=== PATIENT | female | born 1955 ===

== ENCOUNTER 2020-04-15 07:24 | Outpatient (REF) | payer OTHER, SELFPAY | END 2020-04-15 07:25 | disposition home or self-care (01) | LOC: HO.MDS 07:24 | PROVIDERS: PCP Emergency Medicine; Visit Provider Internal Medicine | DX: D50.9 Iron deficiency anemia, unspecified (principal) | CPT/HCPCS: 96365; 96366; J1200; J1750; Q0163 ==

== ENCOUNTER → 2020-05-14 09:47 | Outpatient (BNV) | payer OTHER, SELFPAY | PROVIDERS: PCP Emergency Medicine; Visit Provider Internal Medicine | DX: D50.9 Iron deficiency anemia, unspecified (principal) | CPT/HCPCS: 99213; 99214; G2211 ==

== ENCOUNTER → 2020-05-22 09:09 | Outpatient (REF) | payer OTHER, SELFPAY ==
--- NOTE | 2020-05-22 | NM_ITS ---
Myocardial perfusion study Indication: Chest pain to evaluate for myocardial ischemia Technique: The patient was brought in for a Lexiscan perfusion study on 05/22/2020. Patient performed low-level exercise and was injected 0.4 mg of Lexiscan intravenously. Within a minute of injection, 25 mCi of sestamibi was given intravenously. Images were obtained using the SPECT gamma camera interlaced with the gating device. Images were obtained in supine position. Resting perfusion study was performed on 05/23/2020. Patient was administered 25 mCi of sestamibi intravenously at rest. Images were then obtained in supine position. Images obtained with and without CT attenuation. Total DLP 73 mgy-cm. Images were processed with the software and compared side to side in short axis, horizontal long axis and vertical long axis views. Findings: The stress perfusion study showed non attenuated images show minimal thinning of lateral wall. Otherwise overall normal uptake of radiotracer in all segments. Attenuated corrected images normal uptake of radiotracer in all segments of LV myocardium. The gated study shows normal LV systolic function with calculated LVEF of greater than 70 %. LV cavity is normal in size. The gated study shows normal systolic wall thickening and contraction of segments. Resting study shows attenuated corrected images show mildly reduced uptake in the apex of the LV myocardium.. Gating at rest reveals normal systolic wall motion with ejection fraction at greater than 70 %. The findings are consistent with normal myocardial perfusion. NM/NM vania perf SPECT rest & str Impression: 1. Myocardial perfusion imaging study shows normal myocardial perfusion 2. Gated LVEF is greater than 70% 3. Transient ischemic dilatation not present EKG is nondiagnostic for ischemia
--- NOTE | 2020-05-22 09:30 | CA_ITS ---
Acquisition Time: 2020-05-22 10:37:49 Total Exercise Time: 00:02:00 Test Indications: Dyspnea Medications: ASA CLONAZAPAM VENTOLIN LEVOTHYROXINE LOSARTAN MELOXICAM PANTOPRAZOLE CRESTOR CARTIA METFORMIN Protocol: LEXISCAN Max HR: 139 BPM 89% of Pred: 156 BPM Max BP: 124/080 mmHG Max Work Load: 1.6 METS Pharmacological stress test with Lexiscan injection while walking on treadmill with report of sob, no chest discomfort, without arrythmia, with normotensive response to injection, with nondiagnostic EKG for ischemia. In recovery she was treated with Aminophyliine 75mg IVP to reverse Lexiscan with improvement in breathing. Nuclear images pending. Test reviewed with Dr Shafer. Referred By: Oliver Hoffman Overread By: KENISHA ALVAREZ
== END ==
LOC: HO.CARD 09:09
PROVIDERS: Visit Provider Internal Medicine Cardiovascular Disease
DX: R07.9 Chest pain, unspecified (principal)
CPT/HCPCS: 78452; 93017; A9500; J0280; J2785

== ENCOUNTER 2020-07-14 10:38 | Outpatient (REF) | payer OTHER, SELFPAY | END 2020-07-14 10:39 | disposition home or self-care (01) | LOC: HO.LAB 10:38 | PROVIDERS: Visit Provider Internal Medicine | DX: Z20.822 Contact with and (suspected) exposure to COVID-19 (principal) | CPT/HCPCS: 36415; C9803; U0003 ==

== ENCOUNTER 2020-08-08 10:27 | Outpatient (REF) | payer OTHER, SELFPAY ==
--- NOTE | 2020-08-08 10:33 | MM_ITS ---
EXAMINATION: MM SCREENING DIGITAL BREAST TOMOSYNTHESIS, BILATERAL CLINICAL INFORMATION: Screening. Asymptomatic. The lifetime risk of breast cancer based on the Tyrer-Cuzick Model is 4.5%. COMPARISON: Mammography: August 03, 2019 and studies dating back to May 04, 2012 TECHNIQUE: Digital breast tomosynthesis is performed in both the craniocaudal and mediolateral oblique views along with computer-aided detection (CAD). Synthesized 2D images are generated from the tomosynthesis. FINDINGS: The breasts are heterogeneously dense, which may obscure small masses (ACR BI-RADS breast composition Category c). There are no significant masses, abnormal calcifications, or other abnormalities. MM/MM tomosynthesis screening BI IMPRESSION: There are no significant changes from prior study. ASSESSMENT: BI-RADS 1: Negative RECOMMENDATION: Routine annual mammography screening. This patient's information was entered into a reminder system with a target due date for their next mammogram.
== END 2020-08-08 10:28 | disposition home or self-care (01) ==
LOC: HO.MAMMO 10:27
PROVIDERS: PCP Nurse Practitioner; Visit Provider Nurse Practitioner
DX: Z12.31 Encounter for screening mammogram for malignant neoplasm of breast (principal)
CPT/HCPCS: 77063; 77067

== ENCOUNTER 2020-09-17 12:35 | Outpatient (REF) | payer OTHER, SELFPAY ==
--- NOTE | ~2020-09-17 | XR_ITS ---
EXAMINATION: XR LUMBOSACRAL SPINE WITH OBLIQUES CLINICAL INFORMATION: Chronic low back pain. COMPARISON: None. TECHNIQUE: AP, both oblique, and lateral views of the lumbar spine. Lateral view of the lumbosacral junction. FINDINGS: There is normal lumbar lordosis. The vertebral heights, alignment and disc heights are normal. There is no visible acute fracture, dislocation or subluxation. There is no pars defect or listhesis. There is mild bilateral facet joint hypertrophy L4-L5 and L5-S1 disc levels. There is minimal levoscoliosis. The paravertebral soft tissues are normal. XR/XR lumbar spine 4V min IMPRESSION: Mild degenerative changes L4-L5 and L5-S1 disc levels. No visible acute fracture or dislocation seen.
== END 2020-09-17 12:36 | disposition home or self-care (01) ==
LOC: HO.XRAY 12:35
PROVIDERS: PCP Nurse Practitioner; Visit Provider Nurse Practitioner
DX: M54.42 Lumbago with sciatica, left side (principal)
CPT/HCPCS: 72110

== ENCOUNTER 2021-01-14 13:09 | Outpatient (REF) | payer OTHER, SELFPAY ==
--- NOTE | ~2021-01-14 | XR_ITS ---
EXAMINATION: XR CHEST CLINICAL INFORMATION: Cough COMPARISON: Previous chest x-ray December 2014 TECHNIQUE: 2 views of the chest were obtained. FINDINGS: The cardiac and mediastinal contours are normal. The lungs are clear. There is no pleural effusion or pneumothorax. There is mild degenerative change of the thoracic spine and curvature to the right. XR/XR chest 2V IMPRESSION: No evidence for acute disease in the chest.
== END 2021-01-14 13:10 | disposition home or self-care (01) ==
LOC: HO.XRAY 13:09
PROVIDERS: PCP Nurse Practitioner; Visit Provider Nurse Practitioner
DX: R05 Cough (principal)
CPT/HCPCS: 71046

== ENCOUNTER 2021-02-10 09:06 | Outpatient (REF) | payer OTHER, SELFPAY ==
--- NOTE | ~2021-02-10 | US_ITS ---
EXAMINATION: US ABDOMEN COMPLETE CLINICAL INFORMATION: Abdominal pain. Weight loss. COMPARISON: Ultrasound abdomen complete dated 11/29/2018. CT abdomen and pelvis with contrast dated 05/28/2016. TECHNIQUE: Real-time imaging of the abdominal viscera. FINDINGS: PANCREAS: Normal in size and echogenicity and contour. No pancreatic ductal distention. No retroperitoneal effusion. ABDOMINAL AORTA: The proximal, mid, and distal segments are normal in caliber. INFERIOR VENA CAVA: Visualized portions are normal. LIVER: The liver is normal in size and smooth in contour. There is borderline increased hepatic parenchymal echogenicity which may suggest mild underlying hepatic steatosis. There is no focal hepatic parenchymal lesion or intrahepatic ductal dilatation. Doppler shows portal flow towards the liver. GALLBLADDER: Normal. The gallbladder is physiologically distended without evidence of stones, sludge, polyps, wall thickening or pericholecystic fluid. COMMON BILE DUCT: Common duct measures up to 0.8 cm which is similar to prior exams. There is no extrinsic compression or intraluminal sludge or choledocholithiasis. RIGHT KIDNEY: Normal. No hydronephrosis. No renal calculi or focal parenchymal lesions. The kidney measures 10.8 cm in maximum dimension. LEFT KIDNEY: Normal. No hydronephrosis. No renal calculi or focal parenchymal lesions. The kidney measures 10.3 cm in maximum dimension. SPLEEN: Normal. The spleen measures 8.8 cm in maximum dimension. FREE FLUID: None. US/US abdomen complete IMPRESSION: 1. Liver normal size and homogeneous. Normal pancreas. 2. No cholelithiasis or intrahepatic ductal dilatation. Borderline prominent common duct, chronic/stable.
== END 2021-02-10 09:07 | disposition home or self-care (01) ==
LOC: HO.US 09:06
PROVIDERS: PCP Nurse Practitioner; Visit Provider Internal Medicine
DX: R10.84 Generalized abdominal pain (principal); D50.9 Iron deficiency anemia, unspecified; R63.4 Abnormal weight loss
CPT/HCPCS: 76700

== ENCOUNTER 2021-02-25 08:14 | Day surgery (SDC) | payer OTHER, SELFPAY ==
--- NOTE | 2021-02-24 08:14 | HO.ANESPROP2 ---
Documented by User: Dagmar Hackett NP 02/24/21 08:15 HPI - Anesthesia Eval Consult details Narrative: 66yo F for Upper Endoscopy and Colonoscopy PMFSH Active Problems Active Problems: All Active Problems (Updated 02/18/21 @ 15:56 by Katia Sutherland) Iron deficiency anemia (Chronic) Past Medical History Medical History Anemia Anxiety Asthma Depression Diabetes mellitus Gastritis Helicobacter positive gastritis Hypertension Hypothyroidism Iron deficiency anemia Surgical History Surgical History History of esophagogastroduodenoscopy (EGD) Hx of colonoscopy Hx of hysterectomy Social History Social History Alcohol intake: former Patient Tobacco Use Status: Never used Tobacco Use of substances other than those prescribed or required for medical reasons: No Are you DNR?: No Advance Directives: No Advance Directives Information Provided: Yes Meds Allergies Allergy/AdvReac Type Severity Reaction Status Date / Time lisinopril [Lisinopril] Allergy Unknown UNKNOWN Verified 02/25/21 09:02 Home Medications Medication Instructions Recorded Confirmed Last Taken Type ascorbic acid (vitamin C) 500 mg 500 mg PO DAILY 05/14/20 02/18/21 Unknown History tablet aspirin 81 mg tablet,delayed 81 mg PO DAILY 05/14/20 02/18/21 Unknown History release bupropion HCl 150 mg 24 hr tablet, 1 tab PO QAM 05/14/20 02/18/21 Unknown History extended release ciclopirox 8 % topical solution TOPICAL BEDTIME 05/14/20 Unknown History clonazepam 0.5 mg tablet 1 tab PO TID PRN 05/14/20 02/18/21 Unknown History diltiazem HCl 120 mg 1 cap PO DAILY 05/14/20 02/18/21 Unknown History capsule,extended release 24 hr ferrous sulfate 325 mg (65 mg 1 tab PO DAILY 05/14/20 02/18/21 Unknown History iron) tablet levothyroxine 75 mcg tablet 75 mcg PO DAILY 05/14/20 02/18/21 Unknown History losartan 50 mg tablet 1 tab PO DAILY 05/14/20 02/18/21 Unknown History metformin 500 mg tablet 2 tab PO DAILY 05/14/20 11/10/20 Unknown History mirtazapine 30 mg tablet 1 tab PO BEDTIME 05/14/20 02/18/21 Unknown History pantoprazole 20 mg tablet,delayed 1 tab PO DAILY 05/14/20 02/18/21 Unknown History release rosuvastatin 20 mg tablet 1 tab PO DAILY 05/14/20 02/18/21 Unknown History albuterol sulfate 90 mcg/actuation 1 inh INHALATION QID PRN 02/18/21 02/18/21 Unknown History aerosol inhaler (ProAir HFA) cholecalciferol (vitamin D3) 25 1 cap PO DAILY 02/18/21 02/18/21 Unknown History mcg (1,000 unit) capsule docusate sodium 100 mg capsule 1 cap PO DAILY 02/18/21 02/18/21 Unknown History (DOK) lidocaine 5 % topical ointment 1 appl TOPICAL QD-QID PRN 02/18/21 02/18/21 Unknown History topiramate 100 mg tablet 1 tab PO BEDTIME 02/18/21 02/18/21 Unknown History Exam Exam Date and Time: February 24, 202114 Pertinent Lab Results Pertinent Lab Results: Laboratory Tests 11/10/20 09:56 WBC 5.1 Hgb 12.1 Hct 38.3 Plt Count 237 Narrative Narrative: Stress MIBI 05/2020 NM vania perf SPECT rest & str Impression: ? 1.? Myocardial perfusion imaging study shows normal myocardial perfusion 2.? Gated LVEF is greater than 70% 3. Transient ischemic dilatation not present ? EKG is nondiagnostic for ischemia Assessment and Plan Assessment Anesthesia Assessment: Chart Reviewed Documented by User: Kasey Davies MD 02/25/21 10:00 [facility] Past Medical History Medical History Anemia Anxiety Asthma Depression Diabetes mellitus Gastritis Helicobacter positive gastritis Hypertension Hypothyroidism Iron deficiency anemia Surgical History Surgical History History of esophagogastroduodenoscopy (EGD) Hx of colonoscopy Hx of hysterectomy History of Problems with Anesthesia: No Social History Social History Alcohol intake: former Patient Tobacco Use Status: Never used Tobacco Use of substances other than those prescribed or required for medical reasons: No Are you DNR?: No Advance Directives: No Advance Directives Information Provided: Yes Meds Allergies Allergy/AdvReac Type Severity Reaction Status Date / Time lisinopril [Lisinopril] Allergy Unknown UNKNOWN Verified 02/25/21 09:02 Home Medications Medication Instructions Recorded Confirmed Last Taken Type ascorbic acid (vitamin C) 500 mg 500 mg PO DAILY 05/14/20 02/18/21 Unknown History tablet aspirin 81 mg tablet,delayed 81 mg PO DAILY 05/14/20 02/18/21 Unknown History release bupropion HCl 150 mg 24 hr tablet, 1 tab PO QAM 05/14/20 02/18/21 Unknown History extended release ciclopirox 8 % topical solution TOPICAL BEDTIME 05/14/20 Unknown History clonazepam 0.5 mg tablet 1 tab PO TID PRN 05/14/20 02/18/21 Unknown History diltiazem HCl 120 mg 1 cap PO DAILY 05/14/20 02/18/21 Unknown History capsule,extended release 24 hr ferrous sulfate 325 mg (65 mg 1 tab PO DAILY 05/14/20 02/18/21 Unknown History iron) tablet levothyroxine 75 mcg tablet 75 mcg PO DAILY 05/14/20 02/18/21 Unknown History losartan 50 mg tablet 1 tab PO DAILY 05/14/20 02/18/21 Unknown History metformin 500 mg tablet 2 tab PO DAILY 05/14/20 11/10/20 Unknown History mirtazapine 30 mg tablet 1 tab PO BEDTIME 05/14/20 02/18/21 Unknown History pantoprazole 20 mg tablet,delayed 1 tab PO DAILY 05/14/20 02/18/21 Unknown History release rosuvastatin 20 mg tablet 1 tab PO DAILY 05/14/20 02/18/21 Unknown History albuterol sulfate 90 mcg/actuation 1 inh INHALATION QID PRN 02/18/21 02/18/21 Unknown History aerosol inhaler (ProAir HFA) cholecalciferol (vitamin D3) 25 1 cap PO DAILY 02/18/21 02/18/21 Unknown History mcg (1,000 unit) capsule docusate sodium 100 mg capsule 1 cap PO DAILY 02/18/21 02/18/21 Unknown History (DOK) lidocaine 5 % topical ointment 1 appl TOPICAL QD-QID PRN 02/18/21 02/18/21 Unknown History topiramate 100 mg tablet 1 tab PO BEDTIME 02/18/21 02/18/21 Unknown History Exam Airway Mallampati Class: II TM Dist: >3cm Neck ROM: Full Loose/Missing/Broken Teeth: No Heart: RRR Lungs: CTA Assessment and Plan Assessment Anesthesia Assessment: Anesthesia Plan Discussed Final Anesthetic Review History of Problems with Anesthesia: No NPO: Yes ASA Class: II Final Preanesthetic Review: Meds/Allgs Chart Reviewed, Consent Obtained/Reviewed and Anes Risks/Benef Reviewed Patient Risk: Low Procedure Risk: Intermediate Anesthetic Plan Anesthetic Plan: MAC: Disposition: Standard PACU
[2021-02-25 08:50] LABS: Glucose, Whole Blood 91 mg/dL (60-115)
[2021-02-25 09:03] VITALS: BP 127/77; PULSE 85; RESP 16; TEMP 36; O2SAT 100; BMI 23.9
[2021-02-25] MEDS: Lactated Ringers 1,000 ML 100 ML IVCONT (09:11)
[2021-02-25 11:14] VITALS: BP 107/60; PULSE 70; RESP 14; TEMP 36; O2SAT 98
--- NOTE | 2021-02-25 11:18 | P.BOP_ITS ---
Brief Operative Note Date of Service: 02/25/21 Pre-op diagnosis: Anemia, GERD Post-op diagnosis: other (Hiatal hernia, GERD, Colon polyp) Procedure: EGD with biopsies, Colonoscopy to the cecum with bx/removal of polyp Surgeon: Barry Pugh Anesthesia: MAC Was an Exhaust Machine Operator used for this Procedure?: No Estimated blood loss (mL): 3.0 Pathology: other (A. Descending duodenum B. Gastric antrum C. EG Junction at 35cm D. Ascending colon polyp) Condition: stable Disposition: PACU
[2021-02-25 11:19] VITALS: BP 119/68; PULSE 75; RESP 16; O2SAT 100
--- NOTE | 2021-02-25 11:41 | OP_ITS ---
SURGEON: Barry Pugh MD INDICATIONS: The patient presents for evaluation of gastroesophageal reflux, abdominal discomfort, iron deficiency anemia. Full consent has been obtained from her for both procedures, including risks of bleeding and perforation. PREOPERATIVE DIAGNOSIS: POSTOPERATIVE DIAGNOSIS: PROCEDURE PERFORMED: Esophagogastroduodenoscopy with biopsies, and colonoscopy to cecum with biopsy and removal of polyp. ESTIMATED BLOOD LOSS: COMPLICATIONS: ANESTHESIA: Monitored anesthesia care. ASSISTANTS: SPECIMENS: PREOPERATIVE DIAGNOSES: Gastroesophageal reflux, abdominal discomfort, iron-deficiency anemia. POSTOPERATIVE DIAGNOSES: Gastroesophageal reflux, abdominal discomfort, iron-deficiency anemia, hiatal hernia, rule out celiac disease, rule out Helicobacter pylori, colon polyp, diverticulosis, internal hemorrhoids, and limited colon prep. DESCRIPTION OF PROCEDURE: The patient was placed in the left lateral decubitus position. The Olympus video gastroscope was passed in the posterior oropharynx and upper esophagus under direct vision. The scope was passed slowly into the distal esophagus. The gastroesophageal junction appeared at 35 cm. There was some slight irregularity, but no evidence of esophagitis. The scope entered into the stomach. There was a small hiatal hernia. The scope was advanced to pylorus and duodenum was cannulated to the descending portion. The duodenum including the bulb appeared normal without mass or ulceration. Biopsies were obtained from the descending duodenum. The scope was withdrawn back into the stomach. The gastric antrum and body appeared normal with good peristalsis. The scope was retroflexed visualizing the proximal stomach carefully which appeared normal, without any sign of mass or ulceration. The scope was straightened. Biopsies were obtained from the gastric antrum. Scope was withdrawn back into the esophagus. Biopsies were obtained at the EG junction at 35 cm. Proximal to this, the esophageal mucosa appeared normal. The scope was withdrawn from the patient. She was turned around for colonoscopy. The digital rectal exam revealed no abnormalities. The Olympus video pediatric colonoscope was entered into the rectum and advanced to the cecum with the assistance of abdominal wall pressure. Once in the cecum, I did identify normal-appearing cecal pouch with appendiceal orifice and a normal-appearing ileocecal valve. There was transillumination of light deep in the right lower quadrant. The entire cecum and ileocecal valve appeared normal. The scope was slowly withdrawn assessing all mucosal surfaces carefully. Preparation in the ascending colon was very good, but preparation more distally was somewhat limited by a fair amount of liquid and some small amount of solid stool. In the proximal ascending colon, was a flat approximately 5 mm polyp, which was biopsied and completely removed with cold biopsy forceps. I did not visualize any other polyps, colitis, nor angiodysplasias, although visualization was limited due to the prep. There was a moderate amount of sigmoid diverticulosis. In the rectum, scope was retroflexed visualizing internal hemorrhoids, but no other pathology. The rectal mucosa appeared normal. The scope was straightened out and withdrawn from the patient. She tolerated both procedures well and was returned to the recovery area in stable condition. IMPRESSION: 1. Hiatal hernia, gastroesophageal reflux. 2. Rule out celiac disease. 3. Rule out Helicobacter pylori. 4. Colon polyp. 5. Diverticulosis. 6. Internal hemorrhoids. 7. Limited colon prep. PLAN: The results of the biopsy will be checked. She will continue her pantoprazole for relief of her reflux. She was advised that she could resume her iron. She was advised not to use any aspirin and NSAIDs for 1 week. When I see her in followup, we will decide about repeating her colonoscopy with a better clean out. MD IRENE Araiza/DAMON / [id number]
== END 2021-02-25 11:53 | disposition home or self-care (01) ==
PROVIDERS: PCP Internal Medicine; Visit Provider Internal Medicine
PROC: (CPT 45380; principal; 2021-02-25 09:30)
DX: D50.9 Iron deficiency anemia, unspecified (principal); D12.2 Benign neoplasm of ascending colon; K57.30 Diverticulosis of large intestine without perforation or abscess without bleeding; K64.8 Other hemorrhoids; K58.0 Irritable bowel syndrome with diarrhea; R63.4 Abnormal weight loss; K21.9 Gastro-esophageal reflux disease without esophagitis; K22.70 Barrett's esophagus without dysplasia; K44.9 Diaphragmatic hernia without obstruction or gangrene; I10 Essential (primary) hypertension; E11.9 Type 2 diabetes mellitus without complications; J45.909 Unspecified asthma, uncomplicated; Z79.84 Long term (current) use of oral hypoglycemic drugs; Z79.82 Long term (current) use of aspirin; Z79.899 Other long term (current) drug therapy
CPT/HCPCS: 45380; 43239; 82947; 88305; 88342

== ENCOUNTER 2021-06-30 09:11 | Outpatient (REF) | payer OTHER, SELFPAY ==
--- NOTE | ~2021-06-30 | MM_ITS ---
EXAMINATION: BONE DENSITOMETRY CLINICAL INDICATION: Osteoporosis. COMPARISON: This is the patient's baseline examination. TECHNIQUE: Using a [employer] DXA System (software version: 13.1) manufactured by [employer], dual-energy x-ray absorptiometry was performed of the lumbar spine and left hip. The images are of good technical quality. Summary results are attached. FINDINGS: AP SPINE L1-L4: BMD 1.136 g/cm2, Z-score 1.3, T-score -0.4, normal. LEFT FEMUR, NECK: BMD 0.964 g/cm2, Z-score 1.0, T-score -0.5, normal. LEFT FEMUR, TOTAL: BMD 1.027 g/cm2, Z-score 1.4, T-score 0.2, normal. IDENTIFIED RISK FACTORS: Early menopause, hysterectomy, left oophorectomy, secondary osteoporosis. HISTORY OF FRACTURE: None listed. MEDICATIONS: Calcium, vitamin D. MM/XR DEXA axial skeleton IMPRESSION: 1. DIAGNOSIS: Normal bone density based on the lowest T-score value of -0.5 in the femoral neck applying World Health Organization criteria. 2. 10-YEAR FRACTURE RISK PREDICTION, FRAX: Major osteoporotic fracture (clinical spine, forearm, hip or shoulder) 4.1%. Hip fracture 0.2%. 3. Treatment Recommendations: NOF guidelines recommend consideration for treatment in postmenopausal women and men age 50 and older presenting with the following: -A hip or vertebral (clinical or morphometric) fracture. -T-score less than or equal to -2.5 at the femoral neck or spine after appropriate evaluation to exclude secondary causes. -Low bone mass at the hip or spine and a 10-year fracture probability by FRAX of greater than or equal to 3% for hip fracture or greater than or equal to 20% for major osteoporotic fracture based on the [place] adapted WHO algorithm. 4. Other Recommendations: All treatment decisions require clinical judgment and consideration of individual patient factors, including patient preferences, comorbidities, previous drug use, risk factors not captured in the FRAX model (e.g. frailty, falls, vitamin D deficiency, increased bone turnover, interval significant decline in bone density) and possible under or overestimation of fracture risk by FRAX. FUTURE SCAN RECOMMENDATION: People with diagnosed cases of osteoporosis or at high risk for fracture should have regular bone mineral density tests. For patients eligible for Medicare, routine testing is allowed once every 2 years. The testing frequency can be increased to one year for patients who have rapidly progressing disease, those who are receiving or discontinuing medical therapy to restore bone mass, or have additional risk factors.
== END 2021-06-30 09:12 | disposition home or self-care (01) ==
LOC: HO.MAMMO 09:11
PROVIDERS: Visit Provider Nurse Practitioner
DX: Z13.820 Encounter for screening for osteoporosis (principal); M85.80 Other specified disorders of bone density and structure, unspecified site; Z78.0 Asymptomatic menopausal state; Z90.721 Acquired absence of ovaries, unilateral; Z79.899 Other long term (current) drug therapy
CPT/HCPCS: 77080

== ENCOUNTER 2021-07-07 12:01 | Outpatient (REF) | payer OTHER, SELFPAY ==
[2021-07-07 13:25] LABS: COVID-19 Test Negative (Negative); IDNOW Serial# 16C4AD1C
== END 2021-07-07 12:02 | disposition home or self-care (01) ==
LOC: HO.LAB 12:01
PROVIDERS: Visit Provider Internal Medicine
DX: Z20.822 Contact with and (suspected) exposure to COVID-19 (principal)
CPT/HCPCS: 36415; 87635; C9803

== ENCOUNTER 2021-08-13 08:50 | Outpatient (REF) | payer OTHER, SELFPAY ==
--- NOTE | ~2021-08-13 | MM_ITS ---
EXAMINATION: MM SCREENING DIGITAL BREAST TOMOSYNTHESIS, BILATERAL CLINICAL INFORMATION: Screening. Asymptomatic. The lifetime risk of breast cancer based on the Tyrer-Cuzick Model is 3.3%. COMPARISON: Mammography: August 08, 2020 and studies dating back to May 29, 2014 TECHNIQUE: Digital breast tomosynthesis is performed in both the craniocaudal and mediolateral oblique views along with computer-aided detection (CAD). Synthesized 2D images are generated from the tomosynthesis. FINDINGS: The breasts are heterogeneously dense, which may obscure small masses (ACR BI-RADS breast composition Category c). There are no significant masses, abnormal calcifications, or other abnormalities. MM/MM tomosynthesis screening BI IMPRESSION: There are no significant changes from prior study. ASSESSMENT: BI-RADS 1: Negative RECOMMENDATION: Routine annual mammography screening. This patient's information was entered into a reminder system with a target due date for their next mammogram.
== END 2021-08-13 08:51 | disposition home or self-care (01) ==
LOC: HO.MAMMO 08:50
PROVIDERS: PCP Nurse Practitioner; Visit Provider Internal Medicine
DX: Z12.31 Encounter for screening mammogram for malignant neoplasm of breast (principal)
CPT/HCPCS: 77063; 77067

== ENCOUNTER 2021-10-16 08:55 | Day surgery (SDC) | payer OTHER, SELFPAY ==
[2021-10-12 15:28] VITALS: BMI 23.9
--- NOTE | 2021-10-15 11:52 | P.CONAN_ITS ---
Documented by User: Dagmar Hackett NP 10/15/21 11:55 HPI - Anesthesia Eval Consult details Narrative: 66yo F for Colonoscopy s/p Upper and [place] 02/2021 with TIVA PMFSH Active Problems Active Problems: All Active Problems (Updated 05/13/21 @ 09:49 by Caren Ventura MD) Iron deficiency anemia (Chronic) Past Medical History Medical History Anemia Anxiety Asthma Depression Diabetes mellitus Gastritis Helicobacter positive gastritis Hypertension Hypothyroidism Iron deficiency anemia Surgical History Surgical History (Updated 10/12/21 @ 15:27 by Katia Sutherland, RN) History of esophagogastroduodenoscopy (EGD) Hx of colonoscopy Hx of hysterectomy History of Problems with Anesthesia: No Social History Social History Alcohol intake: former Patient Tobacco Use Status: Never used Tobacco Use of substances other than those prescribed or required for medical reasons: No Are you DNR?: No Advance Directives: No Advance Directives Information Provided: Yes Meds Allergies Allergy/AdvReac Type Severity Reaction Status Date / Time lisinopril [Lisinopril] Allergy Unknown UNKNOWN Verified 07/13/21 10:39 Home Medications Medication Instructions Recorded Confirmed Last Taken Type ascorbic acid (vitamin C) 500 mg 500 mg PO DAILY 05/14/20 10/12/21 Unknown History tablet aspirin 81 mg tablet,delayed 81 mg PO DAILY 05/14/20 10/12/21 Unknown History release bupropion HCl 150 mg 24 hr tablet, 1 tab PO QAM 05/14/20 10/12/21 Unknown History extended release clonazepam 0.5 mg tablet 1 tab PO TID PRN 05/14/20 10/12/21 Unknown History diltiazem HCl 120 mg 1 cap PO DAILY 05/14/20 10/12/21 Unknown History capsule,extended release 24 hr ferrous sulfate 325 mg (65 mg 1 tab PO DAILY 05/14/20 10/12/21 Unknown History iron) tablet levothyroxine 75 mcg tablet 75 mcg PO DAILY 05/14/20 10/12/21 Unknown History losartan 50 mg tablet 1 tab PO DAILY 05/14/20 10/12/21 Unknown History metformin 500 mg tablet 2 tab PO BID 05/14/20 10/12/21 Unknown History mirtazapine 30 mg tablet 1 tab PO BEDTIME 05/14/20 10/12/21 Unknown History pantoprazole 20 mg tablet,delayed 1 tab PO DAILY 05/14/20 10/12/21 Unknown History release rosuvastatin 20 mg tablet 1 tab PO DAILY 05/14/20 10/12/21 Unknown History albuterol sulfate 90 mcg/actuation 1 inh INHALATION QID PRN 02/18/21 10/12/21 Unknown History aerosol inhaler (ProAir HFA) cholecalciferol (vitamin D3) 25 1 cap PO DAILY 02/18/21 10/12/21 Unknown History mcg (1,000 unit) capsule docusate sodium 100 mg capsule 1 cap PO DAILY 02/18/21 10/12/21 Unknown History (DOK) topiramate 100 mg tablet 1 tab PO BEDTIME 02/18/21 10/12/21 Unknown History tizanidine 4 mg tablet 4 mg PO BEDTIME PRN 07/13/21 10/12/21 Unknown History Exam Exam Date and Time: October 15, 2021 1152 Height,Weight and Vital Signs: Height 5 ft 3 in Weight 61.235 kg Narrative Narrative: Stress MIBI 05/2020 NM vania perf SPECT rest & str Impression: ? 1.? Myocardial perfusion imaging study shows normal myocardial perfusion 2.? Gated LVEF is greater than 70% 3. Transient ischemic dilatation not present ? EKG is nondiagnostic for ischemia Assessment and Plan Assessment Anesthesia Assessment: Chart Reviewed Final Anesthetic Review History of Problems with Anesthesia: No Documented by User: Hayder Cordon MD 10/21/21 00:01 [facility] Past Medical History Medical History Anemia Anxiety Asthma Depression Diabetes mellitus Gastritis Helicobacter positive gastritis Hypertension Hypothyroidism Iron deficiency anemia Family History Family history of problems with anesthesia: No Surgical History Surgical History (Updated 10/12/21 @ 15:27 by Katia Sutherland RN) History of esophagogastroduodenoscopy (EGD) Hx of colonoscopy Hx of hysterectomy Social History Social History Alcohol intake: former Patient Tobacco Use Status: Never used Tobacco Use of substances other than those prescribed or required for medical reasons: No Are you DNR?: No Advance Directives: No Advance Directives Information Provided: Yes Meds Allergies Allergy/AdvReac Type Severity Reaction Status Date / Time lisinopril [Lisinopril] Allergy Unknown UNKNOWN Verified 07/13/21 10:39 Home Medications Medication Instructions Recorded Confirmed Last Taken Type ascorbic acid (vitamin C) 500 mg 500 mg PO DAILY 05/14/20 10/12/21 Unknown History tablet aspirin 81 mg tablet,delayed 81 mg PO DAILY 05/14/20 10/12/21 Unknown History release bupropion HCl 150 mg 24 hr tablet, 1 tab PO QAM 05/14/20 10/12/21 Unknown History extended release clonazepam 0.5 mg tablet 1 tab PO TID PRN 05/14/20 10/12/21 Unknown History diltiazem HCl 120 mg 1 cap PO DAILY 05/14/20 10/12/21 Unknown History capsule,extended release 24 hr ferrous sulfate 325 mg (65 mg 1 tab PO DAILY 05/14/20 10/12/21 Unknown History iron) tablet levothyroxine 75 mcg tablet 75 mcg PO DAILY 05/14/20 10/12/21 Unknown History losartan 50 mg tablet 1 tab PO DAILY 05/14/20 10/12/21 Unknown History metformin 500 mg tablet 2 tab PO BID 05/14/20 10/12/21 Unknown History mirtazapine 30 mg tablet 1 tab PO BEDTIME 05/14/20 10/12/21 Unknown History pantoprazole 20 mg tablet,delayed 1 tab PO DAILY 05/14/20 10/12/21 Unknown History release rosuvastatin 20 mg tablet 1 tab PO DAILY 05/14/20 10/12/21 Unknown History albuterol sulfate 90 mcg/actuation 1 inh INHALATION QID PRN 02/18/21 10/12/21 Unknown History aerosol inhaler (ProAir HFA) cholecalciferol (vitamin D3) 25 1 cap PO DAILY 02/18/21 10/12/21 Unknown History mcg (1,000 unit) capsule docusate sodium 100 mg capsule 1 cap PO DAILY 02/18/21 10/12/21 Unknown History (DOK) topiramate 100 mg tablet 1 tab PO BEDTIME 02/18/21 10/12/21 Unknown History tizanidine 4 mg tablet 4 mg PO BEDTIME PRN 07/13/21 10/12/21 Unknown History Exam Airway Mallampati Class: III TM Dist: >3cm Neck ROM: Full Loose/Missing/Broken Teeth: Yes Heart: s1 s2 Lungs: b/l breath sounds Assessment and Plan Assessment Anesthesia Assessment: Anesthesia Plan Discussed Final Anesthetic Review Family History of Problems with Anesthesia: No NPO: Yes ASA Class: II Final Preanesthetic Review: Meds/Allgs Chart Reviewed, Consent Obtained/Reviewed and Anes Risks/Benef Reviewed Patient Risk: Intermediate Procedure Risk: Intermediate Anesthetic Plan Anesthetic Plan: MAC: Disposition: Standard PACU
[2021-10-16 10:18] VITALS: BP 131/71; PULSE 66; RESP 16; TEMP 36.3; O2SAT 98
[2021-10-16 10:19] LABS: Glucose, Whole Blood 100 mg/dL (60-115)
[2021-10-16] MEDS: Lactated Ringers 1,000 ML 100 ML IVCONT (10:39)
[2021-10-16 11:30] VITALS: BP 90/50; PULSE 64; RESP 16; TEMP 36.6; O2SAT 99
--- NOTE | 2021-10-16 11:32 | PM.OP ---
Brief Operative Note Date of Service: 10/16/21 Pre-op diagnosis: Screening Post-op diagnosis: other (Diverticulosis) Procedure: Colonoscopy to the cecum and TI Surgeon: Barry Pugh Anesthesia: MAC Was an Journal Box Inspector used for this Procedure?: No Estimated blood loss (mL): 0 Pathology: none sent Condition: stable Disposition: PACU
[2021-10-16 11:45] VITALS: BP 120/64; PULSE 74; RESP 18; TEMP 36.7; O2SAT 100
--- NOTE | 2021-10-16 14:47 | OP_ITS ---
SURGEON: Barry Pugh MD INDICATIONS: The patient presents for evaluation of a personal history of a tubular adenoma of the colon and colorectal cancer screening. Full consent was obtained from her for this, including risks of bleeding and perforation. PREOPERATIVE DIAGNOSIS: Personal history of tubular adenoma of the colon and colorectal cancer screening. POSTOPERATIVE DIAGNOSIS: PROCEDURE PERFORMED: Colonoscopy to the cecum and terminal ileum. ESTIMATED BLOOD LOSS: COMPLICATIONS: ANESTHESIA: Monitored anesthesia care. ASSISTANTS: SPECIMENS: POSTOPERATIVE DIAGNOSES: Personal history of tubular adenoma of the colon and colorectal cancer screening, sigmoid diverticulosis, and internal hemorrhoids. DESCRIPTION OF PROCEDURE: The patient was placed in the left lateral decubitus position. The digital rectal exam revealed no abnormalities. The Olympus video pediatric colonoscope was entered into the rectum and advanced easily to the cecum. Once in the cecum I did identify normal-appearing cecal pouch with appendiceal orifice and a normal-appearing ileocecal valve. The terminal ileum was cannulated and appeared normal. The scope was withdrawn back from the colon. The entire cecum and ileocecal valve appeared normal. The scope was slowly withdrawn assessing all mucosal surfaces carefully. Preparation was excellent after the 2 day colon prep.. I did not visualize any sign of polyps, colitis, or angiodysplasia. There was a mild amount of sigmoid diverticulosis. In the rectum, scope was retroflexed visualizing small internal hemorrhoids, but no other pathology. The rectal mucosa appeared normal. The scope was straightened and withdrawn from the patient. She tolerated the procedure well and was returned to recovery area in stable condition. IMPRESSION: 1. Sigmoid diverticulosis. 2. Internal hemorrhoids. PLAN: Given the negative exam and her previous history of a tubular adenoma, I would recommend a followup colonoscopy in 5 years for further screening. She will be due for an upper endoscopy in 2022 in regard to the history of Navarro's esophagus. She will continue her regimen of dicyclomine and pantoprazole for the irritable bowel syndrome and reflux, respectively. She was advised to resume her aspirin and iron tomorrow. MD IRENE Araiza/DAMON / [id number] MTDD
== END 2021-10-16 12:21 | disposition home or self-care (01) ==
PROVIDERS: PCP Nurse Practitioner; Visit Provider Internal Medicine
PROC: 0DJD8ZZ Inspection of Lower Intestinal Tract, Via Natural or Artificial Opening Endoscopic (ICD-10-PCS; CPT 45378; principal; 2021-10-16 10:00)
DX: Z12.11 Encounter for screening for malignant neoplasm of colon (principal); Z86.010 Personal history of colon polyps; K57.30 Diverticulosis of large intestine without perforation or abscess without bleeding; K64.8 Other hemorrhoids; K58.1 Irritable bowel syndrome with constipation; K21.9 Gastro-esophageal reflux disease without esophagitis; K22.70 Barrett's esophagus without dysplasia; I10 Essential (primary) hypertension; E03.9 Hypothyroidism, unspecified; J45.909 Unspecified asthma, uncomplicated; D50.9 Iron deficiency anemia, unspecified; E11.9 Type 2 diabetes mellitus without complications; Z79.84 Long term (current) use of oral hypoglycemic drugs; Z79.82 Long term (current) use of aspirin; Z79.899 Other long term (current) drug therapy; Z88.8 Allergy status to other drugs, medicaments and biological substances
CPT/HCPCS: G0105; 82947

== ENCOUNTER 2022-05-12 15:43 | Outpatient (REF) | payer OTHER, SELFPAY ==
--- NOTE | 2022-05-12 10:00 | EMG_ITS ---
Please see scanned EMG / Nerve Conduction Report. MTDD
== END 2022-05-12 15:44 | disposition home or self-care (01) ==
LOC: HO.NEURO 15:43
PROVIDERS: Visit Provider Nurse Practitioner
DX: R20.2 Paresthesia of skin (principal)
CPT/HCPCS: 95885; 95910

== ENCOUNTER 2022-08-16 08:46 | Outpatient (REF) | payer OTHER, SELFPAY ==
--- NOTE | ~2022-08-16 | MM_ITS ---
EXAMINATION: MM SCREENING DIGITAL BREAST TOMOSYNTHESIS, BILATERAL CLINICAL INFORMATION: Screening. Asymptomatic. The lifetime risk of breast cancer based on the Tyrer-Cuzick Model is 5%. COMPARISON: Mammography: August 13, 2021 and studies dating back to June 19, 2015 TECHNIQUE: Digital breast tomosynthesis is performed in both the craniocaudal and mediolateral oblique views along with computer-aided detection (CAD). Synthesized 2D images are generated from the tomosynthesis. FINDINGS: The breasts are heterogeneously dense, which may obscure small masses (ACR BI-RADS breast composition Category c). There are no significant masses, abnormal calcifications, or other abnormalities. MM/MM tomosynthesis screening BI IMPRESSION: No significant changes from prior exam. ASSESSMENT: BI-RADS 1: Negative RECOMMENDATION: Routine annual mammography screening. This patient's information was entered into a reminder system with a target due date for their next mammogram.
== END 2022-08-16 08:47 | disposition home or self-care (01) ==
LOC: HO.MAMMO 08:46
PROVIDERS: PCP General Practice; Visit Provider General Practice
DX: Z12.31 Encounter for screening mammogram for malignant neoplasm of breast (principal)
CPT/HCPCS: 77063; 77067

== ENCOUNTER 2022-08-23 15:17 | Outpatient (REF) | payer OTHER, SELFPAY ==
--- NOTE | ~2022-08-23 | XR_ITS ---
EXAMINATION: XR HAND, RIGHT CLINICAL INFORMATION: Right hand pain, palmar surface COMPARISON: None TECHNIQUE: PA, lateral, and oblique views of the right hand. FINDINGS: Bone alignment is normal. No fracture or dislocation. Mild degenerative arthritis at the IP joint. Normal soft tissues. 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
== END 2022-08-23 15:18 | disposition home or self-care (01) ==
LOC: HO.XRAY 15:17
PROVIDERS: PCP General Practice; Visit Provider General Practice
DX: M79.641 Pain in right hand (principal)
CPT/HCPCS: 73130

== ENCOUNTER 2023-01-19 15:52 | Emergency (ER) | payer OTHER, SELFPAY ==
--- NOTE | ~2023-01-19 | CT_ITS ---
EXAMINATION: CT ABDOMEN AND PELVIS WITHOUT CONTRAST CLINICAL INFORMATION: Right upper quadrant pain. COMPARISON: Abdominal ultrasound 01/19/2023. CT abdomen/pelvis 05/28/2016. TECHNIQUE: Multidetector volumetric imaging was performed from the superior aspect of the liver through the pubic symphysis. Sagittal and coronal reformatted images were obtained on the technologist's workstation. This CT examination was performed using dose optimization techniques as appropriate, variously including the following: *Automated exposure control *Adjustment of mA and/or kV according to patient size (this includes techniques or standardized protocols for targeted exams where dose is matched to indication/reason for exam; i.e. extremities or head) *Use of iterative reconstruction technique DLP: 387 mGy-cm FINDINGS: The lack of intravenous contrast limits evaluation of the solid visceral organs including the liver, spleen, pancreas, and kidneys. LUNG BASES: The visualized lung bases are unremarkable. LIVER, GALLBLADDER, AND BILIARY TREE: The liver is normal in size, shape, and attenuation. A too small to characterize hypodensity in the right hepatic lobe axial image 13 series 2 is unchanged compared to 05/28/2016 which is reassuring. No biliary ductal dilatation is present. The gallbladder is unremarkable with no evidence of radiopaque gallstones, gallbladder wall thickening, or obvious pericholecystic inflammatory changes. PANCREAS: Limited noncontrast examination. No significant peripancreatic free fluid or fat stranding. SPLEEN: Unremarkable. ADRENAL GLANDS: Unremarkable. KIDNEYS AND URETERS: Limited noncontrast examination. No nephrolithiasis or hydronephrosis. No significant perirenal fat stranding. BLADDER: Decompressed limiting its evaluation. GASTROINTESTINAL TRACT: The stomach and the small bowel are nondilated. Normal appendix. Colonic diverticulosis without significant pericolonic inflammatory changes. Moderate degree of stool content in the colon. No evidence of bowel obstruction. ABDOMINAL WALL: No significant hernia is appreciated. LYMPH NODES: No lymphadenopathy. VASCULAR: Normal caliber of the abdominal aorta. Scattered atherosclerotic disease. PELVIC VISCERA: Hysterectomy. OSSEOUS STRUCTURES: No acute or aggressive appearing osseous findings. Degenerative changes of the spine. CT/CT abdomen pelvis wo IV con IMPRESSION: No acute abdominal or pelvic abnormalities to explain the patient's symptoms. Correlating diverticulosis without significant pericolonic inflammatory changes to suspect acute diverticulitis. Moderate degree of stool content in the colon that may indicate constipation the appropriate clinical context.
--- NOTE | ~2023-01-19 | US_ITS ---
EXAMINATION: US ABDOMEN LIMITED CLINICAL INFORMATION: Right upper quadrant pain. COMPARISON: None available. TECHNIQUE: Real-time imaging of the right upper quadrant abdominal viscera. FINDINGS: PANCREAS: Limited visualization. LIVER: The liver is normal in size. The liver contour is normal. Parenchymal echogenicity is normal. No focal hepatic lesion. There is no intrahepatic biliary duct dilatation seen. GALLBLADDER: The gallbladder is physiologically distended without evidence of stones, sludge, polyps, wall thickening or pericholecystic fluid. Positive sonographic Vicente's sign. COMMON BILE DUCT: Normal in caliber measuring 0.8 cm in diameter. RIGHT KIDNEY: No hydronephrosis. No renal calculi or focal parenchymal lesions. The kidney measures 10.9 cm in maximum dimension. FREE FLUID: None. US/US abdomen limited IMPRESSION: Positive sonographic Vicente's sign. Otherwise unremarkable sonographic evaluation of the gallbladder. Advise clinical correlation.
--- NOTE | 2023-01-19 16:26 | ED.GENADULT ---
HPI - General Adult General Chief complaint: Abdominal Pain Stated complaint: Abd pain&side pain/dizziness/n Time Seen by Provider: 01/19/23 18:14 Source: patient Mode of arrival: ambulatory Limitations: no limitations History of Present Illness HPI narrative: Patient is a 67-year-old female with a past medical history of asthma, hypertension, iron deficiency anemia presenting to the emergency department for right upper quadrant pain. Patient reports she has been having right upper quadrant pain underneath her ribs for the past 5 days. Patient reports associated nausea, chills, and dizziness. Patient reports her symptoms are worse with eating. Patient reports pre-existing numbness/tingling in her hands. Patient denies headache, vision changes, vomiting, chest pain, shortness of breath, fever. Related Data Home Medications Medication Instructions Recorded Confirmed ascorbic acid (vitamin C) 500 mg 500 mg PO DAILY 05/14/20 11/08/22 tablet aspirin 81 mg tablet,delayed 81 mg PO DAILY 05/14/20 11/08/22 release bupropion HCl 150 mg 24 hr tablet, 1 tab PO QAM depressive disorder 05/14/20 11/08/22 extended release clonazepam 0.5 mg tablet 1 tab PO TID PRN anxiety 05/14/20 11/08/22 diltiazem HCl 120 mg 1 cap PO DAILY 05/14/20 11/08/22 capsule,extended release 24 hr ferrous sulfate 325 mg (65 mg 1 tab PO DAILY 05/14/20 11/08/22 iron) tablet levothyroxine 75 mcg tablet 75 mcg PO DAILY 05/14/20 11/08/22 losartan 50 mg tablet 1 tab PO DAILY 05/14/20 11/08/22 metformin 500 mg tablet 2 tab PO BID 05/14/20 11/08/22 mirtazapine 30 mg tablet 1 tab PO BEDTIME depressive 05/14/20 11/08/22 disorder pantoprazole 20 mg tablet,delayed 1 tab PO DAILY 05/14/20 11/08/22 release rosuvastatin 20 mg tablet 1 tab PO DAILY 05/14/20 11/08/22 albuterol sulfate 90 mcg/actuation 1 inh inhalation QID PRN Wheezing 02/18/21 11/08/22 aerosol inhaler (ProAir HFA) cholecalciferol (vitamin D3) 25 1 cap PO DAILY 02/18/21 11/08/22 mcg (1,000 unit) capsule docusate sodium 100 mg capsule 1 cap PO DAILY constipation 02/18/21 11/08/22 (DOK) topiramate 100 mg tablet 1 tab PO BEDTIME 02/18/21 11/08/22 tizanidine 4 mg tablet 4 mg PO BEDTIME PRN Pain 07/13/21 11/08/22 Previous Rx's Medication Instructions Recorded ketorolac 10 mg tablet 10 mg PO TID PRN pain 5 days #15 01/19/23 tabs Allergies Allergy/AdvReac Type Severity Reaction Status Date / Time lisinopril [Lisinopril] Allergy Unknown UNKNOWN Verified 01/19/23 16:27 Review of Systems Review of Systems: Constitutional : No Weight loss, No Fever, + Chills, No Fatigue, No Malaise ENT/Mouth : No sore throat, No Rhinorrhea Eyes: No Eye Pain, No Swelling, No Redness Cardiovascular : No Chest Pain, No SOB, No Dyspnea on Exertion, No Orthopnea, No Edema, No Palpitations Respiratory : No Cough, No Sputum, No Wheezing Gastrointestinal : +Nausea, No Vomiting, No Diarrhea, No Constipation, +abdominal Pain, No Hematochezia, No Melena Genitourinary : No Dysuria, No Urinary Frequency, No Hematuria, Musculoskeletal : No joint pain, No Myalgias, No Joint Swelling Skin : No Skin Lesions, No rash Neuro : No Weakness, No Numbness, No Dizziness, No Headache All other systems reviewed and are negative Yes all other systems are reviewed and are negative PMFSH Past Medical History Attestation statement: The following information was validated with the patient. Source: old records reviewed and nursing notes reviewed Medical History (Updated 01/19/23 @ 20:34 by JAME Castellanos) Anemia Anxiety Asthma Depression Diabetes mellitus Gastritis Helicobacter positive gastritis Hypertension Hypothyroidism Iron deficiency anemia Surgical History History of esophagogastroduodenoscopy (EGD) Hx of colonoscopy Hx of hysterectomy Social History Social History Household Members: None Housing: Apartment Alcohol intake: former Patient Tobacco Use Status: Never used Tobacco Smoked in Last 30 Days: No Use of substances other than those prescribed or required for medical reasons: No Advance Directives: No Advance Directives Information Provided: No service: No Current occupational status: retired Physical Exam ED Vital Signs: Vital Signs - 24 hr 01/19/23 16:27 01/19/23 18:38 01/19/23 19:47 Temperature 97.8 F 98.3 F 98.3 F Pulse Rate 96 77 76 Respiratory Rate 16 16 18 Blood Pressure 149/75 H 135/75 Pulse Oximetry 99 99 99 Oxygen Delivery Method Room Air Room Air Room Air 01/19/23 18:00 01/19/23 20:12 Temperature 98.6 F Pulse Rate 73 Respiratory Rate 16 Blood Pressure 132/73 133/72 Pulse Oximetry 98 Oxygen Delivery Method Room Air BMI result Body Mass Index 24.1 vss Appearance: Alert.? Oriented X3.? No acute distress.? Head: Normocephalic, atraumatic, no step-offs or deformities Eyes: Pupils equal, round and reactive to light.? Neck: Normal inspection.? Neck supple.? CVS: Normal heart rate and rhythm.? Pulses normal.? Respiratory: No respiratory distress.? Breath sounds normal.? Abdomen: Soft and tender to RUQ.? Skin: Skin warm and dry.? Normal skin color.? Normal skin turgor.? Extremities: No lower extremity edema.? No calf ttp. 5/5 strength to bilateral upper and lower extremities Neuro: Oriented X 3.? No motor deficit.? No sensory deficit. CN 2-12 intact Course Course Course Narrative: This is a rapid medical exam: Additional HPI, ROS, PE not included below will be deferred to primary provider. Patient is a 67-year-old Martiniquais-speaking female with history of DM, helicobacter positive gatritis, HTN, hypothyroidism, anemia, asthma, anxiety/depression sent to ED from PCP for evaluation of RUQ abdominal pain for 5 days with nausea, denies vomiting. Reports chills, denies diarrhea or constipation. Abdomen soft, epigastric and RUQ TTP, normoactive bowel sounds. Plan: labs, UA, RUQ ultrasound Reevaluation(s) Reevaluation #1: CBC appears to be around patient's baseline. Chemistry appears to be around patient's baseline with no acute electrolyte abnormalities requiring intervention, chronically elevated BUN. Troponin negative. UA without infection. CT abdomen and pelvis with no acute abdominal or pelvic abnormalities to explain patient's symptoms. Diverticulosis without diverticulitis. It is moderate amount of stool in the colon. Positive Vicente sign on ultrasound however unremarkable sonographic evaluation of the gallbladder. I did discuss case with Dr. Castillo surgery who recommends outpatient surgical follow-up. Educated patient on diagnosis and treatment plan, answered all question, patient verbalizes understanding. At this time patient will be discharged home, advised to return with new or worsening symptoms. Educated on worrisome signs and symptoms and when to return. At this time I feel comfortable discharge home. Time: 20:32 Medications Administered Discontinued Medications Generic Name Dose Route Start Last Admin Trade Name Freq PRN Reason Stop Dose Admin Ketorolac Tromethamine 30 mg 01/19/23 20:27 01/19/23 21:16 Ketorolac Tromethamine 15 Mg/Ml Vial IM 01/19/23 20:28 30 mg ONCE ONE Administration Medical Decision Making Medical Decision Making MDM Narrative: 67-year-old female presenting with right upper quadrant abdominal pain. Physical exam showed positive Vicente sign. Likely cholecystitis versus cholelithiasis versus choledocholithiasis. less likely acute abdomen, appendicitis, diverticulitis, nephrolithiasis, bowel obstruction. Perform labs, imaging, urine Differential Diagnosis Differential Diagnoses: The differential diagnosis associated with the presentation includes Likely cholecystitis versus cholelithiasis versus choledocholithiasis. less likely acute abdomen, appendicitis, diverticulitis, nephrolithiasis, bowel obstruction. Admission/Observation Consideration of admission/observation: Escalation of care including admission/observation considered Possible Lab Data 01/19/23 17:09 01/19/23 17:09 Labs: Lab Results 01/19/23 01/19/23 01/19/23 Range/Units 17:09 17:09 17:09 WBC 5.9 (4.8-10.8) X10*3/uL RBC 3.94 L (4.20-5.50) X10*6/uL Hgb 11.3 L (12.0-16.0) g/dl Hct 36.0 L (37.0-47.0) % MCV 91.4 (80.0-98.0) fL MCH 28.7 (27.0-33.0) pg MCHC 31.4 (31.0-35.0) g/dl RDW 14.4 (11.0-16.0) % Plt Count 264 (160-400) X10*3/uL MPV 9.6 (9.4-12.3) fL Immature Gran % (Auto) 0.2 (0.0-0.4) % Neut % (Auto) 55.9 (45-73) % Lymph % (Auto) 31.0 (20-40) % [place] % (Auto) 7.2 (2-11) % Eos % (Auto) 4.4 H (0-4) % Baso % (Auto) 1.3 (0-2) % Lymph # (Auto) 1.8 (1.2-4.9) X10*3/uL [place] # (Auto) 0.4 (0.1-1.2) X10*3/uL Eos # (Auto) 0.3 (0.0-0.4) X10*3/uL Baso # (Auto) 0.1 (0.0-0.2) X10*3/uL Abs Immat Gran (auto) 0.01 (0.00-0.03) X10*3/uL Absolute Neuts (auto) 3.3 (2.0-8.3) x10*3/uL Absolute Nucleated RBC 0.000 (0.0-0.012) X10*3/uL Nucleated RBC % (auto) 0.0 (0.0-0.2) /100WBC Sodium 144 (135-145) mmol/L Potassium 4.5 (3.3-5.1) mmol/L Chloride 113 H (96-108) mmol/L Carbon Dioxide 20 L (22-29) mmol/L Anion Gap 16 (12-20) BUN 27 H (9-16) mg/dL Creatinine 1.13 (0.5-1.4) mg/dL Estim Creat Clear Calc 40.5 Estimated GFR 48 Random Glucose 115 (60-115) mg/dL Calcium 10.0 (8.4-10.2) mg/dL Total Bilirubin 0.3 (0.0-1.0) mg/dL AST 20 (5-31) U/L ALT 18 (0-31) U/L Alkaline Phosphatase 66 (39-117) U/L Troponin I High Sens < 2.7 (<3.5-17.0) ng/L Total Protein 7.6 (6.5-8.0) g/dL Albumin 4.4 (3.5-5.0) g/dL Lipase 47 (8-78) U/L Urine Color Urine Appearance Urine pH (5.0-9.0) Ur Specific Sherman (1.005-1.025) Urine Protein (Neg-Trace) mg/dL Urine Glucose (UA) (Negative) mg/dL Urine Ketones (Negative) mg/dL Urine Blood (Negative) Urine Nitrite (Negative) Ur Leukocyte Esterase (Negative) Urine RBC (0-2) /HPF Urine WBC (0-5) /HPF Ur Squamous Epith Cells (0-2) /HPF Urine Bacteria (None Seen) Hyaline Casts (0-2) /LPF 01/19/23 Range/Units 18:46 WBC (4.8-10.8) X10*3/uL RBC (4.20-5.50) X10*6/uL Hgb (12.0-16.0) g/dl Hct (37.0-47.0) % MCV (80.0-98.0) fL MCH (27.0-33.0) pg MCHC (31.0-35.0) g/dl RDW (11.0-16.0) % Plt Count (160-400) X10*3/uL MPV (9.4-12.3) fL Immature Gran % (Auto) (0.0-0.4) % Neut % (Auto) (45-73) % Lymph % (Auto) (20-40) % [place] % (Auto) (2-11) % Eos % (Auto) (0-4) % Baso % (Auto) (0-2) % Lymph # (Auto) (1.2-4.9) X10*3/uL [place] # (Auto) (0.1-1.2) X10*3/uL Eos # (Auto) (0.0-0.4) X10*3/uL Baso # (Auto) (0.0-0.2) X10*3/uL Abs Immat Gran (auto) (0.00-0.03) X10*3/uL Absolute Neuts (auto) (2.0-8.3) x10*3/uL Absolute Nucleated RBC (0.0-0.012) X10*3/uL Nucleated RBC % (auto) (0.0-0.2) /100WBC Sodium (135-145) mmol/L Potassium (3.3-5.1) mmol/L Chloride (96-108) mmol/L Carbon Dioxide (22-29) mmol/L Anion Gap (12-20) BUN (9-16) mg/dL Creatinine (0.5-1.4) mg/dL Estim Creat Clear Calc Estimated GFR Random Glucose (60-115) mg/dL Calcium (8.4-10.2) mg/dL Total Bilirubin (0.0-1.0) mg/dL AST (5-31) U/L ALT (0-31) U/L Alkaline Phosphatase (39-117) U/L Troponin I High Sens (<3.5-17.0) ng/L Total Protein (6.5-8.0) g/dL Albumin (3.5-5.0) g/dL Lipase (8-78) U/L Urine Color Yellow Urine Appearance Clear Urine pH 5.5 (5.0-9.0) Ur Specific Sherman 1.025 (1.005-1.025) Urine Protein Trace (Neg-Trace) mg/dL Urine Glucose (UA) Negative (Negative) mg/dL Urine Ketones Trace (Negative) mg/dL Urine Blood Negative (Negative) Urine Nitrite Negative (Negative) Ur Leukocyte Esterase Moderate (2+) H (Negative) Urine RBC 3-5 H (0-2) /HPF Urine WBC 21-50 H (0-5) /HPF Ur Squamous Epith Cells 0-2 (0-2) /HPF Urine Bacteria None Seen (None Seen) Hyaline Casts 3-5 (0-2) /LPF Critical Care Time Critical Care Time Critical Care Time: Yes Total Critical Care Time: 35 Attestation: I attest to this time spent taking care of the patient, obtaining history, physical, reviewing labs, imaging, speaking to my attending, speaking to specialist. Discharge Plan Discharge Clinical Impression: Abdominal pain, RUQ Patient Disposition: Home, Self-Care Instructions: Abdominal Pain (ED), Open Cholecystectomy (DC) Additional Instructions: Take your medications as prescribed. If you were prescribed antibiotics today, it is important that you take your medication to their entirety, do not skip any doses, do not finish them early. Follow-up with your primary care provider this week. Return to the emergency department with new or worsening symptoms. Such as fevers, chills, chest pain, shortness of breath, nausea, vomiting, dizziness, headache, vision changes, lethargy In case of emergency call 911 Toradol has been sent to your pharmacy, you tolerated this well in the department. Please take this as prescribed do not take this with ibuprofen, or other NSAIDs, do not mix this with alcohol. Side effects of this medication including increased risk for bleeding and possible kidney injury. CT/CT abdomen pelvis wo IV con IMPRESSION: No acute abdominal or pelvic abnormalities to explain the patient's symptoms. Correlating diverticulosis without significant pericolonic inflammatory changes to suspect acute diverticulitis. Moderate degree of stool content in the colon that may indicate constipation the appropriate clinical context. US/US abdomen limited IMPRESSION: Positive sonographic Vicente's sign. Otherwise unremarkable sonographic evaluation of the gallbladder. Advise clinical correlation. Prescriptions: New ketorolac 10 mg tablet 10 mg PO TID PRN (Reason: pain) 5 Days Qty: 15 0RF No Action losartan 50 mg tablet 1 tab PO DAILY metformin 500 mg tablet 2 tab PO BID clonazepam 0.5 mg tablet 1 tab PO TID PRN (Reason: anxiety) aspirin [Aspir-81] 81 mg Tablet,Delayed Release (Dr/Ec) 81 mg PO DAILY pantoprazole 20 mg tablet,delayed release (DR/EC) 1 tab PO DAILY levothyroxine 75 mcg tablet 75 mcg PO DAILY ascorbic acid (vitamin C) 500 mg Tablet 500 mg PO DAILY mirtazapine 30 mg tablet 1 tab PO BEDTIME ferrous sulfate 325 mg (65 mg iron) tablet 1 tab PO DAILY diltiazem HCl 120 mg capsule,extended release 24hr 1 cap PO DAILY rosuvastatin 20 mg tablet 1 tab PO DAILY bupropion HCl 150 mg tablet extended release 24 hr 1 tab PO QAM tizanidine 4 mg Tablet 4 mg PO BEDTIME PRN (Reason: Pain) docusate sodium [DOK] 100 mg capsule 1 cap PO DAILY topiramate 100 mg tablet 1 tab PO BEDTIME cholecalciferol (vitamin D3) 25 mcg (1,000 unit) capsule 1 cap PO DAILY albuterol sulfate [ProAir HFA] 90 mcg/actuation Hfa Aerosol Inhaler 1 inh INHALATION QID PRN (Reason: Wheezing) Referrals: [facility] General Surgeons [Provider Group] - 1 week Center,[facility] [Primary Care Provider] - 2 days
[2023-01-19 16:27] VITALS: BP 149/75; PULSE 96; RESP 16; TEMP 36.6; O2SAT 99; BMI 24.1
--- NOTE | 2023-01-19 16:29 | ECG_ITS ---
Test Reason : ABDOMINAL PAIN Blood Pressure : / mmHG Vent. Rate : 088 BPM Atrial Rate : 088 BPM P-R Int : 178 ms QRS Dur : 088 ms QT Int : 372 ms P-R-T Axes : 035 -30 034 degrees QTc Int : 450 ms Normal sinus rhythm Left axis deviation Minimal voltage criteria for LVH, may be normal variant ( R in aVL ) Abnormal ECG When compared to the previous EKG of Left axis deviation is now Present Referred By: Carrie Shirley Electronically Signed By:ARLYN FROST MD
[2023-01-19 17:12] LABS: MANUAL DIFF FLAG NO
[2023-01-19 17:17] LABS: Basophils Absolute Auto 0.1 X10*3/uL (0.0-0.2); Basophils Percent Auto 1.3 % (0-2); Eosinophils Absolute Auto 0.3 X10*3/uL (0.0-0.4); Eosinophils Percent Auto 4.4 % (0-4); Hemoglobin 11.3 g/dl (12.0-16.0); Imm Gran Abs Auto 0.01 X10*3/uL (0.00-0.03); Imm Gran Pct Auto 0.2 % (0.0-0.4); Lymphocytes Absolute Auto 1.8 X10*3/uL (1.2-4.9); Mean Corpuscular HGB Conc 31.4 g/dl (31.0-35.0); Mean Corpuscular Hemoglobin 28.7 pg (27.0-33.0); Mean Corpuscular Volume 91.4 fL (80.0-98.0); Mean Platelet Volume 9.6 fL (9.4-12.3); Monocytes Absolute Auto 0.4 X10*3/uL (0.1-1.2); Monocytes Percent Auto 7.2 % (2-11); Neutrophils Absolute Auto 3.3 x10*3/uL (2.0-8.3); Neutrophils Percent Auto 55.9 % (45-73); Platelet Count 264 X10*3/uL (160-400); Red Blood Count 3.94 X10*6/uL (4.20-5.50); Red Cell Distribution Width 14.4 % (11.0-16.0); White Blood Count 5.9 X10*3/uL (4.8-10.8)
[2023-01-19 17:35] LABS: Alanine Aminotransferase 18 U/L (0-31); Albumin Level 4.4 g/dL (3.5-5.0); Alkaline Phosphatase 66 U/L (39-117); Anion Gap 16 (12-20); Aspartate Amino Transferase 20 U/L (5-31); Bilirubin Total 0.3 mg/dL (0.0-1.0); Blood Urea Nitrogen 27 mg/dL (9-16); Carbon Dioxide 20 mmol/L (22-29); Chloride 113 mmol/L (96-108); Creatinine Clr Calc Pharmacy 40.5; Estimated Glomerular Filt Rate 48; Glucose Random 115 mg/dL (60-115); Lipase 47 U/L (8-78); Potassium 4.5 mmol/L (3.3-5.1); Sodium 144 mmol/L (135-145); Total Protein 7.6 g/dL (6.5-8.0)
[2023-01-19 17:48] LABS: Troponin-I High Sensitivity < 2.7 ng/L (<3.5-17.0)
--- OUTSIDE RECORDS SUMMARY | 2023-01-19 17:54 | XMS_ITS ---
Author Name Barry Pugh Address [address] [place] [address] Organization [facility] Address [address] [place] [address] Care Team Providers Care Splicer Operator Name Role Phone Barry Pugh [facility] [phone] PROBLEMS Type Condition ICD9-CM Code SFV09-YQ Code Onset Dates Condition Status SNOMED Code Problem Irritable bowel syndrome with diarrhea K58.0 Active 861213882 Problem Weight loss R63.4 Active 80526031 Problem Gastroesophageal reflux disease, unspecified whether esophagitis present K21.9 Active 58676304 9 Problem Abdominal pain, generalized R10.84 Active 024692379 Problem Iron deficiency anemia D50.9 Active Problem Diverticular disease of colon K57.30 Active 847627600 Problem 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 Active 546777942 Problem Diverticulosis of colon K57.30 Active Problem Esophageal reflux K21.9 Active Problem History of colon polyps Z86.010 Active Problem Iron deficiency anemia, unspecified iron deficiency anemia type D50.9 Active 10344170 Problem Encounter for screening for malignant neoplasm of colon Z12.11 Active 797609592 Problem History of adenomatous polyp of colon Z86.010 Active 845506157 Problem Irritable bowel syndrome with constipation K58.1 Active 290088928 Problem Gastroesophageal reflux disease without esophagitis K21.9 Active ALLERGIES Substance Reaction Event Type Date Status Lisinopril Unknown Drug Allergy Jun, Active ENCOUNTERS Encounter Location Date Diagnosis [facility] Outpatient [address] [place] [id number] Oct,2 History of colon polyps Z86.010 ; Diverticulosis of colon K57.30 and Internal hemorrhoid K64.8 [facility] [address] [place] [phone] 11 Jul, 2021 [facility] [address] [place] [address] 07 Jun, 2021 [facility] [address] [place] [address] 07 Jun, 2021 [facility] [address] [place] [address] 07 Jun, 2021 Gastroesophageal reflux disease without esophagitis K21.9 ; Irritable bowel syndrome with constipation K58.1 ; Encounter for screening for malignant neoplasm of colon Z12.11 ; History of adenomatous polyp of colon Z86.010 and 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 [facility] Outpatient [address] [place] [id number] Feb, Colon polyps K63.5 ; Diverticular disease of colon K57.30 ; Internal hemorrhoids K64.8 ; Abdominal cramps R10.9 ; Iron deficiency anemia D50.9 ; Hiatal hernia K44.9 and Esophageal reflux K21.9 [facility] [address] [place] [phone] 14 Jan, 2021 [facility] [address] [place] [address] 13 Jan, 2021 [facility] [address] [place] [phone] 13 Jan, 2021 Iron deficiency anemia, unspecified iron deficiency anemia type D50.9 ; Gastroesophageal reflux disease, unspecified whether esophagitis present K21.9 ; Abdominal pain, generalized R10.84 ; Irritable bowel syndrome with diarrhea K58.0 and Weight loss R63.4 [facility] ER [address] [id number] Sep, [facility] ER [address], [place] [id number] 14 Dec, 2006 [facility] Outpatient [address] [place] [id number] 26 Aug, 2006 [facility] ER [address] [place] [id number] 15 Mar, 2006 [facility] ER [address] [place] [id number] Apr, [facility] ER [address], [place] [phone] Mar, IMMUNIZATIONS Vaccine Route Administration Date Status Influenza Unknown May 11, 2021 Administered Influenza Unknown Mar 11, 2020 Administered SOCIAL HISTORY Qualifiers Date Never Smoker REASON FOR REFERRAL FUNCTIONAL STATUS PLAN OF CARE Activity Details VITAL SIGNS Weight 135 lbs 2021-06-16 Weight 135 lbs 2021-01-20 Height 63 in 2021-06-16 Height 63 in 2021-01-20 BMI 23.91 kg/m2 2021-06-16 BMI 23.91 kg/m2 2021-01-20 Temperature 97.3 degrees Fahrenheit Temperature 97.3 degrees Fahrenheit Blood pressure systolic 000 mm Hg Blood pressure diastolic 00 mm Hg 2021-06 MEDICATIONS Medication Instructions Dosage Frequency Start Date End Date Duration Status Vitamin C ER 500 MG TAKE 1 CAPSULE BY MOUTH EVERY DAY WITH YOUR IRON SUPPLEMENT AND A FULL GLASS OF WATER 90 Active buPROPion HCl ER (XL) 150 MG 30 Active FeroSul 325 (65 Fe) MG 60 Active clonazePAM 0.5 MG TAKE 1 TABLET BY MOUTH THREE TIMES DAILY NEEDED FOR ANXIETY TO LAST 30 DAYS 30 Active Aspirin Adult Low Dose 81 MG Orally Once a day 1 tablet 24h 30 day(s) Active Dicyclomine HCl 10 MG Orally Q 6 hours prn 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 Jun, 30 day(s) Active MiraLax (colon prep) 17 GM/SCOOP Orally 2 days before and 1 day before the colonoscopy 1 238Gm bottle mixed with Gatorade or Crystal Light 2 days before the colonoscopy and 1 day before the colonoscopy as instructed Jun, 2 days Active Stimulant Laxative 8.6-50 MG Orally Once a day 1 tablet in the evening as needed 24h 30 day(s) Active Albuterol Sulfate HFA 108 (90 Base) MCG/ACT Inhalation every 4 hrs 1 puff as needed 4h Active dilTIAZem HCl ER Coated Beads 120 MG TAKE 1 CAPSULE BY MOUTH EVERY DAY 90 Active Cyclobenzaprine HCl 10 MG 14 Active Mirtazapine 30 MG TAKE 1 TABLET BY MOUTH AT BEDTIME FOR SLEEP OR MOOD 30 Active metFORMIN HCl 500 MG 90 Active Topiramate 100 MG 6 Active Dulcolax (colon prep) 5 MG Orally 2 pills two days before, and then two tablets twice a day for one day Take 2 tabs two days before the colonoscopy, and then take 2 at 3:00 p.m and 2 at 7:00p.m. on the day before colonoscopy Jun, 2 days Active Levothyroxine Sodium 75 MCG 90 Active Rosuvastatin Calcium 20 MG 90 Active Losartan Potassium 50 MG TAKE 1 TABLET BY MOUTH EVERY DAY 90 Active Pantoprazole Sodium 20 MG 90 Active DOK 100 MG 30 Activ e Vitamin D3 25 MCG (1000 UT) 90 Active tiZANidine HCl 4 MG Orally once a day 1 tablet as needed 24h Active PROCEDURES Procedure Date Ordered Result Body Site TOBACCO NON-USER Jun 16, 2021 DOC MEDS VERIFIED W/PT OR RE Jun 16, 2021 TOBACCO NON-USER January 20, 2021 DOC MEDS VERIFIED W/PT OR RE January 20, 2021 UPPER GI ENDOSCOPY, BIOPSY Feb 25, 2021 COLORECTAL CA SCREEN DOC REV Jun 16, 2021 COLORECTAL CA SCREEN DOC REV January 20, 2021 COLONOSCOPY AND BIOPSY Feb 25, 2021 PATIENT NOT ELIG D/T ACTIVE DX HTN January 20, 2021 DIAGNOSTIC COLONOSCOPY October 16, 2021 BP SCR NOT PRFRM REC REASON NOS Jun 16, 2021 RESULTS Name Result Date Reference Range Glucose, Whole Blood 2021-10-16 Glucose, Whole Blood 100 60-115 Glucose, Whole Blood 2021-02-25 Glucose, Whole Blood 91 60-115 US abdomen complete 2021-02-10 REASON FOR VISIT endoscopy-barretts esophagus, screening colon, hx polyps,screening, egd recall, bowel prep, Patientpresents today for a f/u from colonoscopy, gerd, fe def anemia, miralax, bowel prep, patient presents today for anemia, wt loss Insurance Providers Health Insurance Type Health Plan Insurance Address Health Plan Insurance Phone Health Plan Insurance Name Health Plan Coverage Dates Member ID Patient Relationship to Subscriber Patient Address Patient Phone Patient Name Patient Date of Subscriber ID Subscriber Name Subscriber Date of Group No [employer] [address] [facility] [id number] [employer] valerio MARSHALL [id number] [place] OF [place] [address] [facility] [address] MEDICARE OF [place] valerio MARSHALL [id number]
[2023-01-19 18:00] VITALS: BP 132/73
[2023-01-19 18:38] VITALS: BP 135/75; PULSE 77; RESP 16; TEMP 36.8; O2SAT 99
--- NOTE | 2023-01-19 18:47 | MHC.EDTECH ---
PATIENT URINE SAMPLE COLLECTED AND SENT TO LAB ,VITALS SIGN TAKEN ,PT ON HER WAY TO CT -SCAN .
[2023-01-19 19:05] LABS: Appearance Urine Clear; Color Urine Yellow; Glucose Urine UA Negative (Negative); Leukocyte Esterase Urine Moderate (2+) (Negative); Nitrite Urine Negative (Negative); PH 5.5 (5.0-9.0); Specific Gravity - Urine 1.025 (1.005-1.025); UMIC TRIGGER UACC YES; Urine Blood Negative (Negative); Urine Ketones Trace mg/dL (Negative); Urine Protein Trace mg/dL (Neg-Trace)
[2023-01-19 19:08] LABS: Bacteria Urine None Seen (None Seen); Squamous Epithelial Cell Urine 0-2 /HPF (0-2); UACC Culture Trigger YES; WBC Urine 21-50 /HPF (0-5)
[2023-01-19 19:47] VITALS: PULSE 76; RESP 18; TEMP 36.8; O2SAT 99
--- NOTE | 2023-01-19 19:52 | PC.NURSE ---
roller mill tender cristine at bedside interpreting for rn re: plan of care, continued eval/assmt. aox4. calm, cooperative. abd tenderness continues with some mild radiation to right side. no distress noted
[2023-01-19 20:12] VITALS: BP 133/72; PULSE 73; RESP 16; TEMP 37; O2SAT 98
[2023-01-19] MEDS: Ketorolac Tromethamine 15 MG/ML VIAL 30 MG IM (21:16)
--- NOTE | 2023-01-19 21:20 | PC.NURSE ---
aox4 calm cooperative. no piv. given im medication for pain. walks well. no distress.
== END 2023-01-19 19:20 | disposition home or self-care (01) ==
PROVIDERS: Registered Nurse Emergency; Emergency Provider Emergency Medicine Emergency Medical Services
DX: R10.11 Right upper quadrant pain (principal); E11.9 Type 2 diabetes mellitus without complications; I10 Essential (primary) hypertension; D50.9 Iron deficiency anemia, unspecified; Z79.82 Long term (current) use of aspirin; Z79.899 Other long term (current) drug therapy; Z79.84 Long term (current) use of oral hypoglycemic drugs
CPT/HCPCS: 36415; 74176; 76705; 80053; 81001; 83690; 84484; 85025; 87086; 93005; 96372; 99284; 99285; J1885

== ENCOUNTER → 2023-01-19 16:29 | Outpatient (BNV) | payer OTHER, SELFPAY | PROVIDERS: Emergency Provider Emergency Medicine Emergency Medical Services; Visit Provider Internal Medicine Cardiovascular Disease | DX: R94.31 Abnormal electrocardiogram [ECG] [EKG] (principal) | CPT/HCPCS: 93010 ==

== ENCOUNTER 2023-01-26 08:44 | Outpatient (AMB) | payer OTHER, SELFPAY ==
--- NOTE | 2023-01-26 08:45 | MHC.OFFVIS ---
Intake Vital Signs 01/26/23 08:59 Weight 136 lb BP 124/70 Blood Pressure Location Rt brachial Position Sitting Pulse 86 Intake Visit Reasons: Abdominal Pain, ? diverticulitis Intake Note: Patient here f/u ER visit on 01-08-23. Seen for abd pain. Recent CT and U/S of abd on 01-19-23. Patient was treated with diclofenac. Only started medication 2d ago. Last colo 10-17-[address] Pugh. Patient c/o constipation. C/o abd pain with greasy foods. States pain 10 out of 10 when having a flare up. Director Of Field Coordination Required: No Accompanied by: Spouse Allergies lisinopril [Lisinopril] Allergy (Unknown, Verified 01/26/23 08:56) UNKNOWN HPI HPI Comments History of Present Illness Details Patient presents with a significant other status post recent ER visit for a bout of acute cholecystitis. Her complaint was of right upper quadrant pain radiating around to her back. She/approximately weeks time the following resolved. Workup in ER included ultrasound demonstrated findings consistent with acute cholecystitis. Patient otherwise tolerates the diet, has regular bowel habits. She has never been jaundiced before. Chart was reviewed and patient evaluated [facility] Medical History Anemia Anxiety Asthma Depression Diabetes mellitus Gastritis Helicobacter positive gastritis Hypertension Hypothyroidism Iron deficiency anemia Surgical History History of esophagogastroduodenoscopy (EGD) Hx of colonoscopy Hx of hysterectomy Social History Household Members: None Housing: Apartment Alcohol intake: former Patient Tobacco Use Status: Never used Tobacco service: No Current occupational status: retired Physical Exam Vital Signs: Last Vital Signs Pulse 86 01/26/23 08:59 BP 124/70 01/26/23 08:59 Chest Other: Chest breath sounds bilaterally, HS 1 in 2 GI Other: Abdomen soft, benign. Lower midline scar from hysterectomy. Assessment & Plan Assessment & Plan (1) Biliary colic: Code(s): K80.50 - Calculus of bile duct without cholangitis or cholecystitis without obstruction Plan Risks, benefits, alternatives of laparoscopic possible open cholecystectomy reviewed with the patient and her significant other and included but not limited to bleeding, infection, recurrence of symptoms, numbness, pain, scarring, bowel or duct injury or leak and she wished to proceed. All questions were answered. Arrangements will be made for this. Coding Level of Care Code New Pt Level 4 (20053) Diagnoses Biliary colic K80.50
[2023-01-26 08:59] VITALS: BP 124/70; PULSE 86
== END 2023-01-26 09:08 | disposition home or self-care (01) ==
PROVIDERS: Visit Provider Surgery
DX: K80.50 Calculus of bile duct without cholangitis or cholecystitis without obstruction (principal)
CPT/HCPCS: 99204

== ENCOUNTER → 2023-01-26 08:44 | Outpatient (BNVA) | payer OTHER, SELFPAY | PROVIDERS: Visit Provider Surgery | DX: K80.50 Calculus of bile duct without cholangitis or cholecystitis without obstruction (principal) | CPT/HCPCS: 99202 ==

== ENCOUNTER 2023-02-22 06:00 | Day surgery (SDC) | payer OTHER, SELFPAY ==
[2023-02-17 15:36] VITALS: BMI 24.1
--- NOTE | 2023-02-21 09:18 | HO.ANESPROP2 ---
Documented by User: Dagmar Hackett NP 02/21/23 09:20 HPI - Anesthesia Eval Consult details Narrative: 68yo F for Cholecystectomy Laparoscopic, possible open PMFSH Active Problems Active Problems: All Active Problems (Updated 02/17/23 @ 15:19 by Chela Long RN) Iron deficiency anemia (Chronic) Biliary colic (Acute) Past Medical History Medical History Anemia Anxiety Asthma Depression Diabetes mellitus Gastritis Helicobacter positive gastritis Hypertension Hypothyroidism Iron deficiency anemia Family History Family history of problems with anesthesia: No Surgical History Surgical History History of esophagogastroduodenoscopy (EGD) Hx of colonoscopy Hx of hysterectomy History of Problems with Anesthesia: No Social History Social History Household Members: None Housing: Apartment Alcohol intake: former Patient Tobacco Use Status: Never used Tobacco Are you DNR?: No Advance Directives: No Advance Directives Information Provided: Yes Nutrition Risks: No Nutritional Risk service: No Current occupational status: retired [employer] Allergies Allergy/AdvReac Type Severity Reaction Status Date / Time lisinopril [Lisinopril] Allergy Unknown UNKNOWN Verified 02/22/23 06:46 Home Medications Medication Instructions Recorded Confirmed Last Taken Type ascorbic acid (vitamin C) 500 mg 500 mg PO DAILY 05/14/20 02/17/23 Unknown History tablet aspirin 81 mg tablet,delayed 81 mg PO DAILY 05/14/20 02/17/23 Unknown History release bupropion HCl 150 mg 24 hr tablet, 1 tab PO QAM depressive disorder 05/14/20 02/17/23 Unknown History extended release clonazepam 0.5 mg tablet 1 tab PO TID PRN anxiety 05/14/20 02/17/23 Unknown History diltiazem HCl 120 mg 1 cap PO DAILY 05/14/20 02/17/23 Unknown History capsule,extended release 24 hr ferrous sulfate 325 mg (65 mg 1 tab PO DAILY 05/14/20 02/17/23 Unknown History iron) tablet levothyroxine 75 mcg tablet 75 mcg PO DAILY 05/14/20 02/17/23 Unknown History losartan 50 mg tablet 1 tab PO DAILY 05/14/20 02/17/23 Unknown History metformin 500 mg tablet 2 tab PO BID 05/14/20 02/17/23 Unknown History mirtazapine 30 mg tablet 1 tab PO BEDTIME depressive 05/14/20 02/17/23 Unknown History disorder pantoprazole 20 mg tablet,delayed 1 tab PO DAILY 05/14/20 02/17/23 Unknown History release rosuvastatin 20 mg tablet 1 tab PO DAILY 05/14/20 02/17/23 Unknown History albuterol sulfate 90 mcg/actuation 1 inh inhalation QID PRN Wheezing 02/18/21 02/17/23 Unknown History aerosol inhaler (ProAir HFA) cholecalciferol (vitamin D3) 25 1 cap PO DAILY 02/18/21 02/17/23 Unknown History mcg (1,000 unit) capsule docusate sodium 100 mg capsule 1 cap PO DAILY constipation 02/18/21 02/17/23 Unknown History (DOK) topiramate 100 mg tablet 1 tab PO BEDTIME 02/18/21 02/17/23 Unknown History Exam Exam Date and Time: February 21, 2023 0918 Height,Weight and Vital Signs: Height 5 ft 3 in Weight 61.689 kg Pertinent Lab Results Pertinent Lab Results: Laboratory Tests 01/19/23 01/19/23 17:09 17:09 WBC 5.9 Hgb 11.3 L Hct 36.0 L Plt Count 264 Sodium 144 Potassium 4.5 Chloride 113 H Carbon Dioxide 20 L BUN 27 H Creatinine 1.13 Narrative Narrative: EKG 01/2023 Vent. Rate : 088 BPM ? ? Atrial Rate : 088 BPM ?? P-R Int : 178 ms? QRS Dur : 088 ms ? ? QT Int : 372 ms ? ? ? P-R-T Axes : 035 -30 034 degrees ?? QTc Int : 450 ms ? Normal sinus rhythm Left axis deviation Minimal voltage criteria for LVH, may be normal variant ( R in aVL ) Abnormal ECG When compared to the previous EKG of Left axis deviation is now Present Assessment and Plan Assessment Anesthesia Assessment: Chart Reviewed Final Anesthetic Review Family History of Problems with Anesthesia: No History of Problems with Anesthesia: No Documented by User: Kasey Davies MD 02/22/23 07:27 [facility] Past Medical History Medical History Anemia Anxiety Asthma Depression Diabetes mellitus Gastritis Helicobacter positive gastritis Hypertension Hypothyroidism Iron deficiency anemia Surgical History Surgical History History of esophagogastroduodenoscopy (EGD) Hx of colonoscopy Hx of hysterectomy Social History Social History Household Members: None Housing: Apartment Alcohol intake: former Patient Tobacco Use Status: Never used Tobacco Are you DNR?: No Advance Directives: No Advance Directives Information Provided: Yes Nutrition Risks: No Nutritional Risk service: No Current occupational status: retired Meds Allergies Allergy/AdvReac Type Severity Reaction Status Date / Time lisinopril [Lisinopril] Allergy Unknown UNKNOWN Verified 02/22/23 06:46 Home Medications Medication Instructions Recorded Confirmed Last Taken Type ascorbic acid (vitamin C) 500 mg 500 mg PO DAILY 05/14/20 02/17/23 Unknown History tablet aspirin 81 mg tablet,delayed 81 mg PO DAILY 05/14/20 02/17/23 Unknown History release bupropion HCl 150 mg 24 hr tablet, 1 tab PO QAM depressive disorder 05/14/20 02/17/23 Unknown History extended release clonazepam 0.5 mg tablet 1 tab PO TID PRN anxiety 05/14/20 02/17/23 Unknown History diltiazem HCl 120 mg 1 cap PO DAILY 05/14/20 02/17/23 Unknown History capsule,extended release 24 hr ferrous sulfate 325 mg (65 mg 1 tab PO DAILY 05/14/20 02/17/23 Unknown History iron) tablet levothyroxine 75 mcg tablet 75 mcg PO DAILY 05/14/20 02/17/23 Unknown History losartan 50 mg tablet 1 tab PO DAILY 05/14/20 02/17/23 Unknown History metformin 500 mg tablet 2 tab PO BID 05/14/20 02/17/23 Unknown History mirtazapine 30 mg tablet 1 tab PO BEDTIME depressive 05/14/20 02/17/23 Unknown History disorder pantoprazole 20 mg tablet,delayed 1 tab PO DAILY 05/14/20 02/17/23 Unknown History release rosuvastatin 20 mg tablet 1 tab PO DAILY 05/14/20 02/17/23 Unknown History albuterol sulfate 90 mcg/actuation 1 inh inhalation QID PRN Wheezing 02/18/21 02/17/23 Unknown History aerosol inhaler (ProAir HFA) cholecalciferol (vitamin D3) 25 1 cap PO DAILY 02/18/21 02/17/23 Unknown History mcg (1,000 unit) capsule docusate sodium 100 mg capsule 1 cap PO DAILY constipation 02/18/21 02/17/23 Unknown History (DOK) topiramate 100 mg tablet 1 tab PO BEDTIME 02/18/21 02/17/23 Unknown History Exam Airway Mallampati Class: II TM Dist: >3cm Neck ROM: Full Loose/Missing/Broken Teeth: No Heart: RRR Lungs: CTA Assessment and Plan Assessment Anesthesia Assessment: Anesthesia Plan Discussed Final Anesthetic Review NPO: Yes ASA Class: II Final Preanesthetic Review: Meds/Allgs Chart Reviewed, Consent Obtained/Reviewed and Anes Risks/Benef Reviewed Patient Risk: Low Procedure Risk: Intermediate Anesthetic Plan Anesthetic Plan: GA Disposition: Standard PACU
--- NOTE | 2023-02-21 09:40 | MHC.SHP ---
Pre-Procedural Eval Section A Date of Service: 02/21/23 The patient is an INPATIENT: No Changes since office visit: No Cold of Flu in the past 2 weeks, No New Medical Problems, No Changes in Medication and No Patient answered all questions The History & Physical has been completed within 30 days and I have reviewed it.: Yes Section B Chief Complaint: Calculus of bile duct without cholangitis or kerrie Allergies: Allergies Allergy/AdvReac Type Severity Reaction Status Date / Time lisinopril [Lisinopril] Allergy Unknown UNKNOWN Verified 01/26/23 08:56 Plan I have reviewed the history and physical and performed a pertinent physical examination on my patient. No changes have occurred unless specified. Time Spent With Patient Time: Total time managing care of this patient today ____ minutes.
[2023-02-22] VITALS (15 sets, daily range): BP systolic 106–154; BP diastolic 58–79; PULSE 74–110; RESP 12–20; TEMP 36.1–36.3; O2SAT 97–100
--- OUTSIDE RECORDS SUMMARY | 2023-02-22 06:02 | XMS_ITS ---
Author Name Barry Pugh Address [address] [place] [address] Organization [facility] Address [address] [place] [address] Care Team Providers Care Help Desk Support Name Role Phone Barry Pugh [facility] [phone] PROBLEMS Type Condition ICD9-CM Code NLR21-JK Code Onset Dates Condition Status SNOMED Code Problem Irritable bowel syndrome with diarrhea K58.0 Active 906808840 Problem Weight loss R63.4 Active 42728948 Problem Gastroesophageal reflux disease, unspecified whether esophagitis present K21.9 Active 74444118 9 Problem Abdominal pain, generalized R10.84 Active 881749574 Problem Iron deficiency anemia D50.9 Active Problem Diverticular disease of colon K57.30 Active 830561147 Problem 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 Active 723949567 Problem Diverticulosis of colon K57.30 Active Problem Esophageal reflux K21.9 Active Problem History of colon polyps Z86.010 Active Problem Iron deficiency anemia, unspecified iron deficiency anemia type D50.9 Active 69630282 Problem Encounter for screening for malignant neoplasm of colon Z12.11 Active 217293739 Problem History of adenomatous polyp of colon Z86.010 Active 809229107 Problem Irritable bowel syndrome with constipation K58.1 Active 336593041 Problem Gastroesophageal reflux disease without esophagitis K21.9 Active ALLERGIES Substance Reaction Event Type Date Status Lisinopril Unknown Drug Allergy Jun, Active ENCOUNTERS Encounter Location Date Diagnosis [facility] Outpatient [address] [place] [id number] Oct,2 History of colon polyps Z86.010 ; Diverticulosis of colon K57.30 and Internal hemorrhoid K64.8 [facility] [address] [place] [phone] 11 Jul, 2021 [facility] [address] [place] [address] 07 Jun, 2021 [facility] [address] [place] [address] 07 Jun, 2021 [facility] [address] [place] [address] 07 Jun, 2021 Gastroesophageal reflux disease without esophagitis K21.9 ; Irritable bowel syndrome with constipation K58.1 ; Encounter for screening for malignant neoplasm of colon Z12.11 ; History of adenomatous polyp of colon Z86.010 and 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 [facility] Outpatient [address] [place] [id number] Feb, Colon polyps K63.5 ; Diverticular disease of colon K57.30 ; Internal hemorrhoids K64.8 ; Abdominal cramps R10.9 ; Iron deficiency anemia D50.9 ; Hiatal hernia K44.9 and Esophageal reflux K21.9 [facility] [address] [place] [phone] 14 Jan, 2021 [facility] [address] [place] [address] 13 Jan, 2021 [facility] [address] [place] [phone] 13 Jan, 2021 Iron deficiency anemia, unspecified iron deficiency anemia type D50.9 ; Gastroesophageal reflux disease, unspecified whether esophagitis present K21.9 ; Abdominal pain, generalized R10.84 ; Irritable bowel syndrome with diarrhea K58.0 and Weight loss R63.4 [facility] ER [address], [place] [id number] Sep, [facility] ER [address], [place] [id number] 14 Dec, 2006 [facility] Outpatient [address] [place] [id number] 26 Aug, 2006 [facility] ER [address] [place] [id number] 15 Mar, 2006 [facility] ER [address] [place] [id number] Apr, [facility] [address], [place] [phone] Mar, IMMUNIZATIONS Vaccine Route Administration Date Status [...] MG Orally Q 6 hours prn abdominal discomfort/scratcher mps 1-2 Jun, 30 day(s) Active MiraLax [...] VERIFIED W/PT OR RE January 20, 2021 TOBACCO NON-USER January 20, 2021 DOC MEDS VERIFIED W/PT OR RE Jun 16, 2021 UPPER GI ENDOSCOPY, BIOPSY Feb 25, 2021 COLORECTAL CA SCREEN DOC REV Jun 16, 2021 COLORECTAL CA SCREEN DOC REV January 20, 2021 DIAGNOSTIC COLONOSCOPY October 16, 2021 BP SCR NOT PRFRM REC REASON NOS Jun 16, 2021 PATIENT NOT ELIG D/T ACTIVE DX HTN January 20, 2021 COLONOSCOPY AND BIOPSY Feb 25, 2021 RESULTS Name Result Date Reference Range [...] [employer] [address] [facility] [address] [employer] [employer] valerio MARSHALL [id number] O [employer] OF [place] [address] [facility] [address] MED[employer]ARE OF [place] valerio MARSHALL [id number]
[2023-02-22] MEDS: Lactated Ringers 1,000 ML 100 ML IVCONT (06:22)
[2023-02-22 06:29] LABS: Glucose, Whole Blood 116 mg/dL (60-115)
--- NOTE | 2023-02-22 07:57 | P.CONAN_ITS ---
[facility] Active Problems Active Problems: All Active Problems (Updated 02/17/23 @ 15:19 by Chela Long RN) Iron deficiency anemia (Chronic) Biliary colic (Acute) Past Medical History Medical History Anemia Anxiety Asthma Depression Diabetes mellitus Gastritis Helicobacter positive gastritis Hypertension Hypothyroidism Iron deficiency anemia Family History Family history of problems with anesthesia: No Surgical History Surgical History History of esophagogastroduodenoscopy (EGD) Hx of colonoscopy Hx of hysterectomy History of Problems with Anesthesia: No Social History Social History Household Members: None Housing: Apartment Alcohol intake: former Patient Tobacco Use Status: Never used Tobacco Are you DNR?: No Advance Directives: No Advance Directives Information Provided: Yes Nutrition Risks: No Nutritional Risk service: No Current occupational status: retired Meds Allergies Allergy/AdvReac Type Severity Reaction Status Date / Time lisinopril [Lisinopril] Allergy Unknown UNKNOWN Verified 02/22/23 06:46 Active Medications: Current Medications Albuterol Sulfate (Albuterol Sulfate (0.083%) 2.5 Mg/3 Ml Vial.Neb) 2.5 mg INHALE ONCE PRN PRN Reason: Shortness of Breath/Wheezing Albuterol Sulfate (Albuterol Sulfate (0.083%) 2.5 Mg/3 Ml Vial.Neb) 2.5 mg INHALE ONCE PRN PRN Reason: Wheezing Fentanyl (Fentanyl Citrate/Pf 100 Mcg/2 Ml Vial) 25 mcg IVPUSH Q5M PRN; Protocol PRN Reason: Pain, Moderate(Pain Scale 4-6) Hydromorphone HCl (Hydromorphone Hcl 0.5 Mg/0.5 Ml Syringe) 0.25 mg IVPUSH Q5M PRN; Protocol PRN Reason: Pain, Severe (Pain Scale 7-10) Lactated Ringer's (Lr) 1,000 mls @ 100 mls/hr IVCONT .Q10H JUVE Last Admin: 02/22/23 06:22 Dose: 100 mls/hr Ondansetron HCl (Ondansetron Hcl 4 Mg/2 Ml Vial) 4 mg IVPUSH ONCE PRN PRN Reason: Nausea and Vomiting Oxycodone HCl (Oxycodone Hcl Immed Release 5 Mg Tablet) 5 mg PO ONCE PRN PRN Reason: Pain, Severe (Pain Scale 7-10) Home Medications Medication Instructions Recorded Confirmed Last Taken Type ascorbic acid (vitamin C) 500 mg 500 mg PO DAILY 05/14/20 02/17/23 Unknown History tablet aspirin 81 mg tablet,delayed 81 mg PO DAILY 05/14/20 02/17/23 Unknown History release bupropion HCl 150 mg 24 hr tablet, 1 tab PO QAM depressive disorder 05/14/20 02/17/23 Unknown History extended release clonazepam 0.5 mg tablet 1 tab PO TID PRN anxiety 05/14/20 02/17/23 Unknown History diltiazem HCl 120 mg 1 cap PO DAILY 05/14/20 02/17/23 Unknown History capsule,extended release 24 hr ferrous sulfate 325 mg (65 mg 1 tab PO DAILY 05/14/20 02/17/23 Unknown History iron) tablet levothyroxine 75 mcg tablet 75 mcg PO DAILY 05/14/20 02/17/23 Unknown History losartan 50 mg tablet 1 tab PO DAILY 05/14/20 02/17/23 Unknown History metformin 500 mg tablet 2 tab PO BID 05/14/20 02/17/23 Unknown History mirtazapine 30 mg tablet 1 tab PO BEDTIME depressive 05/14/20 02/17/23 Unknown History disorder pantoprazole 20 mg tablet,delayed 1 tab PO DAILY 05/14/20 02/17/23 Unknown History release rosuvastatin 20 mg tablet 1 tab PO DAILY 05/14/20 02/17/23 Unknown History albuterol sulfate 90 mcg/actuation 1 inh inhalation QID PRN Wheezing 02/18/21 02/17/23 Unknown History aerosol inhaler (ProAir HFA) cholecalciferol (vitamin D3) 25 1 cap PO DAILY 02/18/21 02/17/23 Unknown History mcg (1,000 unit) capsule docusate sodium 100 mg capsule 1 cap PO DAILY constipation 02/18/21 02/17/23 Unknown History (DOK) topiramate 100 mg tablet 1 tab PO BEDTIME 02/18/21 02/17/23 Unknown History Exam Exam Date and Time: February 22, 2023756 Height,Weight and Vital Signs: Height 5 ft 3 in Weight 61.689 kg Last Vital Signs Temp 97.3 F 02/22/23 06:34 Pulse 74 02/22/23 06:34 Resp 18 02/22/23 06:34 BP 119/66 02/22/23 06:34 Pulse Ox 99 02/22/23 06:34 O2 Del Method Room Air 02/22/23 06:34 Pertinent Lab Results Pertinent Lab Results: Laboratory Tests 02/22/23 06:25 POC Glucose 116 H Airway Mallampati Class: II TM Dist: >3cm Neck ROM: Full Loose/Missing/Broken Teeth: No Heart: RRR Lungs: CTA Assessment and Plan Assessment Anesthesia Assessment: Anesthesia Plan Discussed and Chart Reviewed Final Anesthetic Review Family History of Problems with Anesthesia: No History of Problems with Anesthesia: No NPO: Yes ASA Class: II Final Preanesthetic Review: Meds/Allgs Chart Reviewed, Consent Obtained/Reviewed and Anes Risks/Benef Reviewed Patient Risk: Low Procedure Risk: Intermediate Anesthetic Plan Anesthetic Plan: GA Disposition: Standard PACU
--- NOTE | 2023-02-22 08:39 | P.OP_ITS ---
Operative Note Operative Note Date of Service: 02/22/23 Narrative: Preoperative diagnosis: [] recurrent biliary colic Postop diagnosis: [] same Procedure [] laparoscopic cholecystectomy Surgeon: [] Humberto [employer] Supervisor: [] ember Mccracken Type of Anesthesia: [] general Indication for surgery: [] gallbladder with dense omental adhesions to it. Intrahepatic gallbladder. Findings: [] patient brought to the operating, placed on operative table in a supine position, after adequate level of general anesthesia was induced, the patient's abdomen was prepped and draped in usual sterile fashion. Using a supraumbilical curvilinear incision, Trevino technique was used to insufflate the abdominal cavity to 15 mm of CO2. Upper midline and must subcostal ports were placed under direct laparoscopic view, and the patient was placed in reverse Trendelenburg position, tilted to the left. Gallbladder was grasped using laparoscopic graspers, and retracted superiorly and laterally. Omental adhesions were swept off the gallbladder were its hilum was approached. Common bile duct was identified and preserved throughout the procedure. Cystic artery and cystic duct were each identified, circumferentially skeletonized, each traced directly into the gallbladder. Cystic artery actually at 2 branches entering the gallbladder. Critical view was obtained. All the above-mentioned structures were clipped proximally x2, distally x1, and transected. Gallbladder, Which was markedly intrahepatic, was then cauterized from the gallbladder fossa using Bovie. Specimen was placed in an Endo-Catch bag, retrieved through the umbilical port. The abdominal cavity was copiously irrigated, secured hemostasis. All ports were removed under direct laparoscopic view. Wounds were closed in the following manner; umbilical wound has fascia reapproximated using interrupted 0 Vicryl sutures. Skin wounds were closed using subcuticular 4-0 Vicryl sutures followed by Steri-Strips and sterile dressings. Wounds were infiltrated with 0.5% Marcaine at completion. Sponge, needle, and instrument counts were reported to be correct. Patient tolerated procedure well and emerged from anesthesia stable condition. EBL minimal
[2023-02-22] MEDS: HYDROmorphone HCl 0.5 MG/0.5 ML SYRINGE 0.25 MG IVPUSH ×4 (09:18→09:39)
== END 2023-02-22 11:26 | disposition home or self-care (01) ==
PROVIDERS: Visit Provider Surgery
PROC: 0FT44ZZ Resection of Gallbladder, Percutaneous Endoscopic Approach (ICD-10-PCS; CPT 47562; principal; 2023-02-22 07:30)
DX: K80.44 Calculus of bile duct with chronic cholecystitis without obstruction (principal); K82.8 Other specified diseases of gallbladder; E11.9 Type 2 diabetes mellitus without complications; J45.909 Unspecified asthma, uncomplicated; D50.9 Iron deficiency anemia, unspecified; Z79.82 Long term (current) use of aspirin; Z79.84 Long term (current) use of oral hypoglycemic drugs; Z79.899 Other long term (current) drug therapy; Z88.8 Allergy status to other drugs, medicaments and biological substances
CPT/HCPCS: 47562; 82947; 88304; J0690; J1170; J2250; J2371; J2405; J2550; J2795; J3010

== ENCOUNTER → 2023-02-22 06:00 | Outpatient (BNV) | payer OTHER, SELFPAY | PROVIDERS: Visit Provider Surgery | DX: K80.51 Calculus of bile duct without cholangitis or cholecystitis with obstruction (principal) | CPT/HCPCS: 47562 ==

== ENCOUNTER 2023-03-07 08:51 | Outpatient (AMB) | payer MEDICARE, MEDICAID, SELFPAY ==
[2023-03-07 09:07] VITALS: BP 133/65; PULSE 97
--- NOTE | 2023-03-07 09:07 | A.OFFVIS_ITS ---
Intake Vital Signs 03/07/23 09:07 Weight 129 lb BP 133/65 Blood Pressure Location Rt brachial Position Sitting Pulse 97 Intake Visit Reasons: S/P lap kerrie Intake Note: Patient here s/p lap kerrie. Reports on and off pain that feels like a 10 out of 10. Getting chills and feels like burning like fever at times. Reports incisions slowly healing. Denies bleeding. Patient ran out of rx pain medication. [place] Required: No Accompanied by: Spouse Allergies lisinopril [Lisinopril] Allergy (Unknown, Verified 03/07/23 09:10) UNKNOWN HPI HPI Comments History of Present Illness Details Patient presents with her . She is slowly but steadily convalescing. She is marginally eating. She is passing flatus and stool. She has improving incisional discomfort. She complained of having some chills over the weekend. Pathology was reviewed. [facility] Medical History Anemia Anxiety Asthma Depression Diabetes mellitus Gastritis Helicobacter positive gastritis Hypertension Hypothyroidism Iron deficiency anemia Surgical History History of esophagogastroduodenoscopy (EGD) History of laparoscopic cholecystectomy (02/22/23) Hx of colonoscopy Hx of hysterectomy Social History Household Members: None Housing: Apartment Alcohol intake: former Patient Tobacco Use Status: Never used Tobacco service: No Current occupational status: retired Physical Exam Vital Signs: Last Vital Signs Pulse 97 03/07/23 09:07 BP 133/65 03/07/23 09:07 Eyes Other: Anicteric GI Other: Abdomen soft. All wounds clean dry and intact. Assessment & Plan Assessment & Plan (1) Biliary colic: Code(s): K80.50 - Calculus of bile duct without cholangitis or cholecystitis without obstruction Plan At the present time, patient has been given local instructions, encourage diet and activity and will follow-up p.r.n.. If she has other issues or chills persist, patient and instructed to call the office or go to the ER. Coding Level of Care Code Global (86213) Diagnoses Biliary colic K80.50
== END 2023-03-07 09:34 | disposition home or self-care (01) ==
PROVIDERS: Visit Provider Surgery
DX: K80.50 Calculus of bile duct without cholangitis or cholecystitis without obstruction (principal)
CPT/HCPCS: 99024

== ENCOUNTER → 2023-03-07 08:51 | Outpatient (BNVA) | payer OTHER, SELFPAY | PROVIDERS: Visit Provider Surgery ==

== ENCOUNTER 2023-05-30 15:12 | Outpatient (REF) | payer OTHER, SELFPAY ==
[2023-05-30 16:45] LABS: Anion Gap 10 (12-20); Blood Urea Nitrogen 23 mg/dL (9-16); Calcium 9.7 mg/dL (8.4-10.2); Carbon Dioxide 25 mmol/L (22-29); Chloride 110 mmol/L (96-108); Estimated Glomerular Filt Rate 53; Glucose Random 103 mg/dL (60-115); Potassium 4.2 mmol/L (3.3-5.1); Sodium 141 mmol/L (135-145)
== END 2023-05-30 15:13 | disposition home or self-care (01) ==
LOC: HO.HHCL 15:12
PROVIDERS: Visit Provider General Practice
DX: N18.31 Chronic kidney disease, stage 3a (principal)
CPT/HCPCS: 36415; 80048

== ENCOUNTER 2023-07-18 12:11 | Outpatient (REF) | payer OTHER, SELFPAY | END 2023-07-18 12:12 | disposition home or self-care (01) | LOC: HO.MDS 12:11 | PROVIDERS: Visit Provider Internal Medicine | DX: D50.9 Iron deficiency anemia, unspecified (principal) | CPT/HCPCS: 96365; J1756 ==

== ENCOUNTER 2023-07-25 12:27 | Outpatient (REF) | payer OTHER, SELFPAY | END 2023-07-25 12:28 | disposition home or self-care (01) | LOC: HO.MDS 12:27 | PROVIDERS: Visit Provider Internal Medicine | DX: D50.9 Iron deficiency anemia, unspecified (principal) | CPT/HCPCS: 96365; J1756 ==

== ENCOUNTER 2023-08-01 12:38 | Outpatient (REF) | payer OTHER, SELFPAY | END 2023-08-01 12:39 | disposition home or self-care (01) | LOC: HO.MDS 12:38 | PROVIDERS: Visit Provider Internal Medicine | DX: D50.9 Iron deficiency anemia, unspecified (principal) | CPT/HCPCS: 96365; J1756 ==

== ENCOUNTER 2023-08-22 10:21 | Outpatient (REF) | payer OTHER, SELFPAY ==
--- NOTE | ~2023-08-22 | MM_ITS ---
EXAMINATION: MM SCREENING DIGITAL BREAST TOMOSYNTHESIS, BILATERAL CLINICAL INFORMATION: Screening. Asymptomatic. COMPARISON: Mammography: This study is compared with prior exams dating back to 2019. TECHNIQUE: Digital breast tomosynthesis is performed in both the craniocaudal and mediolateral oblique views along with computer-aided detection (CAD). Synthesized 2D images are generated from the tomosynthesis. FINDINGS: The breasts are heterogeneously dense, which may obscure small masses (ACR BI-RADS breast composition Category c). There is a left subareolar focal asymmetry for which additional mammographic and targeted sonographic evaluation is advised. The remainder of the left breast is normal. In the right breast, there are no significant masses, abnormal calcifications, or other abnormalities. MM/MM tomosynthesis screening BI IMPRESSION: Left subareolar focal asymmetry warrants additional mammographic and targeted sonographic evaluation. No mammographic signs of malignancy right breast. ASSESSMENT: BI-RADS BI-RADS 0 - Incomplete: Needs additional Imaging. RECOMMENDATION: 1. Additional views of the left breast. 2. Targeted ultrasound if warranted after review of the additional views. 3. Radiology department staff will contact the patient for additional imaging. Additional Imaging required This examination should not preclude the clinical evaluation of a suspicious palpable abnormality. This patient's information was entered into a reminder system with a target due date for their next mammogram.
== END 2023-08-22 10:22 | disposition home or self-care (01) ==
LOC: HO.MAMMO 10:21
PROVIDERS: PCP General Practice; Visit Provider General Practice
DX: Z12.31 Encounter for screening mammogram for malignant neoplasm of breast (principal)
CPT/HCPCS: 77063; 77067

== ENCOUNTER → 2023-08-22 10:30 | Outpatient (BNV) | payer OTHER, SELFPAY | PROVIDERS: PCP General Practice; Visit Provider Radiology Diagnostic Radiology | DX: Z12.31 Encounter for screening mammogram for malignant neoplasm of breast (principal) | CPT/HCPCS: 77063; 77067 ==

== ENCOUNTER 2023-09-30 07:12 | Day surgery (SDC) | payer OTHER, SELFPAY ==
--- NOTE | 2023-09-28 14:38 | HO.ANESPROP2 ---
Documented by User: Dagmar Hackett NP 09/28/23 14:39 HPI - Anesthesia Eval Consult details Narrative: 68yo F for Upper Endoscopy PMFSH Active Problems Active Problems: All Active Problems (Updated 03/28/23 @ 15:36 by Caren Ventura MD) Iron deficiency anemia (Chronic) Biliary colic (Acute) Past Medical History Medical History Anemia Anxiety Asthma Depression Diabetes mellitus Gastritis Helicobacter positive gastritis Hypertension Hypothyroidism Iron deficiency anemia Family History Family history of problems with anesthesia: No Surgical History Surgical History History of esophagogastroduodenoscopy (EGD) History of laparoscopic cholecystectomy (02/22/23) Hx of colonoscopy Hx of hysterectomy History of Problems with Anesthesia: No Social History Social History Household Members: None Housing: Apartment Alcohol intake: former Patient Tobacco Use Status: Never used Tobacco Advance Directives: No Advance Directives Information Provided: Yes service: No Current occupational status: retired [employer] Allergies Allergy/AdvReac Type Severity Reaction Status Date / Time lisinopril [Lisinopril] Allergy Unknown UNKNOWN Verified 09/19/23 10:13 Home Medications Medication Instructions Recorded Confirmed Last Taken Type ascorbic acid (vitamin C) 500 mg 500 mg PO DAILY 05/14/20 09/19/23 Unknown History tablet aspirin 81 mg tablet,delayed 81 mg PO DAILY 05/14/20 09/19/23 Unknown History release bupropion HCl 150 mg 24 hr tablet, 1 tab PO QAM depressive disorder 05/14/20 09/19/23 Unknown History extended release clonazepam 0.5 mg tablet 1 tab PO TID PRN anxiety 05/14/20 09/19/23 Unknown History diltiazem HCl 120 mg 1 cap PO DAILY 05/14/20 09/19/23 Unknown History capsule,extended release 24 hr ferrous sulfate 325 mg (65 mg 1 tab PO DAILY 05/14/20 09/19/23 Unknown History iron) tablet levothyroxine 75 mcg tablet 75 mcg PO DAILY 05/14/20 09/19/23 Unknown History losartan 50 mg tablet 1 tab PO DAILY 05/14/20 09/19/23 Unknown History metformin 500 mg tablet 2 tab PO BID 05/14/20 09/19/23 Unknown History mirtazapine 30 mg tablet 1 tab PO BEDTIME depressive 05/14/20 09/19/23 Unknown History disorder rosuvastatin 20 mg tablet 1 tab PO DAILY 05/14/20 09/19/23 Unknown History albuterol sulfate 90 mcg/actuation 1 inh inhalation QID PRN Wheezing 02/18/21 09/19/23 Unknown History aerosol inhaler (ProAir HFA) cholecalciferol (vitamin D3) 25 1 cap PO DAILY 02/18/21 09/19/23 Unknown History mcg (1,000 unit) capsule docusate sodium 100 mg capsule 1 cap PO DAILY constipation 02/18/21 09/19/23 Unknown History (DOK) topiramate 100 mg tablet 1 tab PO BEDTIME 02/18/21 09/19/23 Unknown History melatonin 5 mg tablet 5 mg PO BEDTIME 03/28/23 09/19/23 Unknown History buspirone 10 mg tablet 10 mg PO BID 06/20/23 09/19/23 Unknown History dicyclomine 10 mg capsule 10 mg PO BID PRN Abdominal Pain 09/19/23 09/19/23 Unknown History etodolac 400 mg tablet 400 mg PO BID 09/19/23 09/19/23 Unknown History pantoprazole 40 mg tablet,delayed 40 mg PO DAILY 09/19/23 09/19/23 Unknown History release tizanidine 4 mg tablet 4 mg PO Q8H PRN Muscle Spasm 09/19/23 09/19/23 Unknown History Assessment and Plan Assessment Anesthesia Assessment: Chart Reviewed Final Anesthetic Review Family History of Problems with Anesthesia: No History of Problems with Anesthesia: No Documented by User: Toro Petersen MD 09/30/23 07:57 PMFSH Past Medical History Medical History Anemia Anxiety Asthma Depression Diabetes mellitus Gastritis Helicobacter positive gastritis Hypertension Hypothyroidism Iron deficiency anemia Surgical History Surgical History History of esophagogastroduodenoscopy (EGD) History of laparoscopic cholecystectomy (02/22/23) Hx of colonoscopy Hx of hysterectomy Social History Social History Household Members: None Housing: Apartment Alcohol intake: former Patient Tobacco Use Status: Never used Tobacco Advance Directives: No Advance Directives Information Provided: Yes service: No Current occupational status: retired [employer] Allergies Allergy/AdvReac Type Severity Reaction Status Date / Time lisinopril [Lisinopril] Allergy Unknown UNKNOWN Verified 09/19/23 10:13 Home Medications Medication Instructions Recorded Confirmed Last Taken Type ascorbic acid (vitamin C) 500 mg 500 mg PO DAILY 05/14/20 09/19/23 Unknown History tablet aspirin 81 mg tablet,delayed 81 mg PO DAILY 05/14/20 09/19/23 Unknown History release bupropion HCl 150 mg 24 hr tablet, 1 tab PO QAM depressive disorder 05/14/20 09/19/23 Unknown History extended release clonazepam 0.5 mg tablet 1 tab PO TID PRN anxiety 05/14/20 09/19/23 Unknown History diltiazem HCl 120 mg 1 cap PO DAILY 05/14/20 09/19/23 Unknown History capsule,extended release 24 hr ferrous sulfate 325 mg (65 mg 1 tab PO DAILY 05/14/20 09/19/23 Unknown History iron) tablet levothyroxine 75 mcg tablet 75 mcg PO DAILY 05/14/20 09/19/23 Unknown History losartan 50 mg tablet 1 tab PO DAILY 05/14/20 09/19/23 Unknown History metformin 500 mg tablet 2 tab PO BID 05/14/20 09/19/23 Unknown History mirtazapine 30 mg tablet 1 tab PO BEDTIME depressive 05/14/20 09/19/23 Unknown History disorder rosuvastatin 20 mg tablet 1 tab PO DAILY 05/14/20 09/19/23 Unknown History albuterol sulfate 90 mcg/actuation 1 inh inhalation QID PRN Wheezing 02/18/21 09/19/23 Unknown History aerosol inhaler (ProAir HFA) cholecalciferol (vitamin D3) 25 1 cap PO DAILY 02/18/21 09/19/23 Unknown History mcg (1,000 unit) capsule docusate sodium 100 mg capsule 1 cap PO DAILY constipation 02/18/21 09/19/23 Unknown History (DOK) topiramate 100 mg tablet 1 tab PO BEDTIME 02/18/21 09/19/23 Unknown History melatonin 5 mg tablet 5 mg PO BEDTIME 03/28/23 09/19/23 Unknown History buspirone 10 mg tablet 10 mg PO BID 06/20/23 09/19/23 Unknown History dicyclomine 10 mg capsule 10 mg PO BID PRN Abdominal Pain 09/19/23 09/19/23 Unknown History etodolac 400 mg tablet 400 mg PO BID 09/19/23 09/19/23 Unknown History pantoprazole 40 mg tablet,delayed 40 mg PO DAILY 09/19/23 09/19/23 Unknown History release tizanidine 4 mg tablet 4 mg PO Q8H PRN Muscle Spasm 09/19/23 09/19/23 Unknown History Exam Airway Mallampati Class: III TM Dist: >3cm Neck ROM: Full Assessment and Plan Assessment Anesthesia Assessment: Anesthesia Plan Discussed Final Anesthetic Review NPO: Yes ASA Class: III Final Preanesthetic Review: No Changes in Pt Med Stat, Meds/Allgs Chart Reviewed, Consent Obtained/Reviewed and Anes Risks/Benef Reviewed Patient Risk: Intermediate Procedure Risk: Low Anesthetic Plan Anesthetic Plan: TIVA Disposition: Standard PACU
[2023-09-30 07:54] VITALS: BMI 23.1
[2023-09-30 07:56] LABS: Glucose, Whole Blood 122 mg/dL (60-115)
[2023-09-30 07:57] VITALS: BP 125/72; PULSE 81; RESP 18; TEMP 36.2; O2SAT 98
[2023-09-30] MEDS: Lactated Ringers 1,000 ML 100 ML IVCONT (08:39)
[2023-09-30 09:00] VITALS: BP 91/54; PULSE 65; RESP 17; TEMP 36.3; O2SAT 100
--- NOTE | 2023-09-30 09:02 | PM.OP ---
Brief Operative Note Date of Service: 09/30/23 Pre-op diagnosis: GERD, Navarro's Post-op diagnosis: other (Same, Hiatal hernia, Mild gastric retention) Procedure: EGD with biopsies Surgeon: Barry Pugh MD Anesthesia: MAC Was an Journe[employer] used for this Procedure?: No Estimated blood loss (mL): 2.0 Pathology: other (A. EG Junction at 35cm) Condition: stable Disposition: PACU
--- NOTE | 2023-09-30 09:13 | OP_ITS ---
DATE OF SERVICE: 09/30/2023 SURGEON: Barry Pugh MD INDICATIONS: The patient presents for followup of gastroesophageal reflux and Navarro esophagus. Full consent obtained from her for this, including risks of bleeding and perforation. PREOPERATIVE DIAGNOSIS: POSTOPERATIVE DIAGNOSIS: PROCEDURE PERFORMED: ESTIMATED BLOOD LOSS: COMPLICATIONS: ANESTHESIA: Monitored anesthesia care. ASSISTANTS: SPECIMENS: PROCEDURE: Esophagogastroduodenoscopy with biopsies. PREOPERATIVE DIAGNOSES: Gastroesophageal reflux and Navarro esophagus. POSTOPERATIVE DIAGNOSES: Gastroesophageal reflux and Navarro esophagus, hiatal hernia, mild gastric retention. DESCRIPTION OF PROCEDURE: The patient was placed in the left lateral decubitus position. The Olympus video gastroscope was passed in the posterior oropharynx and upper esophagus under direct vision. The scope was passed slowly into the distal esophagus. The gastroesophageal junction appeared at 35 cm. There was some irregularity at this level with small, less than 1 cm areas of probable Navarro mucosa. There was no evidence of any esophagitis nor any lesions. The scope entered the stomach. There was a small hiatal hernia. The scope was advanced to pylorus. The duodenum was cannulated. The duodenal bulb appeared normal. There was some retained food in the distal bulb and 2nd portion, and therefore this was not inspected. The scope was withdrawn back to the stomach. The gastric antrum had some areas of erythema as well as some retained food. Peristalsis seemed to be subjectively normal. The scope was retroflexed visualizing the proximal stomach carefully, which appeared normal, without any sign of mass or ulceration. The scope was straightened and withdrawn back to the esophagus. Multiple biopsies were obtained at the EG junction at 35 cm. Proximal to that, the esophageal mucosa appeared normal. The scope was withdrawn from the patient. She tolerated procedure well and was returned to recovery area in stable condition. IMPRESSION: Hiatal hernia, gastroesophageal reflux, history of Navarro esophagus, mild gastric retention. PLAN: The results of biopsies will be checked. Assuming there is no dysplasia, I would recommend a repeat upper endoscopy in 3 years when she has her next screening colonoscopy. She was advised to continue her daily lansoprazole for her reflux. She was instructed to be sure not to eat for several hours before bedtime and try to eat small meals in regard to what appeared to be some mild gastric retention, which could be related to her underlying diabetes. She is otherwise asymptomatic and therefore, I do not think we need to pursue a gastric emptying study at this time. MD IRENE Araiza/DAMON / [id number]
[2023-09-30 09:15] VITALS: BP 108/64; PULSE 76; RESP 16; TEMP 36.1; O2SAT 99
== END 2023-09-30 09:50 | disposition home or self-care (01) ==
PROVIDERS: PCP General Practice; Visit Provider Internal Medicine
PROC: 0DJ08ZZ Inspection of Upper Intestinal Tract, Via Natural or Artificial Opening Endoscopic (ICD-10-PCS; CPT 43235; principal; 2023-09-30 08:40)
DX: K21.9 Gastro-esophageal reflux disease without esophagitis (principal); K22.70 Barrett's esophagus without dysplasia; K31.89 Other diseases of stomach and duodenum; K44.9 Diaphragmatic hernia without obstruction or gangrene; I10 Essential (primary) hypertension; E11.9 Type 2 diabetes mellitus without complications; D50.9 Iron deficiency anemia, unspecified; J45.909 Unspecified asthma, uncomplicated; Z79.82 Long term (current) use of aspirin; Z79.899 Other long term (current) drug therapy; Z79.84 Long term (current) use of oral hypoglycemic drugs; Z90.49 Acquired absence of other specified parts of digestive tract
CPT/HCPCS: 43239; 82947; 88305; 88313; J2704

== ENCOUNTER 2023-10-05 14:42 | Outpatient (REF) | payer OTHER, SELFPAY ==
--- NOTE | ~2023-10-05 | US_ITS ---
EXAMINATION: MM DIAGNOSTIC DIGITAL BREAST TOMOSYNTHESIS, LEFT US BREAST LIMITED, LEFT MAMMOGRAPHY: CLINICAL INFORMATION: Follow-up diagnostic left mammography for retroareolar focal asymmetry seen on screening exam. COMPARISON: Mammography: Screening mammography to 08/22/2023, 08/16/2022, 08/13/2021, 08/08/2020, and dating back to 2016 TECHNIQUE: Digital breast tomosynthesis is performed in the following views: 3-D spot compression left CC and left MLO views left breast. This was followed by retroareolar left breast ultrasound. FINDINGS: The breasts are heterogeneously dense, which may obscure small masses (ACR BI-RADS breast composition Category c). The retroareolar focal asymmetry largely effaces on diagnostic spot compression views, suggesting overlapping normal tissue densities. This has an appearance which is quite similar to multiple prior exams. We will evaluate this area with ultrasound. ULTRASOUND: CLINICAL INFORMATION: As above. COMPARISON: None TECHNIQUE: Targeted sonographic evaluation was performed using a high frequency linear transducer. Attention was given to the liver the retroareolar region left breast. Selected archived documentation. FINDINGS: LEFT BREAST: There is abundant duct ectasia in the retroareolar left breast. A few of the ducts appear to have internal debris without color Doppler signal, ductal expansion, or definitive mass. No abnormal shadowing or suspicious masses. No focal cystic abnormalities. Benign findings. US/US breast LT limited mamm only IMPRESSION: There are no findings in the left breast suggestive of malignancy. There are retroareolar ectatic ducts, some with internal debris. No definite retroareolar or ductal mass. Recommend the patient return to routine annual screening mammography. OVERALL ASSESSMENT: Mammography: BI-RADS 2 - Benign Findings Ultrasound: BI-RADS 2 - Benign Findings RECOMMENDATION: 1 year F/U Results were provided to the patient at time of visit by the technologist. This patient's information was entered into a reminder system with a target due date for their next mammogram.
== END 2023-10-05 14:43 | disposition home or self-care (01) ==
LOC: HO.MAMMO 14:42
PROVIDERS: PCP General Practice; Visit Provider General Practice
DX: N64.89 Other specified disorders of breast (principal)
CPT/HCPCS: 76642; 77061; 77065

== ENCOUNTER → 2023-10-05 15:00 | Outpatient (BNV) | payer OTHER, SELFPAY | PROVIDERS: PCP General Practice; Visit Provider Radiology Diagnostic Radiology | DX: N60.42 Mammary duct ectasia of left breast (principal) | CPT/HCPCS: 76642; 77065; G0279 ==

== ENCOUNTER 2023-10-21 11:46 | Outpatient (REF) | payer OTHER, SELFPAY ==
[2023-10-21 14:28] LABS: Erythrocyte Sedimentation Rate 10 MM/HR (0-20)
[2023-10-21 14:41] LABS: Creatinine Urine 133.94 mg/dL; Microalbum/Creatinine Ratio Ur 29.8 ug/mg cr (<30)
[2023-10-21 14:42] LABS: Alanine Aminotransferase 44 U/L (0-31); Albumin Level 4.3 g/dL (3.5-5.0); Alkaline Phosphatase 70 U/L (39-117); Anion Gap 12 (12-20); Aspartate Amino Transferase 33 U/L (5-31); Bilirubin Total 0.2 mg/dL (0.0-1.0); Blood Urea Nitrogen 29 mg/dL (9-16); Calcium 9.3 mg/dL (8.4-10.2); Carbon Dioxide 21 mmol/L (22-29); Chloride 115 mmol/L (96-108); Cholesterol 107 mg/dL (<200); Estimated Glomerular Filt Rate 51; Glucose Random 160 mg/dL (60-115); HDL Cholesterol 50 mg/dL (>40); LDL Cholesterol Calculated 34 mg/dL (<100); Lactate Dehydrogenase 207 U/L (122-220); Potassium 4.1 mmol/L (3.3-5.1); Sodium 144 mmol/L (135-145); TSH reflex Free T4 0.98 uIU/mL (0.32-4.0); Total Protein 7.3 g/dL (6.5-8.0); Triglycerides 119 mg/dL (<150)
== END 2023-10-21 11:47 | disposition home or self-care (01) ==
LOC: HO.HHCL 11:46
PROVIDERS: Visit Provider General Practice
DX: R63.4 Abnormal weight loss (principal); E11.65 Type 2 diabetes mellitus with hyperglycemia
CPT/HCPCS: 36415; 80053; 80061; 82043; 82570; 83615; 84443; 85652

== ENCOUNTER 2024-03-07 16:30 | Outpatient (REF) | payer OTHER, SELFPAY ==
[2024-03-07 18:23] LABS: Alanine Aminotransferase 26 U/L (0-31); Albumin Level 4.3 g/dL (3.5-5.0); Alkaline Phosphatase 69 U/L (39-117); Anion Gap 11 (12-20); Aspartate Amino Transferase 27 U/L (5-31); Bilirubin Total 0.2 mg/dL (0.0-1.0); Blood Urea Nitrogen 25 mg/dL (9-16); Calcium 9.5 mg/dL (8.4-10.2); Carbon Dioxide 23 mmol/L (22-29); Chloride 114 mmol/L (96-108); Estimated Glomerular Filt Rate 46; Glucose Random 117 mg/dL (60-115); Lipase 48 U/L (8-78); Potassium 4.3 mmol/L (3.3-5.1); Sodium 144 mmol/L (135-145); Total Protein 7.2 g/dL (6.5-8.0)
== END 2024-03-07 16:31 | disposition home or self-care (01) ==
LOC: HO.HHCL 16:30
PROVIDERS: Visit Provider General Practice
DX: R10.13 Epigastric pain (principal)
CPT/HCPCS: 36415; 80053; 83690

== ENCOUNTER 2024-03-28 16:42 | Outpatient (REF) | payer OTHER, SELFPAY | END 2024-03-28 16:43 | disposition home or self-care (01) | LOC: HO.LNP 16:42 | PROVIDERS: Visit Provider General Practice | DX: R10.13 Epigastric pain (principal); D64.9 Anemia, unspecified | CPT/HCPCS: 87338 ==

== ENCOUNTER 2024-04-12 11:33 | Outpatient (REF) | payer OTHER, SELFPAY ==
[2024-04-12 12:54] LABS: MANUAL DIFF FLAG NO
[2024-04-12 13:23] LABS: Basophils Absolute Auto 0.1 X10*3/uL (0.0-0.2); Eosinophils Absolute Auto 0.2 X10*3/uL (0.0-0.4); Eosinophils Percent Auto 3.3 % (0-4); Hematocrit 35.7 % (37.0-47.0); Hemoglobin 11.7 g/dl (12.0-16.0); Imm Gran Abs Auto 0.03 X10*3/uL (0.00-0.03); Imm Gran Pct Auto 0.5 % (0.0-0.4); Lymphocytes Percent Auto 31.9 % (20-40); Mean Corpuscular HGB Conc 32.8 g/dl (31.0-35.0); Mean Corpuscular Hemoglobin 29.7 pg (27.0-33.0); Mean Corpuscular Volume 90.6 fL (80.0-98.0); Mean Platelet Volume 9.5 fL (9.4-12.3); Monocytes Absolute Auto 0.5 X10*3/uL (0.1-1.2); Monocytes Percent Auto 8.1 % (2-11); Neutrophils Absolute Auto 3.4 x10*3/uL (2.0-8.3); Neutrophils Percent Auto 55.2 % (45-73); Platelet Count 233 X10*3/uL (160-400); Red Blood Count 3.94 X10*6/uL (4.20-5.50); Red Cell Distribution Width 13.1 % (11.0-16.0); White Blood Count 6.2 X10*3/uL (4.8-10.8)
[2024-04-12 13:59] LABS: Anion Gap 12 (12-20); Blood Urea Nitrogen 25 mg/dL (9-16); Calcium 9.7 mg/dL (8.4-10.2); Carbon Dioxide 22 mmol/L (22-29); Chloride 112 mmol/L (96-108); Estimated Glomerular Filt Rate 53; Glucose Random 118 mg/dL (60-115); Iron 52 mcg/dL (30-160); Percent Iron Saturation 17 % (15-50); Potassium 4.1 mmol/L (3.3-5.1); Sodium 142 mmol/L (135-145); Total Iron Binding Capacity 309 mcg/dL (228-428); Unsaturated Iron Binding 257 ug/dL
[2024-04-12 14:01] LABS: Appearance Urine Clear; Color Urine Yellow; Glucose Urine UA Negative (Negative); Leukocyte Esterase Urine Trace (Negative); Nitrite Urine Negative (Negative); PH 5.5 (5.0-9.0); Specific Gravity - Urine 1.025 (1.005-1.025); UMIC TRIGGER UA YES; Urine Blood Negative (Negative); Urine Ketones Trace mg/dL (Negative); Urine Protein Negative (Neg-Trace)
[2024-04-12 14:06] LABS: Bacteria Urine None Seen (None Seen); Creatinine Urine 133.52 mg/dL; Hyaline Casts Urine 0-2 /LPF (0-2); Potassium Urine Random 70.9 mmol/L; RBC Urine 0-2 /HPF (0-2); Squamous Epithelial Cell Urine 0-2 /HPF (0-2); WBC Urine 0-5 /HPF (0-5)
[2024-04-12 14:13] LABS: Ferritin 14 ng/mL (10-250)
== END 2024-04-12 11:34 | disposition home or self-care (01) ==
LOC: HO.LAB 11:33
PROVIDERS: PCP General Practice; Visit Provider Internal Medicine Hypertension Specialist
DX: D50.9 Iron deficiency anemia, unspecified (principal); I12.9 Hypertensive chronic kidney disease with stage 1 through stage 4 chronic kidney disease, or unspecified chronic kidney disease; N18.9 Chronic kidney disease, unspecified; E87.8 Other disorders of electrolyte and fluid balance, not elsewhere classified; G43.709 Chronic migraine without aura, not intractable, without status migrainosus; Z79.899 Other long term (current) drug therapy
CPT/HCPCS: 36415; 80048; 81001; 81003; 82436; 82570; 82728; 83540; 84133; 84300; 85025; 99202

== ENCOUNTER 2024-04-12 11:33 | Outpatient (AMB) | payer OTHER, SELFPAY ==
[2024-04-12 11:32] VITALS: BP 104/60; PULSE 85; O2SAT 98; BMI 23.6
--- NOTE | 2024-04-12 11:32 | HO.NEPHOV ---
Vital Signs 04/12/24 11:32 Height 5 ft 3 in Weight 133 lb BMI 23.6 BP 104/60 Blood Pressure Location Lt brachial Position Sitting Pulse 85 Pulse Source Pulse Oximeter Pulse Oximetry (%) 98 Oxygen Delivery Method Room Air Intake Visit Reasons: DX- Worsening renal function ? RTA/ Conf Pain Medicine Physician Required: No Accompanied by: JEWELRY MAKING INSTRUCTOR Allergies lisinopril [Lisinopril] Allergy (Unknown, Verified 04/12/24 11:36) UNKNOWN Medication List - Last Reconciled 04/12/24 by Pawan Saucedo MD albuterol sulfate 90 mcg/actuation (Ventolin HFA) 2 puffs inhalation Q6H PRN ascorbic acid (vitamin C) 500 mg PO DAILY aspirin 81 mg PO DAILY bupropion HCl XL 1 tab PO QAM buspirone 10 mg PO BID cholecalciferol (vitamin D3) 1 cap PO DAILY clonazepam 1 tab PO TID PRN dicyclomine 10 mg PO BID PRN diltiazem HCl CD 1 cap PO DAILY docusate sodium (DOK) 100 mg PO BID etodolac 400 mg PO BID ferrous sulfate 1 tab PO DAILY levothyroxine 75 mcg PO DAILY losartan 1 tab PO DAILY melatonin 5 mg PO BEDTIME metformin 2 tabs PO BID mirtazapine 1 tab PO BEDTIME pantoprazole 40 mg PO DAILY rosuvastatin 1 tab PO DAILY tizanidine 4 mg PO Q8H PRN topiramate 1 tab PO BEDTIME HPI Comments Details: . Michelle is a pleasant 69-year-old woman with a history of hypertension. She has mild elevation serum creatinine and hyperchloremia and hence she has been referred for further evaluation. She has a history of arthritis. She has been taking etodolac on a regular basis. However she tells me that this is not helping her. As for hypotension she is on losartan 50 mg and diltiazem. Overall blood pressure is well controlled. She has history of migraine she has been on topiramate for a long time. History of significant iron deficiency anemia status post endoscopy which showed Navarro's esophagus. She has received IV Venofer in the past. [facility] Medical History Anemia Anxiety Asthma Depression Diabetes mellitus Gastritis Helicobacter positive gastritis Hypertension Hypothyroidism Iron deficiency anemia Surgical History History of laparoscopic cholecystectomy (02/22/23) Hx of colonoscopy History of esophagogastroduodenoscopy (EGD) Hx of hysterectomy Social History Household Members: None Housing: Apartment Alcohol intake: former Patient Tobacco Use Status: Never used Tobacco service: No Current occupational status: retired Review of Systems Const Denies fever(s) and Denies weight loss Card Denies chest pain Resp Denies cough and Denies hemoptysis GI Denies abdominal pain, Denies diarrhea and Denies nausea Musc Denies back pain Neuro Denies focal weakness Physical Exam Vital Signs: Last Vital Signs Pulse 85 04/12/24 11:32 BP 104/60 04/12/24 11:32 Pulse Ox 98 04/12/24 11:32 Oxygen Delivery Method Room Air 04/12/24 11:32 BMI result Body Mass Index 23.6 Const General: comfortable; No acute distress Orientation/consciousness: patient oriented x3 Eyes General: appearance normal, both eyes and all related structures Visual Garcia: normal visual garcia by confrontation Neck Neck: Yes supple and Yes no JVD Resp Effort & Inspection: normal respiratory effort and respiratory effort not decreased Auscultation: rhonchi Cardio Palpation: no palpable S3 and no palpable S4 Heart sounds: no rubs GI Inspection: Yes normal to inspection Palpation (GI): Soft to palpation Percussion: Yes normal to percussion Auscultation: normal bowel sounds General: Yes no CVA tenderness Back/Spine/Pelvis Back: no CVA tenderness Skin General skin exam: no petechiae and no purpura Neuro General: patient oriented x3 and no focal motor deficits Extrem Other: Heberden's nodes and mild contractures in the digits, more on the right side General: No clubbing and No edema Results Reviewed Nephrology Results: Hgb 11.7 g/dl (12.0-16.0) L 04/12/24 WBC 6.2 X10*3/uL (4.8-10.8) 04/12/24 Plt Count 233 X10*3/uL (160-400) 04/12/24 Sodium 142 mmol/L (135-145) 04/12/24 Potassium 4.1 mmol/L (3.3-5.1) 04/12/24 Chloride 112 mmol/L (96-108) H 04/12/24 Carbon Dioxide 22 mmol/L (22-29) 04/12/24 BUN 25 mg/dL (9-16) H 04/12/24 Creatinine 1.03 mg/dL (0.5-1.4) 04/12/24 Calcium 9.7 mg/dL (8.4-10.2) 04/12/24 Urine Protein Negative mg/dL (Neg-Trace) 04/12/24 Urine Creatinine 133.52 mg/dL 04/12/24 Assessment & Plan Assessment & Plan (1) CKD (chronic kidney disease): Comment: Mild CKD. EGFR is probably around 55-60 mL/minute. This may be due to hypoperfusion from the combination of ARB and NSAIDs. She probably has underlying hypertensive diabetic kidney disease. Code(s): N18.9 - Chronic kidney disease, unspecified Category: Medical Plan: . (2) Hyperchloremia: Comment: Most likely due to use of topiramate which can inhibit carbonic anhydrase. Code(s): E87.8 - Other disorders of electrolyte and fluid balance, not elsewhere classified Category: Medical (3) Iron deficiency anemia: Code(s): D50.9 - Iron deficiency anemia, unspecified Category: Medical Plan Recommendations Check urine anion gap to differentiate between renal and extrarenal bicarb losses. Ordered. She is at a high risk for ongoing renal injury from the combination of ARB and NSAIDs. Since the blood pressure is relatively low I have taken the liberty of decreasing losartan from 50 mg down to 25 mg. I would encourage her to avoid NSAIDs if possible. Especially since the total lack is not effective she might be better off stopping this medication. Goal is to maintain blood pressure less than 130/80. Avoid hypotension. Continue overt nephrotoxic agents. Encouraged her to increase p.o. fluid intake Stay on low-sodium diet. All questions were answered and we will see her again in the next few weeks. Orders: Orders Complete Blood Count Auto Diff Today D50.9 - Iron deficiency anemia, unspecified, N18.9 - Chronic kidney disease, unspecified Basic Metabolic Panel Today D50.9 - Iron deficiency anemia, unspecified, N18.9 - Chronic kidney disease, unspecified Creatinine Urine Today D50.9 - Iron deficiency anemia, unspecified, N18.9 - Chronic kidney disease, unspecified Sodium Urine Random Today D50.9 - Iron deficiency anemia, unspecified, N18.9 - Chronic kidney disease, unspecified Potassium Urine Random Today D50.9 - Iron deficiency anemia, unspecified, N18.9 - Chronic kidney disease, unspecified UA and rflx microscopic Today D50.9 - Iron deficiency anemia, unspecified, N18.9 - Chronic kidney disease, unspecified Chloride Urine Random Today D50.9 - Iron deficiency anemia, unspecified, N18.9 - Chronic kidney disease, unspecified IRON PROFILE Today D50.9 - Iron deficiency anemia, unspecified, N18.9 - Chronic kidney disease, unspecified Ferritin Today D50.9 - Iron deficiency anemia, unspecified, N18.9 - Chronic kidney disease, unspecified Coding Level of Care Code New Pt Level 5 (25971) Diagnoses CKD (chronic kidney disease) N18.9 Hyperchloremia E87.8 Iron deficiency anemia D50.9
== END 2024-04-12 11:59 | disposition home or self-care (01) ==
PROVIDERS: PCP General Practice; Visit Provider Internal Medicine Hypertension Specialist
DX: N18.9 Chronic kidney disease, unspecified (principal); E87.8 Other disorders of electrolyte and fluid balance, not elsewhere classified; D50.9 Iron deficiency anemia, unspecified
CPT/HCPCS: 99204

== ENCOUNTER 2024-05-28 11:05 | Outpatient (AMB) | payer OTHER, SELFPAY ==
[2024-05-28 11:09] VITALS: BP 116/58; PULSE 80; O2SAT 98; BMI 23.7
--- NOTE | 2024-05-28 11:09 | HO.NEPHOV_ITS ---
Vital Signs 05/28/24 11:09 Height 5 ft 3 in Weight 134 lb BMI 23.7 BP 116/58 L Blood Pressure Location Lt brachial Position Sitting Pulse 80 Pulse Source Pulse Oximeter Pulse Oximetry (%) 98 Oxygen Delivery Method Room Air Intake Visit Reasons: CKD/ Conf Account Development Representative Required: Yes Account Development Representative Services: Account Development Representative Offered & Declined (CORK MOLDER will translate ) Accompanied by: CORK MOLDER Allergies lisinopril [Lisinopril] Allergy (Unknown, Verified 05/28/24 11:10) UNKNOWN Medication List - Last Reconciled 05/28/24 by Pawan Saucedo MD albuterol sulfate 90 mcg/actuation (Ventolin HFA) 2 puffs inhalation Q6H PRN ascorbic acid (vitamin C) 500 mg PO DAILY aspirin 81 mg PO DAILY bupropion HCl XL 1 tab PO QAM buspirone 10 mg PO BID cholecalciferol (vitamin D3) 1 cap PO DAILY clonazepam 1 tab PO TID PRN dicyclomine 10 mg PO BID PRN diltiazem HCl CD 1 cap PO DAILY docusate sodium (DOK) 100 mg PO BID etodolac 400 mg PO BID ferrous sulfate 1 tab PO DAILY levothyroxine 75 mcg PO DAILY losartan 25 mg PO DAILY melatonin 5 mg PO BEDTIME metformin 2 tabs PO BID mirtazapine 1 tab PO BEDTIME pantoprazole 40 mg PO DAILY rosuvastatin 1 tab PO DAILY tizanidine 4 mg PO Q8H PRN topiramate 1 tab PO BEDTIME HPI Comments Details: . Michelle is a pleasant 69-year-old woman with a history of hypertension. She has mild elevation serum creatinine and hyperchloremia and hence she has been referred for further evaluation. She has a history of arthritis. She has been taking etodolac on a regular basis. However she tells me that this is not helping her. As for hypertension she is on losartan 50 mg and diltiazem. Overall blood pressure is well controlled. She has history of migraine she has been on topiramate for a long time. History of significant iron deficiency anemia status post endoscopy which showed Navarro's esophagus. She has received IV Venofer in the past. 05/28/24 Losartan was decreased from 50 mg a day down to 25 mg. She is feeling much better. She has stopped taking etodolac Currently she has no lightheadedness [facility] Medical History Anemia Anxiety Asthma Depression Diabetes mellitus Gastritis Helicobacter positive gastritis Hypertension Hypothyroidism Iron deficiency anemia Surgical History History of laparoscopic cholecystectomy (02/22/23) Hx of colonoscopy History of esophagogastroduodenoscopy (EGD) Hx of hysterectomy Social History Household Members: None Housing: Apartment Alcohol intake: former Patient Tobacco Use Status: Never used Tobacco service: No Current occupational status: retired Physical Exam Vital Signs: Last Vital Signs Pulse 80 05/28/24 11:09 BP 116/58 L 05/28/24 11:09 Pulse Ox 98 05/28/24 11:09 Oxygen Delivery Method Room Air 05/28/24 11:09 BMI result Body Mass Index 23.7 Const General: comfortable; No acute distress Orientation/consciousness: patient oriented x3 Eyes General: appearance normal, both eyes and all related structures Visual Garcia: normal visual garcia by confrontation Neck Neck: Yes supple and Yes no JVD Resp Effort & Inspection: normal respiratory effort and respiratory effort not decreased Auscultation: rhonchi Cardio Palpation: no palpable S3 and no palpable S4 Heart sounds: no rubs GI Inspection: Yes normal to inspection Palpation (GI): Soft to palpation Percussion: Yes normal to percussion Auscultation: normal bowel sounds General: Yes no CVA tenderness Back/Spine/Pelvis Back: no CVA tenderness Skin General skin exam: no petechiae and no purpura Neuro General: patient oriented x3 and no focal motor deficits Extrem Other: Heberden's nodes and mild contractures in the digits, more on the right side General: No clubbing and No edema Results Reviewed Nephrology Results: Hgb 11.7 g/dl (12.0-16.0) L 04/12/24 WBC 6.2 X10*3/uL (4.8-10.8) 04/12/24 Plt Count 233 X10*3/uL (160-400) 04/12/24 Sodium 142 mmol/L (135-145) 04/12/24 Potassium 4.1 mmol/L (3.3-5.1) 04/12/24 Chloride 112 mmol/L (96-108) H 04/12/24 Carbon Dioxide 22 mmol/L (22-29) 04/12/24 BUN 25 mg/dL (9-16) H 04/12/24 Creatinine 1.03 mg/dL (0.5-1.4) 04/12/24 Calcium 9.7 mg/dL (8.4-10.2) 04/12/24 Urine Protein Negative mg/dL (Neg-Trace) 04/12/24 Urine Creatinine 133.52 mg/dL 04/12/24 Assessment & Plan Assessment & Plan (1) CKD (chronic kidney disease): Comment: Mild CKD. EGFR is probably around 55-60 mL/minute. This may be due to hypoperfusion from the combination of ARB and NSAIDs. She probably has underlying hypertensive diabetic kidney disease. Code(s): N18.9 - Chronic kidney disease, unspecified Category: Medical Plan: . Renal function is better Cr down to 1.03 (2) Hyperchloremia: Comment: Most likely due to use of topiramate which can inhibit carbonic anhydrase. Urinary anion gap was positive Code(s): E87.8 - Other disorders of electrolyte and fluid balance, not elsewhere classified Category: Medical Plan: Monitor for now (3) Iron deficiency anemia: Code(s): D50.9 - Iron deficiency anemia, unspecified Category: Medical Plan Goal is to maintain blood pressure less than 130/80. Avoid hypotension. Continue to avoid nephrotoxic agents including NSAIDS Encouraged her to increase p.o. fluid intake Stay on low-sodium diet. No further changes were made today. Orders: Orders Basic Metabolic Panel 6 Months N18.9 - Chronic kidney disease, unspecified Coding Level of Care Code Est Pt Level 4 (05344) Diagnoses CKD (chronic kidney disease) N18.9 Hyperchloremia E87.8 Iron deficiency anemia D50.9
== END 2024-05-28 11:25 | disposition home or self-care (01) ==
PROVIDERS: PCP General Practice; Visit Provider Internal Medicine Hypertension Specialist
DX: N18.2 Chronic kidney disease, stage 2 (mild) (principal); E87.8 Other disorders of electrolyte and fluid balance, not elsewhere classified; D50.9 Iron deficiency anemia, unspecified
CPT/HCPCS: 99214

== ENCOUNTER → 2024-05-28 11:05 | Outpatient (BNVA) | payer OTHER, SELFPAY | PROVIDERS: PCP General Practice; Visit Provider Internal Medicine Hypertension Specialist | DX: I12.9 Hypertensive chronic kidney disease with stage 1 through stage 4 chronic kidney disease, or unspecified chronic kidney disease (principal); N18.9 Chronic kidney disease, unspecified; E87.8 Other disorders of electrolyte and fluid balance, not elsewhere classified; D50.9 Iron deficiency anemia, unspecified | CPT/HCPCS: 99212 ==

== ENCOUNTER → 2024-08-14 07:43 | Outpatient (REF) | payer OTHER, SELFPAY ==
--- NOTE | ~2024-08-14 | NM_ITS ---
EXAMINATION: NM RADIONUCLIDE SOLID FOOD GASTRIC EMPTYING 4-HOUR STUDY CLINICAL INFORMATION: Epigastric pain. Abdominal pain. Chronic GERD COMPARISON: None TECHNIQUE: A standard meal consisting of 4 oz of Egg Beaters brand tagged with 0.94 microcuries Tc-99m Sulfur Colloid, 6 oz water and 2 slices of toast with jelly was administered orally to the patient. Images were obtained using a dual head gamma camera in the anterior and posterior projections over of the stomach immediately post ingestion and at hourly intervals up to 4 hours post ingestion. The anterior and posterior counts at each time interval were averaged using the geometric mean and expressed as percentage of the immediate post ingestion counts. FINDINGS: There is good visualization of activity in the stomach immediately post ingestion. As the study progresses, there is good clearance of activity from the stomach and visualization of progressively increasing small bowel activity. By the end of the study, there is almost no retention noted in the stomach. Retention in the stomach at each time interval was: 1 hour 85% (normal 37%-90%) 2 hours 79% (normal 30%-60%) 3 hours 67% 4 hours 57% (normal 0%-10%) NM/NM gastric emptying study IMPRESSION: Abnormal 4-hour solid food gastric emptying study. Approximately 57% of food was retained at the end of 4 hours For solid meal, rapid gastric emptying is less than 30% at 60 minutes. Delayed gastric emptying criteria is more than 60% remaining at 120 minutes or more than 10% at 240 minutes. The 4-hour value is the best discriminator of a normal or abnormal result). Gastric emptying study grading per JNMT Consensus Recommendations in 2008 (https://tech.snmjournals.org/content/36/1/44) Grade 1 (mild retention): 11-20% at 4h Grade 2 (moderate retention): 21-35% at 4h Grade 3 (severe retention): 36-50% at 4h Grade 4 (very severe retention): >50% retention at 4h Electronically signed by: Atilio Arevalo MD 08/15/2024 07:09 AM [facility]
--- OUTSIDE RECORDS SUMMARY | 2024-08-14 07:46 | XMS_ITS | Encounter Summary ---
Author Organization [employer] Address [address] [place] [address] [address] [place] [address] Care Team Providers Care Tank Wagon Operator Name Role Phone Brea Cano MD Primary Care Provider [phone] Encounter Details Date Type Department Care Team (Latest Contact Info) Description 08/18/2020 Abstract [facility] CONVERSIONS Dental, Provider, DDS Social History Tobacco Use Types Packs/Day Years Used Date Smoking Tobacco: Never Assessed Comments Unknown Sex and Gender Information Value Date Recorded Sex Assigned at Female 05/10/2022 10:15 AM EDT Legal Sex Female 10:15 AM EDT Gender Identity Female 05/10/2022 10:15 AM EDT Sexual Orientation Straight 05/10/2022 10 :15 AM EDT documented as of this encounter Plan of Treatment Not on file documented as of this encounter Visit Diagnoses Not on filedocumented in this encounter Care Teams Tank Wagon Operator Relationship Specialty Start Date End Date Brea Cano MD [address] [place] [id number] PCP - General Family Medicine 03/03/22 documented as of this encounter
--- OUTSIDE RECORDS SUMMARY | 2024-08-14 07:46 | XMS_ITS | Encounter Summary ---
Author Organization [employer] Address [address] [place] [address] [address] [place] [address] Care Team Providers Care Patient Safety Officer Name Role Phone Brea Cano MD Primary Care Provider [phone] Reason for Visit * Reason Comments Med Refill Encounter Details Date Type Department Care Team ([facility] st Contact Info) Description 02/22/2023 Refill [facility] MEDICINE [address] [place], [place] [id number] Brea Cano MD [address] [place] [address] Social History Tobacco Use Types Packs/Day Years Used Date Smoking Tobacco: Never Smokeless Tobacco: Never Alcohol Use Standard Drinks/Week Comments Never 0 (1 standard drink = 0.6 oz pur e alcohol) Depression Answer Date Recorded Patient Health Questionnaire-9 Score 0 08/20/2022 Depression Answer Date Recorded Patient Health Questionnaire-2 Score 0 08/20/2022 Comments Unknown Sex and Gender Information Value Date Recorded Sex Assigned at Female 05/10/2022 10:15 AM EDT Legal Sex Female 10:15 AM EDT Gender Identity Female 05/10/2022 10:15 AM EDT Sexual Orientation Straight 05/10/2022 10 :15 AM EDT documented as of this encounter Plan of Treatment Not on file documented as of this encounter Visit Diagnoses Not on filedocumented in this encounter Additional Health Concerns Assessment Noted Time PHQ-9 Depression Total Score: 0 08/20/19 23 11:18 AM EST documented as of this encounter Care Teams Patient Safety Officer Relationship Specialty Start Date End Date Brea Cano MD [address] [place] [address] PCP - General Family Medicine 03/03/22 documented as of this encounter
--- OUTSIDE RECORDS SUMMARY | 2024-08-14 07:46 | XMS_ITS | Encounter Summary ---
Author Organization [employer] Address [address] [place] [address] [address] [place] [address] Care Team Providers Care Supplier Quality Engineer Name Role Phone Brea Cano MD Primary Care Provider [phone] Encounter Details Date Type Department Care Team (Late st Contact Info) Description 08/18/2022 Abstract [facility] MEDICINE [address] [place], [place] [phone] Margarita Sanchez, RN [address] [place] [address] Social History Tobacco Use Types Packs/Day Years Used Date Smoking Tobacco: Never Smokeless Tobacco: Never Depression Answer Date Recorded Patient Health Questionnaire-9 Score 0 08/20/2022 Depression Answer Date Recorded Patient Health Questionnaire-2 Score 0 08/20/2022 Comments Unknown Sex and Gender Information Value Date Recorded Sex Assigned at Female 05/10/2022 10:15 AM EDT Legal Sex Female 10:15 AM EDT Gender Identity Female 05/10/2022 10:15 AM EDT Sexual Orientation Straight 05/10/2022 10 :15 AM EDT COVID-19 Exposure Response Date Recorded In the last 10 days, have yo u been in contact with someone who was confirmed or suspected to have Coronavirus/COVID-19? No / Unsure 08/20/2022 10:47 AM EST documented as of this encounter Plan of Treatment Not on file documented as of this encounter Procedures Procedure Name Priority Date/Time Associated Diagnosis Comments MAMMOGRAPHY Routine 08/16/2022 documented in this encounter Results * Mammography (08/16/2022) Mammogram BIRADS 1: Negative Anatomical Region Laterality Modality Other us Historical Provider HEALTH MAINTENANCE Final Result documented in this encounter Visit Diagnoses Not on filedocumented in this encounter Care Teams Supplier Quality Engineer Relationship Specialty Start Date End Date Brea Cano MD [address] [place] [address] PCP - General Family Medicine 03/03/22 documented as of this encounter
--- OUTSIDE RECORDS SUMMARY | 2024-08-14 07:46 | XMS_ITS | Encounter Summary ---
Author Organization [employer] Address [address] [place] [address] [address] [place] [address] Care Team Providers Care Brooch Maker Novelty Name Role Phone Brea Cano MD Primary Care Provider [phone] Encounter Details Date Type Department Care Team (Late st Contact Info) Description 03/16/2023 Orders Only [facility] MEDICINE [address] [place] [address] Provider, Historical, Social History Tobacco Use Types Packs/Day Years [...] Procedure Name Priority Date/Time Associated Diagnosis Comments HM COLONOSCOPY Routine 10/16/2021 documented in this encounter Results * Hm Colonoscopy (10/16/2021) us Historical Provider HEALTH MAINTENANCE Final Result documented in this encounter Visit Diagnoses Not on filedocumented in this encounter Additional Health Concerns Assessment Noted Time PHQ-9 Depression Total Score: 0 08/20/19 23 11:18 AM EST documented as of this encounter Care Teams Brooch Maker Novelty Relationship Specialty Start Date End Date Brea Cano MD [address] [place] [address] PCP - General Family Medicine 03/03/22 documented as of this encounter
--- OUTSIDE RECORDS SUMMARY | 2024-08-14 07:46 | XMS_ITS | Encounter Summary ---
Author Organization [employer] Address [address] [place] [address] [address] [place] [address] Care Team Providers Care Skilled Trades Teacher Name Role Phone Brea Cano MD Primary Care Provider [phone] Encounter Details Date Type Department Care Team (Latest Contact Info) Description 01/25/2022 Abstract [facility] CONVERSIONS Dental, Provider, DDS Social [...] on filedocumented in this encounter Care Teams Skilled Trades Teacher Relationship Specialty Start Date End Date Brea Cano MD [address] [place] [id number] PCP - General Family Medicine 03/03/22 documented as of this encounter
--- OUTSIDE RECORDS SUMMARY | 2024-08-14 07:46 | XMS_ITS | Clinical Summary ---
Author Organization [facility] Address [address] [place] [address] Care Team Providers Care School Treasurer Name Role Phone Unavailable Primary Care Provider Unavailabl e Source Comments PLEASE NOTE, if this patient is a minor, it may be UNLAWFUL to discuss sensitive information that is contained in these records (such as FAMILY PLANNING, MENTAL HEALTH or SUBSTANCE ABUSE) with the minor patient's parent or other person without the patient's specific authorization.[facility] Immunizations Name Administration Dates Next Due Moderna COVID-19 Vaccine, re d cap blue label, 12+ Primary Series 10/21/2020,09/23/2020 Social History Tobacco Use Types Packs/Day Years Used Date Smoking Tobacco: Never Assessed Social Connections Answer Date Recorded Social Connections and Isolation 0 09/23/2020 Financial Resource Strain Answer Date R ecorded Financial Resource Strain 0 2020 Stress Answer Date Recorded Stress 0 09/23/2020 Physical Activity Answer Date Recorded Physical Activity 0 09/23/2020 Food Insecurity Answer Date Recorded Food 0 09/23/2020 Transportation Needs Answer Date Record ed Transportation 0 09/23/2020 Housing Stability Answer Date Recorded Housing 0 09/23/2020 Safety and Environment Answer Date Anson rded Safety 0 09/23/2020 Utilities Answer Date Recorded Utilities 0 09/23/2020 Employment Answer Date Recorded Employment 0 09/23/2020 Comments Unknown Sex and Gender Information Value Date Recorded Sex Assigned at Not on file Legal Sex Female 1:50 PM PDT Gender Identity Not on file Sexual Orientation Not on file Plan of Treatment Health Maintenance Due Date Last Done Comments Diabetes Screening 1955 Hepatitis C Screening 1955 Lipid Screening 1955 Tobacco Screening 1955 Hypertension Screening (#1) 02/15/1974 Medicare Annual Wellness Visit 02/15/1974 Breast Cancer Screening (Mammogram) 1996 CT Colonography 02/15/2001 Colonoscopy 02/15/2001 Colorectal Cancer Screening 02/15/2001 FIT/gFOBT 02/15/2001 Fecal DNA 02/15/2001 Flexible Sigmoidoscopy 02/15/2001 Imm-Zoster, Recombinant (2 of 3) 01/28/2017 12/04/19 17 Bone Density Screening 02/15/2021 Falls Prevention 02/15/2021 Imm-Pneumococcal 65+ (2 of 2 - PCV) 02/15/2021 12/26/2003 Alcohol and Drug Screen 07/11/2023 Depression Annual Screen 07/11/2023 [id number] (3 - season) 2024 021, 09/23/2020 Imm-Influenza (#1) 2024 04/07/2020, 1 07/29/2018, 03/27/2018, Additional history exists Imm-DTaP/Tdap/Td (2 - Td or Tdap) 03/21/2024 014, 04/12/2003 Insurance [facility] Member Subscriber Plan / Payer (Ef fective 2017-Present) Name:Michelle Cano Relation to Subscriber:Self Name:Michelle Cano Payer ID:[id number] Group ID:Not on file Type:Indemnity Address: [place] [address] [address] [facility]
--- OUTSIDE RECORDS SUMMARY | 2024-08-14 07:46 | XMS_ITS | Encounter Summary ---
Author Organization [employer] Address [address] [place] [address] Care Team Providers Care Inspector Outside Production Name Role Phone Brea Cano MD Primary Care Provider [phone] Encounter Details Date Type Department Care Team (Late st Contact Info) Description 05/03/2023 Abstract [facility] MEDICINE [address] [place], [place] [phone] Brea Cano MD [address] [place], [place] [phone] Social History Tobacco Use Types Packs/Day Years Used Date Smoking Tobacco: Never Smokeless Tobacco: Never Alcohol Use Standard Drinks/Week Comments Never 0 (1 standard drink = 0.6 oz pur e alcohol) Depression Answer Date Recorded Patient Health Questionnaire-9 Score 0 08/20/2022 Housing Stability Answer Date Recorded What is your housing situation today? I have wilma piter 05/03/[address] you li ve. Do you have problems with any of the following? None of the above 05/03/2023 Food Insecurity Answer Date Recorded Within the past 12 months, y ou worried that your food would run out before you got money to buy more: Never True 05/03/2023 Within the past 12 months,th e food you bought just didn't last and you didn't have enough money to get more: Never True Transportation Answer Date Recorded In the past 12 months, has l ack of transportation kept you from medical appts, meetings, work or from getting things needed for daily living? Yes, it has kept me from medical appointments or getting medications. 04/19/2023 Utilities Answer Date Recorded In the past 12 months, has t he electric, gas, oil or water company threatened to shut off services in your home? No 05/03/2023 Depression Answer Date Recorded Patient Health Questionnaire-2 [...] documented as of this encounter Care Teams Inspector Outside Production Relationship Specialty Start Date End Date Brea Cano MD [address] [place] [address] PCP - General Family Medicine 03/03/22 documented as of this encounter
--- OUTSIDE RECORDS SUMMARY | 2024-08-14 07:46 | XMS_ITS | Encounter Summary ---
Author Organization [employer] Address [address] [place] [address] Care Team Providers Care Building Mechanic Name Role Phone Brea Cano MD Primary Care Provider [phone] Reason for Visit * Reason Onset Date Comments Nurse Triage 06/12/2024 Encounter Details Date Type Department Care Team ([facility] st Contact Info) Description 06/12/2024 Telephone [facility] MEDICINE [address] [place], [place] [phone] Brea Cano MD [address] [place] [address] Nurse Triage Social History Tobacco Use Types Packs/Day Years Used Date Smoking Tobacco: Never Smokeless Tobacco: Never Alcohol Use Standard Drinks/Week Comments Never 0 (1 standard drink = 0.6 oz pur e alcohol) Depression Answer Date Recorded Patient Health Questionnaire-9 Score 0 10/20/2023 Patient Health Questionnaire-9 Score 0 10/20/2023 Last PHQ-9: Questionnaire Data Not on file 0 10/20/2023 Housing Stability Answer Date Recorded What is your housing situation today? I have wilma dumas 09/22/[address] you li ve. Do you have problems with any of the following? None of the above 09/22/2023 Food Insecurity Answer Date Recorded Within the past 12 months, y ou worried that your food would run out before you got money to buy more: Never True 09/22/2023 Within the past 12 months,th e food you bought just didn't last and you didn't have enough money to get more: Never True Transportation Answer Date Recorded In the past 12 months, has l ack of transportation kept you from medical appts, meetings, work or from getting things needed for daily living? No 09/22/2023 Utilities Answer Date Recorded In the past 12 months, has t he electric, gas, oil or water company threatened to shut off services in your home? No 09/22/2023 Depression Answer Date Recorded Patient Health Questionnaire-2 Score 0 10/20/2023 Comments Unknown Sex and Gender Information Value Date Recorded Sex Assigned at Female 05/10/2022 10:15 AM EDT Legal Sex Female 10:15 AM EDT Gender Identity Female 05/10/2022 10:15 AM EDT Sexual Orientation Straight 05/10/2022 10 :15 AM EDT documented as of this encounter Miscellaneous Notes * Telephone Encounter - Sis Garcia RN - 06/12/2024 12:24 PM EST Triage call with [employer] [place] [id number]. Pt reports cough and fever for 3 days. Pt reports fever but, no measurement just chills, shakiness with warmth. Bodyaches, cough with yellow sputum produced, some SOB with exertion and coughing. Pt reports sore throat, and nasal congestion with drainage, neg for earache. Pt is drinking adequate liquids especially warm liquids. Pt has not done home Covid test. Pt requests to be seen by provider and is advised to come to [facility] which is open till 8pm this evening and Pt agrees with disposition. Insurance is verified as active. Home care is reviewed with Pt. Protocol Used: Cough (Adult) Protocol-Based Disposition: See in Office or Video Visit Today or Tomorrow Video visit not offered Positive Triage Questions: * Continuous (nonstop) coughing interferes with work or school and no improvement using cough treatment per Care Advice * Patient wants to be seen * All higher-acuity triage questions were negative Care Advice Discussed: * Reassurance and Education - Cough * Cough Medicines * Coughing Spells * Prevent Dehydration * Fever Medicines * Reasons To Call Back - Difficulty breathing - Cough lasts more than 3 weeks - Fever lasts more than 3 days - You become worse * Telephone Encounter - Martita Morley - 06/12/2024 11:59 AM EST Symptom: Fever, cough Outcome: Schedule an appointment to be seen within 24 hours Reason: Caller denied all higher acuity questions The caller accepted this outcome. documented in this encounter Plan of Treatment Not on file documented as of this encounter Visit Diagnoses Not on filedocumented in this encounter Additional Health Concerns Assessment Noted Time PHQ-9 Depression Total Score: 0 10/20/19 11:04 AM EDT documented as of this encounter Care Teams Building Mechanic Relationship Specialty Start Date End Date Brea Cano MD [address] [place] [address] PCP - General Family Medicine 03/03/22 documented as of this encounter
--- OUTSIDE RECORDS SUMMARY | 2024-08-14 07:46 | XMS_ITS | Clinical Summary ---
Author Organization [employer] Address [address] [place] [address] [address] [place] [address] Care Team Providers Care Truck Driver Instructor Name Role Phone Brea Cano MD Primary Care Provider [phone] Allergies Active Allergy Reactions Criticality Noted Date Comments Brando Inhibitors Angioedema,Rash Low Acetaminophen Swelling Butalbital Swelling Caffeine Swelling Duloxetine Diarrhea,Headache 12/12/2020 Eletriptan Nausea Only Lisinopril 05/29/2023 Other reaction(s): Unknown Valproic Acid Other reaction(s): Hair Loss Verapamil Other reaction(s): Tachycardia Medications aspirin (Aspirin Adult Low Dose) 81 MG EC tablet daily. Acti ve buPROPion XL (Wellbutrin XL) 150 MG 24 hr tablet TAKE 1 TABLET BY MOUTH EVERY MORNING DIRECTED FOR MOOD 3 Active clonazePAM (KlonoPIN) 0.5 MG tablet Take 0.5 mg by mouth if needed each day. 3 Active dicyclomine (Bentyl) 10 MG capsule TAKE 1 TO 2 CAPSULES BY MOUTH EVERY 6 HOURS NEEDED FOR ABDOMINAL DISCOMFORT OR CRAMPS 2 Active senna-docusate (Stimulant Laxative) 8.6-50 MG tablet daily. 1 Active topiramate (Topamax) 100 MG tablet Take 100 mg by mouth at bedtime. 2 Active melatonin 5 MG tablet Take 1 tablet by mouth at bedtime. 3 Active hydrocortisone 2.5 % cream APPLY TOPICALLY TO FINGERS TWICE DAILY 30 g 1 3 Active Blood Glucose Monitoring Suppl ([employer]) w/Device kit 1 each 2 times daily. TEST BLOOD SUGAR TWICE DAILY 1 kit 3 Active dilTIAZem CD (Cardizem CD) 120 MG 24 hr capsule TAKE 1 CAPSULE BY MOUTH EVERY DAY 90 capsule 3 4 Active metFORMIN (Glucophage) 500 MG tablet TAKE 2 TABLETS BY MOUTH TWICE DAILY IN THE MORNING AND IN THE EVENING WITH MEALS 360 tablet 3 4 Active levothyroxine (Synthroid, Levoxyl) 75 MCG tabletIndication s:Hypothyroidism , unspecified type TAKE 1 TABLET BY MOUTH EVERY DAY BEFORE BREAKFAST 90 tablet 3 4 Active rosuvastatin (Crestor) 20 MG tablet TAKE 1 TABLET BY MOUTH DAILY IN THE MORNING 90 tablet 3 4 Active etodolac (Lodine) 400 MG tablet 4 Active methylPREDNISolo ne (Medrol Dospak) 4 MG tablets 4 Active busPIRone (Buspar) 10 MG tablet Take 10 mg by mouth if needed in the morning and at bedtime. 4 Active mirtazapine (Remeron) 45 MG tablet Take 1 tablet (45 mg) by mouth at bedtime. For weight gain 90 tablet 3 4 10/23/19 25 Active pantoprazole (ProtoNix) 40 MG EC tablet TAKE 1 TABLET BY MOUTH EVERY DAY 90 tablet 2 4 Active docusate sodium (Colace) 100 MG capsule TAKE 1 CAPSULE BY MOUTH TWICE DAILY 180 capsule 4 Active FeroSul 325 (65 Fe) MG tablet TAKE 1 TABLET BY MOUTH EVERY OTHER DAY WITH A FULL GLASS OF WATER 45 tablet 1 4 Active losartan (Cozaar) 50 MG tablet TAKE 1 TABLET BY MOUTH DAILY IN THE MORNING 90 tablet 3 4 Active Ascorbic Acid (vitamin C) 500 MG tablet TAKE 1 TABLET BY MOUTH EVERY DAY WITH IRON SUPPLEMENT AND FULL GLASS OF WATER 90 tablet 3 4 Active D3-1000 25 MCG (1000 UT) capsule TAKE 1 CAPSULE BY MOUTH DAILY IN THE MORNING 90 capsule 3 4 Active Lancets (OneTouch Delica) lancets 30G 1 each by Other route 2 times daily. TEST BLOOD SUGAR TWICE DAILY 100 each 11 4 01/16/20 26 Active glucose blood (OneTouch Verio) test stripIndications :Type 2 diabetes mellitus without complication, without long-term current use of insulin ([facility]) TEST BLOOD SUGAR TWICE DAILY 100 each 11 4 Active Ventolin HFA 108 (90 Base) MCG/ACT inhaler INHALE 2 PUFFS BY MOUTH EVERY 6 HOURS NEEDED FOR WHEEZING 18 g 11 4 Active tiZANidine (Zanaflex) 4 MG tablet TAKE 1 TABLET BY MOUTH EVERY 8 HOURS NEEDED FOR MUSCLE SPASMS 60 tablet 3 4 Active Active Problems Problem Noted Date Diagnosed Date Stage 3a chronic kidney disease 03/08/2024 Hyperchloremia 03/08/2024 Overview (03/08/2024): Since January 2023, with muscle weakness and fatigue, in the setting of gradually worsening renal function Will consult nephrology for additional testing to rule in or out RTA Navarro's 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 dysplasia 05/29/2023 05/29/2023 Encounter for screening for malignant neoplasm o f colon 05/29/2023 05/29/2023 History of adenomatous polyp of colon 05/29/2023 05/29/2023 Right upper quadrant pain 01/24/2023 Assessment & Plan (01/24/2023 1:19 PM EDT): F/u with general surgery for signs/sx of gallstones without gallstones seen on US Hand pain, right 08/23/2022 Assessment & Plan (06/04/2023 8:15 AM EST): Finish PT/OT Unable to close R hand fully F.u with rheum to consider injection Assessment & Plan (08/23/2022 7:29 AM EST): Normal EMG on 05/2022 Will order xrays Consider automimmune screening/workup Diverticulosis of colon 08/20/2022 Abdominal pain, generalized 08/20/2022 Iron deficiency anemia 08/20/2022 Irritable bowel syndrome with constipation 08/20 Normocytic anemia 08/20/2022 Weight loss 08/20/2022 History of nuclear stress test 06/30/2022 Overview (06/30/2022): Normal without signs of ischemic changes or perfusion defects 06/2022 Degeneration of lumbar intervertebral disc 09/16 Assessment & Plan (01/24/2023 1:17 PM EDT): Continue f/u with Dr Boland Hemorrhoids 09/17/2019 Essential hypertension 07/20/2018 Assessment & Plan (01/24/2023 1:16 PM EDT): Maintenance: Diltiazem BMP: Cr 1.13/eGFR 48 Lipid Panel: DUE today ASCVD Risk: Calculate pending updated labs EKG: Obtain baseline at f/u - Aerobic exercise to reduce BP. Initial goal of 30 min walk 3-5x/week. Increase as tolerated. - low-sodium diet (goal: <2g/day) and heart healthy diet such as DASH to reduce BP and prevent ASCVD. - Home BP monitoring 1-2 x day with goal of <140/90. - Seek immediate medical attention for chest pain, palpitations, SOB, syncope, or sudden changes in mental status. - Do not change or discontinue current prescriptions without first consulting health care provider Hypothyroidism 09/06/2012 Assessment & Plan (08/23/2022 7:31 AM EST): On stable dose of synthroid Palpitations 02/03/2012 Pure hypercholesterolemia 02/03/2012 Anxiety state 11/16/2011 Depressive disorder 11/16/2011 Diabetes mellitus 11/16/2011 Assessment & Plan (10/23/2023 5:47 PM EDT): A1c 6.4 On Metformin 1000mg BID GFR 53 On statin and ASA Normal foot exam, no podiatry care Due for eye exam Assessment & Plan (06/04/2023 8:15 AM EST): A1c 6.4 On Metformin 1000mg BID GFR 53 On statin and ASA No podiatry care Due for eye exam Assessment & Plan (01/24/2023 1:18 PM EDT): A1c 6.8 On Metformin 1000mg BID GFR 48 On statin and ASA No podiatry care Assessment & Plan (08/23/2022 7:30 AM EST): A1c 6.8 On Metformin 1000mg BID GFR 61 On statin and ASA No podiatry care Gastroesophageal reflux disease without esophagi tis 11/16/2011 Shoulder joint pain 11/16/2011 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 Low back pain at multiple sites 07/11/1959 Assessment & Plan (08/23/2022 7:31 AM EST): Sees Dr [facility] Will start PT when she has transportation available Migraine 07/11/1958 Encounters Date Type Department Care Team Description 07/02/2024 Refill [facility] [address] [place] [phone] Brea Cano MD 06/12/2024 2:20 PM EST Office Visit [facility] [address] [place] [phone] Name, MD Ryan Flu (Primary Dx); Myalgia; Chills; Nausea 06/12/2024 Travel 06/12/2024 Telephone [facility] [address] [place] [phone] Brea Cano MD Nurse Triage 06/06/2024 3:15 PM EST Office Visit [address] [phone] Brea Cano MD Type 2 diabetes mellitus without complication, without long-term current use of insulin (CMS/HCC) (Primary Dx); Stage 3a chronic kidney disease (CMS/HCC); Essential hypertension; Navarro's 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 dysplasia; Iron deficiency anemia, unspecified iron deficiency anemia type; Low back pain at multiple sites; Hypothyroidism, unspecified type 06/06/2024 Travel 06/04/2024 Refill [facility] [address] [place] [phone] Brea Cano MD 05/28/2024 Patient Outreach [facility] [address] [place] [phone] Brea Cano MD Pre-visit Planning ([facility] screening completed on 09/22/2023) 05/25/2024 Refill [facility] [address] [place], [place] [phone] Alessandra Johnson RN Type 2 diabetes mellitus without complication, without long-term current use of insulin ([facility]) 05/16/2024 Refill [facility] [address] [place], [place] [phone] Brea Cano MD from Last 3 Months Immunizations Name Administration Dates Next Due Hep B, adult 05/01/2018,12/01/2017,10/17/2017 Influenza High-dose Quadriva lent Preservative Free 05/10/2022 Influenza injectable quadriv alent IIV4 with preservative 03/27/2018,05/31/2017,04/08/2016 Influenza injectable quadriv alent preservative free 04/11/2023,05/22/2021,04/07/2020,05/29,04/10/2015 Influenza, High Dose Seasona l, Preservative Free 04/05/2024 Influenza, IIV3, injectable 05/11/2021,0 03/11/2020,03/21/2014,05/27 Influenza, Split (incl. deep fied surface antigen) 03/22/2013,05/11/2012 Moderna Covid-19 Vaccine 6+ Bivalent 06/19/2022 Pfizer Covid-19 Vaccine 12+ 04/05/2024, 3 Pneumococcal Conjugate PCV 20 03/07/2024 Pneumococcal Polysaccharide PPSV23 08/20/2021, TD (adult), 2 Lf tetanus tox oid, preservative free, adsorbed 04/12/2003 Tdap 03/21/2014 Zoster, Recombinant 05/19/2021,03/04/2021 Zoster, live 12/03/2016 Social History Tobacco Use Types Packs/Day Years Used Date Smoking Tobacco: Never Smokeless Tobacco: Never Tobacco Cessation:Counseling Given: Not Answered Alcohol Use Standard Drinks/Week Comments Never 0 [...] Orientation Straight 05/10/2022 10 :15 AM EDT Last Filed Vital Signs Vital Sign Reading Time Taken Comments Blood Pressure 126/75 06/12/2024 2:16 PM EST Pulse 97 06/12/2024 2:16 PM EST Temperature 37.3 ??C (99.2 ??F) 06/12/2024 2:16 PM ES T Respiratory Rate 18 06/12/2024 2:16 PM EST Oxygen Saturation 99% 06/12/2024 2:16 PM EST Inhaled Oxygen Concentration - - Weight 61.1 kg (134 lb 9.6 oz) 06/12/2024 2:16 P M EST Height 160 cm (5' 3 ) 06/12/2024 2:16 PM EST Body Mass Index 23.84 06/12/2024 2:16 PM EST Plan of Treatment Health Maintenance Due Date Last Done Comments CT Colonography 1955 FIT DNA/Cologuard 1955 FIT 1955 FOBT 1955 Sigmoidoscopy 1955 Eye Exam 02/15/1966 Alcohol/Substance Use Screening 1968 DTaP/Tdap/Td Vaccines (2 - Td or Tdap) 03/21/2024 03/21/2014, 04/12/2003 SDOH Screening 09/21/2024 09/22/2023 Mammogram 10/04/2024 10/05/2023, 08/11, 08/16/2022, Additional history exists Depression Screening 10/19/2024 10/20/2023, 10/20/19 Diabetes: Foot Exam 10/19/2024 10/20/2023 Lipid Panel 10/20/2024 10/21/2023, 1212/2020, 04/03/2020 Diabetes: Hemoglobin A1C 12/04/2024 024, 03/07/2024, 10/20/2023, Additional history exists Diabetes: Urine Protein Screening 04/12/2025 04/12/2024, 10/21/2023, 08/20/2022, Additional history exists Tobacco Screening 06/12/2025 06/12/2024 Colonoscopy 10/16/2026 10/16/2021 Colorectal Cancer Screening 10/16/2026 RSV Patients and Patients Aged 60 years or older (1 - 1-dose 75+ series) 02/15/2031 Hepatitis B Vaccines Completed 05/01/2018, 12/01/2017, 10/17/2017 Hepatitis C Screening Completed 02/27/2020 Zoster Vaccines Completed 05/19/2021, 02/09, 12/03/2016 Pneumococcal Vaccine: 50+ Years Completed 03/07/2024, 08/20/2021, 12/26/2003 COVID-19 Vaccine Completed 04/05/2024, 11/2022, 06/19/2022, Additional history exists Influenza Vaccine Completed 04/05/2024, , 05/10/2022, Additional history exists HIB Vaccines Aged Out No longer eligi ble based on patient's age to complete this topic HPV Vaccines Aged Out No longer eligi ble based on patient's age to complete this topic Hepatitis A Vaccines Aged Out No long er eligible based on patient's age to complete this topic IPV Vaccines Aged Out No longer eligi ble based on patient's age to complete this topic Meningococcal Vaccine Aged Out No alicia alfred eligible based on patient's age to complete this topic RSV under 20 months Aged Out No longe r eligible based on patient's age to complete this topic Rotavirus Vaccines Aged Out No longer eligible based on patient's age to complete this topic Procedures Procedure Name Priority Date/Time Associated Diagnosis Comments POC BUTT ID NOW STREP A Routine 06/12/2024 2:36 PM EST Myalgia Chills Nausea POCT INFLUENZA B (ID NOW RAPID MOLECULAR) Routine 06/12/2024 2:36 PM EST Myalgia Chills Nausea POCT INFLUENZA A (ID NOW RAPID MOLECULAR) Routine 06/12/2024 2:36 PM EST Myalgia Chills Nausea POCT RAPID COVID ANTIGEN Routine 06/12/2024 2:36 PM EST Myalgia Chills Nausea POCT GLYCATED HEMOGLOBIN, TOTAL Routine 06/06/2024 3:16 PM EST Type 2 diabetes mellitus without complication, without long-term current use of insulin (CMS/HCC) POCT GLUCOSE Routine 06/06/2024 3:15 PM EST Type 2 diabetes mellitus without complication, without long-term current use of insulin (CMS/HCC) CREATININE, RANDOM URINE Routine 04/12/2024 12:50 PM EDT LIPID PANEL, STANDARD Routine 10/21/2023 11:47 AM EDT Type 2 diabetes mellitus with hyperglycemia, without long-term current use of insulin (CMS/HCC) BI US BREAST LIMITED LEFT Routine 10/05/2023 3:33 PM EDT HM COLONOSCOPY Routine 10/16/2021 ZZZ HISTORICAL HEPATITIS C AB W/REFL TO HCV RNA, QN, PCR Routine 02/27/2020 11:31 AM EDT from Last 3 Months or Most Recently Relevant to Health Maintenance Results * POCT Rapid Influenza B BUTT ID NOW (06/12/2024 2:36 PM EST) Influenza B Negative Negative, Indeterminate [facility] QC Media Lot # [id number] [facility] Lot# Expiration Date [facility] Swab 06/12/2024 2:36 PM EST us Ryan Brewster MD POINT OF CARE TEST ENTER/EDIT OR DERABLES Final Result Performing Organization Address [facility] Co de Phone Number [facility] [address] [place] [phone] * (ABNORMAL) POCT Rapid Influenza A BUTT ID NOW (06/12/2024 2:36 PM EST) Influenza A Positive( A) Negative, Indeterminate [facility] QC Media Lot # [id number] [facility] Lot# Expiration Date [facility] Swab 06/12/2024 2:36 PM EST us Ryan Brewster MD POINT OF CARE TEST ENTER/EDIT OR DERABLES Final Result Performing Organization Address City/[facility]/ZIP Co de Phone Number [facility] [address] [place] [phone] * POCT Rapid Strep A BUTT ID NOW (06/12/2024 2:36 PM EST) Pathologist [facility] Rapid Strep A Screen Negative Negative, None Detected QC Media Lot # [id number] Lot# Expiration Date ,025 Swab 06/12/2024 2:36 PM EST us Ryan Brewster MD POINT OF CARE TEST ENTER/EDIT OR DERABLES Final Result * POCT Rapid Covid-19 BinaxNOW (06/12/2024 2:36 PM EST) Rapid COVID Ag Negative [facility] QC Media Lot # [id number] [facility] Lot# Expiration Date , [facility] Nares 06/12/2024 2:36 PM EST Ryan Brewster MD POINT OF CARE TEST ENTER/EDIT OR DERABLES Final Result [facility] [address] [place] [phone] * (ABNORMAL) POCT A1C (06/06/2024 3:16 PM EST) Hemoglobin A1C 6.7(A) 4.0 - 6.0 % QC Media Lot # [id number] Lot# Expiration Date Blood 06/06/2024 3:16 PM EST Brea Cano MD POINT OF CARE TEST ENTER/EDIT ORDERABLES Final Result * (ABNORMAL) POCT glucose manually resulted (06/06/2024 3:15 PM EST) Glucose Blood, POC 210(A) 60 - 200 mg/dL QC Media Lot # [id number] Lot# Expiration Date ,255,116 Blood Capillary blood specimen / Unknown 06/06/2024 3:15 PM EST Brea Cano MD POINT OF CARE TEST ENTER/EDIT ORDERABLES Final Result * Creatinine, Random Urine (04/12/2024 12:50 PM EDT) Creatinine, Urine 133.52 mg/dL [facility] 04/12/2024 12:5 0 PM EDT 04/12/2024 1:27 PM EDT us Generic External Data Provider LAB URINE ORDERAB LES Final Result Performing Organization Address [facility]/ZIP Co de Phone Number [facility] [address] [place] [phone] * Lipid Panel, Standard (10/21/2023 11:47 AM EDT) Triglycerides 119 <150 mg/dL [facility] Comment:Desirable Triglyceri de: less than 150 mg/dLBorderline High Triglyceride 150-199 mg/dLHigh Triglyceride: 200-499 mg/dLVery High Triglyceride: greater than or equal to 5OO mg/dL Cholesterol 107 <200 mg/dL [facility] Comment:Desirable Cholestero l: less than 200 mg/dLBorderline High Cholesterol: 200-239 mg/dLHigh Cholesterol: greater than 239 mg/dL LDL Cholesterol Calculated 34 <100 mg/dL [facility] Comment:Desirable LDL: less than 100 mg/dLNear Optimal/Above Optimal LDL: 110- 129 mg/dLBorderline High LDL: 130-159 mg/dLHigh LDL: 160-189 mg/dLVery High LDL: greater than or equal to 190 mg/dL HDL Cholesterol 50 >40 mg/dL [facility] Comment:Desirable HDL: great er than 40 mg/dL Note: This HDL assay may give artificially low results in patients with liver disease. Blood Venous blood specimen / Unknown 10/21/2023 11:47 AM EDT 10/21/2023 1:18 PM EDT us Brea Cano MD LAB BLOOD ORDERABLES Final Res ult Performing Organization Address City/[facility]/ZIP Co de Phone Number [facility] [address] [place] [phone] * BI US Breast Limited Left (10/05/2023 3:33 PM EDT) Anatomical Region Laterality Modality Breast Left Ultrasound 10/05/2023 3:33 PM EDT Narrative 10/05/2023 4:01 PM EDT ? [facility] ? [address] ?[place] [address] ? Ultrasound Report ? Signed ? Patient: Cano Rihc,Michelle M ?MR# ?? : [id number] ? : 1955 ?Acct:[id number] ? Age/Sex: 68 / F ?ADM Date: 10/05/23 ? Loc: HO.MAMMO ? Attending Dr: Brea Cano MD ? Ordering Physician: Brea Cano ?? Date of Service: 10/05/23 ?? Procedure(s): US breast LT limited mamm only ?? Accession Number(s): [id number] ? cc: Brea Cano ? EXAMINATION: ?? MM DIAGNOSTIC DIGITAL BREAST TOMOSYNTHESIS, LEFT ?? US BREAST LIMITED, LEFT ? MAMMOGRAPHY: ?? CLINICAL INFORMATION: ? Follow-up diagnostic left mammography for retroareolar focal asymmetry ?? seen on screening exam. ? COMPARISON: ?? Mammography: Screening mammography to 08/22/2023, 08/16/2022, ?? 08/13/2021, 08/08/2020, and dating back to 2016 ? TECHNIQUE: ?? Digital breast tomosynthesis is performed in the following views: 3-D ?? spot compression left CC and left MLO views left breast. This was ?? followed by retroareolar left breast ultrasound. ? FINDINGS: ?? The breasts are heterogeneously dense, which may obscure small masses ?? (ACR BI-RADS breast composition Category c). ? The retroareolar focal asymmetry largely effaces on diagnostic spot ?? compression views, suggesting overlapping normal tissue densities. This ?? has an appearance which is quite similar to multiple prior exams. We ?? will evaluate this area with ultrasound. ? ULTRASOUND: ?? CLINICAL INFORMATION: ?? As above. ? COMPARISON: ?? None ? TECHNIQUE: ?? Targeted sonographic evaluation was performed using a high frequency ?? linear transducer. Attention was given to the liver the retroareolar ?? region left breast. Selected archived documentation. ? FINDINGS: ? LEFT BREAST: There is abundant duct ectasia in the retroareolar left ?? breast. A few of the ducts appear to have internal debris without color ?? Doppler signal, ductal expansion, or definitive mass. No abnormal ?? shadowing or suspicious masses. No focal cystic abnormalities. Benign ?? findings. ? US/US breast LT limited mamm only ?? IMPRESSION: ?? There are no findings in the left breast suggestive of malignancy. ? There are retroareolar ectatic ducts, some with internal debris. No ?? definite retroareolar or ductal mass. ? Recommend the patient return to routine annual screening mammography. ? OVERALL ASSESSMENT: ?? Mammography: BI-RADS 2 - Benign Findings ?? Ultrasound: BI-RADS 2 - Benign Findings ? RECOMMENDATION: ?? 1 year F/U ? Results were provided to the patient at time of visit by the ?? technologist. ? This patient's information was entered into a reminder system with a ?? target due date for their next mammogram. ? Dictated By: ?Junaid Ding MD ? Signed By: ?<Electronically signed by Junaid Ding MD in OV> ?10/05/23 1557 ? DD/ 1533 ? TD/TT: ? Glass Breaker: ? Procedure Note Donrociointerpreter, Image - 10/05/2023 Mallory [facility] [address] [place] [address] Ultrasound Report Signed Patient: Michelle Sparrow [facility]# : [id number] : 6Acct:[id number] Age/Sex: 68 / FADM Date: 10/05/23 Loc: [facility] Attending Dr: Brea Cano MD Ordering Physician: Brea Cano Date of Service: 10/05/23 Procedure(s): US breast LT limited mamm only Accession Number(s): [id number] cc: Brea Cano EXAMINATION: MM DIAGNOSTIC DIGITAL BREAST TOMOSYNTHESIS, LEFT US BREAST LIMITED, LEFT MAMMOGRAPHY: CLINICAL INFORMATION: Follow-up diagnostic left mammography for retroareolar focal asymmetry seen on screening exam. COMPARISON: Mammography: Screening mammography to 08/22/2023, 08/16/2022, 08/13/2021, 08/08/2020, and dating back to 2016 TECHNIQUE: Digital breast tomosynthesis is performed in the following views: 3-D spot compression left CC and left MLO views left breast. This was followed by retroareolar left breast ultrasound. FINDINGS: The breasts are heterogeneously dense, which may obscure small masses (ACR BI-RADS breast composition Category c). The retroareolar focal asymmetry largely effaces on diagnostic spot compression views, suggesting overlapping normal tissue densities. This has an appearance which is quite similar to multiple prior exams. We will evaluate this area with ultrasound. ULTRASOUND: CLINICAL INFORMATION: As above. COMPARISON: None TECHNIQUE: Targeted sonographic evaluation was performed using a high frequency linear transducer. Attention was given to the liver the retroareolar region left breast. Selected archived documentation. FINDINGS: LEFT BREAST: There is abundant duct ectasia in the retroareolar left breast. A few of the ducts appear to have internal debris without color Doppler signal, ductal expansion, or definitive mass. No abnormal shadowing or suspicious masses. No focal cystic abnormalities. Benign findings. US/US breast LT limited mamm only IMPRESSION: There are no findings in the left breast suggestive of malignancy. There are retroareolar ectatic ducts, some with internal debris. No definite retroareolar or ductal mass. Recommend the patient return to routine annual screening mammography. OVERALL ASSESSMENT: Mammography: BI-RADS 2 - Benign Findings Ultrasound: BI-RADS 2 - Benign Findings RECOMMENDATION: 1 year F/U Results were provided to the patient at time of visit by the technologist. This patient's information was entered into a reminder system with a target due date for their next mammogram. Dictated By: Junaid Ding MD Signed By: <Electronically signed by Junaid Ding MD in OV> 10/05/23 1557 DD/ 1533 TD/TT: Glass Breaker: us Brea Cano MD IMG US PROCEDURES Final Result * Hm Colonoscopy (10/16/2021) Historical Provider HEALTH MAINTENANCE Final Result * HEPATITIS C AB W/REFL TO HCV RNA, QN, PCR (02/27/2020 11:31 AM EDT) HEPATITIS C ANTIBODY NON-REACT ALY NON-REACT ALY [facility] [facility] INDEX 0.02 <1.00 [facility] Comment: ?? HCV antibody was non-reactive. There is no laboratory ?? evidence of HCV infection. ?? In most cases, no further action is required. However, if recent HCV exposure is suspected, a test for HCV RNA (test code 05178) is suggested. ?? For additional information please refer to http://[employer]Rose/faq/CDD73k5 (This link is being provided for informational/ educational purposes only.) ?? HEPATITIS C ANTIBODY NON-REACT ALY NON-REACT ALY [employer] [employer] [facility] INDEX 0.02 <1.00 [facility] Comment: ?? HCV antibody was non-reactive. There is no laboratory ?? evidence of HCV infection. ?? In most cases, no further action is required. However, if recent HCV exposure is suspected, a test for HCV RNA (test code 39573) is suggested. ?? For additional information please refer to http://DataRose/faq/NXO43j9 (This link is being provided for informational/ educational purposes only.) ?? HEPATITIS C ANTIBODY NON-REACT ALY NON-REACT ALY [facility] INDEX 0.02 <1.00 [facility] Comment: ?? HCV antibody was non-reactive. There is no laboratory ?? evidence of HCV infection. ?? In most cases, no further action is required. However, if recent HCV exposure is suspected, a test for HCV RNA (test code 66492) is suggested. ?? For additional information please refer to http://DataRose/faq/PUE10b8 (This link is being provided for informational/ educational purposes only.) ?? HEPATITIS C ANTIBODY NON-REACT ALY NON-REACT ALY [facility] INDEX 0.02 <1.00 [facility] Comment: ?? HCV antibody was non-reactive. There is no laboratory ?? evidence of HCV infection. ?? In most cases, no further action is required. However, if recent HCV exposure is suspected, a test for HCV RNA (test code 79010) is suggested. ?? For additional information please refer to http://DataRose/faq/TYE64u4 (This link is being provided for informational/ educational purposes only.) ?? HEPATITIS C ANTIBODY NON-REACT ALY NON-REACT ALY [facility] INDEX 0.02 <1.00 [facility] Comment: ?? HCV antibody was non-reactive. There is no laboratory ?? evidence of HCV infection. ?? In most cases, no further action is required. However, if recent HCV exposure is suspected, a test for HCV RNA (test code 17058) is suggested. ?? For additional information please refer to http://DeskMetrics.Ebyline/faq/OFP64s9 (This link is being provided for informational/ educational purposes only.) ?? 02/27/2020 11:3 1 AM EDT Mitzy [facility]AMMER[facility] HISTORICAL/NON ORDERABLE LABS Final Result [facility] [address] from Last 3 Months or Most Recently Relevant to Health Maintenance Insurance [facility] Care Teams Truck Driver Instructor Relationship Specialty Start Date End Date Brea Cano MD [address] [place] [address] PCP - General Family Medicine 03/03/22
--- OUTSIDE RECORDS SUMMARY | 2024-08-14 07:46 | XMS_ITS | Encounter Summary ---
Author Organization [employer] Address [address] [facility] 7t [place] [address] Care Team Providers Care Private Secretary Name Role Phone Brea Cano MD Primary Care Provider Encounter Details Date Type Department Care Team (Late st Contact Info) Description 10/28/2023 Orders Only [facility] MEDICINE [address] [place], [place] [phone] Brea Cano MD [address] [place], [place] [phone] Social History Tobacco Use Types Packs/Day Years [...] Time PHQ-9 Depression Total Score: 0 10/20/19 24 11:04 AM EDT documented as of this encounter Care Teams Private Secretary Relationship Specialty Start Date End Date Brea Cano MD [address] [place] [id number] PCP - General Family Medicine 03/03/22 documented as of this encounter
--- OUTSIDE RECORDS SUMMARY | 2024-08-14 07:46 | XMS_ITS | Encounter Summary ---
Author Organization [employer] Address [address] [place] [address] 7 [place] [address] Care Team Providers Care Knifer Up Name Role Phone Brea Cano MD Primary Care Provider [phone] Encounter Details Date Type Department Care Team (Latest Contact Info) Description 02/05/2019 Abstract [facility] CONVERSIONS Dental, Provider, DDS Social [...] on filedocumented in this encounter Care Teams Knifer Up Relationship Specialty Start Date End Date Brea Cano MD [address] [place] [id number] PCP - General Family Medicine 03/03/22 documented as of this encounter
[2024-08-14 08:32] LABS: Alanine Aminotransferase 24 U/L (0-31); Albumin Level 4.3 g/dL (3.5-5.0); Alkaline Phosphatase 68 U/L (39-117); Aspartate Amino Transferase 27 U/L (5-31); Bilirubin Direct < 0.2 mg/dL (0.0-0.5); Bilirubin Total 0.2 mg/dL (0.0-1.0); Lipase 48 U/L (8-78); Total Protein 7.5 g/dL (6.5-8.0)
== END ==
LOC: HO.NUCMED 07:43
PROVIDERS: PCP General Practice; Visit Provider Internal Medicine
DX: R10.13 Epigastric pain (principal); K21.9 Gastro-esophageal reflux disease without esophagitis
CPT/HCPCS: 36415; 78264; 80076; 83690; A9541

== ENCOUNTER → 2024-08-14 07:57 | Outpatient (BNV) | payer OTHER, SELFPAY | PROVIDERS: PCP General Practice; Visit Provider Radiology Diagnostic Radiology | DX: K31.84 Gastroparesis (principal) | CPT/HCPCS: 78264 ==

== ENCOUNTER 2024-08-24 12:30 | Outpatient (REF) | payer OTHER, SELFPAY ==
--- OUTSIDE RECORDS SUMMARY | 2024-08-24 12:55 | XMS_ITS | Encounter Summary ---
Author Organization [employer] Address [address] [facility] 7t [place] [address] Care Team Providers Care Chair Trimmer Name Role Phone Brea Cano MD Primary Care Provider [phone] Encounter Details Date Type Department Care Team (Late st Contact Info) Description 10/28/2023 Orders Only [facility] MEDICINE [address] [place], [place] [phone] Brea Cano MD [address] [place], [place] [phone] Social History Tobacco Use Types Packs/Day Years [...] documented as of this encounter Care Teams Chair Trimmer Relationship Specialty Start Date End Date Brea Cano MD [address] [place] [phone] PCP - General Family Medicine 03/03/22 documented as of this encounter
--- OUTSIDE RECORDS SUMMARY | 2024-08-24 12:56 | XMS_ITS | Encounter Summary ---
Author Organization [employer] Address [address] [facility] 7t [place] [address] Care Team Providers Care Animal Control Supervisor Name Role Phone Brea Cano MD Primary Care Provider [phone] Reason for Visit * Reason Comments Med Refill Encounter Details Date Type Department Care Team (Late st Contact Info) Description 08/15/[address] [facility] MEDICINE [address] [place], [place] [phone] Brea Cano MD [address] [place], [place] [phone] Hypothyroidism, unspecified type Social History Tobacco Use Types Packs/Day Years [...] documented as of this encounter Visit Diagnoses Diagnosis Hypothyroidism, unspecified type documented in this encounter Additional Health Concerns Assessment Noted Time PHQ-9 Depression Total Score: 0 10/20/19 24 11:04 AM EDT documented as of this encounter Care Teams Animal Control Supervisor Relationship Specialty Start Date End Date Brea Cano MD [address] [place] [phone] PCP - General Family Medicine 03/03/22 documented as of this encounter
--- OUTSIDE RECORDS SUMMARY | 2024-08-24 12:56 | XMS_ITS | Encounter Summary ---
Author Organization [employer] Address [address] [facility] 7t [place] [address] Care Team Providers Care Ostomy Care Nurse Name Role Phone Brea Cano MD Primary Care Provider [phone] Encounter Details Date Type Department Care Team (Late st Contact Info) Description 05/03/2023 Abstract [facility] MEDICINE [address] [place], [place] [phone] Brea Cano MD [address] [place], [place] [phone] Social History Tobacco Use Types Packs/Day Years [...] documented as of this encounter Care Teams Ostomy Care Nurse Relationship Specialty Start Date End Date Brea Cano MD [address] [place] [address] PCP - General Family Medicine 03/03/22 documented as of this encounter
--- OUTSIDE RECORDS SUMMARY | 2024-08-24 12:56 | XMS_ITS | Encounter Summary ---
Author Organization [employer] Address [address] [place] [address] [address] [place] [address] Care Team Providers Care Frit Coater Name Role Phone Brea Cano MD Primary Care Provider [phone] Encounter Details Date Type Department Care Team [...] on filedocumented in this encounter Care Teams Frit Coater Relationship Specialty Start Date End Date Brea Cano MD [address] [place] [phone] PCP - General Family Medicine 03/03/22 documented as of this encounter
--- OUTSIDE RECORDS SUMMARY | 2024-08-24 12:56 | XMS_ITS | Clinical Summary ---
Author Organization [facility] Address [address] [place] [address] Care Team Providers Care Sanforizer Name Role Phone Unavailable Primary Care Provider [...] 02/15/2001 Fecal DNA 02/15/2001 Flexible Sigmoidoscopy 02/15/2001 Imm-Pneumococcal 65+ (2 of 2 - PCV) 02/15/2006 12/26/2003 Imm-Zoster, Recombinant (2 of 3) 01/28/2017 12/04/19 Bone Density Screening 02/15/2021 Falls Prevention 02/15/2021 [id number] (3 - season) 2024 021, 09/23/2020 Imm-Influenza (#1) 2024 04/07/2020, 1 07/29/2018, 03/27/2018, Additional history exists Imm-DTaP/Tdap/Td (2 - Td or Tdap) 03/21/2024 014, 04/12/2003 Alcohol and Drug Screen 07/11/2024 Depression Annual Screen 07/11/2024 Insurance [facility] Member Subscriber Plan / Payer (Ef fective 2017-Present) Name:Michelle Cano Relation to Subscriber:Self Name:Michelle Cano Payer ID:[id number] Group ID:Not on file Type:Indemnity Address: [place] [address] [address] [facility]
--- OUTSIDE RECORDS SUMMARY | 2024-08-24 12:56 | XMS_ITS | Encounter Summary ---
Author Organization [employer] Address [address] [place] [address] [address] [place] [address] Care Team Providers Care Detective Sergeant Name Role Phone Brea Cano MD Primary Care Provider [phone] Encounter Details Date Type Department Care Team [...] on filedocumented in this encounter Care Teams Detective Sergeant Relationship Specialty Start Date End Date Brea Cano MD [address] [place] [id number] PCP - General Family Medicine 03/03/22 documented as of this encounter
--- OUTSIDE RECORDS SUMMARY | 2024-08-24 12:56 | XMS_ITS | Clinical Summary ---
Author Organization [employer] Address [address] [place] [address] 7 [place] [address] Care Team Providers Care Die Cast Die Maker Name Role Phone Brea Cano MD Primary Care Provider [phone] Allergies Active Allergy Reactions Criticality Noted Date Comments Brando Inhibitors Angioedema,Rash Low Acetaminophen Swelling Butalbital Swelling Caffeine Swelling Duloxetine Diarrhea,Headache 12/12/2020 Eletriptan Nausea Only Lisinopril 05/29/2023 Other reaction(s): Unknown Valproic Acid Other reaction(s): Hair Loss Verapamil Other reaction(s): Tachycardia Medications aspirin (Aspirin Adult Low Dose) 81 MG EC tablet daily. Active buPROPion XL (Wellbutrin XL) 150 MG 24 hr tablet TAKE 1 TABLET BY MOUTH EVERY MORNING DIRECTED FOR MOOD 07/23/19 23 Active clonazePAM (KlonoPIN) 0.5 MG tablet Take 0.5 mg by mouth if needed each day. 07/23/19 23 Active dicyclomine (Bentyl) 10 MG capsule TAKE 1 TO 2 CAPSULES BY MOUTH EVERY 6 HOURS NEEDED FOR ABDOMINAL DISCOMFORT OR CRAMPS 02/17/20 22 Active senna-docusate (Stimulant Laxative) 8.6-50 MG tablet daily. 08/02/19 21 Active topiramate (Topamax) 100 MG tablet Take 100 mg by mouth at bedtime. 06/21/20 22 Active melatonin 5 MG tablet Take 1 tablet by mouth at bedtime. 12/29/19 23 Active hydrocortisone 2.5 % cream APPLY TOPICALLY TO FINGERS TWICE DAILY 30 g 1 02/24/20 23 Active Blood Glucose Monitoring Suppl (Cloak) w/Device kit 1 each 2 times daily. TEST BLOOD SUGAR TWICE DAILY 1 kit 04/21/20 23 Active metFORMIN (Glucophage) 500 MG tablet TAKE 2 TABLETS BY MOUTH TWICE DAILY IN THE MORNING AND IN THE EVENING WITH MEALS 360 tablet 3 08/24/19 24 Active etodolac (Lodine) 400 MG tablet 09/22/19 24 Active methylPREDNISol one (Medrol Dospak) 4 MG tablets 10/19/19 24 Active busPIRone (Buspar) 10 MG tablet Take 10 mg by mouth if needed in the morning and at bedtime. 10/11/19 24 Active mirtazapine (Remeron) 45 MG tablet Take 1 tablet (45 mg) by mouth at bedtime. For weight gain 90 tablet 3 10/28/19 24 025 Active docusate sodium (Colace) 100 MG capsule TAKE 1 CAPSULE BY MOUTH TWICE DAILY 180 capsule 02/06/20 24 Active FeroSul 325 (65 Fe) MG tablet TAKE 1 TABLET BY MOUTH EVERY OTHER DAY WITH A FULL GLASS OF WATER 45 tablet 1 03/27/20 24 Active losartan (Cozaar) 50 MG tablet TAKE 1 TABLET BY MOUTH DAILY IN THE MORNING 90 tablet 3 05/16/20 24 Active Ascorbic Acid (vitamin C) 500 MG tablet TAKE 1 TABLET BY MOUTH EVERY DAY WITH IRON SUPPLEMENT AND FULL GLASS OF WATER 90 tablet 3 05/16/20 24 Active D3-1000 25 MCG (1000 UT) capsule TAKE 1 CAPSULE BY MOUTH DAILY IN THE MORNING 90 capsule 3 05/16/20 24 Active Lancets (WealthyLifeuch Delica) lancets 30G 1 each by Other route 2 times daily. TEST BLOOD SUGAR TWICE DAILY 100 each 11 05/25/20 24 026 Active glucose blood (EasyPaint Verio) test stripIndication s:Type 2 diabetes mellitus without complication, without long-term current use of insulin ([facility]) TEST BLOOD SUGAR TWICE DAILY 100 each 11 05/25/20 24 Active Ventolin HFA 108 (90 Base) MCG/ACT inhaler INHALE 2 PUFFS BY MOUTH EVERY 6 HOURS NEEDED FOR WHEEZING 18 g 11 06/04/20 24 Active tiZANidine (Zanaflex) 4 MG tablet TAKE 1 TABLET BY MOUTH EVERY 8 HOURS NEEDED FOR MUSCLE SPASMS 60 tablet 3 07/03/20 24 Active dilTIAZem CD (Cardizem CD) 120 MG 24 hr capsule TAKE 1 CAPSULE BY MOUTH EVERY DAY 90 capsule 3 08/15/19 25 Active rosuvastatin (Crestor) 20 MG tablet TAKE 1 TABLET BY MOUTH EVERY DAY IN THE MORNING 90 tablet 3 08/15/19 25 Active levothyroxine (Synthroid, Levoxyl) 75 MCG tabletIndicatio ns:Hypothyroidi sm, unspecified type TAKE 1 TABLET BY MOUTH EVERY DAY BEFORE BREAKFAST 90 tablet 3 08/15/19 25 Active pantoprazole (ProtoNix) 40 MG EC tablet TAKE 1 TABLET BY MOUTH EVERY DAY 90 tablet 2 08/19/19 25 Active dilTIAZem CD (Cardizem CD) 120 MG 24 hr capsule TAKE 1 CAPSULE BY MOUTH EVERY DAY 90 capsule 3 08/24/19 24 025 Discontinued levothyroxine (Synthroid, Levoxyl) 75 MCG tabletIndicatio ns:Hypothyroidi sm, unspecified type TAKE 1 TABLET BY MOUTH EVERY DAY BEFORE BREAKFAST 90 tablet 3 08/24/19 24 025 Discontinued rosuvastatin (Crestor) 20 MG tablet TAKE 1 TABLET BY MOUTH DAILY IN THE MORNING 90 tablet 3 08/24/19 24 025 Discontinued pantoprazole (ProtoNix) 40 MG EC tablet TAKE 1 TABLET BY MOUTH EVERY DAY 90 tablet 2 11/24/19 24 025 Discontinued Active Problems Problem Noted Date Diagnosed Date [...] Encounters Date Type Department Care Team Description 08/17/2024 Refill [facility] [address] [place] [address] Brea Cano MD 08/15/2024 Refill [facility] [address] [place] [address] Brea Cano MD Hypothyroidism, unspecified type 08/14/2024 Orders Only [facility] External Provider, [facility] 07/02/2024 Refill [facility] [address] [place] [address] Brea Cano MD 06/12/2024 2:20 PM EST Office Visit [facility] [address] [place] [phone] Name, MD Ryan Flu (Primary Dx); Myalgia; Chills; Nausea 06/12/2024 Travel 06/12/2024 Telephone [facility] [address] [place] [phone] Brea Cano MD Nurse Triage 06/06/2024 3:15 PM EST Office Visit [facility] [address] [place] [phone] Brea Cano MD Type 2 diabetes mellitus without complication, without long-term current use of insulin (CMS/HCC) (Primary Dx); Stage 3a chronic kidney disease (CMS/HCC); Essential hypertension; Navarro's 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 dysplasia; Iron deficiency anemia, unspecified iron deficiency anemia type; Low back pain at multiple sites; Hypothyroidism, unspecified type 06/06/2024 Travel 06/04/[address] [address] Brea Cano MD 05/28/2024 Patient Outreach [address] [address] Brea Cano MD Pre-visit Planning (SDOH screening completed on 09/22/2023) 05/25/[address] [address] Alessandra Johnson RN Type 2 diabetes mellitus without complication, without long-term current use of insulin (CMS/HCC) from Last 3 Months Immunizations Name Administration [...] history exists Influenza Vaccine Completed 04/05/2024, , 04/11/2023, Additional history exists HIB Vaccines Aged Out [...] Procedure Name Priority Date/Time Associated Diagnosis Comments NM GASTRIC EMPTYING SOLID Routine 08/14/2024 7:57 AM EST POC BUTT ID NOW STREP A Routine [...] Recently Relevant to Health Maintenance Results * NM Gastric Emptying Solid (08/14/2024 7:57 AM EST) Anatomical Region Laterality Modality Body Nuclear Medicine 08/14/2024 7:57 AM EST Narrative 08/15/2024 7:13 AM EST ? [facility] ?[address] ?[place] [address] ?Nuclear Medicine Report ? Signed ? Patient: Cano Rich,Michelle M ?MR# ?? : [id number] ? : 1955 ?Acct:[id number] ? Age/Sex: 69 / F ?ADM Date: 02/04/25 ? Loc: HO.NUCMED ? Attending Dr: Barry Pugh MD ? Ordering Physician: Barry Pugh MD ?? Date of Service: 08/14/24 ?? Procedure(s): NM gastric emptying study ?? Accession Number(s): [id number] ? cc: Brea Cano; Barry Pugh MD ? EXAMINATION: ?? NM RADIONUCLIDE SOLID FOOD GASTRIC EMPTYING 4-HOUR STUDY ? CLINICAL INFORMATION: ?? Epigastric pain. Abdominal pain. Chronic GERD ? COMPARISON: ?? None ? TECHNIQUE: ?? A standard meal consisting of 4 oz of Egg Beaters brand tagged with ?? 0.94 microcuries Tc-99m Sulfur Colloid, 6 oz water and 2 slices of ?? toast with jelly was administered orally to the patient. Images were ?? obtained using a dual head gamma camera in the anterior and posterior ?? projections over of the stomach immediately post ingestion and at ?? hourly intervals up to 4 hours post ingestion. The anterior and ?? posterior counts at each time interval were averaged using the ?? geometric mean and expressed as percentage of the immediate post ?? ingestion counts. ? FINDINGS: ?? There is good visualization of activity in the stomach immediately post ?? ingestion. As the study progresses, there is good clearance of activity ?? from the stomach and visualization of progressively increasing small ?? bowel activity. By the end of the study, there is almost no retention ?? noted in the stomach. Retention in the stomach at each time interval ?? was: ? 1 hour 85% (normal 37%-90%) ?? 2 hours 79% (normal 30%-60%) ?? 3 hours 67% ?? 4 hours 57% (normal 0%-10%) ? NM/NM gastric emptying study ?? IMPRESSION: ?? Abnormal 4-hour solid food gastric emptying study. Approximately 57% of ?? food was retained at the end of 4 hours ? For solid meal, rapid gastric emptying is less than 30% at 60 minutes. ?? Delayed gastric emptying criteria is more than 60% remaining at 120 ?? minutes or more than 10% at 240 minutes. The 4-hour value is the best ?? discriminator of a normal or abnormal result). ? Gastric emptying study grading per JNMT Consensus Recommendations in ?? 2007 (https://tech.snmjournals.org/content/36/1/44) ? Grade 1 (mild retention): 11-20% at 4h ?? Grade 2 (moderate retention): 21-35% at 4h ?? Grade 3 (severe retention): 36-50% at 4h ?? Grade 4 (very severe retention): >50% retention at 4h ? Electronically signed by: ??Atilio Arevalo MD ??08/15/2024 07:09 AM EST RP ? Dictated By: ?Irina,Atilio Harvey MD ? Signed By: ?<Electronically signed by Atilio Arevalo MD in OV> ?08/15/24708 ? DD/ 075 ? TD/TT: 08/14/24 1232 ? Hog Killer: MSM ? Procedure Note Donotuseinterpreter, Image - 08/15/[address] [address] Nuclear Medicine Report Signed Patient: Michelle Sparrow MMR# : [id number] : 6Acct:[id number] Age/Sex: 69 / FADM Date: 08/14/24 Loc: NAVIN Attending Dr: Barry Pugh MD Ordering Physician: Barry Pugh MD Date of Service: 08/14/24 Procedure(s): NM gastric emptying study Accession Number(s): [id number] cc: Brea Cano; Barry Pugh MD EXAMINATION: NM RADIONUCLIDE SOLID FOOD GASTRIC EMPTYING 4-HOUR STUDY CLINICAL INFORMATION: Epigastric pain. Abdominal pain. Chronic GERD COMPARISON: None TECHNIQUE: A standard meal consisting of 4 oz of Egg Beaters brand tagged with 0.94 microcuries Tc-99m Sulfur Colloid, 6 oz water and 2 slices of toast with jelly was administered orally to the patient. Images were obtained using a dual head gamma camera in the anterior and posterior projections over of the stomach immediately post ingestion and at hourly intervals up to 4 hours post ingestion. The anterior and posterior counts at each time interval were averaged using the geometric mean and expressed as percentage of the immediate post ingestion counts. FINDINGS: There is good visualization of activity in the stomach immediately post ingestion. As the study progresses, there is good clearance of activity from the stomach and visualization of progressively increasing small bowel activity. By the end of the study, there is almost no retention noted in the stomach. Retention in the stomach at each time interval was: 1 hour 85% (normal 37%-90%) 2 hours 79% (normal 30%-60%) 3 hours 67% 4 hours 57% (normal 0%-10%) NM/NM gastric emptying study IMPRESSION: Abnormal 4-hour solid food gastric emptying study. Approximately 57% of food was retained at the end of 4 hours For solid meal, rapid gastric emptying is less than 30% at 60 minutes. Delayed gastric emptying criteria is more than 60% remaining at 120 minutes or more than 10% at 240 minutes. The 4-hour value is the best discriminator of a normal or abnormal result). Gastric emptying study grading per JNMT Consensus Recommendations in 2008 (https://tech.snmjournals.org/content/36/44) Grade 1 (mild retention): 11-20% at 4h Grade 2 (moderate retention): 21-35% at 4h Grade 3 (severe retention): 36-50% at 4h Grade 4 (very severe retention): >50% retention at 4h Electronically signed by: Atilio Arevalo MD 08/15/2024 07:09 AM EST RP Dictated By: Atilio Arevalo MD Signed By: <Electronically signed by Atilio Arevalo MD in OV> 08/15/24 0709 DD/ 0757 TD/TT: 08/14/24 1232 Hog Killer: MADHAV [facility] External Provider IM NM PROCEDURES Edited Result - Final * POCT Rapid Influenza B BUTT ID NOW (06/12/2024 2:36 PM EST) Influenza B Negative Negative, Indeterminate [facility] QC Media Lot # [id number] [facility] Lot# Expiration Date [id number] [facility] Swab 06/12/2024 2:36 PM EST Ryan Brewster MD POINT OF CARE TEST ENTER/EDIT OR DERABLES Final Result [facility] [address] [place] [phone] * (ABNORMAL) POCT Rapid Influenza A BUTT ID NOW (06/12/2024 2:36 PM EST) Influenza A Positive( A) Negative, Indeterminate [facility] QC Media Lot # [id number] [facility] Lot# Expiration Date [facility] Swab 06/12/2024 2:36 PM EST [facility] POINT OF [facility]ARE TEST ENTER/EDIT OR DERABLES Final Result Performing Organization Address [facility]/ZIP Co de Phone Number [facility] [address] [place] [address] [phone] * POCT Rapid Strep A BUTT ID NOW (06/12/2024 2:36 PM EST) [facility] Rapid Strep A Screen Negative Negative, None Detected QC Media Lot # [id number] Lot# Expiration Date ,025 Swab 06/12/2024 2:36 PM EST [facility] POINT OF CARE TEST ENTER/EDIT OR DERABLES Final Result * POCT Rapid Covid-19 BinaxNOW (06/12/2024 2:36 PM EST) Pathologist [facility] Rapid COVID Ag Negative [facility] QC Media Lot # [id number] [facility] Lot# Expiration Date [facility] Nares 06/12/2024 2:36 PM EST [facility] POINT OF CARE TEST ENTER/EDIT OR DERABLES Final Result Performing Organization Address City/[facility]/ZIP Co de Phone Number [facility] [address] [place] [address] [phone] * (ABNORMAL) POCT A1C (06/06/2024 3:16 PM EST) Pathologist [facility] Hemoglobin A1C 6.7(A) 4.0 - 6.0 % QC Media Lot # [id number] Lot# Expiration Date , Blood 06/06/2024 3:16 PM EST Brea Cano MD POINT OF CARE TEST ENTER/EDIT ORDERABLES Final Result * (ABNORMAL) POCT glucose manually resulted (06/06/2024 3:15 PM EST) Glucose Blood, POC 210(A) 60 - 200 mg/dL QC Media Lot # [id number] Lot# Expiration Date 061,041 Blood Capillary blood specimen / Unknown 06/06/2024 3:15 PM EST Brea Cano MD POINT OF CARE TEST ENTER/EDIT ORDERABLES Final Result * Creatinine, Random Urine (04/12/2024 12:50 PM EDT) Creatinine, Urine 133.52 mg/dL [facility] 04/12/2024 12:5 0 PM EDT 04/12/2024 1:27 PM EDT Generic External Data Provider LAB URINE ORDERAB LES Final Result Performing Organization Address City/State/[facility] [[email or web address]] Co de Phone Number [facility] [address] [place] [phone] * Lipid Panel, Standard (10/21/2023 11:47 AM EDT) Triglycerides 119 <150 mg/dL [facility] Comment:Desirable Triglyceri de: less than 150 mg/dLBorderline High Triglyceride 150-199 mg/dLHigh Triglyceride: 200-499 mg/dLVery High Triglyceride: greater than or equal to 5OO mg/dL Cholesterol 107 <200 mg/dL [facility] Comment:Desirable Cholestero l: less than 200 mg/dLBorderline High Cholesterol: 200-239 mg/dLHigh Cholesterol: greater than 239 mg/dL LDL Cholesterol Calculated 34 <100 mg/dL [facility] Comment:Desirable LDL: less than 100 mg/dLNear Optimal/Above Optimal LDL: 110- 129 mg/dLBorderline High LDL: 130-159 mg/dLHigh LDL: 160-189 mg/dLVery High LDL: greater than or equal to 190 mg/dL HDL Cholesterol 50 >40 mg/dL [facility] Comment:Desirable HDL: great er than 40 mg/dL Note: This HDL assay may give artificially low results in patients with liver disease. Blood Venous blood specimen / Unknown 10/21/2023 11:47 AM EDT 10/21/2023 1:18 PM EDT us Brea Cano MD LAB BLOOD ORDERABLES Final Res ult [facility] [address] [place] [address] [phone] * BI US Breast Limited Left (10/05/2023 3:33 PM EDT) Anatomical Region Laterality Modality Breast Left Ultrasound 10/05/2023 3:33 PM EDT Narrative 10/05/2023 4:01 PM EDT ? [facility] [place] ? [address] ?[place] [address] ? Ultrasound Report ? Signed ? Patient: Michelle Sparrow ?MR# ?? : [id number] ? : 1955 ?Acct:[id number] ? Age/Sex: 68 / F ?ADM Date: 10/05/23 ? Loc: HO.MAMMO ? Attending Dr: Brea Cano MD ? Ordering Physician: Brea Cano ?? Date of Service: 10/05/23 ?? Procedure(s): US breast LT limited mamm only ?? Accession Number(s): [id number] ? cc: rBea Cnao ? EXAMINATION: ?? MM DIAGNOSTIC DIGITAL BREAST [...] Ding MD in OV> ?10/05/23 1557 ? DD/DT: 10/04/ 1533 ? TD/TT: ? Hog Killer: ? Procedure Note Donotuseinterpreter, Image - [facility] [address] [place] [address] Ultrasound Report Signed Patient: Michelle Sparrow MMR# : [id number] : 6Acct:[id number] Age/Sex: 68 / FADM Date: 10/05/23 Loc: HO.MAMMO Attending Dr: Brea Cano MD Ordering Physician: Brea Cano Date of Service: 10/05/23 Procedure(s): US breast LT limited mamm only Accession Number(s): [id number] cc: Brea Cano EXAMINATION: MM DIAGNOSTIC DIGITAL [...] in OV> 10/05/23 1557 DD/ 1533 TD/TT: Hog Killer: Brea aCno MD IMG US PROCEDURES Final Result * Hm Colonoscopy (10/16/2021) Historical Provider HEALTH MAINTENANCE Final Result * HEPATITIS C AB W/REFL TO HCV RNA, QN, PCR (02/27/2020 11:31 AM EDT) HEPATITIS C ANTIBODY NON-REACT ALY NON-REACT ALY [facility] INDEX 0.02 <1.00 [facility] Comment: ?? HCV antibody was non-reactive. There is no laboratory ?? evidence of HCV infection. ?? In most cases, no further action is required. However, if recent HCV exposure is suspected, a test for HCV RNA (test code 53580) is suggested. ?? For additional information please refer to http://[employer]/faq/HKJ03t9 (This link is being provided for informational/ educational purposes only.) ?? HEPATITIS C ANTIBODY NON-REACT ALY NON-REACT ALY [facility] INDEX 0.02 <1.00 [facility] Comment: ?? HCV antibody was non-reactive. There is no laboratory ?? evidence of HCV infection. ?? In most cases, no further action is required. However, if recent HCV exposure is suspected, a test for HCV RNA (test code 29020) is suggested. ?? For additional information please refer to http://[employer]faq/JXC05m2 (This link is being provided for informational/ educational purposes only.) ?? HEPATITIS C ANTIBODY NON-REACT ALY NON-REACT ALY [facility] INDEX 0.02 <1.00 [facility] Comment: ?? HCV antibody was non-reactive. There is no laboratory ?? evidence of HCV infection. ?? In most cases, no further action is required. However, if recent HCV exposure is suspected, a test for HCV RNA (test code 56337) is suggested. ?? For additional information please refer to http://[employer]/faq/KMQ63g3 (This link is being provided for informational/ educational purposes only.) ?? HEPATITIS C ANTIBODY NON-REACT ALY NON-REACT ALY [facility] INDEX 0.02 <1.00 [facility] Comment: ?? HCV antibody was non-reactive. There is no laboratory ?? evidence of HCV infection. ?? In most cases, no further action is required. However, if recent HCV exposure is suspected, a test for HCV RNA (test code 04656) is suggested. ?? For additional information please refer to http://[employer]/faq/CJQ17b9 (This link is being provided for informational/ educational purposes only.) ?? HEPATITIS C ANTIBODY NON-REACT ALY NON-REACT ALY [facility] INDEX 0.02 <1.00 [facility] Comment: ?? HCV antibody was non-reactive. There is no laboratory ?? evidence of HCV infection. ?? In most cases, no further action is required. However, if recent HCV exposure is suspected, a test for HCV RNA (test code 17138) is suggested. ?? For additional information please refer to http://[employer]/faq/EIU68y9 (This link is being provided for informational/ educational purposes only.) ?? 02/27/2020 11:3 1 AM EDT Mitzy [facility] HISTORICAL/NON ORDERABLE LABS Final Result [facility] [address] from Last 3 Months or Most Recently Relevant to Health Maintenance Insurance [facility] Care Teams Die Cast Die Maker Relationship Specialty Start Date End Date Brea Cano MD [address] [place] [phone] PCP - General Family Medicine 03/03/22
--- OUTSIDE RECORDS SUMMARY | 2024-08-24 12:56 | XMS_ITS | Encounter Summary ---
Author Organization [employer] Address [address] [place] [address] [address] [place] [address] Care Team Providers Care Merchandising Coordinator Name Role Phone Brea Cano MD Primary Care Provider [phone] Encounter Details Date Type Department Care Team (Late st Contact Info) Description 03/16/2023 Orders Only [facility] MED[facility] [address] [place] [address] Provider, Historical, Social History Tobacco Use Types [...] documented as of this encounter Care Teams Merchandising Coordinator Relationship Specialty Start Date End Date Brea Cano MD [address] [place] [address] PCP - General Family Medicine 03/03/22 documented as of this encounter
--- OUTSIDE RECORDS SUMMARY | 2024-08-24 12:56 | XMS_ITS | Encounter Summary ---
Author Organization [employer] Address [address] [place] [address] 7[address] [place] [address] Care Team Providers Care Schedule Maker Name Role Phone Brea Cano MD Primary Care Provider [phone] Encounter Details Date Type Department Care Team (Late st Contact Info) Description 08/18/2022 Abstract [facility] MEDICINE [address] [place], [place] [phone] Margarita Sanchez, RN [address] [place] [phone] Social History Tobacco Use Types Packs/Day Years [...] on filedocumented in this encounter Care Teams Schedule Maker Relationship Specialty Start Date End Date Brea Cano MD [address] [place] [address] PCP - General Family Medicine 03/03/22 documented as of this encounter
--- OUTSIDE RECORDS SUMMARY | 2024-08-24 12:56 | XMS_ITS | Encounter Summary ---
Author Organization [employer] Address [address] [place] [address] [address] [place] [address] Care Team Providers Care Director Internal Control Name Role Phone Brea Cano MD Primary Care Provider [phone] Encounter Details Date Type Department Care Team [...] on filedocumented in this encounter Care Teams Director Internal Control Relationship Specialty Start Date End Date Brea Cano MD [address] [place] [phone] PCP - General Family Medicine 03/03/22 documented as of this encounter
--- OUTSIDE RECORDS SUMMARY | 2024-08-24 12:56 | XMS_ITS | Encounter Summary ---
Author Organization [employer] Address [address] [facility] [address] [place] [address] Care Team Providers Care Tunnel Drier Operator Name Role Phone Brea Cano MD Primary Care Provider [phone] Reason for Visit * Reason Comments Med Refill Encounter Details Date Type Department Care Team ([facility] st Contact Info) Description 08/17/2024 Refill [facility] [address] [place], [place] [phone] Brea Cano MD [address] [place], [place] [phone] Social History Tobacco Use Types Packs/Day Years [...] documented as of this encounter Care Teams Tunnel Drier Operator Relationship Specialty Start Date End Date Brea Cano MD [address] [place] [phone] PCP - General Family Medicine 03/03/22 documented as of this encounter
--- OUTSIDE RECORDS SUMMARY | 2024-08-24 12:56 | XMS_ITS | Encounter Summary ---
Author Organization [employer] Address [address] [facility] 7t [place] [address] Care Team Providers Care Client Evaluator Name Role Phone Brea Cano MD Primary Care Provider [phone] Encounter Details Date Type Department Care Team (Late st Contact Info) Description 08/14/2024 Orders Only [facility] External Provider, [facility] Social History Tobacco Use Types Packs/Day Years [...] EMPTYING SOLID Routine 08/14/2024 7:57 AM EST documented in this encounter Results * NM Gastric Emptying Solid (08/14/2024 7:57 AM EST) Anatomical Region Laterality Modality Body Nuclear Medicine 08/14/2024 7:57 AM EST Narrative 08/15/2024 7:13 AM EST ? [facility] ?[address] ?[place] [address] ?Nuclear Medicine Report ? Signed ? Patient: Michelle Sparrow ?MR# ?? : [id number] ? : 1955 ?Acct:[id number] ? Age/Sex: 69 / F ?ADM Date: 08/14/24 ? Loc: HO.NUCMED ? Attending Dr: Barry Pugh MD ? Ordering Physician: Barry Pugh MD ?? Date of Service: 08/14/24 ?? Procedure(s): NM gastric emptying study ?? Accession Number(s): [id number] ? cc: Brea Cano; Barry Pugh MD [...] 07:09 AM EST RP ? Dictated By: ?Atilio Arevalo MD ? Signed By: ?<Electronically signed by Atilio Arevalo MD in OV> ?08/15/24 0709 ? DD/ 0757 ? TD/TT: 08/14/24 1232 ? Processing Supervisor: MSM ? Procedure Note Helena Huff - 08/15/2024 [facility] [address] [place] [address] Nuclear Medicine Report Signed Patient: Michelle Sparrow [facility]# : [id number] : 6Acct:[id number] Age/Sex: 69 / FADM Date: 08/14/24 Loc: NAVIN Attending Dr: Barry Pugh MD Ordering Physician: Barry Pugh MD Date of Service: 08/14/24 Procedure(s): WY gastric emptying study Accession Number(s): [id number] cc: Brea Cano; Barry Pugh MD EXAMINATION: WY RADIONUCLIDE SOLID FOOD GASTRIC EMPTYING 4-HOUR STUDY [...] hours 67% 4 hours 57% (normal 0%-10%) WY/WY gastric emptying study IMPRESSION: Abnormal 4-hour solid [...] Atilio Arevalo MD 08/15/2024 07:09 AM EST Dictated By: Atilio Arevalo MD Signed By: <Electronically signed by Atilio Arevalo MD in OV> 08/15/24 0709 DD/ 0757 TD/TT: 08/14/24 1232 Processing Supervisor: MADHAV [facility] External Provider IMG NM PROCEDURES Edited Result - Final documented in this encounter Visit Diagnoses Not on filedocumented in this encounter Additional Health Concerns Assessment Noted Time PHQ-9 Depression Total Score: 0 10/20/19 24 11:04 AM EDT documented as of this encounter Care Teams Client Evaluator Relationship Specialty Start Date End Date Brea Cano MD [address] [place] [phone] PCP - General Family Medicine 03/03/22 documented as of this encounter
--- OUTSIDE RECORDS SUMMARY | 2024-08-24 12:56 | XMS_ITS | Encounter Summary ---
Author Organization [employer] Address [address] [place] [address] 7t [place] [address] Care Team Providers Care Client Resource Specialist Name Role Phone Brea Cano MD Primary Care Provider [phone] Reason for Visit * Reason Comments Med Refill Encounter Details Date Type Department Care Team ([facility] st Contact Info) Description 02/22/[address] [facility] [address] [place], [place] [phone] Brea Cano MD [address] [place] [address] Social History Tobacco Use Types Packs/Day Years [...] as of this encounter Care Teams Client Resource Specialist Relationship Specialty Start Date End Date Brea Cano MD [address] [place] [address] PCP - General Family Medicine 03/03/22 documented as of this encounter
--- OUTSIDE RECORDS SUMMARY | 2024-08-24 12:56 | XMS_ITS | Encounter Summary ---
Author Organization [employer] Address [address] [facility] 7t [place] [address] Care Team Providers Care Purchasing Supervisor Name Role Phone Brea Cano MD Primary Care Provider [phone] Reason for Visit * Reason Onset Date Comments Nurse Triage 06/12/2024 Encounter Details Date Type Department Care Team ([facility] st Contact Info) Description 06/12/[address] [facility] [address] [place], [place] [phone] Brea Cano MD [address] [place] [address] Nurse Triage Social History Tobacco Use Types [...] 06/12/2024 12:24 PM EST Triage call with [employer] [place] [address]. Pt reports cough and fever for 3 [...] provider and is advised to come to [facility] which is open till 8pm this evening [...] documented as of this encounter Care Teams Purchasing Supervisor Relationship Specialty Start Date End Date Brea Cano MD [address] [place] [address] PCP - General Family Medicine 03/03/22 documented as of this encounter
== END 2024-08-24 12:31 | disposition home or self-care (01) ==
LOC: HO.MAMMO 12:30
PROVIDERS: PCP General Practice; Visit Provider General Practice
DX: Z12.31 Encounter for screening mammogram for malignant neoplasm of breast (principal)
CPT/HCPCS: 77063; 77067

== ENCOUNTER → 2024-08-24 13:00 | Outpatient (BNV) | payer OTHER, SELFPAY | PROVIDERS: PCP General Practice; Visit Provider Internal Medicine | DX: Z12.31 Encounter for screening mammogram for malignant neoplasm of breast (principal) | CPT/HCPCS: 77063; 77067 ==

== ENCOUNTER 2024-11-02 10:00 | Outpatient (REF) | payer OTHER, SELFPAY ==
--- OUTSIDE RECORDS SUMMARY | 2024-11-02 10:28 | XMS_ITS | Encounter Summary ---
Author Organization [employer] Address [address] [place] [address] 7 [place] [address] Care Team Providers Care Material Scheduler Name Role Phone Brea Cano MD Primary Care Provider [phone] Reason for Visit * Reason Comments Med Refill Encounter Details Date Type Department Care Team (Late st Contact Info) Description 02/22/2023 Refill [facility] [address] [place] [address] [phone] Brea Cano MD [address] [place] [address] [phone] Social History Tobacco Use Types Packs/Day Years [...] as of this encounter Plan of Treatment Upcoming Encounters Date Type Department Care Team (Late st Contact Info) Description 12/11/2024 11:30 AM EDT Office Visit [facility] [address] [place] [address] [phone] Brea Cano MD [address] [place] [address] [phone] documented as of this encounter Visit Diagnoses Not on filedocumented in this encounter Additional Health Concerns Assessment Noted Time PHQ-9 Depression Total Score: 0 08/20/19 23 11:18 AM EST documented as of this encounter Care Teams Material Scheduler Relationship Specialty Start Date End Date Brea Cano MD [address] [place] [address] PCP - General Family Medicine 03/03/22 documented as of this encounter
--- OUTSIDE RECORDS SUMMARY | 2024-11-02 10:28 | XMS_ITS | Clinical Summary ---
Author Organization [employer] Address [address] [place] [address] 7 [place] [address] Care Team Providers Care Drive In Theater Attendant Name Role Phone Brea Cano MD Primary Care Provider [phone] Allergies Active Allergy Reactions Criticality Noted Date [...] 02/24/20 23 Active Blood Glucose Monitoring Suppl (AVIA) w/Device kit 1 each 2 times daily. TEST BLOOD SUGAR TWICE DAILY 1 kit 04/21/20 23 Active etodolac (Lodine) 400 MG tablet 09/22/19 24 Active methylPREDNISol one (Medrol Dospak) 4 MG tablets 10/19/19 24 Active busPIRone (Buspar) 10 MG tablet Take 10 mg by mouth if needed in the morning and at bedtime. 10/11/19 24 Active mirtazapine (Remeron) 45 MG tablet Take 1 tablet (45 mg) by mouth at bedtime. For weight gain 90 tablet 3 10/28/19 24 Active docusate sodium (Colace) 100 MG capsule TAKE 1 CAPSULE BY MOUTH TWICE DAILY 180 capsule 02/06/20 24 Active losartan (Cozaar) 50 MG tablet [...] 90 capsule 3 05/16/20 24 Active Lancets (Enable Injections [employer]) lancets 30G 1 each by Other route 2 times daily. TEST BLOOD SUGAR TWICE DAILY 100 each 11 05/25/20 24 026 Active glucose blood ([employer] Verio) test stripIndication s:Type 2 diabetes mellitus without complication, without long-term current use of insulin ([facility]) TEST BLOOD SUGAR TWICE DAILY 100 each [...] DAY 90 tablet 2 08/19/19 25 Active metFORMIN (Glucophage) 500 MG tabletIndicatio ns:Type 2 diabetes mellitus with hyperglycemia, without long-term current use of insulin (CMS/HCC) Take 2 tablets (1,000 mg) by mouth with breakfast and with evening meal. 360 tablet 3 09/19/19 25 Active Ferrous Sulfate (iron) 325 (65 Fe) MG tablet TAKE 1 TABLET BY MOUTH EVERY OTHER DAY WITH A FULL GLASS OF WATER 45 tablet 1 10/05/19 25 Active FeroSul 325 (65 Fe) MG tablet TAKE 1 TABLET BY MOUTH EVERY OTHER DAY WITH A FULL GLASS OF WATER 45 tablet 1 03/27/20 24 025 Discontinued Active Problems Problem Noted [...] Encounters Date Type Department Care Team Description 10/04/2024 Refill [facility] MED & PEDS [address] [place], [place] [phone] Brea Cano MD 08/24/2024 Refill [facility] MEDICINE [address] [place] [address] Brea Cano MD Type 2 diabetes mellitus with hyperglycemia, without long-term current use of insulin ([facility]) 08/17/2024 Refill [facility] MEDICINE [address] [place] [address] Brea Cano MD 08/15/2024 Refill [facility] MEDICINE [address] [place], [place] [phone] Brea Cano MD Hypothyroidism, unspecified type 08/14/2024 Orders Only [facility] External Provider, [facility] from Last 3 Months Immunizations Name Administration [...] 06/12/2024 2:16 PM EST Plan of Treatment Upcoming Encounters Date Type Department Care Team (Late st Contact Info) Description 12/11/2024 11:30 AM EDT Office Visit [facility] MEDICINE [address] [place] [address] Brea Cano MD [address] [place] [address] Health Maintenance Due Date Last Done Comments CT Colonography 1955 FIT DNA/Cologuard 1955 FIT 1955 FOBT 1955 Sigmoidoscopy 1955 Eye Exam 02/15/1966 Alcohol/Substance Use Screening 1968 DTaP/Tdap/Td Vaccines (2 - Td or Tdap) 03/21/2024 03/21/2014, 04/12/2003 SDOH Screening 09/21/2024 09/22/2023 Depression Screening 10/19/2024 10/20/2023, 10/20/19 Diabetes: Foot Exam 10/19/2024 10/20/2023 Lipid Panel 10/20/2024 10/21/2023, 1212/2020, 04/03/2020 Diabetes: Hemoglobin A1C 12/04/2024 024, 03/07/2024, 10/20/2023, Additional history exists Diabetes: Urine Protein Screening 04/12/2025 04/12/2024, 10/21/2023, 08/20/2022, Additional history exists Tobacco Screening 06/12/2025 06/12/2024 Mammogram 08/24/2025 08/24/2024, 09/09, 08/22/2023, Additional history exists Colonoscopy 10/16/2026 10/16/2021 Colorectal Cancer Screening 10/16/2026 [...] Procedure Name Priority Date/Time Associated Diagnosis Comments BI MAMMOGRAM SCREENING TOMOSYNTHESIS BILATERAL Routine 08/24/2024 12:30 PM EST NM GASTRIC EMPTYING SOLID Routine 08/14/2024 7:57 AM EST POCT GLYCATED HEMOGLOBIN, TOTAL Routine 06/06/2024 3:16 PM EST Type 2 diabetes mellitus without complication, without long-term current use of insulin (CMS/HCC) CREATININE, RANDOM URINE Routine 04/12/2024 12:50 PM EDT LIPID PANEL, STANDARD Routine 10/21/2023 11:47 AM EDT Type 2 diabetes mellitus with hyperglycemia, without long-term current use of insulin (CMS/HCC) HM COLONOSCOPY Routine 10/16/2021 ZZZ HISTORICAL HEPATITIS C AB W/REFL TO HCV RNA, QN, PCR Routine 02/27/2020 11:31 AM EDT from Last 3 Months or Most Recently Relevant to Health Maintenance Results * BI Mammogram Screening Tomosynthesis Bilateral (08/24/2024 12:30 PM EST) Anatomical Region Laterality Modality Breast Bilateral Mammography 08/24/2024 12:3 0 PM EST Narrative 09/01/2024 1:38 PM EST ? [facility] [place] ? [address] [facility] ?[place] [address] ? Mammography Report ? Signed ? Patient: Cano Rich,Michelle M ?MR# ?? : [id number] ? : 1955 ?Acct:[id number] ? Age/Sex: 69 / F ?ADM Date: 02/14/25 ? Loc: HO.MAMMO ? Attending Dr: Brea Cano MD ? Ordering Physician: Brea Cano ?Results: 1Negative ? Date of Service: 08/24/24 ?Follow Up: 1 Year From Orig ?? inal Mammogram ? Procedure(s): MM tomosynthesis screening BI ?? Accession Number(s): [id number] ? cc: Brea Cano ? EXAMINATION: ?? MM SCREENING DIGITAL BREAST TOMOSYNTHESIS, BILATERAL ? CLINICAL INFORMATION: ? Screening. Asymptomatic. ? COMPARISON: ?? Mammography: Comparison is made with available priors ? TECHNIQUE: ?? Digital breast mammography with tomosynthesis is performed in both the ?? craniocaudal and mediolateral oblique views along with computer-aided ?? detection (CAD). ? FINDINGS: ?? The breasts are heterogeneously dense, which may obscure small masses ?? (ACR BI-RADS breast composition Category c). ? There are no significant masses, abnormal calcifications, or other ?? abnormalities. ? MM/MM tomosynthesis screening BI ?? IMPRESSION: ?? No mammographic evidence of malignancy. ? ASSESSMENT: ? BI-RADS BI-RADS 1 - Negative ? RECOMMENDATION: ?? Routine annual mammography screening. ? 1 year F/U ? This examination should not preclude the clinical evaluation of a ?? suspicious palpable abnormality. ? This patient's information was entered into a reminder system with a ?? target due date for their next mammogram. ? Electronically signed by: ??Elizabeth Hays DO ??09/01/2024 01:35 PM EST ?? RP ? Dictated By: ?Elizabeth Hays DO ? Signed By: ?<Electronically signed by Elizabeth Hays, DO in OV> ? 09/01/24 1335 ? DD/ 1230 ? TD/TT: 08/24/24 1307 ? Motor Setter: ? Procedure Note Donotuseinterpreter, Image - 09/01/2024 [facility] [address] [place], [place] [address] Mammography Report Signed Patient: Michelle Sparrow MMR# : [id number] : 6Acct:[id number] Age/Sex: 69 / FADM Date: 08/24/24 Loc: HO.MAMMO Attending Dr: Brea Cano MD Ordering Physician: Dave Canoults: 1Negative Date of Service: 08/24/24Follow Up: 1 Year From Orig inal Mammogram Procedure(s): MM tomosynthesis screening BI Accession Number(s): [id number] cc: Brea Cano EXAMINATION: MM SCREENING DIGITAL BREAST TOMOSYNTHESIS, BILATERAL CLINICAL INFORMATION: Screening. Asymptomatic. COMPARISON: Mammography: Comparison is made with available priors TECHNIQUE: Digital breast mammography with tomosynthesis is performed in both the craniocaudal and mediolateral oblique views along with computer-aided detection (CAD). FINDINGS: The breasts are heterogeneously dense, which may obscure small masses (ACR BI-RADS breast composition Category c). There are no significant masses, abnormal calcifications, or other abnormalities. MM/MM tomosynthesis screening BI IMPRESSION: No mammographic evidence of malignancy. ASSESSMENT: BI-RADS BI-RADS 1 - Negative RECOMMENDATION: Routine annual mammography screening. 1 year F/U This examination should not preclude the clinical evaluation of a suspicious palpable abnormality. This patient's information was entered into a reminder system with a target due date for their next mammogram. Electronically signed by: Elizabeth Hays DO 09/01/2024 01:35 PM EST Dictated By: Elizabeth Hays DO Signed By: <Electronically signed by Elizabeth Hays DO in OV> 09/01/24 1335 DD/ 1230 TD/TT: 08/24/24 1307 Motor Setter: us Brea Cano MD IMG BI PROCEDURES Edited Resul t - Final * NM Gastric Emptying Solid (08/14/2024 7:57 AM EST) Anatomical Region Laterality Modality Body Nuclear Medicine 08/14/2024 7:57 AM EST Narrative 08/15/2024 7:13 AM EST ? [facility] ?[address] ?[place] [address] ?Nuclear Medicine Report ? Signed ? Patient: Michelle Sparrow ?MR# ?? : [id number] ? : 1955 ?Acct:[id number] ? Age/Sex: 69 / F ?ADM Date: 08/14/24 ? Loc: HO.NUCMED ? Attending Dr: Barry Pugh MD ? Ordering Physician: Barry Pugh MD ?? Date of Service: 08/14/24 ?? Procedure(s): NM gastric emptying study ?? Accession Number(s): [id number] ? cc: Brea Cano; Barry Pugh MD [...] DD/ 0757 ? TD/TT: 08/14/24 1232 ? Motor Setter: MSM ? Procedure Note Helena Huff - 08/15/[address] [address] Nuclear Medicine Report Signed Patient: Michelle Sparrow MMR# : [id number] : 6Acct:[id number] Age/Sex: 69 / FADM Date: 08/14/24 Loc: NAVIN Attending Dr: Barry Pugh MD Ordering Physician: Barry Pugh MD Date of Service: 08/14/24 Procedure(s): NM gastric emptying study Accession Number(s): [id number] cc: Brea Cano; Barry Pugh MD EXAMINATION: [...] grading per JNMT Consensus Recommendations in 2008 (https://tech.snmjournals.org/content/36/1/44) Grade 1 (mild retention): 11-20% at 4h Grade 2 (moderate retention): 21-35% at 4h Grade 3 (severe retention): 36-50% at 4h Grade 4 (very severe retention): >50% retention at 4h Electronically signed by: Atilio Arevalo MD 08/15/2024 07:09 AM [facility] Dictated By: Atilio Arevalo MD Signed By: <Electronically signed by Atilio Arevalo MD in OV> 08/15/24 0709 DD/ 0757 TD/TT: 08/14/24 1232 Motor Setter: MADHAV [facility] External Provider IMG NM PROCEDURES Edited Result - Final * (ABNORMAL) POCT A1C (06/06/2024 3:16 PM EST) Hemoglobin A1C 6.7(A) 4.0 - 6.0 % QC Media Lot # [id number] Lot# Expiration Date ,[id number] Blood 06/06/2024 3:16 PM EST Brea Cano MD POINT OF CARE TEST ENTER/EDIT ORDERABLES Final Result * Creatinine, Random Urine (04/12/2024 12:50 PM EDT) Creatinine, Urine 133.52 mg/dL [facility] 04/12/2024 12:5 0 PM EDT 04/12/2024 1:27 PM EDT Generic External Data Provider LAB URINE ORDERAB LES Final Result [facility] [address] [place] [phone] * Lipid Panel, Standard (10/21/2023 11:47 AM EDT) Triglycerides 119 <150 mg/dL [facility] Comment:Desirable Triglyceri de: less than 150 mg/dLBorderline High Triglyceride 150-199 mg/dLHigh Triglyceride: 200-499 mg/dLVery High Triglyceride: greater than or equal to 5OO mg/dL Cholesterol 107 <200 mg/dL [facility] Comment:Desirable Cholestero l: less than 200 mg/dLBorderline High Cholesterol: 200-239 mg/dLHigh Cholesterol: greater than 239 mg/dL LDL Cholesterol Calculated 34 <100 mg/dL [facility] Comment:Desirable LDL: less than 100 mg/dLNear Optimal/Above Optimal LDL: 110- 129 mg/dLBorderline High LDL: 130-159 mg/dLHigh LDL: 160-189 mg/dLVery High LDL: greater than or equal to 190 mg/dL HDL Cholesterol 50 >40 mg/dL [facility] Comment:Desirable HDL: great er than 40 mg/dL Note: This HDL assay may give artificially low results in patients with liver disease. Blood Venous blood specimen / Unknown 10/21/2023 11:47 AM EDT 10/21/2023 1:18 PM EDT Brea Cano MD LAB BLOOD ORDERABLES Final Res ult [facility] [address] [place] [address] [phone] * Hm Colonoscopy (10/16/2021) Historical Provider HEALTH MAINTENANCE Final Result * HEPATITIS C AB W/REFL TO HCV RNA, QN, PCR (02/27/2020 11:31 AM EDT) HEPATITIS C ANTIBODY NON-REACT ALY NON-REACT ALY [facility] INDEX 0.02 <1.00 [facility] Comment: ?? HCV antibody was non-reactive. There is no laboratory ?? evidence of HCV infection. ?? In most cases, no further action is required. However, if recent HCV exposure is suspected, a test for HCV RNA (test code 61288) is suggested. ?? For additional information please refer to http://[employer]/faq/WEN21j0 (This link is being provided for informational/ educational purposes only.) ?? HEPATITIS C ANTIBODY NON-REACT ALY NON-REACT ALY [facility] INDEX 0.02 <1.00 [facility] Comment: ?? HCV antibody was non-reactive. There is no laboratory ?? evidence of HCV infection. ?? In most cases, no further action is required. However, if recent HCV exposure is suspected, a test for HCV RNA (test code 35314) is suggested. ?? For additional information please refer to http://[employer]/faq/MHK19i5 (This link is being provided for informational/ [...] a test for HCV RNA (test code 32281) is suggested. ?? For additional information please refer to http://[employer]/faq/TPS64x0 (This link is being provided for informational/ [...] a test for HCV RNA (test code 33494) is suggested. ?? For additional information please refer to http://[employer]/faq/DAR27g1 (This link is being provided for informational/ [...] a test for HCV RNA (test code 24050) is suggested. ?? For additional information please refer to http://[employer]/faq/DVH96q9 (This link is being provided for informational/ educational purposes only.) ?? 02/27/2020 11:3 1 AM EDT Mitzy [facility] HISTORICAL/NON ORDERABLE LABS Final Result [facility] [address] from Last 3 Months or Most Recently Relevant to Health Maintenance Insurance [facility] Care Teams Drive In Theater Attendant Relationship Specialty Start Date End Date Brea Cano MD [address] [place] [phone] PCP - General Family Medicine 03/03/22
--- OUTSIDE RECORDS SUMMARY | 2024-11-02 10:28 | XMS_ITS | Encounter Summary ---
Author Organization [employer] Address [address] [facility] 7t [place] [address] Care Team Providers Care Bullet Lubricating Machine Operator Name Role Phone Brea Cano MD Primary Care Provider [phone] Encounter Details Date Type Department Care Team (Late st Contact Info) Description 05/03/2023 Abstract [facility] [address] [place], [place] [phone] Brea Cano MD [address] [place], [place] [phone] Social History Tobacco Use Types Packs/Day Years [...] Description 12/11/2024 11:30 AM EDT Office Visit [facility] [address] [place] [address] [phone] Brea Cano MD [address] [place] [phone] documented as of this encounter Visit Diagnoses Not on filedocumented in this encounter Additional Health Concerns Assessment Noted Time PHQ-9 Depression Total Score: 0 08/20/19 23 11:18 AM EST documented as of this encounter Care Teams Bullet Lubricating Machine Operator Relationship Specialty Start Date End Date Brea Cano MD [address] [place] [address] [phone] PCP - General Family Medicine 03/03/22 documented as of this encounter
--- OUTSIDE RECORDS SUMMARY | 2024-11-02 10:28 | XMS_ITS | Encounter Summary ---
Author Organization [facility] Address [address] [place] [address] 7 [place] [address] Care Team Providers Care Sheep Boner Name Role Phone Brea Cano MD Primary Care Provider [phone] Encounter Details Date Type Department Care Team (Late Contact Info) Description 03/16/2023 Orders Only [facility] MEDICINE [address] [place] [phone] ProviderDenisse MD Social History Tobacco Use Types Packs/Day Years [...] 12/11/2024 11:30 AM EDT Office Visit [facility] MEDICINE [address] [place] [address] [phone] Brea Cano MD [address] [place] [address] [phone] documented as of this encounter Procedures Procedure Name Priority Date/Time Associated Diagnosis Comments COLONOSCOPY Routine 10/16/2021 documented in this encounter Results * Hm Colonoscopy (10/16/2021) us Historical Provider HEALTH MAINTENANCE Final Result documented in this encounter Visit Diagnoses Not on filedocumented in this encounter Additional Health Concerns Assessment Noted Time PHQ-9 Depression Total Score: 0 08/20/19 23 11:18 AM EST documented as of this encounter Care Teams Sheep Boner Relationship Specialty Start Date End Date Brea Cano MD [address] [place] [phone] PCP - General Family Medicine 03/03/22 documented as of this encounter
--- OUTSIDE RECORDS SUMMARY | 2024-11-02 10:28 | XMS_ITS | Encounter Summary ---
Author Organization [facility] Address [address] [place] [address] 7 [place] [address] Care Team Providers Care Knitter Operator Name Role Phone Brea Cano MD Primary Care Provider [phone] Encounter Details Date Type Department Care Team (Latest Contact Info) Description 01/25/2022 Abstract [facility] CONVERSIONS Dental, Provider, DDS Social History Tobacco [...] Description 12/11/2024 11:30 AM EDT Office Visit [facility] MEDICINE [address] [place] [address] Brea Cano MD [address] [place] [address] documented as of this encounter Visit Diagnoses Not on filedocumented in this encounter Care Teams Knitter Operator Relationship Specialty Start Date End Date Brea Cano MD [address] [place] [address] PCP - General Family Medicine 03/03/22 documented as of this encounter
--- OUTSIDE RECORDS SUMMARY | 2024-11-02 10:28 | XMS_ITS | Encounter Summary ---
Author Organization [employer] Address [address] [facility] 7t [place] [address] Care Team Providers Care Drapery Sewer Hand Name Role Phone Brea Cano MD Primary Care Provider [phone] Reason for Visit * Reason Onset Date Comments Nurse Triage 06/12/2024 Encounter Details Date Type Department Care Team ([facility] st Contact Info) Description 06/12/2024 Telephone [facility] MEDICINE [address] [place], [place] [phone] Brea Cano MD [address] [place] [address] Nurse Triage Social History Tobacco Use Types [...] 06/12/2024 12:24 PM EST Triage call [place] [phone]. Pt reports cough and fever for 3 [...] provider and is advised to come to [facility] which is open till 8pm this [...] documented in this encounter Plan of Treatment Upcoming Encounters Date Type Department Care Team (Late st Contact Info) Description 12/11/2024 11:30 AM EDT Office Visit [facility] MEDICINE [address] [place] [address] Brea Cano MD [address] [place] [address] documented as of this encounter Visit Diagnoses Not on filedocumented in this encounter Additional Health Concerns Assessment Noted Time PHQ-9 Depression Total Score: 0 10/20/19 24 11:04 AM EDT documented as of this encounter Care Teams Drapery Sewer Hand Relationship Specialty Start Date End Date Brea Cano MD [address] [place] [address] PCP - General Family Medicine 03/03/22 documented as of this encounter
--- OUTSIDE RECORDS SUMMARY | 2024-11-02 10:28 | XMS_ITS | Encounter Summary ---
Author Organization [employer] [facility] Address [address] [place] [address] 7 [place] [address] Care Team Providers Care Librarian Special Library Name Role Phone Brea Cano MD Primary Care Provider [phone] Encounter Details Date Type Department Care Team (Latest Contact Info) Description 08/18/2020 Abstract [facility] CONVERSIONS Dental, Provider, DDS Social History Tobacco [...] Description 12/11/2024 11:30 AM EDT Office Visit [facility] MEDICINE [address] [place] [address] Brea Cano MD [address] [place] [address] documented as of this encounter Visit Diagnoses Not on filedocumented in this encounter Care Teams Librarian Special Library Relationship Specialty Start Date End Date Brea Cano MD [address] [place] [address] PCP - General Family Medicine 03/03/22 documented as of this encounter
--- OUTSIDE RECORDS SUMMARY | 2024-11-02 10:28 | XMS_ITS | Encounter Summary ---
Author Organization [employer] Address [address] [facility] 7t [place] [address] Care Team Providers Care Cup Trimming Machine Operator Name Role Phone Brea Cano MD Primary Care Provider Encounter Details Date Type Department Care Team (Late st Contact Info) Description 10/28/2023 Orders Only [facility] MEDICINE [address] [place], [place] [phone] Brea Cano MD [address] [place], [place] [phone] Social History Tobacco Use Types Packs/Day Years [...] Description 12/11/2024 11:30 AM EDT Office Visit [facility] MEDICINE [address] [place] [address] Brea Cano MD [address] [place] [address] documented as of this encounter Visit Diagnoses Not on filedocumented in this encounter Additional Health Concerns Assessment Noted Time PHQ-9 Depression Total Score: 0 10/20/19 24 11:04 AM EDT documented as of this encounter Care Teams Cup Trimming Machine Operator Relationship Specialty Start Date End Date Brea Cano MD [address] [place] [address] PCP - General Family Medicine 03/03/22 documented as of this encounter
--- OUTSIDE RECORDS SUMMARY | 2024-11-02 10:28 | XMS_ITS | Encounter Summary ---
Author Organization [employer] [facility] Address [address] [place] [address] 7t [place] [address] Care Team Providers Care Web Analyst Name Role Phone Brea Cano MD Primary Care Provider Encounter Details Date Type Department Care Team (Late st Contact Info) Description 08/18/2022 Abstract [facility] MEDICINE [address] [place] [phone] Margarita Sanchez, RN [address] [place] [phone] Social History Tobacco Use Types Packs/Day Years [...] Description 12/11/2024 11:30 AM EDT Office Visit [facility] MEDICINE [address] [place] [address] Brea Cano MD [address] [place] [phone] documented as of this encounter Procedures Procedure Name Priority Date/Time Associated Diagnosis Comments MAMMOGRAPHY Routine 08/16/2022 documented in this encounter Results * Mammography (08/16/2022) Mammogram BIRADS 1: Negative Anatomical Region Laterality Modality Other Historical Provider HEALTH MAINTENANCE Final Result documented in this encounter Visit Diagnoses Not on filedocumented in this encounter Care Teams Web Analyst Relationship Specialty Start Date End Date Brea Cano MD [address] [place] [address] PCP - General Family Medicine 03/03/22 documented as of this encounter
--- OUTSIDE RECORDS SUMMARY | 2024-11-02 10:28 | XMS_ITS | Encounter Summary ---
Author Organization [facility] Address [address] [place] [address] 7 [place] [address] Care Team Providers Care Rail Specialist Name Role Phone Brea Cano MD Primary Care Provider [phone] Encounter Details Date Type Department Care Team (Latest Contact Info) Description 02/05/2019 Abstract [facility] CONVERSIONS Dental, Provider, DDS Social History Tobacco [...] Description 12/11/2024 11:30 AM EDT Office Visit [facility] MEDICINE [address] [place] [address] Brea Cano MD [address] [place] [address] documented as of this encounter Visit Diagnoses Not on filedocumented in this encounter Care Teams Rail Specialist Relationship Specialty Start Date End Date Brea Cano MD [address] [place] [address] PCP - General Family Medicine 03/03/22 documented as of this encounter
--- OUTSIDE RECORDS SUMMARY | 2024-11-02 10:28 | XMS_ITS | Clinical Summary ---
Author Organization [facility] Address [address] [place] [address] Care Team Providers Care Certified Adapted Physical Educator Name Role Phone Unavailable Primary Care Provider Unavailabl e Source Comments PLEASE NOTE, if this patient is a minor, it may be UNLAWFUL to discuss sensitive information that is contained in these records (such as FAMILY PLANNING, MENTAL HEALTH or SUBSTANCE ABUSE) with the minor patient's parent or other person without the patient's specific authorization.[facility] Immunizations Immunization Administration Dates Next Due Moderna COVID-19 Vaccine, [...] Bone Density Screening 02/15/2021 Falls Prevention 02/15/2021 [id number] (3 - season) 2024 021, 09/23/2020 Imm-Influenza (#1) 2024 04/07/2020, 1 07/29/2018, 03/27/2018, Additional history exists Imm-DTaP/Tdap/Td (2 - Td or Tdap) 03/21/2024 014, 04/12/2003 Alcohol and Drug Screen 07/11/2024 Depression Annual Screen 07/11/2024 Insurance [facility] Member Subscriber Plan / Payer (Ef fective 2017-Present) Name:Michelle Cano Relation to Subscriber:Self Name:Michelle Cano Payer ID:[id number] Group ID:Not on file Type:Indemnity Address: [place] [address] [address] [facility]
[2024-11-02 10:59] LABS: Anion Gap 11 (12-20); Blood Urea Nitrogen 25 mg/dL (9-16); Calcium 9.9 mg/dL (8.4-10.2); Carbon Dioxide 22 mmol/L (22-29); Chloride 112 mmol/L (96-108); Estimated Glomerular Filt Rate 56; Glucose Random 125 mg/dL (60-115); Potassium 4.3 mmol/L (3.3-5.1); Sodium 141 mmol/L (135-145)
== END 2024-11-02 10:01 | disposition home or self-care (01) ==
LOC: HO.LAB 10:00
PROVIDERS: PCP General Practice; Visit Provider Internal Medicine Hypertension Specialist
DX: N18.9 Chronic kidney disease, unspecified (principal)
CPT/HCPCS: 36415; 80048

== ENCOUNTER 2024-11-08 11:40 | Outpatient (AMB) | payer OTHER, SELFPAY ==
[2024-11-08 11:43] VITALS: BP 122/70; BMI 23.4
--- NOTE | 2024-11-08 11:43 | HO.NEPHOV ---
Vital Signs 11/08/24 11:43 Height 5 ft 3 in Weight 132 lb BMI 23.4 BP 122/70 Blood Pressure Location Rt brachial Intake Visit Reasons: 6mon follow up w/labs Conf Intake Note: Patient presets for 6 month follow up Allergies lisinopril [Lisinopril] Allergy (Unknown, Verified 11/08/24 11:45) UNKNOWN Medication List - Last Reconciled 11/08/24 by Pawan Saucedo MD albuterol sulfate 90 mcg/actuation (Ventolin HFA) 2 puffs inhalation Q6H PRN ascorbic acid (vitamin C) 500 mg PO DAILY aspirin 81 mg PO DAILY bupropion HCl XL 1 tab PO QAM buspirone 10 mg PO BID cholecalciferol (vitamin D3) 1 cap PO DAILY clonazepam 1 tab PO TID PRN dicyclomine 10 mg PO BID PRN diltiazem HCl CD 1 cap PO DAILY docusate sodium (DOK) 100 mg PO BID ferrous sulfate 1 tab PO DAILY levothyroxine 75 mcg PO DAILY losartan 25 mg PO DAILY melatonin 5 mg PO BEDTIME metformin 2 tabs PO BID mirtazapine 1 tab PO BEDTIME pantoprazole 40 mg PO DAILY rosuvastatin 1 tab PO DAILY tizanidine 4 mg PO Q8H PRN topiramate 1 tab PO BEDTIME PFSH Medical History Iron deficiency anemia Anxiety Asthma Helicobacter positive gastritis Gastritis Depression Anemia Hypothyroidism Diabetes mellitus Hypertension Surgical History History of laparoscopic cholecystectomy (02/22/23) Hx of colonoscopy History of esophagogastroduodenoscopy (EGD) Hx of hysterectomy Social History Household Members: None Housing: Apartment Alcohol intake: former Patient Tobacco Use Status: Never used Tobacco service: No Current occupational status: retired Physical Exam Vital Signs: Last Vital Signs BP 122/70 11/08/24 11:43 BMI result Body Mass Index 23.4 Const General: comfortable; No acute distress Orientation/consciousness: patient oriented x3 Eyes General: appearance normal, both eyes and all related structures Visual Garcia: normal visual garcia by confrontation Neck Neck: Yes supple and Yes no JVD Resp Effort & Inspection: normal respiratory effort and respiratory effort not decreased Cardio Palpation: no palpable S3 and no palpable S4 Heart sounds: no rubs GI Inspection: Yes normal to inspection Palpation (GI): Soft to palpation Percussion: Yes normal to percussion Auscultation: normal bowel sounds General: Yes no CVA tenderness Back/Spine/Pelvis Back: no CVA tenderness Skin General skin exam: no petechiae and no purpura Neuro General: patient oriented x3 and no focal motor deficits Extrem Other: Heberden's nodes and mild contractures in the digits, more on the right side General: No clubbing and No edema Results Reviewed Nephrology Results: Hgb 11.4 g/dl (12.0-16.0) L 10/24/24 WBC 5.2 X10*3/uL (4.8-10.8) 10/24/24 Plt Count 223 X10*3/uL (160-400) 10/24/24 Sodium 141 mmol/L (135-145) 11/02/24 Potassium 4.3 mmol/L (3.3-5.1) 11/02/24 Chloride 112 mmol/L (96-108) H 11/02/24 Carbon Dioxide 22 mmol/L (22-29) 11/02/24 BUN 25 mg/dL (9-16) H 11/02/24 Creatinine 0.99 mg/dL (0.5-1.4) 11/02/24 Calcium 9.9 mg/dL (8.4-10.2) 11/02/24 Urine Protein Negative mg/dL (Neg-Trace) 04/12/24 Urine Creatinine 133.52 mg/dL 04/12/24 Assessment & Plan Assessment & Plan (1) CKD (chronic kidney disease): Comment: Mild CKD. EGFR is probably around 55-60 mL/minute. This may be due to hypoperfusion from the combination of ARB and NSAIDs. She probably has underlying hypertensive diabetic kidney disease. Code(s): N18.9 - Chronic kidney disease, unspecified Category: Medical Plan: . Renal function is better Cr down to 0.99 (2) Hyperchloremia: Comment: Most likely due to use of topiramate which can inhibit carbonic anhydrase. Urinary anion gap was positive Code(s): E87.8 - Other disorders of electrolyte and fluid balance, not elsewhere classified Category: Medical Plan: Monitor for now (3) Iron deficiency anemia: Code(s): D50.9 - Iron deficiency anemia, unspecified Category: Medical Plan: On IV Iron per Hematology Plan Occasional dizziness Most likely due to polypharmacy No orthostatic BP changes today BP well controlled Goal is to maintain blood pressure less than 130/80. Avoid hypotension. Continue to avoid nephrotoxic agents including NSAIDS Encouraged her to increase p.o. fluid intake Stay on low-sodium diet. No further changes were made today. Orders: Orders Basic Metabolic Panel 6 Months E87.8 - Other disorders of electrolyte and fluid balance, not elsewhere classified Coding Level of Care Code Est Pt Level 4 (34255) Diagnoses CKD (chronic kidney disease) N18.9 Hyperchloremia E87.8 Iron deficiency anemia D50.9
== END 2024-11-08 12:11 | disposition home or self-care (01) ==
LOC: HO.HKA 11:41
PROVIDERS: PCP General Practice; Visit Provider Internal Medicine Hypertension Specialist
DX: N18.9 Chronic kidney disease, unspecified (principal); E87.8 Other disorders of electrolyte and fluid balance, not elsewhere classified; D50.9 Iron deficiency anemia, unspecified
CPT/HCPCS: 99214

== ENCOUNTER → 2024-11-08 11:40 | Outpatient (BNVA) | payer OTHER, SELFPAY | PROVIDERS: PCP General Practice; Visit Provider Internal Medicine Hypertension Specialist | DX: N18.9 Chronic kidney disease, unspecified (principal); E87.8 Other disorders of electrolyte and fluid balance, not elsewhere classified; D50.9 Iron deficiency anemia, unspecified | CPT/HCPCS: 99212 ==

== ENCOUNTER 2024-11-20 10:30 | Outpatient (RCR) | payer OTHER, SELFPAY ==
[2024-11-01 11:25] VITALS: BP 119/68; PULSE 74; RESP 16; TEMP 36.6; O2SAT 100
[2024-11-01] MEDS: Iron Sucrose Complex 200 MG in 0.9 % Sodium Chloride 100 ML 440 MG IV (11:31)
[2024-11-06 11:01] VITALS: BP 108/65; PULSE 79; RESP 16; TEMP 36.2; O2SAT 100
[2024-11-06] MEDS: Iron Sucrose Complex 200 MG in 0.9 % Sodium Chloride 100 ML 440 MG IV (11:09)
[2024-11-13] MEDS: Iron Sucrose Complex 200 MG in 0.9 % Sodium Chloride 100 ML 440 MG IV (11:00)
[2024-11-20 10:35] VITALS: BP 118/66; PULSE 82; RESP 16; TEMP 36.6; O2SAT 99
[2024-11-20] MEDS: Iron Sucrose Complex 200 MG in 0.9 % Sodium Chloride 100 ML 440 MG IV (10:42)
== END 2024-11-20 13:45 | disposition home or self-care (01) ==
LOC: HO.INF 10:30
PROVIDERS: Visit Provider Internal Medicine
DX: D50.9 Iron deficiency anemia, unspecified (principal)
CPT/HCPCS: 96365; 96374; J1756

== ENCOUNTER 2024-12-11 12:10 | Outpatient (REF) | payer OTHER, SELFPAY ==
[2024-12-11 13:07] LABS: Appearance Urine Clear; Color Urine Yellow; Glucose Urine UA Negative (Negative); Leukocyte Esterase Urine Moderate (2+) (Negative); Nitrite Urine Negative (Negative); UMIC TRIGGER UA YES; Urine Blood Negative (Negative); Urine Ketones Trace mg/dL (Negative); Urine Protein Negative (Neg-Trace)
[2024-12-11 13:22] LABS: Bacteria Urine None Seen (None Seen); Hyaline Casts Urine 0-2 /LPF (0-2); RBC Urine 0-2 /HPF (0-2); Squamous Epithelial Cell Urine 0-2 /HPF (0-2)
--- OUTSIDE RECORDS SUMMARY | 2024-12-11 13:37 | XMS_ITS | Encounter Summary ---
Author Organization [employer] Address [address] [place] [address] 7t [place] [address] Care Team Providers Care Filer And Sander Name Role Phone Brea Cano MD Primary Care Provider [phone] Encounter Details Date Type Department Care Team ([facility] st Contact Info) Description 10/28/2023 Orders Only [facility] MEDICINE [address] [place], [place] [phone] Brea Cano MD [address] [place], [place] [phone] Social History Tobacco Use Types Packs/Day Years [...] documented as of this encounter Care Teams Filer And Sander Relationship Specialty Start Date End Date Brea Cano MD [address] [place] [address] PCP - General Family Medicine 03/03/22 documented as of this encounter
[2024-12-11 17:37] LABS: Alanine Aminotransferase 53 U/L (0-31); Albumin Level 4.6 g/dL (3.5-5.0); Alkaline Phosphatase 67 U/L (39-117); Anion Gap 14 (12-20); Aspartate Amino Transferase 43 U/L (5-31); Bilirubin Total 0.2 mg/dL (0.0-1.0); Blood Urea Nitrogen 20 mg/dL (9-16); Calcium 9.6 mg/dL (8.4-10.2); Carbon Dioxide 22 mmol/L (22-29); Chloride 112 mmol/L (96-108); Cholesterol 94 mg/dL (<200); Estimated Glomerular Filt Rate > 60; Glucose Random 110 mg/dL (60-115); HDL Cholesterol 42 mg/dL (>40); LDL Cholesterol Calculated 25 mg/dL (<100); Potassium 4.2 mmol/L (3.3-5.1); Sodium 144 mmol/L (135-145); Total Protein 7.2 g/dL (6.5-8.0); Triglycerides 136 mg/dL (<150)
[2024-12-11 18:02] LABS: Folate 9.7 ng/mL (> or = 4.0); Vitamin B12 330 pg/mL (200-900)
[2024-12-12 14:38] LABS: RPR Rapid Plasma Reagin NON-REACTIVE (NON-REACTIVE)
[2024-12-14 08:22] LABS: TS Negative Control Passed; TS Panel A 0; TS Panel B 0; TS Positive Control Passed; TSpotTB Negative (Negative)
== END 2024-12-11 12:11 | disposition home or self-care (01) ==
LOC: HO.HHCL 12:10
PROVIDERS: Internal Medicine Hypertension Specialist; Visit Provider General Practice
DX: E11.9 Type 2 diabetes mellitus without complications (principal); Z20.9 Contact with and (suspected) exposure to unspecified communicable disease; G62.9 Polyneuropathy, unspecified; D50.9 Iron deficiency anemia, unspecified; N18.9 Chronic kidney disease, unspecified
CPT/HCPCS: 36415; 80053; 80061; 81001; 81003; 82607; 82746; 86481; 86592

== ENCOUNTER 2025-01-31 10:31 | Outpatient (REF) | payer OTHER, SELFPAY ==
--- OUTSIDE RECORDS SUMMARY | 2023-09-30 04:30 | XMS_ITS ---
Author Organization [facility] Address [address] [place] [address] Care Team Providers Care Finance Business Manager Name Role Phone Brea Cano M.D. 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 Encounters Encounter Location Date Provider Diagnosis [facility] [place] [address] [place] [phone] 09/30/2023 Barry Pugh Gastroesophageal ref lux disease [...] Of Treatment Next Appt Details Provider Name:Barry Weller Lexy , 04/03/2025 01:00:00 PM, [address], [address], [place], [address], Progress Notes * VEGA MARSHALLDOB:1955 (69 yo F)Acc No.[id number]:09/30/2023 EGD/MAC Patient: VEGA GOMEZ Provider: Sammi Pugh MD :1955 A ge:68 Y S ex:Female Date:09/30/2023 Address:[address] [place], [place] [id number] Pcp:Brea Cano M.D. Subjective: * Chief Complaints: [...] 09/30/2023 Generated for Whitley colón/Aneta/Curtsmitting on: 0 01/31/2025 11:23 AM EDT
--- OUTSIDE RECORDS SUMMARY | 2025-01-31 11:23 | XMS_ITS | Clinical Summary ---
Author Organization [facility] Address [address] [place] [address] Care Team Providers Care Set Up Operator Name Role Phone Unavailable Primary Care Provider [...] Fecal DNA 02/15/2001 Flexible Sigmoidoscopy 02/15/2001 Imm-Pneumococcal 50+ (2 of 2 - PCV) 02/15/2006 12/26/2003 Imm-Zoster, Recombinant (2 of 3) 01/28/2017 12/04/19 Bone Density Screening 02/15/2021 Falls Prevention 02/15/2021 [id number] (3 - season) 2024 021, 09/23/2020 Imm-DTaP/Tdap/Td (2 - Td or Tdap) 03/21/2024 014, 04/12/2003 Alcohol and Drug Screen 07/11/2024 Depression Annual Screen 07/11/2024 Imm-Influenza (#1) 2025 04/07/2020, 1 07/29/2018, 03/27/2018, Additional history exists Insurance [facility]
--- OUTSIDE RECORDS SUMMARY | 2025-01-31 11:23 | XMS_ITS | Encounter Summary ---
Author Organization [employer] Address [address] [place] [address] 7t [place] [address] Care Team Providers Care Passenger Agent Name Role Phone Brea Cano MD Primary Care Provider [phone] Encounter Details Date Type Department Care Team ([facility] st Contact Info) Description 10/28/2023 Orders Only [facility] MEDICINE [address] [place], [place] [phone] Brea Cano MD [address] [place], [place] [phone] Social History Tobacco Use Types Packs/Day Years [...] documented as of this encounter Care Teams Passenger Agent Relationship Specialty Start Date End Date Brea Cano MD [address] [place] [address] PCP - General Family Medicine 03/03/22 documented as of this encounter
[2025-01-31 11:24] LABS: Appearance Urine Clear; Glucose Urine UA Negative (Negative); PH 5.5 (5.0-9.0); Specific Gravity - Urine 1.015 (1.005-1.025); UMIC TRIGGER UA YES
[2025-01-31 11:39] LABS: Anion Gap 10 (12-20); Blood Urea Nitrogen 20 mg/dL (9-16); Calcium 9.5 mg/dL (8.4-10.2); Carbon Dioxide 28 mmol/L (22-29); Chloride 109 mmol/L (96-108); Estimated Glomerular Filt Rate > 60; Potassium 4.7 mmol/L (3.3-5.1); Sodium 142 mmol/L (135-145)
== END 2025-01-31 10:32 | disposition home or self-care (01) ==
LOC: HO.LAB 10:31
PROVIDERS: PCP General Practice; Visit Provider Internal Medicine Hypertension Specialist
DX: G43.009 Migraine without aura, not intractable, without status migrainosus (principal); E87.8 Other disorders of electrolyte and fluid balance, not elsewhere classified; Z79.899 Other long term (current) drug therapy; Z79.84 Long term (current) use of oral hypoglycemic drugs; Z79.82 Long term (current) use of aspirin
CPT/HCPCS: 36415; 80048; 81001; 99212

== ENCOUNTER 2025-01-31 10:53 | Outpatient (AMB) | payer OTHER, SELFPAY ==
--- NOTE | 2025-01-31 11:45 | MHC.OFFVIS ---
Vital Signs 01/31/25 11:46 01/31/25 11:56 Height 5 ft 3 in BP 133/78 Position Sitting Pulse 71 Intake Visit Reasons: 4 months Allergies lisinopril (Lisinopril) Allergy (Unknown, Verified 01/31/25 11:46) UNKNOWN Medication List - Last Reconciled 01/31/25 by Darlyn Waters CNP albuterol sulfate 90 mcg/actuation (Ventolin HFA) 2 puffs inhalation Q6H PRN ascorbic acid (vitamin C) 500 mg PO DAILY aspirin 81 mg PO DAILY bupropion HCl XL 1 tab PO QAM buspirone 10 mg PO BID cholecalciferol (vitamin D3) 1 cap PO DAILY clonazepam 1 tab PO TID PRN dicyclomine 10 mg PO BID PRN diltiazem HCl CD 1 cap PO DAILY docusate sodium (DOK) 100 mg PO BID ferrous sulfate 1 tab PO DAILY levothyroxine 75 mcg PO DAILY losartan 25 mg PO DAILY melatonin 5 mg PO BEDTIME metformin 2 tabs PO BID mirtazapine 1 tab PO BEDTIME pantoprazole 40 mg PO DAILY rosuvastatin 1 tab PO DAILY tizanidine 4 mg PO Q8H PRN topiramate 1/2 tab in AM and 1 tab at bedtime orally; HPI Comments Details: 69-year-old woman with underlying history of depression, anxiety, hypertension and diabetes was seen for migraine headaches. No change in headaches with increased dose of topiramate. She was getting headache 2-3x/week. It was pressure-type pain to top and sides of head with photophobia, sonophobia, and occasional nausea, dizziness, and blurred vision. No specific triggers. Sleep was okay with medication. Mood was okay. [facility] Medical History Iron deficiency anemia Anxiety Asthma Helicobacter positive gastritis Gastritis Depression Anemia Hypothyroidism Diabetes mellitus Hypertension Surgical History History of laparoscopic cholecystectomy (02/22/23) Hx of colonoscopy History of esophagogastroduodenoscopy (EGD) Hx of hysterectomy Social History Household Members: None Housing: Apartment Alcohol intake: former Patient Tobacco Use Status: Never used Tobacco service: No Current occupational status: retired Review of Systems Const Denies chills, Denies daytime sleepiness, Denies difficulty sleeping, Denies fatigue, Denies fever(s), Denies frequent falls, Reports headache(s), Denies increased appetite, Denies poor appetite, Denies snoring, Denies weakness, Denies weight gain and Denies weight loss Eyes Denies loss of vision ENT Denies vertigo, Reports dizziness and Reports headache(s) Card Denies chest pain at rest, Denies chest pain with activity, Denies syncope, Denies leg edema and Denies palpitations Resp Denies snoring GI Denies constipation, Denies heartburn, Denies diarrhea and Denies nausea Denies urinary frequency, Denies urinary incontinence and Denies urinary urgency Musc Denies abnormal gait, Denies numbness and Denies tingling Skin/Breast Denies dry skin and Denies rash Neuro Denies abnormal gait, Denies vertigo, Reports dizziness, Denies syncope, Denies frequent falls, Reports headache(s), Denies lack of coordination, Denies loss of vision, Denies memory loss, Denies numbness, Denies restless legs, Denies seizure-like activity, Denies tingling, Denies paresthesias, Denies tremor(s) and Denies weakness Psych Denies anxiety, Denies depression, Denies auditory hallucinations, Denies memory loss, Denies visual hallucinations and Denies suicidal ideation Endo Denies fatigue and Denies palpitations Physical Exam Const Other: General Appearance:? normal, in no acute distress. Skin:? no rashes, no significant birthmarks. Heart:? S1, S2 normal, no murmurs. Lungs:? clear anteriorly and posteriorly. Extremities:? no edema. Psych:? alert, oriented, cognitive function intact, cooperative with exam. Neuro Other: Mental Status:?Normal attention, orientation, memory and affect.? Cranial Nerves:?Pupils are equal, round and reactive to light. External occular muscles are intact. Visual jon are full. Face is symmetrical. Facial sensations are normal. Tongue is midline. Palate elevates symmetrically. Shoulder shrugging is normal. Hearing to bedside conversation is normal. Coordination:?No ataxia,?no titubation.? Gait Exam: Within normal limits. Cerebellar Signs:?[id number] and zaej-yc-eizi is normal.? Extrapyramidal System:?No tremor, rigidity with normal facial expressions.? Pronator Drift:?Not present.? Involuntary Movements:?No tremors seen.? Speech:?Normal.? Assessment & Plan Assessment & Plan (1) Migraine without aura: Code(s): G43.009 - Migraine without aura, not intractable, without status migrainosus Category: Medical Qualifiers: Status migrainosus presence: without status migrainosus Intractability: not intractable Qualified Code(s): G43.009 - Migraine without aura, not intractable, without status migrainosus Plan: Start propranolol 10mg 1 tablet daily, use/side effects reviewed Continue topiramate 100mg 1/2 tablet in the morning and 1 tablet at bedtime Plan Meds tried: topiramate, venlafaxine Medications: New propranolol 10 mg PO DAILY 30 tabs 2RF 30 days Changed From topiramate 1/2 tab in AM and 1 tab at bedtime orally; To topiramate 1/2 tab in AM and 1 tab at bedtime orally; 135 tabs 1RF 90 days Coding Level of Care Code Est Pt Level 4 (90989) Diagnoses Migraine without aura and without status migrainosus, not intractable G43.009 Status migrainosus presence: without status migrainosus Intractability: not intractable
[2025-01-31 11:56] VITALS: BP 133/78; PULSE 71
== END 2025-01-31 12:03 | disposition home or self-care (01) ==
LOC: HO.HSM 10:54
PROVIDERS: PCP General Practice; Visit Provider Registered Nurse
DX: G43.009 Migraine without aura, not intractable, without status migrainosus (principal)
CPT/HCPCS: 99214

== ENCOUNTER 2025-02-11 10:25 | Outpatient (AMB) | payer OTHER, SELFPAY ==
--- OUTSIDE RECORDS SUMMARY | 2023-09-30 04:30 | XMS_ITS ---
Author Organization [facility] Address [address] [place] [address] Care Team Providers Care Internet Marketing Specialist Name Role Phone Brea Cano M.D. 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 Subjective: * Chief Complaints: [...] 09/30/2023 Generated for Whitley colón/Aneta/Curtsmitting on: 0 02/11/2025 11:06 AM EDT
--- NOTE | 2025-02-11 10:26 | HO.NEPHOV ---
Vital Signs 02/11/25 10:27 Height 5 ft 3 in Weight 134 lb 2 oz BMI 23.8 BP 120/62 Blood Pressure Location Rt brachial Position Sitting Pulse 77 Pulse Source Pulse Oximeter Pulse Oximetry (%) 98 Oxygen Delivery Method Room Air Intake Visit Reasons: 3 MO FU/ Conf [place] Opener Required: No Certified Court Interpreter: Certified Court Interpreter Present Accompanied by: Other Relationship Allergies lisinopril (Lisinopril) Allergy (Unknown, Verified 02/11/25 10:29) UNKNOWN Medication List - Last Reconciled 02/11/25 by Pawan Saucedo MD albuterol sulfate 90 mcg/actuation (Ventolin HFA) 2 puffs inhalation Q6H PRN ascorbic acid (vitamin C) 500 mg PO DAILY aspirin 81 mg PO DAILY bupropion HCl XL 1 tab PO QAM buspirone 10 mg PO BID cholecalciferol (vitamin D3) 1 cap PO DAILY clonazepam 1 tab PO TID PRN dicyclomine 10 mg PO BID PRN diltiazem HCl CD 1 cap PO DAILY docusate sodium (DOK) 100 mg PO BID ferrous sulfate 1 tab PO DAILY levothyroxine 75 mcg PO DAILY losartan 25 mg PO DAILY melatonin 5 mg PO BEDTIME metformin 2 tabs PO BID mirtazapine 1 tab PO BEDTIME pantoprazole 40 mg PO DAILY propranolol 10 mg PO DAILY 30 days rosuvastatin 1 tab PO DAILY tizanidine 4 mg PO Q8H PRN topiramate 1/2 tab in AM and 1 tab at bedtime orally; 90 days Do you need a note to return to daycare/school/sports/work: No HPI Comments Details: . Michelle is a pleasant 69-year-old woman with a history of hypertension. She has mild elevation serum creatinine and hyperchloremia and hence she has been referred for further evaluation. She has a history of arthritis. She has been taking etodolac on a regular basis. However she tells me that this is not helping her. As for hypertension she is on losartan 50 mg and diltiazem. Overall blood pressure is well controlled. She has history of migraine she has been on topiramate for a long time. History of significant iron deficiency anemia status post endoscopy which showed Navarro's esophagus. She has received IV Venofer in the past. 05/28/24 Losartan was decreased from 50 mg a day down to 25 mg. She is feeling much better. She has stopped taking etodolac Currently she has no lightheadedness 02/11/25 : Doing well. NO new issues [facility] Medical History Iron deficiency anemia Anxiety Asthma Helicobacter positive gastritis Gastritis Depression Anemia Hypothyroidism Diabetes mellitus Hypertension Surgical History History of laparoscopic cholecystectomy (02/22/23) Hx of colonoscopy History of esophagogastroduodenoscopy (EGD) Hx of hysterectomy Social History Household Members: None Housing: Apartment Alcohol intake: former Patient Tobacco Use Status: Never used Tobacco service: No Current occupational status: retired Physical Exam Vital Signs: BMI result Body Mass Index 23.8 Const General: comfortable; No acute distress Orientation/consciousness: patient oriented x3 Eyes General: appearance normal, both eyes and all related structures Visual Garcia: normal visual garcia by confrontation Neck Neck: Yes supple and Yes no JVD Resp Effort & Inspection: normal respiratory effort and respiratory effort not decreased Cardio Palpation: no palpable S3 and no palpable S4 Heart sounds: no rubs GI Inspection: Yes normal to inspection Palpation (GI): Soft to palpation Percussion: Yes normal to percussion Auscultation: normal bowel sounds General: Yes no CVA tenderness Back/Spine/Pelvis Back: no CVA tenderness Skin General skin exam: no petechiae and no purpura Neuro General: patient oriented x3 and no focal motor deficits Extrem Other: Heberden's nodes and mild contractures in the digits, more on the right side General: No clubbing and No edema Results Reviewed Nephrology Results: Hgb, (12.0-16.0) 11.4 g/dl L 10/24/24 WBC, (4.8-10.8) 5.2 X10*3/uL 10/24/24 Plt Count, (160-400) 223 X10*3/uL 10/24/24 Sodium, (135-145) 142 mmol/L 01/31/25 Potassium, (3.3-5.1) 4.7 mmol/L 01/31/25 Chloride, (96-108) 109 mmol/L H 01/31/25 Carbon Dioxide, (22-29) 28 mmol/L 01/31/25 BUN, (9-16) 20 mg/dL H 01/31/25 Creatinine, (0.5-1.4) 0.88 mg/dL 01/31/25 Calcium, (8.4-10.2) 9.5 mg/dL 01/31/25 Urine Protein, (Neg-Trace) Negative mg/dL 01/31/25 Assessment & Plan Assessment & Plan (1) CKD (chronic kidney disease): Comment: Mild CKD. EGFR is probably around 55-60 mL/minute. This may be due to hypoperfusion from the combination of ARB and NSAIDs. She probably has underlying hypertensive diabetic kidney disease. Code(s): N18.9 - Chronic kidney disease, unspecified Category: Medical Plan: . Renal function is better Cr down to 0.99 (2) Hyperchloremia: Comment: Most likely due to use of topiramate which can inhibit carbonic anhydrase. Urinary anion gap was positive Code(s): E87.8 - Other disorders of electrolyte and fluid balance, not elsewhere classified Category: Medical Plan: Monitor for now (3) Iron deficiency anemia: Code(s): D50.9 - Iron deficiency anemia, unspecified Category: Medical Plan: On IV Iron per Hematology Plan Occasional dizziness Most likely due to polypharmacy No orthostatic BP changes today BP well controlled Goal is to maintain blood pressure less than 130/80. Avoid hypotension. Continue to avoid nephrotoxic agents including NSAIDS Encouraged her to increase p.o. fluid intake Stay on low-sodium diet. No further changes were made today. Orders: Orders Basic Metabolic Panel 1 Year D50.9 - Iron deficiency anemia, unspecified, N18.9 - Chronic kidney disease, unspecified Coding Level of Care Code Est Pt Level 4 (97239) Diagnoses CKD (chronic kidney disease) N18.9 Hyperchloremia E87.8 Iron deficiency anemia D50.9
[2025-02-11 10:27] VITALS: BP 120/62; PULSE 77; O2SAT 98; BMI 23.8
--- OUTSIDE RECORDS SUMMARY | 2025-02-11 11:07 | XMS_ITS | Clinical Summary ---
Author Organization [facility] Address [address] [place] [address] Care Team Providers Care Stained Glass Window Designer Name Role Phone Unavailable Primary Care Provider [...] Bone Density Screening 02/15/2021 Falls Prevention 02/15/2021 [id number] (3 - season) 2024 021, 09/23/2020 Imm-DTaP/Tdap/Td (2 - Td or Tdap) 03/21/2024 014, 04/12/2003 Alcohol and Drug Screen 07/11/2024 Depression Annual Screen 07/11/2024 Imm-Influenza (#1) 2025 04/07/2020, 1 07/29/2018, 03/27/2018, Additional history exists Insurance [facility] JAME EID [facility]
--- OUTSIDE RECORDS SUMMARY | 2025-02-11 11:07 | XMS_ITS | Encounter Summary ---
Author Organization [employer] Address [address] [place] [address] [address] [place] [address] Care Team Providers Care Crm System Administrator Name Role Phone Brea Cano MD Primary Care Provider [phone] Encounter Details Date Type Department Care Team ([facility] st Contact Info) Description 10/28/2023 Orders Only [facility] [address] [place], [place] [phone] Brea Cano MD [address] [place], [place] [phone] Social History Tobacco Use Types Packs/Day Years [...] documented as of this encounter Care Teams Crm System Administrator Relationship Specialty Start Date End Date Brea Cano MD [address] [place] [id number] PCP - General Family Medicine 03/03/22 documented as of this encounter
== END 2025-02-11 10:36 | disposition home or self-care (01) ==
PROVIDERS: PCP General Practice; Visit Provider Internal Medicine Hypertension Specialist
DX: N18.9 Chronic kidney disease, unspecified (principal); E87.8 Other disorders of electrolyte and fluid balance, not elsewhere classified; D50.9 Iron deficiency anemia, unspecified
CPT/HCPCS: 99214

== ENCOUNTER → 2025-02-11 10:25 | Outpatient (BNVA) | payer OTHER, SELFPAY | PROVIDERS: PCP General Practice; Visit Provider Internal Medicine Hypertension Specialist | DX: I10 Essential (primary) hypertension (principal); N18.9 Chronic kidney disease, unspecified; E87.8 Other disorders of electrolyte and fluid balance, not elsewhere classified; D50.9 Iron deficiency anemia, unspecified | CPT/HCPCS: 99212 ==

== ENCOUNTER 2025-02-11 20:03 | Emergency (ER) | payer OTHER, SELFPAY ==
--- OUTSIDE RECORDS SUMMARY | 2023-09-30 04:30 | XMS_ITS ---
Author Organization [facility] Address [address] [place] [address] Care Team Providers Care Social Media Analyst Name Role Phone Brea Cano M.D. 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 Encounters Encounter Location Date Provider Diagnosis [facility] Outpatient [address] [place] [phone] 09/30/2023 Barry Pugh Gastroesophageal ref lux disease K21.9 ; Hiatal hernia K44.9 ; Other diseases of stomach and duodenum K31.89 and 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 Assessments Encounter Date Diagnosis (ICD Code) Assessment Notes Treatment Notes Treatment Clinical Notes Section Notes 09/30/2023 Gastroesophageal reflux disease (ICD-10 - K21.9) 09/30/2023 Hiatal hernia (ICD-10 - K44.9) 09/30/2023 Other diseases of stomach and duodenum (ICD-10 - K31.89) 09/30/2023 Navarro esophagus (ICD-10 - K22.70) Plan Of Treatment Next Appt Details Provider Name:Barry [facility] , 04/03/2025 01:00:00 PM, [address], [address], [place], [address], Progress Notes * VEGA MARSHALLDOB:1955 (69 yo F)Acc No.[id number]:09/30/2023 EGD/MAC Patient: VEGA GOMEZ Provider: Sammi Pugh MD :1955 A ge:68 Y S ex:Female Date:09/30/2023 Address:[address] [place] [address] Pcp:Brea Cano M.D. Subjective: * Chief Complaints: * 1 . Jeffrey's. * Medical History: Objective: * Vitals: Assessment: * Assessment: 1. G astroesophageal reflux disease - K21.9 (Primary) 2 . H iatal hernia - K44.9 3 . O ther diseases of stomach and duodenum - K31.89 4 .?Navarro esophagus - K22.70 Plan: * Treatment: * Procedure Codes: 4 3239 UPPER GI ENDOSCOPY, BIOPSY * * The named appointment provid er may or may not be the originator of this progress note, and it is not deemed complete until electronically signed by the appointment provider. Sign off status: Pending * Provider: Sammi Pugh MD Date: 0 09/30/2023 Generated for Whitley colón/Aneta/Curtsmitting on: 0 02/12/2025 02:04 AM EDT
--- NOTE | ~2025-02-11 | XR_ITS ---
CLINICAL HISTORY: chest pain 2 view chest x-ray Comparison: None provided Findings: No consolidation, pneumothorax, or pleural effusion. Mild right infrahilar atelectasis/pneumonitis. Cardiac silhouette is at the upper limits of normal. Tortuosity of the mastoid noted. Degenerative changes include imaged shoulders and imaged spine. IMPRESSION: Mild right infrahilar atelectasis/pneumonitis. This document has been electronically signed by: Jono Penny MD on 02/11/2025 20:52:43
--- NOTE | 2025-02-11 20:04 | ECG_ITS ---
Test Reason : CHEST PAIN Blood Pressure : */* mmHG Vent. Rate : 88 BPM Atrial Rate : 88 BPM P-R Int : 176 ms QRS Dur : 92 ms QT Int : 376 ms P-R-T Axes : 62 -29 53 degrees QTcB Int : 454 ms Normal sinus rhythm Minimal voltage criteria for LVH, may be normal variant ( R in aVL ) Borderline ECG When compared with ECG of 19-Jan-2023 16:58, No significant change was found Referred By: Jaki Ojeda Electronically Signed By: ELIO NAIR
[2025-02-11 20:06] VITALS: BP 181/82; PULSE 87; RESP 16; TEMP 36.7; O2SAT 99; BMI 23.9
--- NOTE | 2025-02-11 20:06 | ED.GENADULT ---
HPI - General Adult General Chief complaint: Chest Pain Stated complaint: Chest pain Time Seen by Provider: 02/12/25 01:07 Source: patient and family Limitations: language barrier History of Present Illness ED Provider: Chela Barakat PA-C HPI narrative: 69-year-old female with a history of hypertension, chronic kidney disease, asthma, hypothyroidism, diabetes, hyperlipidemia, who presents with chest pain. Patient states she has been having intermittent episodes of left upper anterior chest discomfort described as a ?stabbing sensation?. The pain comes and goes is nonradiating. Patient states she spontaneously developed a dry cough. Cough is repetitive without wheezing. Denies recent sick contacts, fever or shortness of breath. Related Data Home Medications ?Medication ?Instructions ?Recorded ?Confirmed ascorbic acid (vitamin C) 500 mg 500 mg PO DAILY 05/14/20 02/11/25 tablet aspirin 81 mg tablet,delayed 81 mg PO DAILY 05/14/20 02/11/25 release bupropion HCl 150 mg 24 hr tablet, 1 tab PO QAM depressive disorder 05/14/20 02/11/25 extended release clonazepam 0.5 mg tablet 1 tab PO TID PRN anxiety 05/14/20 02/11/25 diltiazem HCl 120 mg 1 cap PO DAILY 05/14/20 02/11/25 capsule,extended release 24 hr ferrous sulfate 325 mg (65 mg 1 tab PO DAILY 05/14/20 02/11/25 iron) tablet levothyroxine 75 mcg tablet 75 mcg PO DAILY 05/14/20 02/11/25 metformin 500 mg tablet 2 tab PO BID 05/14/20 02/11/25 mirtazapine 30 mg tablet 1 tab PO BEDTIME depressive 05/14/20 02/11/25 disorder rosuvastatin 20 mg tablet 1 tab PO DAILY 05/14/20 02/11/25 cholecalciferol (vitamin D3) 25 1 cap PO DAILY 02/18/21 02/11/25 mcg (1,000 unit) capsule melatonin 5 mg tablet 5 mg PO BEDTIME 03/28/23 02/11/25 buspirone 10 mg tablet 10 mg PO BID 06/20/23 02/11/25 dicyclomine 10 mg capsule 10 mg PO BID PRN Abdominal Pain 09/19/23 02/11/25 pantoprazole 40 mg tablet,delayed 40 mg PO DAILY 09/19/23 02/11/25 release tizanidine 4 mg tablet 4 mg PO Q8H PRN Muscle Spasm 09/19/23 02/11/25 albuterol sulfate 90 mcg/actuation 2 puff inhalation Q6H PRN yes 04/12/24 02/11/25 aerosol inhaler (Ventolin HFA) docusate sodium 100 mg capsule 100 mg PO BID constipation 04/12/24 02/11/25 (DOK) Previous Rx's ?Medication ?Instructions ?Recorded losartan 25 mg tablet 25 mg PO DAILY #90 tabs 10/09/24 propranolol 10 mg tablet 10 mg PO DAILY 30 days #30 tabs 01/31/25 topiramate 100 mg tablet See Rx Instructions PO .COMPLEX 90 01/31/25 days #135 tabs Allergies Allergy/AdvReac Type Severity Reaction Status Date / Time lisinopril (Lisinopril) Allergy Unknown UNKNOWN Verified 02/11/25 20:08 Review of Systems Review of Systems: Yes all other systems are reviewed and are negative Constitutional: Constitutional: Denies fatigue and Denies fever(s) Endocrine: Endocrine: Denies fatigue PMFSH Past Medical History Medical History Iron deficiency anemia Anxiety Asthma Helicobacter positive gastritis Gastritis Depression Anemia Hypothyroidism Diabetes mellitus Hypertension Surgical History History of laparoscopic cholecystectomy (02/22/23) Hx of colonoscopy History of esophagogastroduodenoscopy (EGD) Hx of hysterectomy Social History Social History Household Members: None Housing: Apartment Alcohol intake: former Patient Tobacco Use Status: Never used Tobacco Smoked in Last 30 Days: No Use of substances other than those prescribed or required for medical reasons: No Do you have a plan to hurt others: No Plan service: No Current occupational status: retired Physical Exam ED Vital Signs: Vital Signs - 24 hr 02/11/25 20:06 02/12/25 01:05 Temperature 98.1 F 97.5 F Pulse Rate 87 65 Respiratory Rate 16 16 Blood Pressure 181/82 H 143/73 H Pulse Oximetry 99 100 Oxygen Delivery Method Room Air Room Air BMI result Body Mass Index 23.9 Course Course Course Narrative: RME performed by Jaki Ojeda PA-C. Patient is a 69 year old assigned female at presenting to the emergency department with chest pain / dizziness / SOB. Detailed physical exam and review of systems are deferred to the carton inspector. EKG, labs, imaging, swabs ordered. Patient placed back in the waiting room pending room availability and results. Medical Decision Making Medical Decision Making MDM Narrative: 69-year-old female with a history of hypertension, chronic kidney disease, asthma, hypothyroidism, diabetes, hyperlipidemia, who presents with chest pain. Patient states she has been having intermittent episodes of left upper anterior chest discomfort described as a ?stabbing sensation?. The pain comes and goes is nonradiating. Patient states she spontaneously developed a dry cough. Cough is repetitive without wheezing. Denies recent sick contacts, fever or shortness of breath. Problem: Age, hypertension, hyperlipidemia, diabetes History: Per patient I have considered the following differential diagnoses: Viral syndrome, pneumonia, bronchitis, ACS Plan: Patient's discomfort is highly atypical, however she has risk factors for coronary artery disease, screening labs and an EKG were obtained, we need a cardiac enzyme, it was just ordered. Could be viral syndrome, the chest x-ray suggest pneumonitis, however her cough is so minimal, she has no wheezing, she does not warrant treatment for bronchitis. There was no pneumonia. I have independently reviewed the following tests: Labs: No leukocytosis, not anemic, no electrolyte abnormality noted, troponin < 2.7 , viral panel negative EKG: Normal sinus rhythm, rate 88, no ischemic changes no ectopy QTC 454 Chest x-ray:indings: No consolidation, pneumothorax, or pleural effusion. Mild right infrahilar atelectasis/pneumonitis. Cardiac silhouette is at the upper limits of normal. Tortuosity of the mastoid noted. Degenerative changes include imaged shoulders and imaged spine. IMPRESSION: Mild right infrahilar atelectasis/pneumonitis. Lab Data 02/11/25 20:17 02/11/25 20:17 Labs: Lab Results 02/11/25 Range/Units 20:17 WBC 5.9 (4.8-10.8) X10*3/uL RBC 3.93 L (4.20-5.50) X10*6/uL Hgb 11.6 L (12.0-16.0) g/dl Hct 35.0 L (37.0-47.0) % MCV 89.1 (80.0-98.0) fL MCH 29.5 (27.0-33.0) pg MCHC 33.1 (31.0-35.0) g/dl RDW 13.5 (11.0-16.0) % Plt Count 222 (160-400) X10*3/uL MPV 9.1 L (9.4-12.3) fL Immature Gran % (Auto) 0.3 (0.0-0.4) % Neut % (Auto) 44.6 L (45-73) % Lymph % (Auto) 40.5 H (20-40) % Ware % (Auto) 8.6 (2-11) % Eos % (Auto) 5.2 H (0-4) % Baso % (Auto) 0.8 (0-2) % Lymph # (Auto) 2.4 (1.2-4.9) X10*3/uL Ware # (Auto) 0.5 (0.1-1.2) X10*3/uL Eos # (Auto) 0.3 (0.0-0.4) X10*3/uL Baso # (Auto) 0.1 (0.0-0.2) X10*3/uL Abs Immat Gran (auto) 0.02 (0.00-0.03) X10*3/uL Absolute Neuts (auto) 2.6 (2.0-8.3) x10*3/uL Absolute Nucleated RBC 0.000 (0.0-0.012) X10*3/uL Nucleated RBC % (auto) 0.0 (0.0-0.2) /100WBC PT 12.1 (10.9-12.4) SEC INR 1.1 (0.9-1.1) Sodium 141 (135-145) mmol/L Potassium 4.5 (3.3-5.1) mmol/L Chloride 108 (96-108) mmol/L Carbon Dioxide 25 (22-29) mmol/L Anion Gap 13 (12-20) BUN 21 H (9-16) mg/dL Creatinine 0.96 (0.5-1.4) mg/dL Estim Creat Clear Calc 46.3 Estimated GFR 58 Random Glucose 206 H (60-115) mg/dL Calcium 9.4 (8.4-10.2) mg/dL Magnesium 1.7 (1.6-2.6) mg/dL Total Bilirubin 0.2 (0.0-1.0) mg/dL AST 35 H (5-31) U/L ALT 40 H (0-31) U/L Alkaline Phosphatase 83 (39-117) U/L Troponin I High Sens < 2.7 (<3.5-17.0) ng/L Total Protein 7.1 (6.5-8.0) g/dL Albumin 4.5 (3.5-5.0) g/dL Influenza Type A (PCR) NEGATIVE (Negative) Influenza Type B (PCR) NEGATIVE (Negative) RSV RNA Qual (PCR) NEGATIVE (Negative) SARS-CoV-2 RNA (RT-PCR) NEGATIVE (Negative) Discharge Plan Discharge Clinical Impression: Chest wall pain Patient Disposition: Home, Self-Care Instructions: Chest Wall Pain (ED) Additional Instructions: Your exam was consistent with chest wall pain. See home care instructions. You can use [id number] ibuprofen 600 mg taken every 6 hours with food when you develop discomfort. All of your screening labs including a cardiac enzymes were normal. You were tested for influenza, RSV and COVID, the viral panel was negative. There were no concerning changes on your EKG in the chest x-ray is clear. Follow up with primary care as needed. Prescriptions: No Action losartan 25 mg tablet 25 mg PO DAILY Qty: 90 4RF metformin 500 mg tablet 2 tab PO BID clonazepam 0.5 mg tablet 1 tab PO TID PRN (Reason: anxiety) aspirin [Aspir-81] 81 mg Tablet,Delayed Release (Dr/Ec) 81 mg PO DAILY levothyroxine 75 mcg tablet 75 mcg PO DAILY ascorbic acid (vitamin C) 500 mg Tablet 500 mg PO DAILY mirtazapine 30 mg tablet 1 tab PO BEDTIME ferrous sulfate 325 mg (65 mg iron) tablet 1 tab PO DAILY diltiazem HCl 120 mg capsule,extended release 24hr 1 cap PO DAILY rosuvastatin 20 mg tablet 1 tab PO DAILY bupropion HCl 150 mg tablet extended release 24 hr 1 tab PO QAM melatonin 5 mg tablet 5 mg PO BEDTIME buspirone 10 mg Tablet 10 mg PO BID tizanidine 4 mg Tablet 4 mg PO Q8H PRN (Reason: Muscle Spasm) pantoprazole 40 mg tablet,delayed release (DR/EC) 40 mg PO DAILY dicyclomine 10 mg Capsule 10 mg PO BID PRN (Reason: Abdominal Pain) cholecalciferol (vitamin D3) 25 mcg (1,000 unit) capsule 1 cap PO DAILY docusate sodium [DOK] 100 mg capsule 100 mg PO BID albuterol sulfate [Ventolin HFA] 90 mcg/actuation HFA aerosol inhaler 2 puff inhalation Q6H PRN (Reason: yes) propranolol 10 mg tablet 10 mg PO DAILY 30 Days Qty: 30 2RF topiramate 100 mg tablet See Rx Instructions PO .COMPLEX 90 Days Qty: 135 1RF Rx Instructions: 1/2 tab in AM and 1 tab at bedtime orally; Print Language: [place]
[2025-02-11 20:38] LABS: MANUAL DIFF FLAG NO
[2025-02-11 20:39] LABS: Hematocrit 35.0 % (37.0-47.0); Hemoglobin 11.6 g/dl (12.0-16.0); Imm Gran Abs Auto 0.02 X10*3/uL (0.00-0.03); Imm Gran Pct Auto 0.3 % (0.0-0.4); Lymphocytes Absolute Auto 2.4 X10*3/uL (1.2-4.9); Mean Corpuscular HGB Conc 33.1 g/dl (31.0-35.0); Mean Corpuscular Hemoglobin 29.5 pg (27.0-33.0); Mean Corpuscular Volume 89.1 fL (80.0-98.0); NRBC Abs Auto 0.000 X10*3/uL (0.0-0.012); NRBC Pct Auto 0.0 /100WBC (0.0-0.2); Platelet Count 222 X10*3/uL (160-400); Red Blood Count 3.93 X10*6/uL (4.20-5.50); White Blood Count 5.9 X10*3/uL (4.8-10.8)
[2025-02-11 20:53] LABS: INTERNATIONAL NORM RATIO 1.1 (0.9-1.1); Prothrombin Time 12.1 SEC (10.9-12.4)
[2025-02-11 20:55] LABS: Alanine Aminotransferase 40 U/L (0-31); Albumin Level 4.5 g/dL (3.5-5.0); Alkaline Phosphatase 83 U/L (39-117); Anion Gap 13 (12-20); Aspartate Amino Transferase 35 U/L (5-31); Blood Urea Nitrogen 21 mg/dL (9-16); Calcium 9.4 mg/dL (8.4-10.2); Carbon Dioxide 25 mmol/L (22-29); Chloride 108 mmol/L (96-108); Creatinine Clr Calc Pharmacy 46.3; Estimated Glomerular Filt Rate 58; Magnesium 1.7 mg/dL (1.6-2.6); Potassium 4.5 mmol/L (3.3-5.1); Sodium 141 mmol/L (135-145); Total Protein 7.1 g/dL (6.5-8.0)
[2025-02-11 21:16] LABS: Resp Syncy Virus RNA Qual PCR NEGATIVE (Negative); SARS COV2 PCR INHOUSE NEGATIVE (Negative)
[2025-02-12 01:05] VITALS: BP 143/73; PULSE 65; RESP 16; TEMP 36.4; O2SAT 100
--- NOTE | 2025-02-12 01:07 | PC.NURSE ---
pt reporting chest pain at this time, this RN noted no initial troponin was ordered at time of triage, this rn spoke to lab who states they may add on a troponin at this time to initial labs. order placed.
--- NOTE | 2025-02-12 01:27 | PC.NURSE ---
pt with spouse at bedside states chest pain for 5 hours, with mild dizziness. Pt labs drawn, added troponin. JAME Soto at bedside. will wit for results before treatment plan. Pt resting quietly, V/S WNL
[2025-02-12 01:42] LABS: Troponin-I High Sensitivity < 2.7 ng/L (<3.5-17.0)
--- OUTSIDE RECORDS SUMMARY | 2025-02-12 02:04 | XMS_ITS | Clinical Summary ---
Author Organization [facility] Address [address] [place] [address] Care Team Providers Care Pediatrician Name Role Phone Unavailable Primary Care Provider [...] Bone Density Screening 02/15/2021 Falls Prevention 02/15/2021 [id number] (3 - season) 2024 021, 09/23/2020 Imm-DTaP/Tdap/Td (2 - Td or Tdap) 03/21/2024 014, 04/12/2003 Alcohol and Drug Screen 07/11/2024 Depression Annual Screen 07/11/2024 Imm-Influenza (#1) 2025 04/07/2020, 1 07/29/2018, 03/27/2018, Additional history exists Insurance [facility] JAME EID [facility]
[2025-02-12 02:14] VITALS: BP 126/71; PULSE 78; RESP 20; TEMP 36.4; O2SAT 98
[2025-02-12 02:19] VITALS: BP 126/71; PULSE 78; RESP 20; TEMP 36.4; O2SAT 98
== END 2025-02-12 02:20 | disposition home or self-care (01) ==
PROVIDERS: Physician Assistant Medical; Emergency Provider Emergency Medicine; PCP General Practice
DX: R07.89 Other chest pain (principal); I12.9 Hypertensive chronic kidney disease with stage 1 through stage 4 chronic kidney disease, or unspecified chronic kidney disease; E11.22 Type 2 diabetes mellitus with diabetic chronic kidney disease; N18.9 Chronic kidney disease, unspecified; Z03.818 Encounter for observation for suspected exposure to other biological agents ruled out; J45.909 Unspecified asthma, uncomplicated; E78.5 Hyperlipidemia, unspecified
CPT/HCPCS: 71046; 80053; 83735; 84484; 85025; 85610; 87637; 93005; 99283; 99285

== ENCOUNTER → 2025-02-11 20:04 | Outpatient (BNV) | payer OTHER, SELFPAY | PROVIDERS: Emergency Provider Emergency Medicine; PCP General Practice; Visit Provider Internal Medicine | DX: R07.9 Chest pain, unspecified (principal) | CPT/HCPCS: 93010 ==

== ENCOUNTER → 2025-02-11 20:07 | Outpatient (BNV) | payer OTHER, SELFPAY | PROVIDERS: PCP General Practice; Visit Provider Radiology Neuroradiology | DX: J98.11 Atelectasis (principal) | CPT/HCPCS: 71046 ==

== ENCOUNTER 2025-03-15 10:49 | Outpatient (AMB) | payer OTHER, SELFPAY ==
--- OUTSIDE RECORDS SUMMARY | 2023-09-30 04:30 | XMS_ITS ---
Author Organization [facility] Address [address] [place] [address] Care Team Providers Care Rubber Goods Assembler Name Role Phone Brea Cano M.D. 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 Subjective: * Chief Complaints: [...] 09/30/2023 Generated for Whitley colón/Aneta/Curtsmitting on: 0 03/15/2025 11:52 AM EDT
--- NOTE | 2025-03-15 10:53 | MHC.OFFVIS ---
Vital Signs 03/15/25 10:54 Weight 135 lb BP 118/72 Blood Pressure Location Lt brachial Position Sitting Respiration 16 Pulse 79 Pulse Oximetry (%) 98 Intake Visit Reasons: 6WEEKS, Follow Up Milk Re[employer] Required: No Allergies lisinopril (Lisinopril) Allergy (Unknown, Verified 03/15/25 10:53) UNKNOWN HPI Comments Details: 69-year-old woman with underlying history of depression, anxiety, hypertension and diabetes was seen for migraine headaches. No change in headaches with propranolol. She was taking medication at bedtime and thought medication was making her drowsy in the morning. Headaches were happening almost daily, it could be pressure-type or sharp pain, with photophobia, sonophobia, occasional nausea, dizziness, and blurred vision. Her scalp was sensitive to touch. Sleep was okay with medication. Mood was okay. No specific triggers. [facility] Medical History (Updated 03/08/25 @ 14:51 by MELINDA Daigle) Insomnia GERD (gastroesophageal reflux disease) Iron deficiency anemia Anxiety Asthma Helicobacter positive gastritis Gastritis Depression Anemia Hypothyroidism Diabetes mellitus Hypertension Surgical History History of laparoscopic cholecystectomy (02/22/23) Hx of colonoscopy History of esophagogastroduodenoscopy (EGD) Hx of hysterectomy Family History (Updated 03/08/25 @ 14:52 by MELINDA Daigle) Mother Headache Social History Household Members: None Housing: Apartment Alcohol intake: former Patient Tobacco Use Status: Never used Tobacco service: No Current occupational status: retired Review of Systems Const Denies chills, Denies daytime sleepiness, Denies difficulty sleeping, Denies fatigue, Denies fever(s), Denies frequent falls, Reports headache(s), Denies increased appetite, Denies poor appetite, Denies snoring, Denies weakness, Denies weight gain and Denies weight loss Eyes Denies loss of vision ENT Denies vertigo, Reports dizziness and Reports headache(s) Card Denies chest pain at rest, Denies chest pain with activity, Denies syncope, Denies leg edema and Denies palpitations Resp Denies snoring GI Denies constipation, Denies heartburn, Denies diarrhea and Denies nausea Denies urinary frequency, Denies urinary incontinence and Denies urinary urgency Musc Denies abnormal gait, Denies numbness and Denies tingling Skin/Breast Denies dry skin and Denies rash Neuro Denies abnormal gait, Denies vertigo, Reports dizziness, Denies syncope, Denies frequent falls, Reports headache(s), Denies lack of coordination, Denies loss of vision, Denies memory loss, Denies numbness, Denies restless legs, Denies seizure-like activity, Denies tingling, Denies paresthesias, Denies tremor(s) and Denies weakness Psych Denies anxiety, Denies depression, Denies auditory hallucinations, Denies memory loss, Denies visual hallucinations and Denies suicidal ideation Endo Denies fatigue and Denies palpitations Physical Exam Vital Signs: Last Vital Signs Pulse 79 03/15/25 10:54 Resp 16 03/15/25 10:54 BP 118/72 03/15/25 10:54 Pulse Ox 98 03/15/25 10:54 Const Other: General Appearance:? normal, in no acute distress. Skin:? no rashes, no significant birthmarks. Heart:? S1, S2 normal, no murmurs. Lungs:? clear anteriorly and posteriorly. Extremities:? no edema. Psych:? alert, oriented, cognitive function intact, cooperative with exam. Neuro Other: Mental Status:?Normal attention, orientation, memory and affect.? Cranial Nerves:?Pupils are equal, round and reactive to light. External occular muscles are intact. Visual jon are full. Face is symmetrical. Facial sensations are normal. Tongue is midline. Palate elevates symmetrically. Shoulder shrugging is normal. Hearing to bedside conversation is normal. Coordination:?No ataxia,?no titubation.? Gait Exam: Within normal limits. Cerebellar Signs:?[id number] is okay. Extrapyramidal System:?No tremor, rigidity with normal facial expressions.? Pronator Drift:?Not present.? Involuntary Movements:?No tremors seen.? Speech:?Normal.? Results Reviewed Results Reviewed: Laboratory Tests 12/11/24 02/11/25 12:16 20:17 WBC 5.9 RBC 3.93 L Hgb 11.6 L Hct 35.0 L MCV 89.1 MCH 29.5 MCHC 33.1 RDW 13.5 Plt Count 222 MPV 9.1 L Immature Gran % (Auto) 0.3 Neut % (Auto) 44.6 L Lymph % (Auto) 40.[address] [place] % (Auto) 8.6 Eos % (Auto) 5.2 H Baso % (Auto) 0.8 Lymph # (Auto) 2.4 [place] # (Auto) 0.5 Eos # (Auto) 0.3 Baso # (Auto) 0.1 Abs Immat Gran (auto) 0.02 Absolute Neuts (auto) 2.6 Absolute Nucleated RBC 0.000 Nucleated RBC % (auto) 0.0 Sodium 141 Potassium 4.5 Chloride 108 Carbon Dioxide 25 Anion Gap 13 BUN 21 H Creatinine 0.96 Estimated GFR 58 Random Glucose 206 H Calcium 9.4 Magnesium 1.7 Total Bilirubin 0.2 AST 35 H ALT 40 H Alkaline Phosphatase 83 Troponin I High Sens < 2.7 Total Protein 7.1 Albumin 4.5 Vitamin B12 330 Folate 9.7 Assessment & Plan Assessment & Plan (1) Migraine without aura: Code(s): G43.009 - Migraine without aura, not intractable, without status migrainosus Category: Medical Qualifiers: Status migrainosus presence: without status migrainosus Intractability: not intractable Qualified Code(s): G43.009 - Migraine without aura, not intractable, without status migrainosus Plan: Propranolol did not help and she had side effect of drowsiness, medication was stopped. She has tried multiple medications for migraines including topiramate, propranolol, amitriptyline, and venlafaxine. Discussed treatment options including trying injectable CGRP-inhibitor if insurance would cover, but she is declining at this time. Increase topiramate 100mg 1 tablet in the morning and 1 tablet at bedtime. Labs results reviewed, additional labs and CT scan ordered. Plan Meds tried: topiramate, venlafaxine, amitriptyline, propranolol Orders: Orders Erythrocyte Sedimentation Rate Today G43.009 - Migraine without aura, not intractable, without status migrainosus C Reactive Protein Today G43.009 - Migraine without aura, not intractable, without status migrainosus CT head/brain wo IV con Today G43.009 - Migraine without aura, not intractable, without status migrainosus Medications: Changed From topiramate 1/2 tab in AM and 1 tab at bedtime orally; 90 days 135 tabs 1RF To topiramate 100 mg PO BID 180 tabs 1RF 90 days Discontinued propranolol Discontinued Reason: Doctor's Order 10 mg PO DAILY 30 days 30 tabs 2RF Coding Level of Care Code Est Pt Level 4 (95735) Diagnoses Migraine without aura and without status migrainosus, not intractable G43.009 Status migrainosus presence: without status migrainosus Intractability: not intractable
[2025-03-15 10:54] VITALS: BP 118/72; PULSE 79; RESP 16; O2SAT 98
--- OUTSIDE RECORDS SUMMARY | 2025-03-15 11:53 | XMS_ITS | Encounter Summary ---
Author Organization [employer] Address [address] [place] [address] [address] [place] [address] Care Team Providers Care Merchandising Manager Name Role Phone Brea Cano MD Primary Care Provider [phone] Encounter Details Date Type Department Care Team (Late st Contact Info) Description 08/18/2022 Abstract [facility] MEDICINE [address] [place], [place] [phone] Margarita Sanchez, RACHEAL [address] [place] [address] Social History Tobacco Use Types Packs/Day Years [...] AM EST documented as of this encounter Functional Status * Over the past 2 weeks, how often have you been bothered by any of the following problems? Question Answer Date of Assessment Author Patient Health Questionnaire -2 Score 0 08/20/2022 11:18 AM Jose Hernandez MA * Over the past 2 weeks, how often have you been bothered by any of the following problems? Question Answer Date of Assessment Author Little interest or pleasure in doing things Not at all 08/20/2022 11:18 AM Jose Hernandez MA Feeling down, depressed, or hopeless Not at all 08/20/2022 11:18 AM Jose Hernandez MA Trouble falling or staying asleep, or sleeping too much Not at all 08/20/2022 11:18 AM Dannielle Lynch pe, [place] Feeling tired or having little energy Not at all 08/20/2022 11:18 AM Jose Hernandez MA Poor appetite or overeating Not at all 08/20/2022 11 :18 AM Dannielle Hernandez MA Feeling bad about yourself - or that you are a failure or have let yourself or your family down Not at all 08/20/2022 11:18 AM Jose Hernandez MA Trouble concentrating on things, such as reading the newspaper or watching television Not at all 08/20/2022 11:18 AM Jose Hernandez MA Moving or speaking so slowly that other people could have noticed? Or the opposite - being so fidgety or restless that you have been moving around a lot more than usual. Not at all 08/20/2022 11:18 AM Dannielle Flores MA Thoughts that you would be better off or hurting yourself in some way Not at all 08/20/2022 11:18 AM Shaquille Hernandez MA Patient Health Questionnaire-9 Score 0 08/20/2022 11:18 AM Nadia Hernandez MA documented as of this encounter Plan of [...] on filedocumented in this encounter Care Teams Merchandising Manager Relationship Specialty Start Date End Date Brea Cano MD [address] [place] [address] PCP - General Family Medicine 03/03/22 documented as of this encounter
--- OUTSIDE RECORDS SUMMARY | 2025-03-15 11:53 | XMS_ITS | Encounter Summary ---
Author Organization [employer] Address [address] [place] [address] [address] [place] [address] Care Team Providers Care Animated Cartoons Painter Name Role Phone Brea Cano MD Primary Care Provider Encounter Details Date Type Department Care Team (Late st Contact Info) Description 03/16/2023 Orders Only [facility] MEDICINE [address] [place] [address] Provider, Denisse, Social History Tobacco Use Types Packs/Day Years [...] this encounter Results * Hm Colonoscopy (10/16/2021) Historical Provider HEALTH MAINTENANCE Final Result documented in this encounter Visit Diagnoses Not on filedocumented in this encounter Additional Health Concerns Assessment Noted Time PHQ-9 Depression Total Score: 0 08/20/19 23 11:18 AM EST documented as of this encounter Care Teams Animated Cartoons Painter Relationship Specialty Start Date End Date Brea Cano MD [address] [place] [address] PCP - General Family Medicine 03/03/22 documented as of this encounter
--- OUTSIDE RECORDS SUMMARY | 2025-03-15 11:53 | XMS_ITS | Encounter Summary ---
Author Organization [employer] Address [address] [facility] [address] [place] [address] Care Team Providers Care Continuing Education Instructor Name Role Phone Brea Cano MD Primary Care Provider [phone] Encounter Details Date Type Department Care Team (Late st Contact Info) Description 05/03/2023 Abstract [facility] MEDICINE [address] [place], [place] [phone] Brea Cano MD [address] [place] [address] Social History Tobacco Use Types Packs/Day Years Used Date Smoking Tobacco: Never Smokeless Tobacco: Never Alcohol Use Standard Drinks/Week Comments Never 0 (1 standard drink = 0.6 oz pur e alcohol) Depression Answer Date Recorded Patient Health Questionnaire-9 Score 0 08/20/2022 Housing Stability Answer Date Recorded What is your housing situation today? I have wilma dumas 05/03/[address] you li [...] documented as of this encounter Care Teams Continuing Education Instructor Relationship Specialty Start Date End Date Brea Caon MD [address] [place] [id number] PCP - General Family Medicine 03/03/22 documented as of this encounter
--- OUTSIDE RECORDS SUMMARY | 2025-03-15 11:53 | XMS_ITS | Encounter Summary ---
Author Organization [employer] Address [address] [place] [address] [address] [place] [address] Care Team Providers Care Crab Catcher Name Role Phone Brea Cano MD Primary Care Provider Encounter Details Date Type Department Care Team (Latest Contact Info) Description 02/05/2019 Abstract [facility] CONVERSIONS Dental, Provider, DDS Social History [...] on filedocumented in this encounter Care Teams Crab Catcher Relationship Specialty Start Date End Date Brea Cano MD [address] [place] [id number] PCP - General Family Medicine 03/03/22 documented as of this encounter
--- OUTSIDE RECORDS SUMMARY | 2025-03-15 11:53 | XMS_ITS | Encounter Summary ---
Author Organization [id number] Address [address] [place] [address] [address] [place] [address] Care Team Providers Care Rotary Drill Operator Helper Name Role Phone Brea Cano MD Primary Care Provider [phone] Encounter Details Date Type Department Care Team (Latest Contact Info) Description 08/18/[address] [facility] CONVERSIONS Dental, Provider, DDS Social History [...] on filedocumented in this encounter Care Teams Rotary Drill Operator Helper Relationship Specialty Start Date End Date Brea Cano MD [address] [place] [id number] PCP - General Family Medicine 03/03/22 documented as of this encounter
--- OUTSIDE RECORDS SUMMARY | 2025-03-15 11:53 | XMS_ITS | Clinical Summary ---
Author Organization [employer] Address [address] [place] [address] [address] [place] [address] Care Team Providers Care Back Stayer Name Role Phone Brea Cano MD Primary Care Provider [phone] Allergies Active Allergy Reactions Criticality Noted Date [...] 02/24/20 23 Active Blood Glucose Monitoring Suppl ([employer]) w/Device kit 1 each 2 times daily. TEST BLOOD SUGAR TWICE DAILY 1 kit 04/21/20 23 Active etodolac (Lodine) 400 MG tablet 09/22/19 24 Active methylPREDNISol one (Medrol Dospak) 4 MG tablets 10/19/19 24 Active busPIRone (Buspar) 10 MG tablet Take 10 mg by mouth if needed in the morning and at bedtime. 10/11/19 24 Active Ascorbic Acid (vitamin C) 500 MG tablet TAKE 1 TABLET BY MOUTH EVERY DAY WITH IRON SUPPLEMENT AND FULL GLASS OF WATER 90 tablet 3 05/16/20 24 Active D3-1000 25 MCG (1000 UT) capsule TAKE 1 CAPSULE BY MOUTH DAILY IN THE MORNING 90 capsule 3 05/16/20 24 Active Lancets ([employer]) lancets 30G 1 each by Other route 2 times daily. TEST BLOOD SUGAR TWICE DAILY 100 each 11 05/25/20 24 /02/09 026 Active glucose blood ([employer]) test stripIndication s:Type 2 diabetes mellitus without complication, without long-term current use of insulin ([facility]) TEST BLOOD SUGAR TWICE DAILY 100 each 11 05/25/20 24 Active Ventolin HFA 108 (90 Base) MCG/ACT inhaler INHALE 2 PUFFS BY MOUTH EVERY 6 HOURS NEEDED FOR WHEEZING 18 g 11 06/04/20 24 Active dilTIAZem CD (Cardizem CD) 120 [...] WATER 45 tablet 1 10/05/19 25 Active losartan (Cozaar) 25 MG tablet Take 1 tablet by mouth Once per day. 10/12/19 25 Active mirtazapine (Remeron) 30 MG tablet 12/11/19 25 Active docusate sodium (Colace) 100 MG capsule Take 1 capsule (100 mg) by mouth 2 times daily. 180 capsule 3 12/12/19 25 Active clotrimazole (Lotrimin) 1 % cream APPLY TOPICALLY TO THE AFFECTED AREA(S) TWICE DAILY DIRECTED FOR 28 DAYS 30 g 2 01/19/20 25 Active tiZANidine (Zanaflex) 4 MG tablet TAKE 1 TABLET BY MOUTH EVERY 8 HOURS NEEDED FOR MUSCLE SPASMS 60 tablet 3 03/05/20 25 Active tiZANidine (Zanaflex) 4 MG tablet Take 1 tablet (4 mg) by mouth every 8 (eight) hours if needed for muscle spasms. 60 tablet 3 12/12/19 25 025 Discontinued Active Problems Problem Noted Date Diagnosed Date Epigastric pain 12/11/2024 Stage 3a chronic kidney disease 03/08/2024 Hyperchloremia [...] Encounters Date Type Department Care Team Description 03/04/2025 Refill [facility] [address] [place] [address] Brea Cano MD 02/11/2025 Orders Only GENERIC EXTERNAL DATA DEPARTMENT Provider, Generic External Data 01/31/2025 Orders Only GENERIC EXTERNAL DATA DEPARTMENT Provider, Generic External Data 01/18/2025 Refill [facility] [address] [place] [address] Brea Cano MD from Last 3 Months Immunizations Immunization Administration Dates Next Due Hep B, adult 05/01/2018,12/01/2017,10/17/2017 Influenza High-dose Quadriva lent Preservative Free 05/10/2022 Influenza injectable quadriv alent IIV4 with preservative 03/27/2018,05/31/2017,04/08/2016 Influenza injectable quadriv alent preservative free 04/11/2023,05/22/2021,04/07/2020,05/29,04/10/2015 Influenza, High Dose Seasona l, Preservative Free 04/05/2024 Influenza, IIV3, injectable 04/03/2024,1 07/11/2020,03/11/2020,03/21,05/27/2003 Influenza, Split (incl. deep fied surface antigen) [...] Answer Date Recorded Patient Health Questionnaire-9 Score 9 12/11/2024 Patient Health Questionnaire-9 Score 9 12/11/2024 Last PHQ-9: Questionnaire Data Not on file 0 12/11/2024 Housing Stability Answer Date Recorded What is your housing situation today? I have wilma dumas 11/29/[address] you li ve. Do you have problems with any of the following? None of the above 11/29/2024 Food Insecurity Answer Date Recorded Within the past 12 months, y ou worried that your food would run out before you got money to buy more: Never True 11/29/2024 Within the past 12 months,th e food you bought just didn't last and you didn't have enough money to get more: Never True Transportation Answer Date Recorded In the past 12 months, has l ack of transportation kept you from medical appts, meetings, work or from getting things needed for daily living? No 11/29/2024 Utilities Answer Date Recorded In the past 12 months, has t he electric, gas, oil or water company threatened to shut off services in your home? No 11/29/2024 Depression Answer Date Recorded Patient Health Questionnaire-2 Score 2 12/11/2024 Internet Access Answer Date Recorded Internet Access Q1 Yes 11/29/2024 Internet Access Q2 Not on file 11/29/2024 Comments No Sex and Gender Information Value Date Recorded Sex Assigned at Female 05/10/2022 10:15 AM EDT Legal Sex Female 10:15 AM EDT Gender Identity Female 05/10/2022 10:15 AM EDT Sexual Orientation Straight 05/10/2022 10 :15 AM EDT Last Filed Vital Signs Vital Sign Reading Time Taken Comments Blood Pressure 126/70 12/11/2024 11:24 AM EDT Pulse 70 12/11/2024 11:24 AM EDT Temperature 36.8 C (98.3 F) 12/11/2024 11:24 AM EDT Respiratory Rate 19 12/11/2024 11:24 AM EDT Oxygen Saturation 98% 12/11/2024 11:24 AM EDT Inhaled Oxygen Concentration - - Weight 59.9 kg (132 lb) 12/11/2024 11:24 AM EDT Height 160 cm (5' 3 ) 12/11/2024 11:24 AM EDT Body Mass Index 23.38 12/11/2024 11:24 AM EDT Plan of Treatment Health Maintenance Due Date Last Done Comments CT Colonography 1955 FIT DNA/Cologuard 1955 FIT 1955 FOBT 1955 Sigmoidoscopy 1955 Eye Exam 02/15/1966 DTaP/Tdap/Td Vaccines (2 - Td or Tdap) 03/21/2024 03/21/2014, 04/12/2003 Diabetes: Foot Exam 10/19/2024 10/20/2023 COVID-19 Vaccine ( season) 2025 04/05/2024, 04/14/2023, 06/19/2022, Additional history exists Influenza Vaccine (#1) 2025 , 04/03/2024, 04/11/2023, Additional history exists Diabetes: Urine Protein Screening 04/12/2025 04/12/2024, 10/21/2023, 08/20/2022, Additional history exists Depression Monitoring 06/12/2025 12/11/2024, 025 Diabetes: Hemoglobin A1C 06/12/2025 025, 06/06/2024, 03/07/2024, Additional history exists Mammogram 08/24/2025 08/24/2024, 09/09, 08/22/2023, Additional history exists SDOH Screening 11/29/2025 11/29/2024 Alcohol/Substance Use Screening 12/11/2025 12/11/2024 Lipid Panel 12/11/2025 12/11/2024, 10/09, 06/15/2021, Additional history exists Tobacco Screening 12/11/2025 12/11/2024 Colonoscopy 10/16/2026 10/16/2021 Colorectal Cancer Screening 10/16/2026 RSV Patients and Patients Aged 60 years or older (1 - 1-dose 75+ series) 02/15/2031 Hepatitis B Vaccines Completed 05/01/2018, 12/01/2017, 10/17/2017 Hepatitis C Screening Completed 02/27/2020 Zoster Vaccines Completed 05/19/2021, 02/09, 12/03/2016 Pneumococcal Vaccine: 50+ Years Completed 03/07/2024, 08/20/2021, 12/26/2003 HIB Vaccines Aged Out No longer eligi [...] patient's age to complete this topic Meningococcal B Vaccine Aged Out No l onger eligible based on patient's age to complete [...] Procedure Name Priority Date/Time Associated Diagnosis Comments XR CHEST 2 VIEWS Routine 02/11/2025 8:52 PM EDT HIGH SENSITIVITY TROPONIN I Routine 02/11/2025 8:17 PM EDT MAGNESIUM Routine 02/11/2025 8:17 PM EDT COMPREHENSIVE METABOLIC PANEL Routine 02/11/2025 8:17 PM EDT PROTHROMBIN TIME-INR Routine 02/11/2025 8:17 PM EDT CBC WITH AUTO DIFFERENTIAL Routine 02/11/2025 8:17 PM EDT SARS COV2/INFLUENZA A/B AND RSV RNA QL NAAT Routine 02/11/2025 8:17 PM EDT BASIC METABOLIC PANEL Routine 01/31/2025 10:47 AM EDT URINALYSIS, COMPLETE Routine 01/31/2025 10:43 AM EDT LIPID PANEL, STANDARD Routine 12/11/2024 12:16 PM EDT Type 2 diabetes mellitus without complication, without long-term current use of insulin (CMS/HCC) POCT GLYCATED HEMOGLOBIN, TOTAL Routine 12/11/2024 11:30 AM EDT Type 2 diabetes mellitus without complication, without long-term current use of insulin (CMS/HCC) BI MAMMOGRAM SCREENING TOMOSYNTHESIS BILATERAL Routine 08/24/2024 12:30 PM EST CREATININE, RANDOM URINE Routine 04/12/2024 12:50 PM EDT HM COLONOSCOPY Routine 10/16/2021 ZZZ HISTORICAL HEPATITIS C AB W/REFL TO HCV RNA, QN, PCR Routine 02/27/2020 11:31 AM EDT from Last 3 Months or Most Recently Relevant to Health Maintenance Results * XR Chest 2 Views (02/11/2025 8:52 PM EDT) Anatomical Region Laterality Modality Chest Radiographic Lia ging 02/11/2025 8:52 PM EDT Narrative 02/11/2025 8:54 PM EDT [address] [address] XRay Report Signed Patient: Michelle Sparrow MR# : [id number] : 1955 Acct:[id number] Age/Sex: 69 / F ADM Date: 02/11/25 Loc: HO.ED Attending Dr: Ordering Physician: Jaki Ojeda Date of Service: 02/11/25 Procedure(s): XR chest 2V Accession Number(s): [id number] cc: Jaki Ojeda; Brea Cano CLINICAL HISTORY: chest pain 2 view chest x-ray Comparison: None provided Findings: No consolidation, pneumothorax, or pleural effusion. Mild right infrahilar atelectasis/pneumonitis. Cardiac silhouette is at the upper limits of normal. Tortuosity of the mastoid noted. Degenerative changes include imaged shoulders and imaged spine. IMPRESSION: Mild right infrahilar atelectasis/pneumonitis. This document has been electronically signed by: Jono Penny MD on 02/11/2025 20:52:43 Dictated By: Jono Penny MD Signed By: <Electronically signed by Jono Penny MD in OV> 02/11/252052 DD/ 51 TD/TT: 02/11/252051 Reserve Officer: Procedure Note Donotuseinterpreter, Image - 02/11/[address] [address] XRay Report Signed Patient: Michelle Sparrow MMR# : [id number] : 1955cct:[id number] Age/Sex: 69 / FADM Date: 02/11/25 Loc: HO.ED Attending Dr: Ordering Physician: Jaki Ojeda Date of Service: 02/11/25 Procedure(s): XR chest 2V Accession Number(s): [id number] cc: Jaki Ojeda; Brea Cano CLINICAL HISTORY: chest pain 2 view chest x-ray Comparison: None provided Findings: No consolidation, pneumothorax, or pleural effusion. Mild right infrahilar atelectasis/pneumonitis. Cardiac silhouette is at the upper limits of normal. Tortuosity of the mastoid noted. Degenerative changes include imaged shoulders and imaged spine. IMPRESSION: Mild right infrahilar atelectasis/pneumonitis. This document has been electronically signed by: Jono Penny MD on 02/11/2025 20:52:43 Dictated By: Jono Penny MD Signed By: <Electronically signed by Jono Penny MD in OV> 02/11/252052 DD/ 51 TD/TT: 02/11/252051 Reserve Officer: [facility] External Provider IMG XR PROCEDURES Edited Result - Final * High Sensitivity Troponin I (02/11/2025 8:17 PM EDT) TROPONIN I HIGH SENSITIVITY <2.7 <3.5 - 17.0 ng/L [facility] Comment:The Melvin high sens itivity Troponin-I results should beused in conjunction with other diagnostic information suchas ECG, clinical observations and information, and patientsymptoms to aid in the diagnosis of [facility]. 02/11/2025 8:17 PM EDT 02/12/2025 1:17 AM EDT Generic External Data Provider LAB BLOOD ORDERAB LES Final Result [facility] [address] [place] [phone] * SARS-CoV-2 RNA, Influenza A/B, and RSV RNA, Ql NAAT (02/11/2025 8:17 PM EDT) Pathologist [facility] Influenza A PCR NEGATIVE Negative [facility] Influenza B PCR NEGATIVE Negative [facility] Resp Syncy Virus RNA Qual PCR NEGATIVE Negative [facility] SARS COV2 PCR NEGATIVE Negative [facility] Comment:All test results mus t be correlated with clinical findings.Negative results do not preclude SARS-CoV2, influenza Avirus, influenza B virus and/or RSV infectionand should not be used as the sole basis for treatment orother patient management decisions. Negative results must becombined with clinical observations, patient history, andepidemiological information.This test has not been evaluated for monitoring treatment ofinfection.This test has been authorized by the FDA under an EmergencyUse Authorization (EUA) for use by authorized laboratories.Testing performed on the [employer] GeneXpert utilizingreal-time RT-PCR.All SARS CoV2 and positive influenza A/B results arereported to [facility]. 02/11/2025 8:17 PM EDT 02/11/2025 8:36 PM EDT Generic External Data Provider LAB MICROBIOLOGY - GENERAL ORDERABLES Final Result [facility] [address] [place] [address] [phone] * (ABNORMAL) CBC auto differential (02/11/2025 8:17 PM EDT) White Blood Count 5.9 4.8 - 10.8 X10*3/uL [facility] Red Blood Count 3.93(L) 4.20 - 5.50 X10*6/uL [facility] Hemoglobin 11.6(L) 12.0 - 16.0 g/dl [facility] Hematocrit 35.0(L) 37.0 - 47.0 % [facility] Mean Corpuscular Volume 89.1 80.0 - 98.0 fL [facility] Mean Corpuscular Hemoglobin 29.5 27.0 - 33.0 pg [facility] Mean Corpuscular HGB Conc 33.1 31.0 - 35.0 g/dl [facility] Red Cell Distribution Width 13.5 11.0 - 16.0 % [facility] Platelet Count 222 160 - 400 X10*3/uL [facility] Mean Platelet Volume 9.1(L) 9.4 - 12.3 fL [facility] Neutrophils Percent Auto 44.6(L) 45 - 73 % [facility] Imm Gran Pct Auto 0.3 0.0 - 0.4 % [facility] Lymphocytes Percent Auto 40.5(H) 20 - 40 % [facility] Monocytes Percent Auto 8.6 2 - 11 % [facility] Eosinophils Percent Auto 5.2(H) 0 - 4 % [facility] Basophils Percent Auto 0.8 0 - 2 % [facility] NRBC Pct Auto 0.0 0.0 - 0.2 /100WBC [facility] Neutrophils Absolute Auto 2.6 2.0 - 8.3 x10*3/uL [facility] Imm Gran Abs Auto 0.02 0.00 - 0.03 X10*3/uL [facility] Lymphocytes Absolute Auto 2.4 1.2 - 4.9 X10*3/uL [facility] Monocytes Absolute Auto 0.5 0.1 - 1.2 X10*3/uL [facility] Eosinophils Absolute Auto 0.3 0.0 - 0.4 X10*3/uL [facility] Basophils Absolute Auto 0.1 0.0 - 0.2 X10*3/uL [facility] NRBC Abs Auto 0.000 0.0 - 0.012 X10*3/uL [facility] 02/11/2025 8:17 PM EDT 02/11/2025 8:36 PM EDT us Generic External Data Provider LAB BLOOD ORDERAB LES Final Result [facility] [address] [place] [phone] * Prothrombin Time-INR (02/11/2025 8:17 PM EDT) Prothrombin Time 12.1 10.9 - 12.4 SEC [facility] INTERNATIONAL NORM RATIO 1.1 0.9 - 1.1 [facility] Comment:INTERNATIONAL NORMAL IZED RATIO (INR) REFERENCE RANGES Reference RangeFor patients not on anticoagulant therapy: 0.9 - 1.1INR ranges for oral anticoagulanttherapy:For prevention and treatment of venous thrombosis and pulmonary embolism: 2.0 - 3.0For acute myocardial infarction with aspirin therapy: 2.0 - 3.0For acute myocardial infarction without aspirin therapy: 3.0 - 4.0For patients with mechanical prosthetic heart valves: 2.5 - 3.5 02/11/2025 8:17 PM EDT 02/11/2025 8:36 PM EDT Generic External Data Provider LAB BLOOD ORDERAB LES Final Result Performing Organization Address [facility]/ZIP Co de Phone Number [facility] [address] [place] [phone] * Magnesium (02/11/2025 8:17 PM EDT) Magnesium 1.7 1.6 - 2.6 mg/dL [facility] 02/11/2025 8:17 PM EDT 02/11/2025 8:36 PM EDT [employer] External Data Provider LAB BLOOD ORDERAB LES Final Result Performing Organization Address [facility]/ZIP Co de Phone Number [facility] [address] [place] [phone] * (ABNORMAL) Comprehensive Metabolic Panel (02/11/2025 8:17 PM EDT) Sodium 141 135 - 145 mmol/L [facility] Potassium 4.5 3.3 - 5.1 mmol/L [facility] Chloride 108 96 - 108 mmol/L [facility] Carbon Dioxide 25 22 - 29 mmol/L [facility] Anion Gap 13 12 - 20 [facility] Urea Nitrogen (BUN) 21(H) 9 - 16 mg/dL [facility] Creatinine, Serum 0.96 0.5 - 1.4 mg/dL [facility] Creatinine Clr Calc Pharmacy 46.3 [facility] Comment:Provided height and weight: 160.02 cm,61.2 kg.eGFR (calculated from the MDRD study equation) and eCrCl(calculated from the Cockcroft-Gault equation) are based ondifferent parameters and may not yield comparable results.If eCrCl result is absurd, please check patient'sheight/weight. Estimated Glomerular Filt Rate 58 [facility] Comment:Chronic Kidney Disea se: Estimated GFR < 60 mL/min/1.59b2Oqdval Kidney Disease: Estimated GFR < 15 mL/min/1.73m2 Glucose 206(H) 60 - 115 mg/dL [facility] Calcium 9.4 8.4 - 10.2 mg/dL [facility] Bilirubin, Total 0.2 0.0 - 1.0 mg/dL [facility] Aspartate Amino Transferase 35(H) 5 - 31 U/L [facility] Alanine Aminotransferase 40(H) 0 - 31 U/L [facility] Total Protein 7.1 6.5 - 8.0 g/dL [facility] Albumin Level 4.5 3.5 - 5.0 g/dL [facility] Alkaline Phosphatase 83 39 - 117 U/L [facility] 02/11/2025 8:17 PM EDT 02/11/2025 8:36 PM EDT us Generic External Data Provider LAB BLOOD ORDERAB LES Final Result [facility] [address] [place] [phone] * (ABNORMAL) Basic Metabolic Panel (01/31/2025 10:47 AM EDT) Sodium 142 135 - 145 mmol/L [facility] Potassium 4.7 3.3 - 5.1 mmol/L [facility] Chloride 109(H) 96 - 108 mmol/L [facility] Carbon Dioxide 28 22 - 29 mmol/L [facility] Anion Gap 10(L) 12 - 20 [facility] Urea Nitrogen (BUN) 20(H) 9 - 16 mg/dL [facility] Creatinine, Serum 0.88 0.5 - 1.4 mg/dL [facility] Estimated Glomerular Filt Rate >60 [facility] Comment:Chronic Kidney Disea se: Estimated GFR < 60 mL/min/1.72u9Recibf Kidney Disease: Estimated GFR < 15 mL/min/1.73m2 Glucose 106 60 - 115 mg/dL [facility] Calcium 9.5 8.4 - 10.2 mg/dL [facility] 01/31/2025 10:4 7 AM EDT 01/31/2025 10:47 AM EDT us Generic External Data Provider LAB BLOOD ORDERAB LES Final Result [facility] [address] [place] [phone] * (ABNORMAL) Urinalysis Complete (01/31/2025 10:43 AM EDT) Color Urine Yellow [facility] Appearance Urine Clear [facility] PH 5.5 5.0 - 9.0 [facility] Glucose Urine UA Negative Negative mg/dL [facility] Urine Blood Negative Negative [facility] Specific [place] - Urine 1.015 1.005 - 1.025 [facility] Urine Protein Negative Neg-Trace mg/dL [facility] Urine Ketones Negative Negative mg/dL [facility] Nitrite Urine Negative Negative [facility] Leukocyte Esterase Urine Small (1+)(A) Negative [facility] RBC Urine 0-2 0 - 2 /HPF [facility] Urine WBC 6-10(A) 0 - 5 /HPF [facility] Urine Squamous Epithelial Cell 0-2 0 - 2 /HPF [facility] Urine Bacteria None Seen None Seen [facility] Hyaline Casts, Urine 0-2 0 - 2 /LPF [facility] 01/31/2025 10:4 3 AM EDT 01/31/2025 11:13 AM EDT us Generic External Data Provider LAB URINE ORDERAB LES Final Result Performing Organization Address [facility] Co de Phone Number [facility] [address] [place] [address] [phone] * Lipid Panel, Standard (12/11/2024 12:16 PM EDT) Triglycerides 136 <150 mg/dL [facility] Comment:Desirable Triglyceri de: less than 150 mg/dLBorderline High Triglyceride 150-199 mg/dLHigh Triglyceride: 200-499 mg/dLVery High Triglyceride: greater than or equal to 5OO mg/dL Cholesterol 94 <200 mg/dL [facility] Comment:Desirable Cholestero l: less than 200 mg/dLBorderline High Cholesterol: 200-239 mg/dLHigh Cholesterol: greater than 239 mg/dL LDL Cholesterol Calculated 25 <100 mg/dL [facility] Comment:Desirable LDL: less than 100 mg/dLNear Optimal/Above Optimal LDL: 110- 129 mg/dLBorderline High LDL: 130-159 mg/dLHigh LDL: 160-189 mg/dLVery High LDL: greater than or equal to 190 mg/dL HDL Cholesterol 42 >40 mg/dL [facility] Comment:Desirable HDL: great er than 40 mg/dL Note: This HDL assay may give artificially low results in patients with liver disease. Blood Venous blood specimen / Unknown 12/11/2024 12:16 PM EDT 12/11/2024 5:01 PM EDT us Brea Cano MD LAB BLOOD ORDERABLES Final Res ult Performing Organization Address City/[facility]/ZIP Co de Phone Number [facility] [address] [place] [address] [phone] * (ABNORMAL) POCT HGB A1C (12/11/2024 11:30 AM EDT) Hemoglobin A1C 6.2(A) 4.0 - 6.0 % QC Media Lot # [id number] Lot# Expiration Date Blood 12/11/2024 11:3 0 AM EDT Brea Cano MD POINT OF CARE TEST ENTER/EDIT ORDERABLES Final Result * BI Mammogram Screening Tomosynthesis Bilateral (08/24/2024 12:30 PM EST) Anatomical Region Laterality Modality Breast Bilateral Mammography 08/24/2024 12:3 0 PM EST Narrative 09/01/2024 1:38 PM EST [address] [place] [address] Mammography Report Signed Patient: Michelle Sparrow MR# : [id number] : 1955 Acct:[id number] Age/Sex: 69 / F ADM Date: 08/24/24 Loc: LULY Attending Dr: Brea Cano MD Ordering Physician: Brea Cano Results: 1Negative Date of Service: 08/24/24 Follow Up: 1 Year From Orig inal Mammogram Procedure(s): MM tomosynthesis screening BI Accession Number(s): [id number] cc: Brea Cano EXAMINATION: MM SCREENING DIGITAL [...] Elizabeth Hays DO 09/01/2024 01:35 PM EST RP Dictated By: Elizabeth Hays DO Signed By: <Electronically signed by Elizabeth Hays DO in OV> 09/01/24 1335 DD/ 1230 TD/TT: 08/24/24 1307 Reserve Officer: Procedure Note Donotuseinterpreter, Image - 09/01/2024 [facility] [address] [place] [address] Mammography Report Signed Patient: Michelle Sparrow MMR# : [id number] : 1955cct:[id number] Age/Sex: 69 / FADM Date: 08/24/24 Loc: MAMMO Attending Dr: Brea Cano MD Ordering Physician: Dave Canoults: 1Negative Date of Service: 08/24/24Follow Up: 1 Year From Orig inal Mammogram Procedure(s): MM tomosynthesis screening BI Accession Number(s): [id number] cc: Brea Cano EXAMINATION: MM SCREENING DIGITAL [...] Elizabeth Hays DO 09/01/2024 01:35 PM EST RP Dictated By: Elizabeth Hays DO Signed By: <Electronically signed by Elizabeth Hays DO in OV> 09/01/24 1335 DD/ 1230 TD/TT: 08/24/24 1307 Reserve Officer: Brea Cano MD IMG BI PROCEDURES Edited Resul t - Final * Creatinine, Random Urine (04/12/2024 12:50 PM EDT) Creatinine, Urine 133.52 mg/dL [facility] 04/12/2024 12:5 0 PM EDT 04/12/2024 1:27 PM EDT Generic External Data Provider LAB URINE ORDERAB LES Final Result [facility] [address] [place] [phone] * Hm Colonoscopy (10/16/2021) Historical Provider HEALTH MAINTENANCE Final Result * HEPATITIS C AB W/REFL TO HCV RNA, QN, PCR (02/27/2020 11:31 AM EDT) HEPATITIS C ANTIBODY NON-REACT ALY NON-REACT ALY [facility] INDEX 0.02 <1.00 [facility] Comment: HCV antibody was non-reactive. There is no laboratory evidence of HCV infection. In most cases, no further action is required. However, if recent HCV exposure is suspected, a test for HCV RNA (test code 13989) is suggested. For additional information please refer to [email or web address]/faq/[email or web address] (This link is being provided for informational/ educational purposes only.) HEPATITIS C ANTIBODY NON-REACT ALY NON-REACT ALY [facility] INDEX 0.02 <1.00 [facility] Comment: HCV antibody was non-reactive. There is no laboratory evidence of HCV infection. In most cases, no further action is required. However, if recent HCV exposure is suspected, a test for HCV RNA (test code 08096) is suggested. For additional information please refer to http://[employer].com/faq/MSY04w9 (This link is being provided for informational/ educational purposes only.) HEPATITIS C ANTIBODY NON-REACT ALY NON-REACT ALY [facility] INDEX 0.02 <1.00 [facility] Comment: HCV antibody was non-reactive. There is no laboratory evidence of HCV infection. In most cases, no further action is required. However, if recent HCV exposure is suspected, a test for HCV RNA (test code 65736) is suggested. For additional information please refer to http://[employer].com/faq/LDH56g6 (This link is being provided for informational/ educational purposes only.) HEPATITIS C ANTIBODY NON-REACT ALY NON-REACT ALY [facility] INDEX 0.02 <1.00 [facility] Comment: HCV antibody was non-reactive. There is no laboratory evidence of HCV infection. In most cases, no further action is required. However, if recent HCV exposure is suspected, a test for HCV RNA (test code 81911) is suggested. For additional information please refer to http://produkte24.com/faq/QJO99c2 (This link is being provided for informational/ educational purposes only.) HEPATITIS C ANTIBODY NON-REACT ALY NON-REACT ALY [facility] INDEX 0.02 <1.00 [facility] Comment: HCV antibody was non-reactive. There is no laboratory evidence of HCV infection. In most cases, no further action is required. However, if recent HCV exposure is suspected, a test for HCV RNA (test code 99712) is suggested. For additional information please refer to http://produkte24.com/faq/ZIO24a7 (This link is being provided for informational/ educational purposes only.) 02/27/2020 11:3 1 AM EDT Mitzy HAMMERP HISTORICAL/NON ORDERABLE LABS Final Result [facility] [address] [place] [address], from Last 3 Months or Most Recently Relevant to Health Maintenance Insurance [facility] LONGTERM OPTIONS (HMO D-SNP) JAME [place]ID [id number] Care Teams Back Stayer Relationship Specialty Start Date End Date Brea Cano MD [address] [place] [phone] PCP - General Family Medicine 03/03/22
--- OUTSIDE RECORDS SUMMARY | 2025-03-15 11:53 | XMS_ITS | Encounter Summary ---
Author Organization [employer] Address [address] [place] [address] [address] [place] [address] Care Team Providers Care Carton And Can Supply Supervisor Name Role Phone Brea Cano MD Primary Care Provider [phone] Encounter Details Date Type Department Care Team (Latest Contact Info) Description 01/25/2022 Abstract [facility] Dental, Provider, DDS Social History [...] on filedocumented in this encounter Care Teams Carton And Can Supply Supervisor Relationship Specialty Start Date End Date Brea Cano MD [address] [place] [id number] PCP - General Family Medicine 03/03/22 documented as of this encounter
--- OUTSIDE RECORDS SUMMARY | 2025-03-15 11:53 | XMS_ITS | Encounter Summary ---
Author Organization [employer] Address [address] [place] [address] 7[address] [place] [address] Care Team Providers Care Metal Pourer Name Role Phone Brea Cano MD Primary Care Provider [phone] Reason for Visit * Reason Onset Date Comments Nurse Triage 06/12/2024 Encounter Details Date Type Department Care Team (Late st Contact Info) Description 06/12/2024 Telephone [facility] [address] [place], [place] [phone] Brea Cano MD [address] [place], [place] [phone] Nurse Triage Social History Tobacco Use Types [...] 06/12/2024 12:24 PM EST Triage call [place] [employer] [phone]. Pt reports cough and fever for 3 [...] provider and is advised to come to [facility] which is open till 8pm this [...] documented as of this encounter Care Teams Metal Pourer Relationship Specialty Start Date End Date Brea Cano MD [address] [place] [address] PCP - General Family Medicine 03/03/22 documented as of this encounter
--- OUTSIDE RECORDS SUMMARY | 2025-03-15 11:53 | XMS_ITS | Encounter Summary ---
Author Organization [employer] Address [address] [place] [address] 7t [place] [address] Care Team Providers Care Wire Coiner Name Role Phone Brea Cano MD Primary Care Provider [phone] Encounter Details Date Type Department Care Team (Late st Contact Info) Description 10/28/2023 Orders Only [facility] [address] [place], [place] [phone] Brea Cano MD [address] [place], [place] [phone] Social History Tobacco Use Types Packs/Day Years [...] documented as of this encounter Care Teams Wire Coiner Relationship Specialty Start Date End Date Brea Cano MD [address] [place] [address] PCP - General Family Medicine 03/03/22 documented as of this encounter
--- OUTSIDE RECORDS SUMMARY | 2025-03-15 11:53 | XMS_ITS | Clinical Summary ---
Author Organization [facility] Address [address] [place] [address] Care Team Providers Care Wash Box Operator Name Role Phone Unavailable Primary Care [...] Bone Density Screening 02/15/2021 Falls Prevention 02/15/2021 Imm-DTaP/Tdap/Td (2 - Td or Tdap) 03/21/2024 014, 04/12/2003 Alcohol and Drug Screen 07/11/2024 Depression Annual Screen 07/11/2024 [id number] ( season) 2025 021, 09/23/2020 Imm-Influenza (#1) 2025 04/07/2020, 1 07/29/2018, 03/27/2018, Additional history exists Insurance [facility] JAME EID [facility]
--- OUTSIDE RECORDS SUMMARY | 2025-03-15 11:53 | XMS_ITS | Patient Health Record ---
Author Organization [facility] Address [address] [place] [address] Care Team Providers Care Parts Counter Specialist Name Role Phone Brea Cano M.D. Primary Care Provider Barry Hagen Unavailable [phone] [place], Caren Unavailable Unavailable Allergies Allergen (clinical drug ingredient) Drug/Non Drug Allergy documented on EMR Reaction Allergy Type Onset Date Status lisinopril Lisinopril Unknown Drug Allergy Activ e Results Component Value Reference Range Notes Liver Panel Reviewed date:08/17/2024 06:08:26 PM Interpretation: Performing Lab:[facility], [address] [place] [phone] Notes/Report: Bilirubin Total 0.2 0.0-1.0 mg/dL Bilirubin Direct < 0.2 0.0-0.5 mg/dL Aspartate Amino Transferase 27 5-31 U/L Alanine Aminotransferase 24 0-31 U/L Total Protein 7.5 6.5-8.0 g/dL Albumin Level 4.3 3.5-5.0 g/dL Alkaline Phosphatase 68 39-117 U/L Lipase Reviewed date:08/14/2024 09:20:10 AM Interpretation: Performing Lab:[facility], [address] [place] [id number] Notes/Report: Lipase 48 8-78 U/L NM gastric emptying study (N ot yet reviewed by provider) Interpretation: Performing Lab: Notes/Report: [address] [address] Nuclear Medicine Report Signed Patient: Cano Erasmo Villanuevamen Nithin MR# : [id number] : 1955 Acct:[id number] Age/Sex: 69 / F ADM Date: 08/14/24 Loc: [facility] Attending Dr: Barry Pugh MD Ordering Physician: Barry Pugh MD Date of Service: 08/14/24 Procedure(s): NM gastric emptying study Accession Number(s): [id number] cc: Brea Cano; Barry Pugh MD EXAMINATION: ND RADIONUCLIDE SOLID FOOD GASTRIC EMPTYING 4-HOUR STUDY [...] hours 67% 4 hours 57% (normal 0%-10%) ND/ND gastric emptying study IMPRESSION: Abnormal 4-hour solid [...] grading per JNMT Consensus Recommendations in 2008 (https://tech.snmjournals.org/content/36/) Grade 1 (mild retention): 11-20% at 4h Grade 2 (moderate retention): 21-35% at 4h Grade 3 (severe retention): 36-50% at 4h Grade 4 (very severe retention): >50% retention at 4h Electronically signed by: Atilio Arevalo MD 08/15/2024 07:09 AM EST RP Dictated By: Atilio Arevalo MD Signed By: <Electronically signed by Atilio Arevalo MD in OV> 08/15/24 0709 DD/ 0757 TD/TT: 08/14/24 1232 Accounts Payable Coordinator: MADHAV Reason For Referral No Information Medications Medication SIG (Take, Route, Frequency, Duration) Notes Start Date End Date Status dilTIAZem HCl ER Coated Beads 120 MG TAKE 1 CAPSULE BY MOUTH EVERY DAY Oral for 90 Active Ventolin HFA 108 (90 Base) MCG/ACT 1 puff as needed Inhalation every 4 hrs Active Rosuvastatin Calcium 20 MG Oral for 90 Active buPROPion HCl ER (SR) 150 MG 1 tablet in the morning Orally Once a day for 30 day(s) Active Mirtazapine 30 MG TAKE 1 TABLET BY NIRU TH AT BEDTIME FOR SLEEP OR MOOD Oral for 30 Active Melatonin 5 MG 1 capsule at bedtime as needed Orally Once a day for 30 day(s) Active Topiramate 100 MG Oral for 6 A ctive clonazePAM 0.5 MG 1 tablet Orally Once a day Active Levothyroxine Sodium 75 MCG Oral for 90 Active Dicyclomine HCl 10 MG 1-2 Orally Q 6 wilma rs prn abdominal discomfort/cramps for 30 days 06/16/2021 Active busPIRone HCl 5 MG 1 tablet Orally Twic e a day Active DOK 100 MG 1 capsule as needed Oral twice a day Active tiZANidine HCl 4 MG 1 tablet as needed Orally once a day Active Aspirin Adult Low Dose 81 MG 1 tablet Or ally Once a day for 30 day(s) Active metFORMIN HCl 500 MG 2 tablets Orally tw ice a day Active Pantoprazole Sodium 20 MG Oral Active Hydrocortisone (Perianal) 2.5 % 1 application Externally Twice a day Active FeroSul 325 (65 Fe) MG 1 tablet Oral once a day Active Vitamin D3 25 MCG (1000 UT) 1 capsule Or ally Once a day for 30 day(s) Active Losartan Potassium 25 MG TAKE 1 TABLET B Y MOUTH EVERY DAY Orally Active Vitamin C 500 MG as directed Orally Active Immunizations Vaccine Route Administration Date Status Comme nts Influenza Unknown 03/11/2020 Administered Influenza Unknown 05/11/2021 Administered Influenza Unknown 04/03/2024 Administered Social History Tobacco Use: Social History Observation Description Date Details (start date - stop date) Never Smoker NA - NA Tobacco Use/Smoking Question Answer Notes Patient is a nonsmoker Alcohol Screen Question Answer Notes Did you have a drink containing alcohol in the p ast year? No Points 0 Interpretation Negative Section Notes: Nonsmoker; no sig. alcohol Nonsmoker; no sig. alcohol Nonsmoker; no sig. alcohol Nonsmoker; no sig. 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 confirmed Problem 018535802 Irritable bowel syndrome with diarrhea (K58.0) Active confirmed Problem Gastroesophageal reflux disease (715910817) Gastroesophageal reflux disease (K21.9) Active confirmed Problem Iron deficiency anemia (81642659) Iron deficiency anemia (D50.9) Active confirmed Problem 962030479 Gastroesophageal reflux disease without esophagitis (K21.9) Active confirmed Problem History of polyp of colon (431449738) History of colon polyps (Z86.010) Active confirmed Problem 64764490 Iron deficiency anemia, unspecified iron deficiency anemia type (D50.9) Active confirmed Problem Navarro esophagus (322155161) 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) Active confirmed Problem 454500502 Abdominal pain, generalized (R10.84) Active confirmed Problem 466301333 Irritable bowel syndrome with constipation (K58.1) Active confirmed Problem Diverticular disease of colon (611258080) Diverticular disease of colon (K57.30) Active confirmed Problem Diverticulosis of colon (793721782) Diverticulosis of colon (K57.30) Active confirmed Problem Retained food in stomach (K31.89) Active confirmed Problem 718385562 Gastroesophageal reflux disease, unspecified whether esophagitis present (K21.9) Active confirmed Problem Gastroesophageal reflux disease (disorder) (221125679) Chronic GERD (K21.9) Active confirmed Vital Signs Temperature 97.3 degrees Fahrenheit 07/13/2024 Blood pressure diastolic 00 mm Hg 07/13/2024 Height 63 in 07/13/2024 Blood pressure systolic 000 mm Hg 07/13/2024 Weight 131 lb 8 oz lbs 07/13/2024 BMI 23.29 kg/m2 07/13/2024 Encounters Encounter Location Date Provider Diagnosis [facility] [address] [place] [address] 07/13/2024 Baryr Pugh Epigastric abdominal pain R10.13 ; Chronic GERD K21.9 ; Retained food in stomach K31.89 and Irritable bowel syndrome with constipation K58.1 [facility] [address] [place] [address] 09/17/2024 Barry Pugh Irritable bowel syndrome with constipation K58.1 [facility] [address] [place] [address] 02/01/2025 Barry Pugh Irritable bowel syndrome with constipation K58.1 Assessments Encounter Date Diagnosis (ICD Code) Assessment Notes Treatment Notes Treatment Clinical Notes Section Notes 07/13/2024 Epigastric abdominal pain (ICD-10 - R10.13) Overall, Michelle appears very well from a clinical standpoint. We did review that her upper abdominal complaints may very well reflect some component of gastric retention and associated postprandial pain on that basis. She does have some underlying diabetes which may contribute to a component of gastroparesis. I have recommended a nuclear medicine gastric emptying study for further objective evaluation of that. I did advise her to continue her PPI as well. Given her history of a cholecystectomy I doubt this reflects any type of biliary process but I shall check a liver profile and lipase. I don't think she requires any imaging studies at this time since I think the yield on those would be low. We did discuss that another possibility would be that of some discomfort from irritable bowel syndrome and I shall give her a trial of dicyclomine to use on a p.r.n. basis. If indeed she is found to have a significant gastroparesis on the gastric emptying study, I would then be inclined to stop the dicyclomine at that point so as to not worsen any underlying gastric motility disorder. We also reviewed that she will be due for a followup colonoscopy in 2026 for further screening purposes. We may want to repeat an upper endoscopy at that time given her previous history of Navarro's esophagus even though biopsies from the most recent exam last May did not reveal any signs of that. I will plan to see Michelle in the Fall for a followup visit but did advise her to contact me prior to that if she has any problems or questions I can be of assistance with. Thank you again for allowing me to participate in Michelle's care. I shall continue to keep you advised of her progress. 07/13/2024 Chronic GERD (ICD-10 - K21.9) Overall, Michelle appears very well from a clinical standpoint. We did review that her upper abdominal complaints may very well reflect some component of gastric retention and associated postprandial pain on that basis. She does have some underlying diabetes which may contribute to a component of gastroparesis. I have recommended a nuclear medicine gastric emptying study for further objective evaluation of that. I did advise her to continue her PPI as well. Given her history of a cholecystectomy I doubt this reflects any type of biliary process but I shall check a liver profile and lipase. I don't think she requires any imaging studies at this time since I think the yield on those would be low. We did discuss that another possibility would be that of some discomfort from irritable bowel syndrome and I shall give her a trial of dicyclomine to use on a p.r.n. basis. If indeed she is found to have a significant gastroparesis on the gastric emptying study, I would then be inclined to stop the dicyclomine at that point so as to not worsen any underlying gastric motility disorder. We also reviewed that she will be due for a followup colonoscopy in 2026 for further screening purposes. We may want to repeat an upper endoscopy at that time given her previous history of Navarro's esophagus even though biopsies from the most recent exam last May did not reveal any signs of that. I will plan to see Michelle in the Fall for a followup visit but did advise her to contact me prior to that if she has any problems or questions I can be of assistance with. Thank you again for allowing me to participate in Michelle's care. I shall continue to keep you advised of her progress. 09/17/2024 Irritable bowel syndrome with constipation (ICD-10 - K58.1) 02/01/2025 Irritable bowel syndrome with constipation (ICD-10 - K58.1) 07/13/2024 Retained food in stomach (ICD-10 - K31.89) Overall, Michelle appears very well from a clinical standpoint. We did review that her upper abdominal complaints may very well reflect some component of gastric retention and associated postprandial pain on that basis. She does have some underlying diabetes which may contribute to a component of gastroparesis. I have recommended a nuclear medicine gastric emptying study for further objective evaluation of that. I did advise her to continue her PPI as well. Given her history of a cholecystectomy I doubt this reflects any type of biliary process but I shall check a liver profile and lipase. I don't think she requires any imaging studies at this time since I think the yield on those would be low. We did discuss that another possibility would be that of some discomfort from irritable bowel syndrome and I shall give her a trial of dicyclomine to use on a p.r.n. basis. If indeed she is found to have a significant gastroparesis on the gastric emptying study, I would then be inclined to stop the dicyclomine at that point so as to not worsen any underlying gastric motility disorder. We also reviewed that she will be due for a followup colonoscopy in 2026 for further screening purposes. We may want to repeat an upper endoscopy at that time given her previous history of Navarro's esophagus even though biopsies from the most recent exam last May did not reveal any signs of that. I will plan to see Michelle in the Fall for a followup visit but did advise her to contact me prior to that if she has any problems or questions I can be of assistance with. Thank you again for allowing me to participate in Michelle's care. I shall continue to keep you advised of her progress. 07/13/2024 Irritable bowel syndrome with constipation (ICD-10 - K58.1) Overall, Michelle appears very well from a clinical standpoint. We did review that her upper abdominal complaints may very well reflect some component of gastric retention and associated postprandial pain on that basis. She does have some underlying diabetes which may contribute to a component of gastroparesis. I have recommended a nuclear medicine gastric emptying study for further objective evaluation of that. I did advise her to continue her PPI as well. Given her history of a cholecystectomy I doubt this reflects any type of biliary process but I shall check a liver profile and lipase. I don't think she requires any imaging studies at this time since I think the yield on those would be low. We did discuss that another possibility would be that of some discomfort from irritable bowel syndrome and I shall give her a trial of dicyclomine to use on a p.r.n. basis. If indeed she is found to have a significant gastroparesis on the gastric emptying study, I would then be inclined to stop the dicyclomine at that point so as to not worsen any underlying gastric motility disorder. We also reviewed that she will be due for a followup colonoscopy in 2026 for further screening purposes. We may want to repeat an upper endoscopy at that time given her previous history of Navarro's esophagus even though biopsies from the most recent exam last May did not reveal any signs of that. I will plan to see Michelle in the Fall for a followup visit but did advise her to contact me prior to that if she has any problems or questions I can be of assistance with. Thank you again for allowing me to participate in Michelle's care. I shall continue to keep you advised of her progress. Plan Of Treatment Pending Test Test Name Order Date LIVER PROFILE 07/13/2024 LIPASE 07/13/2024 NUC GASTRIC ANTRUM EMPTYING 07/13/2024 US ABD 01/20/2021 NM gastric emptying study 08/14/2024 Future Test Test Name Order Date UPPER GI ENDOSCOPY 01/20/2021 COLONOSCOPY 01/20/2021 COLONOSCOPY 06/16/2021 UPPER GI ENDOSCOPY 06/10/2023 Next Appt Details Provider Name:Barry Nithin Pugh , 04/03/2025 01:00:00 PM, [address] [place] [address], [address], [place], [address], Insurance Providers Payer Name Payer Address Payer Phone Subscriber Number Group Number Insured Name Patient Relationship to Insured Coverage Start Date Coverage End Date [facility] [address] Attn Claims [place] [id number] MICHELLE ADAN Self - patient is the insured Medical (General) History Medical History History ICD Code NIDDM Hypertension Hypothyroidism Denies OK,CVA,renal disease EGD with biopsies in 2006 was negative f or celiac disease, ulcers, H.pylori Colonoscopy in 2006 was negative for jill yps, IBD, nor microscopic colitis EGD in 2001 was + for H.pylori--treated with antibiotics Anxiety Mild asthma Iron def. anemia in 03/2020 f or which she received Iron infusions--sees Dr. Ventura Colonoscopy in February revealed a small tubular adenoma that was removed but the prep was quite limited EGD in February of 2021 reveal ed a small hiatal hernia, small area of Navarro's esophagus with biopsies negative for dysplasia, gastric biopsies negative for H. pylori, and duodenal biopsies negative for celiac disease Negative screening colonoscopy in 10/2021 EGD in 09/2023 revealed a sma ll hiatal hernia and changes of reflux, but without any esophagitis nor peptic ulcer disease. Biopsies were negative for Navarro's esophagus. There was some evidence of retained old food in the stomach and small bowel. Surgical History Surgery Date(Month/Year) Hysterectomy with removal of one ovary Cholecystectomy for acalculous cholecyst itis-Dr. Paul 2022
--- OUTSIDE RECORDS SUMMARY | 2025-03-15 11:54 | XMS_ITS | Encounter Summary ---
Author Organization [employer] Address [address] [place] [address] [address] [place] [address] Care Team Providers Care Landscape Horticulture Instructor Name Role Phone Brea Cano MD Primary Care Provider [phone] Reason for Visit * Reason Comments Med Refill Encounter Details Date Type Department Care Team (Late st Contact Info) Description 02/22/2023 Refill [facility] [address] [place], [place] [phone] Brea Cano MD [address] [place], [place] [phone] Social History Tobacco Use Types Packs/Day Years [...] documented as of this encounter Care Teams Landscape Horticulture Instructor Relationship Specialty Start Date End Date Brea Cano MD [address] [place] [address] PCP - General Family Medicine 03/03/22 documented as of this encounter
== END 2025-03-15 11:24 | disposition home or self-care (01) ==
LOC: HO.HSM 10:50
PROVIDERS: PCP General Practice; Visit Provider Registered Nurse
DX: G43.009 Migraine without aura, not intractable, without status migrainosus (principal)
CPT/HCPCS: 99214

== ENCOUNTER 2025-03-15 10:49 | Outpatient (REF) | payer OTHER, SELFPAY | END 2025-03-15 10:50 | disposition home or self-care (01) | LOC: HO.LAB 10:49 | PROVIDERS: PCP General Practice; Visit Provider Registered Nurse | DX: G43.009 Migraine without aura, not intractable, without status migrainosus (principal) | CPT/HCPCS: 36415; 85652; 86140; 99212 ==

== ENCOUNTER 2025-04-26 15:05 | Outpatient (REF) | payer OTHER, SELFPAY ==
--- OUTSIDE RECORDS SUMMARY | 2025-04-26 14:15 | XMS_ITS | Encounter Summary ---
Author Organization [employer] Address [address] [place] [address] 7[address] [place] [address] Care Team Providers Care Medical Sales Name Role Phone Brea Cano MD Primary Care Provider [phone] Reason for Referral * Consultation (Routine) - Pending Review Specialty Diagnoses / Procedures Referred By Kaleb regan Referred To Contact Podiatry Diagnoses Type 2 diabetes mellitus without complication, without long-term current use of insulin (HCC) Brea Cano MD [address] [place] [address] Phone: tel: fax: [facility] [address], [place] Phone: tel: fax: Referral ID Status Reason Start Date Expiration Date Visits Requested Visits Authorized [id number] Pending Review Specialty Services Required 04/26/2026 1 1 Encounter Details Date Type Department Care Team (Late st Contact Info) Description 04/26/2025 2:15 PM EDT Office Visit [facility] [address] [place] [address] Brea Cano MD [address] [place] [address] Type 2 diabetes mellitus without complication, without long-term current use of insulin (HCC); Encounter for immunization Social History Tobacco Use Types Packs/Day Years [...] housing situation today? I have wilma piter 11/29/[address] you li [...] AM EDT documented as of this encounter Last Filed Vital Signs Vital Sign Reading Time Taken Comments Blood Pressure 138/64 04/26/2025 2:14 PM EDT Pulse 72 04/26/2025 2:14 PM EDT Temperature 36.8 C (98.3 F) 04/26/2025 2:14 PM EDT Respiratory Rate 18 04/26/2025 2:14 PM EDT Oxygen Saturation - - Inhaled Oxygen Concentration - - Weight 63.7 kg (140 lb 6.4 oz) 04/26/2025 2:14 P M EDT Height 160 cm (5' 3 ) 04/26/2025 2:14 PM EDT Body Mass Index 24.87 04/26/2025 2:14 PM EDT documented in this encounter Plan of Treatment Upcoming Encounters Date Type Department Care Team (Late st Contact Info) Description 04/30/2025 2:00 PM EDT Clinical Support [facility] [address] [place] [address] Scheduled Referrals Name Type Priority Associated Diagnoses Orde r Schedule Referral to Podiatry Outpatient Referral Routine Type 2 diabetes mellitus without complication, without long-term current use of insulin (HCC) Expected: 04/26/2025 (Approximate), Expires: 04/26/2026 documented as of this encounter Procedures Procedure Name Priority Date/Time Associated Diagnosis Comments ALBUMIN, RANDOM URINE W/CREATININE Routine 04/26/2025 3:13 PM EDT Type 2 diabetes mellitus without complication, without long-term current use of insulin (HCC) TSH W/REFLEX TO FT4 Routine 04/26/2025 3 :12 PM EDT Type 2 diabetes mellitus without complication, without long-term current use of insulin (HCC) CBC WITH AUTO DIFFERENTIAL Routine 04/26/2025 3:12 PM EDT Type 2 diabetes mellitus without complication, without long-term current use of insulin (HCC) POCT GLUCOSE Routine 04/26/2025 2:41 PM EDT Type 2 diabetes mellitus without complication, without long-term current use of insulin (HCC) documented in this encounter Results * Albumin, Random Urine W/Creatinine (04/26/2025 3:13 PM EDT) Creatinine, Urine 101.65 mg/dL [facility] Microalbumin Urine 13.0 mg/L [facility] Microalbum Creatinine Ratio Ur 12.7 <30 ug/mg cr [facility] Comment:Albumin/Creatinine R atio Reference Ranges: Normal: < 30 ug/mg creatinine Microalbuminuria: 30 - 300 ug/mg creatinineClinical Albuminuria: > 300 ug/mg creatinine Urine (Urine, Random) 04/26/2025 3:13 PM EDT 04/26/2025 4:04 PM EDT Brea Cano MD LAB URINE ORDERABLES Final Res ult Performing Organization Address [facility] Co de Phone Number [facility] [address] [place] [phone] * TSH W/Reflex to FT4 (04/26/2025 3:12 PM EDT) TSH reflex Free T4 0.95 0.32 - 4.0 uIU/mL [facility] Blood Venous blood specimen / Unknown 04/26/2025 3:12 PM EDT 04/26/2025 4:02 PM EDT Brea Cano MD LAB BLOOD ORDERABLES Final Res ult Performing Organization Address [facility] Co de Phone Number [facility] [address] [place] [phone] * (ABNORMAL) CBC auto differential (04/26/2025 3:12 PM EDT) White Blood Count 6.5 4.8 - 10.8 X10*3/uL [facility] Red Blood Count 4.33 4.20 - 5.50 X10*6/uL [facility] Hemoglobin 12.4 12.0 - 16.0 g/dl [facility] Hematocrit 38.3 37.0 - 47.0 % [facility] Mean Corpuscular Volume 88.5 80.0 - 98.0 fL [facility] Mean Corpuscular Hemoglobin 28.6 27.0 - 33.0 pg [facility] Mean Corpuscular HGB Conc 32.4 31.0 - 35.0 g/dl [facility] Red Cell Distribution Width 12.8 11.0 - 16.0 % [facility] Platelet Count 251 160 - 400 X10*3/uL [facility] Mean Platelet Volume 9.6 9.4 - 12.3 fL [facility] Neutrophils Percent Auto 59.7 45 - 73 % [facility] Imm Gran Pct Auto 0.5(H) 0.0 - 0.4 % [facility] Lymphocytes Percent Auto 27.4 20 - 40 % [facility] Monocytes Percent Auto 7.4 2 - 11 % [facility] Eosinophils Percent Auto 3.8 0 - 4 % [facility] Basophils Percent Auto 1.2 0 - 2 % [facility] NRBC Pct Auto 0.0 0.0 - 0.2 /100WBC [facility] Neutrophils Absolute Auto 3.9 2.0 - 8.3 x10*3/uL [facility] Imm Gran Abs Auto 0.03 0.00 - 0.03 X10*3/uL [facility] Lymphocytes Absolute Auto 1.8 1.2 - 4.9 X10*3/uL [facility] Monocytes Absolute Auto 0.5 0.1 - 1.2 X10*3/uL [facility] Eosinophils Absolute Auto 0.3 0.0 - 0.4 X10*3/uL [facility] Basophils Absolute Auto 0.1 0.0 - 0.2 X10*3/uL [facility] NRBC Abs Auto 0.000 0.0 - 0.012 X10*3/uL [facility] Blood Venous blood specimen / Unknown 04/26/2025 3:12 PM EDT 04/26/2025 4:02 PM EDT us Brea Cano MD LAB BLOOD ORDERABLES Final Res ult [facility] [address] [place] [phone] * POCT Glucose (04/26/2025 2:41 PM EDT) Pathologist [facility] Glucose Blood, POC 158 60 - 200 mg/dL QC Media Lot # [id number] Lot# Expiration Date [id number] Blood Capillary blood specimen / Unknown 04/26/2025 2:41 PM EDT Brea Cano MD POINT OF CARE TEST ENTER/EDIT ORDERABLES Final Result documented in this encounter Visit Diagnoses Diagnosis Type 2 diabetes mellitus without complication, without long-term current use of insulin ([facility]) Encounter for immunization documented in this encounter Additional Health Concerns Assessment Noted Time PHQ-9 Depression Total Score: 9 12/12/19 25 11:36 AM EDT documented as of this encounter Care Teams Medical Sales Relationship Specialty Start Date End Date Brea Cano MD [address] [place] [phone] PCP - General Family Medicine 03/03/22 documented as of this encounter
[2025-04-26 16:07] LABS: MANUAL DIFF FLAG NO
[2025-04-26 16:20] LABS: Hematocrit 38.3 % (37.0-47.0); Hemoglobin 12.4 g/dl (12.0-16.0); Imm Gran Abs Auto 0.03 X10*3/uL (0.00-0.03); Imm Gran Pct Auto 0.5 % (0.0-0.4); Lymphocytes Absolute Auto 1.8 X10*3/uL (1.2-4.9); Mean Corpuscular HGB Conc 32.4 g/dl (31.0-35.0); Mean Corpuscular Hemoglobin 28.6 pg (27.0-33.0); Mean Corpuscular Volume 88.5 fL (80.0-98.0); NRBC Abs Auto 0.000 X10*3/uL (0.0-0.012); NRBC Pct Auto 0.0 /100WBC (0.0-0.2); Platelet Count 251 X10*3/uL (160-400); Red Blood Count 4.33 X10*6/uL (4.20-5.50); White Blood Count 6.5 X10*3/uL (4.8-10.8)
[2025-04-26 16:24] LABS: Appearance Urine Clear; Glucose Urine UA Negative (Negative); PH 5.0 (5.0-9.0); Specific Gravity - Urine 1.025 (1.005-1.025); UMIC TRIGGER UA YES
[2025-04-26 17:08] LABS: Microalbum/Creatinine Ratio Ur 12.7 ug/mg cr (<30)
--- OUTSIDE RECORDS SUMMARY | 2025-04-26 17:35 | XMS_ITS | Encounter Summary ---
Author Organization [employer] Address [address] [facility] 7[address] [place] [address] Care Team Providers Care Rehabilitation Therapy Aide Name Role Phone Brea Cano MD Primary Care Provider [phone] Encounter Details Date Type Department Care Team (Late st Contact Info) Description 05/03/2023 Abstract [facility] [address] [place], [place] [phone] Brea Cano MD [address] [place] [address] Social History Tobacco Use Types Packs/Day Years [...] Description 04/30/2025 2:00 PM EDT Clinical Support [facility] [address] [place] [address] documented as of this encounter Visit Diagnoses Not on filedocumented in this encounter Additional Health Concerns Assessment Noted Time PHQ-9 Depression Total Score: 0 08/20/19 23 11:18 AM EST documented as of this encounter Care Teams Rehabilitation Therapy Aide Relationship Specialty Start Date End Date Brea Cano MD [address] [place] [address] PCP - General Family Medicine 03/03/22 documented as of this encounter
--- OUTSIDE RECORDS SUMMARY | 2025-04-26 17:35 | XMS_ITS | Clinical Summary ---
Author Organization [facility] Address [address] [place] [address] Care Team Providers Care Salad Bar Clerk Name Role Phone Unavailable Primary Care Provider [...] Drug Screen 07/11/2024 Depression Annual Screen 07/11/2024 [id number] ( season) 2025 021, 09/23/2020 Imm-Influenza (#1) 2025 04/07/2020, 1 07/29/2018, 03/27/2018, Additional history exists Insurance [facility]
--- OUTSIDE RECORDS SUMMARY | 2025-04-26 17:35 | XMS_ITS | Encounter Summary ---
Author Organization [employer] Address [address] [place] [address] [address] [place] [address] Care Team Providers Care Utility Clerk Name Role Phone Brea Cano MD Primary Care Provider Reason for Visit * Reason Comments Med Refill Encounter Details Date Type Department Care Team ([facility] Contact Info) Description 02/22/2023 Refill [facility] [address] [place] [phone] Brea Cano MD [address] [place], [place] [phone] Social History Tobacco Use Types Packs/Day Years [...] Encounters Date Type Department Care Team (Late Contact Info) Description 04/30/2025 2:00 PM EDT Clinical Support [facility] [address] [place] [phone] documented as of this encounter Visit Diagnoses Not on filedocumented in this encounter Additional Health Concerns Assessment Noted Time PHQ-9 Depression Total Score: 0 08/20/19 23 11:18 AM EST documented as of this encounter Care Teams Utility Clerk Relationship Specialty Start Date End Date Brea Cano MD [address] [place] [address] PCP - General Family Medicine 03/03/22 documented as of this encounter
--- OUTSIDE RECORDS SUMMARY | 2025-04-26 17:35 | XMS_ITS | Encounter Summary ---
Author Organization [employer] Address [address] [facility] [address] [place] [address] Care Team Providers Care Cnc Mill And Lathe Operator Name Role Phone Brea Cano MD Primary Care Provider [phone] Encounter Details Date Type Department Care Team (Late st Contact Info) Description 04/26/2025 Orders Only GENERIC EXTERNAL DATA DEPARTMENT Provider, Generic External Data Social History Tobacco Use Types Packs/Day Years [...] Description 04/30/2025 2:00 PM EDT Clinical Support [facility] [address] [place] [address] documented as of this encounter Procedures Procedure Name Priority Date/Time Associated Diagnosis Comments URINALYSIS, COMPLETE Routine 04/26/2025 3:13 PM EDT documented in this encounter Results * (ABNORMAL) Urinalysis Complete (04/26/2025 3:13 PM EDT) Color Urine Yellow [facility] Appearance Urine Clear [facility] PH 5.0 5.0 - 9.0 [facility] Glucose Urine UA Negative Negative mg/dL [facility] Urine Blood Negative Negative [facility] Specific [place] - Urine 1.025 1.005 - 1.025 [facility] Urine Protein Negative Neg-Trace mg/dL [facility] Urine Ketones Negative Negative mg/dL [facility] Nitrite Urine Negative Negative [facility] Leukocyte Esterase Urine Small (1+)(A) Negative [facility] RBC Urine 0-2 0 - 2 /HPF [facility] Urine WBC 11-20(A) 0 - 5 /HPF [facility] Urine Squamous Epithelial Cell 0-2 0 - 2 /HPF [facility] Urine Bacteria None Seen None Seen [facility] Hyaline Casts, Urine 0-2 0 - 2 /LPF [facility] 04/26/2025 3:13 PM EDT 04/26/2025 4:04 PM EDT us Generic External Data Provider LAB URINE ORDERAB LES Final Result [facility] [address] [place] [phone] documented in this encounter Visit Diagnoses Not on filedocumented in this encounter Additional Health Concerns Assessment Noted Time PHQ-9 Depression Total Score: 9 12/12/19 25 11:36 AM EDT documented as of this encounter Care Teams Cnc Mill And Lathe Operator Relationship Specialty Start Date End Date Brea Cano MD [address] [place] [address] PCP - General Family Medicine 03/03/22 documented as of this encounter
--- OUTSIDE RECORDS SUMMARY | 2025-04-26 17:35 | XMS_ITS | Clinical Summary ---
Author Organization [employer] Address [address] [place] [address] [address] [place] [address] Care Team Providers Care Supervisor Spring Up Name Role Phone Brea Cano MD Primary Care Provider [phone] Allergies Active Allergy Reactions Criticality Noted Date [...] 02/24/20 23 Active Blood Glucose Monitoring Suppl (Disenia) w/Device kit 1 each 2 times daily. TEST BLOOD SUGAR TWICE DAILY 1 kit 04/21/20 23 Active etodolac (Lodine) 400 MG tablet 09/22/19 24 Active methylPREDNISo lone (Medrol Dospak) 4 MG tablets 10/19/19 24 [...] 90 capsule 3 05/16/20 24 Active Lancets (fundfindr DelPeak Rx #2) lancets 30G 1 each by Other route 2 times daily. TEST BLOOD SUGAR TWICE DAILY 100 each 11 05/25/20 24 026 Active glucose blood (fundfindr VerVaxxas) test stripIndicatio ns:Type 2 diabetes mellitus without complication, without long-term current use of insulin ([facility]) TEST BLOOD SUGAR TWICE DAILY 100 each [...] 25 Active levothyroxine (Synthroid, Levoxyl) 75 MCG tabletIndicati ons:Hypothyroi dism, unspecified type TAKE 1 TABLET BY MOUTH EVERY DAY BEFORE BREAKFAST 90 tablet 3 08/15/19 25 Active pantoprazole (ProtoNix) 40 MG EC tablet TAKE 1 TABLET BY MOUTH EVERY DAY 90 tablet 2 08/19/19 25 Active metFORMIN (Glucophage) 500 MG tabletIndicati ons:Type 2 diabetes mellitus with hyperglycemia, without long-term current use of insulin (HCC) Take 2 tablets (1,000 mg) by mouth [...] daily. 180 capsule 3 12/12/19 25 Active tiZANidine (Zanaflex) 4 MG tablet TAKE 1 TABLET BY MOUTH EVERY 8 HOURS NEEDED FOR MUSCLE SPASMS 60 tablet 3 03/05/20 25 Active propranolol (Inderal) 10 MG tablet Take 1 tablet by mouth Once per day. 03/08/20 25 Active clotrimazole (Lotrimin) 1 % cream Apply topically 2 times daily. 30 g 2 04/26/20 25 Active clotrimazole (Lotrimin) 1 % cream APPLY TOPICALLY TO THE AFFECTED AREA(S) TWICE DAILY DIRECTED FOR 28 DAYS 30 g 2 01/19/20 25 025 Discontinued(Re order (will not trigger notification to Pharmacy)) Active Problems Problem Noted Date Diagnosed Date Epigastric pain 12/11/2024 Stage 3a chronic kidney disease (CMS/HCC) 2023 Hyperchloremia 03/08/2024 Overview (03/08/2024): Since January 2023, [...] Encounters Date Type Department Care Team Description 04/26/2025 2:15 PM EDT Office Visit [facility] [address] [place] [address] Brea Cano MD Type 2 diabetes mellitus without complication, without long-term current use of insulin (HCC); Encounter for immunization 04/26/2025 Orders Only GENERIC EXTERNAL DATA DEPARTMENT Provider, Generic External Data 04/26/2025 Travel 03/15/2025 Orders Only GENERIC EXTERNAL DATA DEPARTMENT Provider, Generic External Data 03/04/2025 Refill [facility] [address] [place] [address] Brea Cano MD 02/11/2025 Orders Only GENERIC EXTERNAL DATA DEPARTMENT Provider, Generic External Data 01/31/2025 Orders Only GENERIC EXTERNAL DATA DEPARTMENT Provider, Generic External Data from Last 3 Months Immunizations Immunization Administration Dates Next Due Hep B, adult 05/01/2018,12/01/2017,10/17/2017 Influenza High-dose Quadriva lent Preservative Free 05/10/2022 Influenza injectable quadriv alent IIV4 with preservative 03/27/2018,05/31/2017,04/08/2016 Influenza injectable quadriv alent preservative free 04/11/2023,05/22/2021,04/07/2020,05/29,04/10/2015 Influenza, High Dose Seasona l, Preservative Free 04/26/2025,04/05/2024 Influenza, IIV3, injectable 04/03/2024,1 07/11/2020,03/11/2020,03/21,05/27/2003 Influenza, Split (incl. deep fied surface antigen) 03/22/2013,05/11/2012 Moderna Covid-19 Vaccine 6+ Bivalent 06/19/2022 Pfizer Covid-19 Vaccine 12+ 04/05/2024, 3 Pneumococcal Conjugate PCV 20 03/07/2024 Pneumococcal Polysaccharide PPSV23 08/20/2021, TD (adult), 2 Lf tetanus tox oid, preservative free, adsorbed 04/12/2003 Tdap 04/26/2025,03/21/2014 Zoster, Recombinant 05/19/2021,03/04/2021 Zoster, live 12/03/2016 Social [...] 18 04/26/2025 2:14 PM EDT Oxygen Saturation 98% 12/11/2024 11:24 AM EDT Inhaled Oxygen Concentration - - Weight 63.7 kg (140 lb 6.4 oz) 04/26/2025 2:14 P M EDT Height 160 cm (5' 3 ) 04/26/2025 2:14 PM EDT Body Mass Index 24.87 04/26/2025 2:14 PM EDT Plan of Treatment Upcoming Encounters Date Type Department Care Team (Late st Contact Info) Description 04/30/2025 2:00 PM EDT Clinical Support [address] [address] Health Maintenance Due Date Last Done Comments CT Colonography 1955 FIT DNA/Cologuard 1955 FIT 1955 FOBT 1955 Sigmoidoscopy 1955 Eye Exam 02/15/1966 Diabetes: Foot Exam 10/19/2024 10/20/2023 COVID-19 Vaccine ( season) 2025 04/05/2024, 04/14/2023, 06/19/2022, Additional history exists Diabetes: Urine Protein Screening 04/12/2025 04/26/2025, 04/12/2024, 10/21/2023, Additional history exists Depression Monitoring 06/12/2025 12/11/2024, 025 Diabetes: Hemoglobin A1C 06/12/2025 025, 06/06/2024, 03/07/2024, Additional history exists Mammogram 08/24/2025 08/24/2024, 09/09, 08/22/2023, Additional history exists SDOH Screening 11/29/2025 11/29/2024 Alcohol/Substance Use Screening 12/11/2025 12/11/2024 Lipid Panel 12/11/2025 12/11/2024, 10/09, 06/15/2021, Additional history exists Tobacco Screening 04/26/2026 04/26/2025 Colonoscopy 10/16/2026 10/16/2021 Colorectal Cancer Screening 10/16/2026 RSV Patients and Patients Aged 60 years or older (1 - 1-dose 75+ series) 02/15/2031 DTaP/Tdap/Td Vaccines (3 - Td or Tdap) 04/26/2035 04/26/2025, 03/21/2014, 04/12/2003 Hepatitis B Vaccines Completed 05/01/2018, 12/01/2017, 10/17/2017 Hepatitis C Screening Completed 02/27/2020 Zoster Vaccines Completed 05/19/2021, 02/09, 12/03/2016 Pneumococcal Vaccine: 50+ Years Completed 03/07/2024, 08/20/2021, 12/26/2003 Influenza Vaccine Completed 04/26/2025, , 04/03/2024, Additional history exists HIB Vaccines Aged Out [...] URINALYSIS, COMPLETE Routine 04/26/2025 3:13 PM EDT ALBUMIN, RANDOM URINE W/CREATININE Routine 04/26/2025 3:13 [...] without long-term current use of insulin (HCC) SED RATE BY MODIFIED WESTERGREN Routine 03/15/2025 12:02 PM EDT C-REACTIVE PROTEIN Routine 03/15/2025 12 :02 PM EDT XR CHEST 2 VIEWS Routine 02/11/2025 8:52 [...] TOMOSYNTHESIS BILATERAL Routine 08/24/2024 12:30 PM EST HM COLONOSCOPY Routine 10/16/2021 ZZZ HISTORICAL HEPATITIS C AB W/REFL TO HCV RNA, QN, PCR Routine 02/27/2020 11:31 AM EDT from Last 3 Months or Most Recently Relevant to Health Maintenance Results * Albumin, Random Urine W/Creatinine (04/26/2025 3:13 PM EDT) Creatinine, Urine 101.65 mg/dL [facility] Microalbumin Urine 13.0 mg/L [facility] Microalbum Creatinine Ratio Ur 12.7 <30 ug/mg cr [facility] Comment:Albumin/Creatinine R atio Reference Ranges: Normal: < 30 ug/mg creatinine Microalbuminuria: 30 - 300 ug/mg creatinineClinical Albuminuria: > 300 ug/mg creatinine Urine (Urine, Random) 04/26/2025 3:13 PM EDT 04/26/2025 4:04 PM EDT us Brea Cano MD LAB URINE ORDERABLES Final Res ult Performing Organization Address [facility] de Phone Number [facility] [address] [place] [phone] * (ABNORMAL) Urinalysis Complete (04/26/2025 3:13 PM EDT) Only the most recent of2 resultswithin the time period is included. Color Urine Yellow [facility] Appearance Urine Clear [facility] PH 5.0 5.0 - 9.0 [facility] Glucose Urine UA Negative Negative mg/dL [facility] Urine Blood Negative Negative [facility] Specific [place] - Urine 1.025 1.005 - 1.025 [facility] Urine Protein Negative Neg-Trace mg/dL [facility] Urine Ketones Negative Negative mg/dL [facility] Nitrite Urine Negative Negative [facility] Leukocyte Esterase Urine Small (1+)(A) Negative [facility] RBC Urine 0-2 0 - 2 /HPF [facility] Urine WBC 11-20(A) 0 - 5 /HPF [facility] Urine Squamous Epithelial Cell 0-2 0 - 2 /HPF [facility] Urine Bacteria None Seen None Seen [facility] Hyaline Casts, Urine 0-2 0 - 2 /LPF [facility] 04/26/2025 3:13 PM EDT 04/26/2025 4:04 PM EDT us Generic External Data Provider LAB URINE ORDERAB LES Final Result Performing Organization Address [facility] Co de Phone Number [facility] [address] [place] [phone] * TSH W/Reflex to FT4 (04/26/2025 3:12 PM EDT) [facility] TSH reflex Free T4 0.95 0.32 - 4.0 uIU/mL [facility] Blood Venous blood specimen / Unknown 04/26/2025 3:12 PM EDT 04/26/2025 4:02 PM EDT us Brea Cano MD LAB BLOOD ORDERABLES Final Res ult [facility] [address] [place] [phone] * (ABNORMAL) CBC auto differential (04/26/2025 3:12 PM EDT) Only the most recent of2 resultswithin the time period is included. [facility] White Blood Count 6.5 4.8 - 10.8 X10*3/uL [facility] Red Blood Count 4.33 4.20 - 5.50 X10*6/uL [facility] Hemoglobin 12.4 12.0 - 16.0 g/dl [facility] Hematocrit 38.3 37.0 - 47.0 % [facility] Mean Corpuscular Volume 88.5 80.0 - 98.0 fL [facility] Mean Corpuscular Hemoglobin 28.6 27.0 - 33.0 pg [facility] Mean Corpuscular HGB Conc 32.4 31.0 - 35.0 g/dl [facility] Red Cell Distribution Width 12.8 11.0 - 16.0 % [facility] Platelet Count 251 160 - 400 X10*3/uL [facility] Mean Platelet Volume 9.6 9.4 - 12.3 fL [facility] Neutrophils Percent Auto 59.7 45 - 73 % [facility] Imm Gran Pct Auto 0.5(H) 0.0 - 0.4 % [facility] Lymphocytes Percent Auto 27.4 20 - 40 % [facility] Monocytes Percent Auto 7.4 2 - 11 % [facility] Eosinophils Percent Auto 3.8 0 - 4 % [facility] Basophils Percent Auto 1.2 0 - 2 % [facility] NRBC Pct Auto 0.0 0.0 - 0.2 /100WBC [facility] Neutrophils Absolute Auto 3.9 2.0 - 8.3 x10*3/uL [facility] Imm Gran Abs Auto 0.03 0.00 - 0.03 X10*3/uL [facility] Lymphocytes Absolute Auto 1.8 1.2 - 4.9 X10*3/uL [facility] Monocytes Absolute Auto 0.5 0.1 - 1.2 X10*3/uL [facility] Eosinophils Absolute Auto 0.3 0.0 - 0.4 X10*3/uL [facility] Basophils Absolute Auto 0.1 0.0 - 0.2 X10*3/uL [facility] NRBC Abs Auto 0.000 0.0 - 0.012 X10*3/uL [facility] Blood Venous blood specimen / Unknown 04/26/2025 3:12 PM EDT 04/26/2025 4:02 PM EDT Brea Cano MD LAB BLOOD ORDERABLES Final Res ult [facility] [address] [place] [phone] * POCT Glucose (04/26/2025 2:41 PM EDT) Glucose Blood, POC 158 60 - 200 mg/dL QC Media Lot # [id number] Lot# Expiration Date [id number] Blood Capillary blood specimen / Unknown 04/26/2025 2:41 PM EDT Brea Cano MD POINT OF CARE TEST ENTER/EDIT ORDERABLES Final Result * Sed Rate by Modified Damián (03/15/2025 12:02 PM EDT) Erythrocyte Sedimentation Rate 9 0 - 20 MM/HR [facility] Comment:Patients with polycy themia and many hemoglobin abnormalitiesmay have depressed sed rates whereas patients with anemiamay have elevated sed rates. 03/15/2025 12:0 2 PM EDT 03/15/2025 12:02 PM EDT Generic External Data Provider LAB BLOOD ORDERAB LES Final Result Performing Organization Address [facility] Co de Phone Number [facility] [address] [place] [phone] * C-reactive Protein (03/15/2025 12:02 PM EDT) C Reactive Protein 0.13 < or = 0.50 mg/dL [facility] 03/15/2025 12:0 2 PM EDT 03/15/2025 12:02 PM EDT [place] External Data Provider LAB BLOOD ORDERAB LES Final Result Performing Organization Address City/[facility] Co de Phone Number [facility] [address] [place] [phone] * XR Chest 2 Views (02/11/2025 8:52 PM EDT) Anatomical Region Laterality Modality Chest Radiographic Lia ging 02/11/2025 8:52 PM EDT Narrative 02/11/2025 8:54 PM EDT [address] [address] XRay Report Signed Patient: Michelle Sparrow MR# : [id number] : 1955 Acct:[id number] Age/Sex: 69 / F ADM Date: 02/11/25 Loc: HO.ED Attending Dr: Ordering Physician: Jaki Ojeda Date of Service: 02/11/25 Procedure(s): XR chest 2V Accession Number(s): [id number] cc: Jaki Ojeda; Brea Cano CLINICAL HISTORY: [...] in OV> 02/11/252052 DD/ 51 TD/TT: 02/11/252051 Dye Maker: Procedure Note Donotuseinterpreter, Image - 02/11/2025 [place] [address] XRay Report Signed Patient: Michelle Sparrow MMR# : [id number] : 1955cct:[id number] Age/Sex: 69 / FADM Date: 02/11/25 Loc: .ED Attending Dr: Ordering Physician: Jaki Ojeda Date of Service: 02/11/25 Procedure(s): XR chest 2V Accession Number(s): [id number] cc: Jaki Oejda; Brea Cano CLINICAL HISTORY: chest pain 2 [...] in OV> 02/11/252052 DD/ 51 TD/TT: 02/11/252051 Dye Maker: [facility] External Provider IMG XR PROCEDURES Edited Result - Final * High Sensitivity Troponin I (02/11/2025 8:17 PM EDT) Pathologist [facility] TROPONIN I HIGH SENSITIVITY <2.7 <3.5 - 17.0 ng/L [facility] Comment:The Melvin high sens itivity Troponin-I results should beused in conjunction with other diagnostic information suchas ECG, clinical observations and information, and patientsymptoms to aid in the diagnosis of [place]. 02/11/2025 8:17 PM EDT 02/12/2025 1:17 AM EDT Generic External Data Provider LAB BLOOD ORDERAB LES Final Result [facility] [address] [place] [phone] * SARS-CoV-2 RNA, Influenza A/B, and RSV RNA, Ql NAAT (02/11/2025 8:17 PM EDT) Pathologist [facility] Influenza A PCR NEGATIVE Negative [facility] Influenza B PCR NEGATIVE Negative [facility] Resp Syncy Virus RNA Qual PCR NEGATIVE Negative [facility] SARS COV2 PCR NEGATIVE Negative [facility] Comment:All test results mus t [...] use by authorized laboratories.Testing performed on the [employer] GeneXpert utilizingreal-time RT-PCR.All SARS CoV2 and positive influenza A/B results arereported to [facility]. 02/11/2025 8:17 PM EDT 02/11/2025 8:36 PM EDT us Generic External Data Provider LAB MICROBIOLOGY - GENERAL ORDERABLES Final Result Performing Organization Address City/[facility]/ZIP Co de Phone Number [facility] [address] [place] [phone] * Prothrombin Time-INR (02/11/2025 8:17 PM EDT) Prothrombin Time 12.1 10.9 - 12.4 SEC [facility] INTERNATIONAL NORM RATIO 1.1 0.9 - 1.1 [facility] Comment:INTERNATIONAL NORMAL IZED RATIO (INR) [...] ORDERAB LES Final Result Performing Organization Address [facility]/ZIP Co de Phone Number [facility] [address] [place] [phone] * Magnesium (02/11/2025 8:17 PM EDT) Magnesium 1.7 1.6 - 2.6 mg/dL [facility] 02/11/2025 8:17 PM EDT 02/11/2025 8:36 PM EDT us Generic External Data Provider LAB BLOOD ORDERAB LES Final Result Performing Organization Address City/[facility]/ZIP Co de Phone Number [facility] [address] [place] [phone] * (ABNORMAL) Comprehensive Metabolic Panel (02/11/2025 8:17 PM EDT) Sodium 141 135 - 145 mmol/L [facility] Potassium 4.5 3.3 - 5.1 mmol/L [facility] Chloride 108 96 - 108 mmol/L [facility] Carbon Dioxide 25 22 - 29 mmol/L [facility] Anion Gap 13 12 - 20 [facility] Urea Nitrogen (BUN) 21(H) 9 - 16 mg/dL [facility] Creatinine, Serum 0.96 0.5 - 1.4 mg/dL [facility] Creatinine Clr Calc Pharmacy 46.3 [facility] Comment:Provided height and weight: 160.02 cm,61.2 kg.eGFR (calculated from the MDRD study equation) and eCrCl(calculated from the Cockcroft-Gault equation) are based ondifferent parameters and may not yield comparable results.If eCrCl result is absurd, please check patient'sheight/weight. Estimated Glomerular Filt Rate 58 [facility] Comment:Chronic Kidney Disea se: Estimated GFR < 60 mL/min/1.87j1Wqvyzz Kidney Disease: Estimated GFR < 15 mL/min/1.73m2 Glucose 206(H) 60 - 115 mg/dL [facility] Calcium 9.4 8.4 - 10.2 mg/dL [facility] Bilirubin, Total 0.2 0.0 - 1.0 mg/dL [facility] Aspartate Amino Transferase 35(H) 5 - 31 U/L [facility] Alanine Aminotransferase 40(H) 0 - 31 U/L [facility] Total Protein 7.1 6.5 - 8.0 g/dL [facility] Albumin Level 4.5 3.5 - 5.0 g/dL [facility] Alkaline Phosphatase 83 39 - 117 U/L [facility] 02/11/2025 8:17 PM EDT 02/11/2025 8:36 PM EDT Generic External Data Provider LAB BLOOD ORDERAB LES Final Result Performing Organization Address [facility] Co de Phone Number [facility] [address] [place] [phone] * (ABNORMAL) Basic Metabolic Panel (01/31/2025 10:47 AM EDT) Sodium 142 135 - 145 mmol/L [facility] Potassium 4.7 3.3 - 5.1 mmol/L [facility] Chloride 109(H) 96 - 108 mmol/L [facility] Carbon Dioxide 28 22 - 29 mmol/L [facility] Anion Gap 10(L) 12 - 20 [facility] Urea Nitrogen (BUN) 20(H) 9 - 16 mg/dL [facility] Creatinine, Serum 0.88 0.5 - 1.4 mg/dL [facility] Estimated Glomerular Filt Rate >60 [facility] Comment:Chronic Kidney Disea se: Estimated GFR < 60 mL/min/1.70s3Wxmigx Kidney Disease: Estimated GFR < 15 mL/min/1.73m2 Glucose 106 60 - 115 mg/dL [facility] Calcium 9.5 8.4 - 10.2 mg/dL [facility] 01/31/2025 10:4 7 AM EDT 01/31/2025 10:47 AM EDT Generic External Data Provider LAB BLOOD ORDERAB LES Final Result Performing Organization Address [facility]/ZIP Co de Phone Number [facility] [address] [place] [phone] * Lipid Panel, Standard (12/11/2024 12:16 PM EDT) Triglycerides 136 <150 mg/dL [facility] Comment:Desirable Triglyceri de: less than 150 mg/dLBorderline High Triglyceride 150-199 mg/dLHigh Triglyceride: 200-499 mg/dLVery High Triglyceride: greater than or equal to 5OO mg/dL Cholesterol 94 <200 mg/dL [facility] Comment:Desirable Cholestero l: less than 200 mg/dLBorderline High Cholesterol: 200-239 mg/dLHigh Cholesterol: greater than 239 mg/dL LDL Cholesterol Calculated 25 <100 mg/dL [facility] Comment:Desirable LDL: less than 100 mg/dLNear Optimal/Above Optimal LDL: 110- 129 mg/dLBorderline High LDL: 130-159 mg/dLHigh LDL: 160-189 mg/dLVery High LDL: greater than or equal to 190 mg/dL HDL Cholesterol 42 >40 mg/dL [facility] Comment:Desirable HDL: great er than 40 mg/dL Note: This HDL assay may give artificially low results in patients with liver disease. Blood Venous blood specimen / Unknown 12/11/2024 12:16 PM EDT 12/11/2024 5:01 PM EDT Brea Cano MD LAB BLOOD ORDERABLES Final Res ult Performing Organization Address City/State/[facility] Co de Phone Number [facility] [address] [place] [phone] * (ABNORMAL) POCT HGB A1C (12/11/2024 [...] PM EST Narrative 09/01/2024 1:38 PM EST [facility] [address] [place] [address] Mammography Report Signed Patient: Jerome RichMichelle Nithin MR# : [id number] : 1955 Acct:[id number] Age/Sex: 69 / F ADM Date: 08/24/24 Loc: LULY Attending Dr: Brea Cano MD Ordering Physician: Brea Cano Results: 1Negative Date of Service: 08/24/24 Follow Up: 1 Year From Orig ina Mammogram Procedure(s): MM tomosynthesis screening BI Accession Number(s): [id number] cc: Brea Cano EXAMINATION: MM SCREENING DIGITAL [...] 09/01/24 1335 DD/ 1230 TD/TT: 08/24/24 1307 Dye Maker: Procedure Note Donotuseinterpreter, Image - 09/01/2024 [place] [facility] [address] [place] [address] Mammography Report Signed Patient: Michelle Sparrow MMR# : [id number] : 1955cct:[id number] Age/Sex: 69 / FADM Date: 08/24/24 Loc: LULY Attending Dr: Brea Cano MD Ordering Physician: Dave Canoults: 1Negative Date of Service: 08/24/24Follow Up: 1 Year From Orig inal Mammogram Procedure(s): MM tomosynthesis screening BI Accession Number(s): [id number] cc: Brea Cano EXAMINATION: MM SCREENING DIGITAL [...] by: Elizabeth Hays DO 09/01/2024 01:35 PM [facility] Dictated By: Elizabeth Hays DO Signed By: <Electronically signed by Elizabeth Hays DO in OV> 09/01/24 1335 DD/ 1230 TD/TT: 08/24/24 1307 Dye Maker: Brea Cano MD IM BI PROCEDURES Edited Resul t - Final * Hm Colonoscopy (10/16/2021) Historical Provider HEALTH MAINTENANCE Final Result * HEPATITIS C AB W/REFL TO HCV RNA, QN, PCR (02/27/2020 11:31 AM EDT) HEPATITIS C ANTIBODY NON-REACT ALY NON-REACT ALY [facility] INDEX 0.02 <1.00 [facility] Comment: HCV antibody was non-reactive. There is no laboratory evidence of HCV infection. In most cases, no further action is required. However, if recent HCV exposure is suspected, a test for HCV RNA (test code 68391) is suggested. For additional information please refer to http://Newzstand.[employer]incept/faq/YJQ16p4 (This link is being provided for informational/ educational purposes only.) HEPATITIS C ANTIBODY NON-REACT ALY NON-REACT ALY [facility] INDEX 0.02 <1.00 [facility] Comment: HCV antibody was non-reactive. There is no laboratory evidence of HCV infection. In most cases, no further action is required. However, if recent HCV exposure is suspected, a test for HCV RNA (test code 60629) is suggested. For additional information please refer to http://[employer]/faq/BPG62t8 (This link is being provided for informational/ educational purposes only.) HEPATITIS C ANTIBODY NON-REACT ALY NON-REACT ALY [facility] INDEX 0.02 <1.00 [facility] Comment: HCV antibody was non-reactive. There is no laboratory evidence of HCV infection. In most cases, no further action is required. However, if recent HCV exposure is suspected, a test for HCV RNA (test code 07790) is suggested. For additional information please refer to http://[employer]/faq/FRC96j4 (This link is being provided for informational/ educational purposes only.) HEPATITIS C ANTIBODY NON-REACT ALY NON-REACT ALY [facility] INDEX 0.02 <1.00 [facility] Comment: HCV antibody was non-reactive. There is no laboratory evidence of HCV infection. In most cases, no further action is required. However, if recent HCV exposure is suspected, a test for HCV RNA (test code 20836) is suggested. For additional information please refer to http://[employer]/faq/WAT38h6 (This link is being provided for informational/ educational purposes only.) HEPATITIS C ANTIBODY NON-REACT ALY NON-REACT ALY [facility] INDEX 0.02 <1.00 [facility] Comment: HCV antibody was non-reactive. There is no laboratory evidence of HCV infection. In most cases, no further action is required. However, if recent HCV exposure is suspected, a test for HCV RNA (test code 70096) is suggested. For additional information please refer to http://Newzstand.Crunchfish.Gongpingjia/faq/UFN41n3 (This link is being provided for informational/ educational purposes only.) 02/27/2020 11:3 1 AM EDT us Mitzy Rivas [facility] HISTORICAL/NON ORDERABLE LABS Final Result [facility] [address] from Last 3 Months or Most Recently Relevant to Health Maintenance Insurance [facility] SKILLED NURSING OPTIONS (O D-SNP) JAME [place] [id number] Care Teams Supervisor Spring Up Relationship Specialty Start Date End Date Brea Cano MD [address] [place] [phone] PCP - General Family Medicine 03/03/22
--- OUTSIDE RECORDS SUMMARY | 2025-04-26 17:35 | XMS_ITS | Patient Health Record ---
Author Organization [facility] Address [address] [place] [address] Care Team Providers Care Halftone Operator Name Role Phone Brea Cano M.D. Primary Care Provider Barry Hagen Unavailable [phone] [place], Caren Unavailable Unavailable Allergies Allergen (clinical drug ingredient) Drug/Non Drug Allergy documented on EMR Reaction Allergy Type Onset Date Status lisinopril Lisinopril Unknown Drug Allergy Activ e Results Component Value Reference Range Notes Liver Panel Reviewed date:08/17/2024 06:08:26 PM Interpretation: Performing Lab:[facility], [address] [place] [id number] Notes/Report: Bilirubin Total 0.2 0.0-1.0 mg/dL Bilirubin Direct < 0.2 0.0-0.5 mg/dL Aspartate Amino Transferase 27 5-31 U/L Alanine Aminotransferase 24 0-31 U/L Total Protein 7.5 6.5-8.0 g/dL Albumin Level 4.3 3.5-5.0 g/dL Alkaline Phosphatase 68 39-117 U/L Lipase Reviewed date:08/14/2024 09:20:10 AM Interpretation: Performing Lab:[facility], [address] [place] [id number] Notes/Report: Lipase 48 8-78 U/L NM gastric emptying study (N ot yet reviewed by provider) Interpretation: Performing Lab: Notes/Report: [address] [address] Nuclear Medicine Report Signed Patient: Cano Michelle Villanueva MR# : [id number] : 1955 Acct:[id number] Age/Sex: 69 / F ADM Date: 08/14/24 Loc: [place] Attending Dr: Barry Pugh MD Ordering Physician: Barry Pugh MD Date of Service: 08/14/24 Procedure(s): NM gastric emptying study Accession Number(s): [id number] cc: Brea Cano; Barry Pugh MD EXAMINATION: NC RADIONUCLIDE SOLID FOOD GASTRIC EMPTYING 4-HOUR STUDY [...] hours 67% 4 hours 57% (normal 0%-10%) NC/NC gastric emptying study IMPRESSION: Abnormal 4-hour solid [...] 08/15/24 0709 DD/ 0757 TD/TT: 08/14/24 1232 Production Sorter: MADHAV Reason For Referral No Information Medications Medication SIG (Take, Route, Frequency, Duration) Notes Start Date End Date Status Aspirin Adult Low Dose 81 MG 1 tablet Or ally Once a day; Duration: 30 day(s) Active Dicyclomine HCl 10 MG 1-2 Orally Q 6 wilma rs prn abdominal discomfort/cramps; Duration: 30 days 06/16/2021 Active tiZANidine HCl 4 MG 1 tablet as needed Orally once a day Active Pantoprazole Sodium 20 MG Oral Active busPIRone HCl 5 MG 1 tablet Orally Twic e a day Active metFORMIN HCl 500 MG 2 tablets Orally tw ice a day Active clonazePAM 0.5 MG 1 tablet Orally Once a day Active DOK 100 MG 1 capsule as needed Oral twice a day Active Melatonin 5 MG 1 capsule at bedtime as needed Orally Once a day; Duration: 30 day(s) Active Levothyroxine Sodium 75 MCG Oral; Duration: 90 Active buPROPion HCl ER (SR) 150 MG 1 tablet in the morning Orally Once a day; Duration: 30 day(s) Active Topiramate 100 MG Oral; Duration: 6 Active Mirtazapine 30 MG TAKE 1 TABLET BY NIRU TH AT BEDTIME FOR SLEEP OR MOOD Oral; Duration: 30 Active Ventolin HFA 108 (90 Base) MCG/ACT 1 puff as needed Inhalation every 4 hrs Active Vitamin C 500 MG as directed Orally Active Rosuvastatin Calcium 20 MG Oral; Duration: 90 Active Vitamin D3 25 MCG (1000 UT) 1 capsule Or ally Once a day; Duration: 30 day(s) Active dilTIAZem HCl ER Coated Beads 120 MG TAKE 1 CAPSULE BY MOUTH EVERY DAY Oral; Duration: 90 Active Hydrocortisone (Perianal) 2.5 % 1 application Externally Twice a day Active Losartan Potassium 25 MG TAKE 1 TABLET B Y MOUTH EVERY DAY Orally Active FeroSul 325 (65 Fe) MG 1 tablet Oral once a day Active Immunizations Vaccine Route Administration Date Status Comme nts Influenza Unknown 03/11/2020 Administered Influenza Unknown 05/11/2021 Administered Influenza Unknown 04/03/2024 Administered Influenza Unknown 03/27/2024 Administered Social History Tobacco Use: Social History [...] W/U Status Risk Notes Problem Esophageal reflux (452489598) Esophageal reflux (K21.9) Active confirmed Problem Epigastric pain (00637517) Epigastric abdominal pain (R10.13) Active confirmed Problem Screening for malignant neoplasm of colon (928059603) Encounter for screening for malignant neoplasm of colon (Z12.11) Active confirmed Problem History of adenomatous polyp of colon (973613370) History of adenomatous polyp of colon (Z86.010) Active confirmed Problem Weight loss (813023707) Weight loss (R63.4) Active confirmed Problem Navarro's esophagus (674718012) 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 confirmed Problem Irritable bowel syndrome with diarrhea (674329525) Irritable bowel syndrome with diarrhea (K58.0) Active confirmed Problem Gastroesophageal reflux disease (063295973) Gastroesophageal reflux disease (K21.9) Active confirmed Problem Iron deficiency anemia (28384120) Iron deficiency anemia (D50.9) Active confirmed Problem Gastroesophageal reflux disease without esophagitis (995486547) Gastroesophageal reflux disease without esophagitis (K21.9) Active confirmed Problem History of polyp of colon (situation) (335527745) History of colon polyps (Z86.010) Active confirmed Problem Iron deficiency anemia (33033098) Iron deficiency anemia, unspecified iron deficiency anemia type (D50.9) Active confirmed Problem Navarro esophagus (892780789) 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) Active confirmed Problem Generalized abdominal pain (783497679) Abdominal pain, generalized (R10.84) Active confirmed Problem Gastroparesis due to diabetes mellitus (020385950) Gastroparesis due to secondary diabetes (E13.43) Active confirmed Problem Irritable bowel syndrome characterized by constipation (242555654) Irritable bowel syndrome with constipation (K58.1) Active confirmed Problem Diverticular disease of colon (186780463) Diverticular disease of colon (K57.30) Active confirmed Problem Diverticulosis of colon (339054560) Diverticulosis of colon (K57.30) Active confirmed Problem Retained food in stomach (K31.89) Active confirmed Problem Gastroesophageal reflux disease (210776529) Gastroesophageal reflux disease, unspecified whether esophagitis present (K21.9) Active confirmed Problem Gastroesophageal reflux disease (disorder) (383406459) Chronic GERD (K21.9) Active confirmed Problem History of adenomatous polyp of colon (920519395) History of adenomatous polyp of colon (Z86.0101) Active confirmed Vital Signs Temperature 98.6 degrees Fahrenheit 04/03/2025 Blood pressure diastolic 01 mm Hg 04/03/2025 Height 63 in 04/03/2025 Blood pressure systolic 001 mm Hg 04/03/2025 Weight 137.8 lbs 04/03/2025 BMI 24.41 kg/m2 04/03/2025 Encounters Encounter Location Date Provider Diagnosis [facility] [address] [place] [phone] 07/13/2024 Barry Pugh Epigastric abdominal pain R10.13 ; Chronic GERD K21.9 ; Retained food in stomach K31.89 and Irritable bowel syndrome with constipation K58.1 [facility] [address] [place] [phone] 04/03/2025 Barry Pugh Gastroesophageal ref lux disease, unspecified whether esophagitis present K21.9 ; Gastroparesis due to secondary diabetes E13.43 ; Irritable bowel syndrome with diarrhea K58.0 ; Retained food in stomach K31.89 and History of adenomatous polyp of colon Z86.0101 [facility] [address] [place] [phone] 09/17/2024 Barry Pugh Irritable bowel synd jimmy with constipation K58.1 [facility] [address] [place] [phone] 02/01/2025 Barry Pugh Irritable bowel synd jimmy with constipation K58.1 Assessments Encounter Date Diagnosis [...] biopsies from the most recent exam last November did not reveal any signs of that. [...] to keep you advised of her progress. 04/03/2025 Gastroparesis due to secondary diabetes (ICD-10 - E13.43) Don't eat too much roughage like raw vegetables and salads due to your stomach emptying slowly Overall, Michelle appears quite well. She is presently not having any significant GI complaints. We did review that her abdominal discomfort that responds readily to dicyclomine seems quite consistent with some irritable bowel syndrome. I did advise her to continue to use that on a strictly as needed basis. Her reflux seems stable on her current regimen of pantoprazole and I advised her to continue that on a daily basis. 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 She does not seem particularly symptomatic in that regard but I did advise her to try to limit her roughage such as raw vegetables and salads as that could cause further delayed emptying and early satiety. We did review that she should continue her pantoprazole for the reflux as well as for any component of symptoms from the gastroparesis which could sometimes worsen reflux and include other symptoms such as belching. I did advise her to keep her diabetes in as good control as possible as well so as to allow as normal a gastric emptying as possible. We did review that she will be due for a follow-up colonoscopy in 2026 given the history of a tubular adenoma removed in 2020 and a negative colonoscopy in 2021. We also reviewed that she would undergo an upper endoscopy at that same time in 2026 due to a previous finding of Navarro's esophagus and her last endoscopy being in 2023. If things otherwise remain well I advised her to see me in the interim on a as needed basis. I did advise her to certainly call if she needs any refills on her GI medication including the pantoprazole and dicyclomine. Michelle was comfortable with this plan. Thank you again for allowing me to participate in Michelle's care. I shall continue to keep you advised of her progress as needed. 04/03/2025 Gastroesophageal reflux disease, unspecified whether esophagitis present (ICD-10 - K21.9) Continue Pantoprazole daily for the acid reflux and heartburn Repeat upper endoscopy in 2026 Overall, Michelle appears quite well. She is presently not having any significant GI complaints. We did review that her abdominal discomfort that responds readily to dicyclomine seems quite consistent with some irritable bowel syndrome. I did advise her to continue to use that on a strictly as needed basis. Her reflux seems stable on her current regimen of pantoprazole and I advised her to continue that on a daily basis. 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 She does not seem particularly symptomatic in that regard but I did advise her to try to limit her roughage such as raw vegetables and salads as that could cause further delayed emptying and early satiety. We did review that she should continue her pantoprazole for the reflux as well as for any component of symptoms from the gastroparesis which could sometimes worsen reflux and include other symptoms such as belching. I did advise her to keep her diabetes in as good control as possible as well so as to allow as normal a gastric emptying as possible. We did review that she will be due for a follow-up colonoscopy in 2026 given the history of a tubular adenoma removed in 2020 and a negative colonoscopy in 2021. We also reviewed that she would undergo an upper endoscopy at that same time in 2026 due to a previous finding of Navarro's esophagus and her last endoscopy being in 2023. If things otherwise remain well I advised her to see me in the interim on a as needed basis. I did advise her to certainly call if she needs any refills on her GI medication including the pantoprazole and dicyclomine. Michelle was comfortable with this plan. Thank you again for allowing me to participate in Michelle's care. I shall continue to keep you advised of her progress as needed. 09/17/2024 Irritable bowel syndrome with constipation (ICD-10 [...] biopsies from the most recent exam last November did not reveal any signs of that. [...] to keep you advised of her progress. 04/03/2025 Irritable bowel syndrome with diarrhea (ICD-10 - K58.0) Continue dicyclomine as needed for the stomach cramps and discomfort Overall, Michelle appears quite well. She is presently not having any significant GI complaints. We did review that her abdominal discomfort that responds readily to dicyclomine seems quite consistent with some irritable bowel syndrome. I did advise her to continue to use that on a strictly as needed basis. Her reflux seems stable on her current regimen of pantoprazole and I advised her to continue that on a daily basis. 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 She does not seem particularly symptomatic in that regard but I did advise her to try to limit her roughage such as raw vegetables and salads as that could cause further delayed emptying and early satiety. We did review that she should continue her pantoprazole for the reflux as well as for any component of symptoms from the gastroparesis which could sometimes worsen reflux and include other symptoms such as belching. I did advise her to keep her diabetes in as good control as possible as well so as to allow as normal a gastric emptying as possible. We did review that she will be due for a follow-up colonoscopy in 2026 given the history of a tubular adenoma removed in 2020 and a negative colonoscopy in 2021. We also reviewed that she would undergo an upper endoscopy at that same time in 2026 due to a previous finding of Navarro's esophagus and her last endoscopy being in 2023. If things otherwise remain well I advised her to see me in the interim on a as needed basis. I did advise her to certainly call if she needs any refills on her GI medication including the pantoprazole and dicyclomine. Michelle was comfortable with this plan. Thank you again for allowing me to participate in Michelle's care. I shall continue to keep you advised of her progress as needed. 07/13/2024 Irritable bowel syndrome with constipation (ICD-10 [...] biopsies from the most recent exam last November did not reveal any signs of that. [...] to keep you advised of her progress. 04/03/2025 Retained food in stomach (ICD-10 - K31.89) Overall, Michelle appears quite well. She is presently not having any significant GI complaints. We did review that her abdominal discomfort that responds readily to dicyclomine seems quite consistent with some irritable bowel syndrome. I did advise her to continue to use that on a strictly as needed basis. Her reflux seems stable on her current regimen of pantoprazole and I advised her to continue that on a daily basis. 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 She does not seem particularly symptomatic in that regard but I did advise her to try to limit her roughage such as raw vegetables and salads as that could cause further delayed emptying and early satiety. We did review that she should continue her pantoprazole for the reflux as well as for any component of symptoms from the gastroparesis which could sometimes worsen reflux and include other symptoms such as belching. I did advise her to keep her diabetes in as good control as possible as well so as to allow as normal a gastric emptying as possible. We did review that she will be due for a follow-up colonoscopy in 2026 given the history of a tubular adenoma removed in 2020 and a negative colonoscopy in 2021. We also reviewed that she would undergo an upper endoscopy at that same time in 2026 due to a previous finding of Navarro's esophagus and her last endoscopy being in 2023. If things otherwise remain well I advised her to see me in the interim on a as needed basis. I did advise her to certainly call if she needs any refills on her GI medication including the pantoprazole and dicyclomine. Michelle was comfortable with this plan. Thank you again for allowing me to participate in Michelle's care. I shall continue to keep you advised of her progress as needed. 04/03/2025 History of adenomatous polyp of colon (ICD-10 - Z86.0101) Repeat colonoscopy in 2026 Overall, Michelle appears quite well. She is presently not having any significant GI complaints. We did review that her abdominal discomfort that responds readily to dicyclomine seems quite consistent with some irritable bowel syndrome. I did advise her to continue to use that on a strictly as needed basis. Her reflux seems stable on her current regimen of pantoprazole and I advised her to continue that on a daily basis. 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 She does not seem particularly symptomatic in that regard but I did advise her to try to limit her roughage such as raw vegetables and salads as that could cause further delayed emptying and early satiety. We did review that she should continue her pantoprazole for the reflux as well as for any component of symptoms from the gastroparesis which could sometimes worsen reflux and include other symptoms such as belching. I did advise her to keep her diabetes in as good control as possible as well so as to allow as normal a gastric emptying as possible. We did review that she will be due for a follow-up colonoscopy in 2026 given the history of a tubular adenoma removed in 2020 and a negative colonoscopy in 2021. We also reviewed that she would undergo an upper endoscopy at that same time in 2026 due to a previous finding of Navarro's esophagus and her last endoscopy being in 2023. If things otherwise remain well I advised her to see me in the interim on a as needed basis. I did advise her to certainly call if she needs any refills on her GI medication including the pantoprazole and dicyclomine. Michelle was comfortable with this plan. Thank you again for allowing me to participate in Michelle's care. I shall continue to keep you advised of her progress as needed. Plan Of Treatment Pending Test Test Name Order Date LIVER PROFILE 07/13/2024 LIPASE 07/13/2024 NUC GASTRIC ANTRUM EMPTYING 07/13/2024 US ABD 01/20/2021 NM gastric emptying study 08/14/2024 Future Test Test Name Order Date UPPER GI ENDOSCOPY 01/20/2021 COLONOSCOPY 01/20/2021 COLONOSCOPY 06/16/2021 UPPER GI ENDOSCOPY 06/10/2023 Insurance Providers Payer Name Payer Address Payer Phone Subscriber Number Group Number Insured Name Patient Relationship to Insured Coverage Start Date Coverage End Date [facility] [address] Attn Claims [place] [id number] SANDIEMICHELLE SCHWARTZ Self - patient is the insured Medical (General) History Medical History History ICD Code NIDDM Hypertension Hypothyroidism Denies NE,CVA,renal disease EGD with biopsies in 2006 was negative f or celiac disease, ulcers, H.pylori Colonoscopy in 2006 was negative for jill yps, IBD, nor microscopic colitis EGD in 2001 was + for H.pylori- treated with antibiotics Anxiety Mild asthma Iron def. anemia in 03/2020 f or which she received Iron infusions- sees Dr. Ventura Colonoscopy in February revealed a [...] food in the stomach and small bowel. Gastroparesis as seen on a [facility] gastric emptying study in August 2024 Surgical History Surgery Date(Month/Year) Cholecystectomy for acalculous cholecyst itis-Dr. Paul 2022 Hysterectomy with removal of one ovary
--- OUTSIDE RECORDS SUMMARY | 2025-04-26 17:35 | XMS_ITS | Encounter Summary ---
Author Organization [employer] Address [address] [facility] [address] [place] [address] Care Team Providers Care Wharf Helper Name Role Phone Brea Cano MD Primary Care Provider [phone] Encounter Details Date Type Department Care Team (Latest Contact Info) Description 04/26/2025 Travel Social History Tobacco Use Types Packs/Day Years [...] Description 04/30/2025 2:00 PM EDT Clinical Support [facility] MEDICINE [address] [place] [address] documented as of this encounter Visit Diagnoses Not on filedocumented in this encounter Additional Health Concerns Assessment Noted Time PHQ-9 Depression Total Score: 9 12/12/19 25 11:36 AM EDT documented as of this encounter Care Teams Wharf Helper Relationship Specialty Start Date End Date Brea Cano MD [address] [place] [address] PCP - General Family Medicine 03/03/22 documented as of this encounter
--- OUTSIDE RECORDS SUMMARY | 2025-04-26 17:35 | XMS_ITS | Encounter Summary ---
Author Organization [employer] Address [address] [place] [address] [address] [place] [address] Care Team Providers Care Chemical Sales Representative Name Role Phone Brea Cano MD Primary Care Provider [phone] Encounter Details Date Type Department Care Team (Latest Contact Info) Description 02/05/2019 Abstract [facility] Dental, Provider, DDS Social History Tobacco [...] Description 04/30/2025 2:00 PM EDT Clinical Support [facility] [address] [place] [address] documented as of this encounter Visit Diagnoses Not on filedocumented in this encounter Care Teams Chemical Sales Representative Relationship Specialty Start Date End Date Brea Cano MD [address] [place] [address] PCP - General Family Medicine 03/03/22 documented as of this encounter
--- OUTSIDE RECORDS SUMMARY | 2025-04-26 17:35 | XMS_ITS | Encounter Summary ---
Author Organization [employer] Address [address] [place] [address] [address] [place] [address] Care Team Providers Care Nurse Practitioner Physicians Assistant Name Role Phone Brea Cano MD Primary Care Provider [phone] Encounter Details Date Type Department Care Team (Late st Contact Info) Description 08/18/2022 Abstract [facility] MEDICINE [address] [place], [place] [id number] Margarita Sanchez, RACHEAL [address] [place] [address] Social History Tobacco Use Types Packs/Day Years [...] Not at all 08/20/2022 11:18 AM Jose Hernanedz [place] Poor appetite or overeating Not at [...] Description 04/30/2025 2:00 PM EDT Clinical Support [address] [address] documented as of this encounter Procedures Procedure Name Priority Date/Time Associated Diagnosis Comments HM MAMMOGRAPHY Routine 08/16/2022 documented in this encounter Results * Mammography (08/16/2022) Mammogram BIRADS 1: Negative Anatomical Region Laterality Modality Other Historical Provider HEALTH MAINTENANCE Final Result documented in this encounter Visit Diagnoses Not on filedocumented in this encounter Care Teams Nurse Practitioner Physicians Assistant Relationship Specialty Start Date End Date Brea Cano MD [address] [place] [address] PCP - General Family Medicine 03/03/22 documented as of this encounter
--- OUTSIDE RECORDS SUMMARY | 2025-04-26 17:35 | XMS_ITS | Encounter Summary ---
Author Organization [facility] Address [address] [place] [address] [address] [place] [address] Care Team Providers Care Hearing Screen Coordinator Name Role Phone Brea Cano MD Primary Care Provider [phone] Encounter Details Date Type Department Care Team (Latest Contact Info) Description 08/18/2020 Abstract [facility] Dental, Provider, DDS Social History Tobacco [...] Description 04/30/2025 2:00 PM EDT Clinical Support [facility] MEDICINE [address] [place] [address] documented as of this encounter Visit Diagnoses Not on filedocumented in this encounter Care Teams Hearing Screen Coordinator Relationship Specialty Start Date End Date Brea Cano MD [address] [place] [address] PCP - General Family Medicine 03/03/22 documented as of this encounter
--- OUTSIDE RECORDS SUMMARY | 2025-04-26 17:35 | XMS_ITS | Encounter Summary ---
Author Organization [employer] Address [address] [place] [address] 7[address] [place] [address] Care Team Providers Care Senior Project Architect Name Role Phone Brea Cano MD Primary Care Provider [phone] Encounter Details Date Type Department Care Team (Late st Contact Info) Description 10/28/2023 Orders Only [facility] MEDICINE [address] [place], [place] [phone] Brea Cano MD [address] [place], [place] [phone] Social History Tobacco Use Types Packs/Day Years [...] Description 04/30/2025 2:00 PM EDT Clinical Support [facility] MEDICINE [address] [place] [address] documented as of this encounter Visit Diagnoses Not on filedocumented in this encounter Additional Health Concerns Assessment Noted Time PHQ-9 Depression Total Score: 0 10/20/19 24 11:04 AM EDT documented as of this encounter Care Teams Senior Project Architect Relationship Specialty Start Date End Date Brea Cano MD [address] [place] [address] PCP - General Family Medicine 03/03/22 documented as of this encounter
--- OUTSIDE RECORDS SUMMARY | 2025-04-26 17:35 | XMS_ITS | Encounter Summary ---
Author Organization [employer] Address [address] [place] [address] 7t [place] [address] Care Team Providers Care Cushion Stuffer Name Role Phone Brea Cano MD Primary Care Provider [phone] Encounter Details Date Type Department Care Team (Late Contact Info) Description 03/16/2023 Orders Only [facility] MEDICINE [address] [place] [phone] Provider, MD Denisse Social History Tobacco Use Types Packs/Day Years [...] Description 04/30/2025 2:00 PM EDT Clinical Support [address] [address] documented as of this encounter Procedures Procedure [...] documented as of this encounter Care Teams Cushion Stuffer Relationship Specialty Start Date End Date Brea Cano MD [address] [place] [phone] PCP - General Family Medicine 03/03/22 documented as of this encounter
--- OUTSIDE RECORDS SUMMARY | 2025-04-26 17:35 | XMS_ITS | Encounter Summary ---
Author Organization [employer] Address [address] [place] [address] 7t [place] [address] Care Team Providers Care Assistant Men'S Soccer Coach Name Role Phone Brea Cano MD Primary Care Provider [phone] Reason for Visit * Reason Onset Date Comments Nurse Triage 06/12/2024 Encounter Details Date Type Department Care Team (Late st Contact Info) Description 06/12/2024 Telephone [facility] MEDICINE [address] [place], [place] [phone] Brea Cano MD [address] [place], [place] [phone] Nurse Triage Social History Tobacco Use Types [...] 06/12/2024 12:24 PM EST Triage call with [place] [id number]. Pt reports cough and fever for 3 [...] provider and is advised to come to [facility] which is open till 8pm [...] Description 04/30/2025 2:00 PM EDT Clinical Support [facility] [address] [place] [address] documented as of this encounter Visit Diagnoses Not on filedocumented in this encounter Additional Health Concerns Assessment Noted Time PHQ-9 Depression Total Score: 0 10/20/19 24 11:04 AM EDT documented as of this encounter Care Teams Assistant Men'S Soccer Coach Relationship Specialty Start Date End Date Brea Cano MD [address] [place] [phone] PCP - General Family Medicine 03/03/22 documented as of this encounter
--- OUTSIDE RECORDS SUMMARY | 2025-04-26 17:35 | XMS_ITS | Encounter Summary ---
Author Organization [employer] Address [address] [place] [address] 7t [place] [address] Care Team Providers Care Surgery Assistant Name Role Phone Brea Cano MD Primary Care Provider [phone] Encounter Details Date Type Department Care Team (Latest Contact Info) Description 01/25/2022 Abstract [facility] CONVERSIONS Dental, Provider, DDS Social History [...] Description 04/30/2025 2:00 PM EDT Clinical Support [facility] MEDICINE [address] [place] [address] documented as of this encounter Visit Diagnoses Not on filedocumented in this encounter Care Teams Surgery Assistant Relationship Specialty Start Date End Date Brea Cano MD [address] [place] [address] PCP - General Family Medicine 03/03/22 documented as of this encounter
== END 2025-04-26 15:06 | disposition home or self-care (01) ==
LOC: HO.HHCL 15:05
PROVIDERS: Internal Medicine Hypertension Specialist; PCP General Practice; Visit Provider General Practice
DX: E11.22 Type 2 diabetes mellitus with diabetic chronic kidney disease (principal); N18.9 Chronic kidney disease, unspecified; D50.9 Iron deficiency anemia, unspecified
CPT/HCPCS: 36415; 81001; 82043; 82570; 84443; 85025

== ENCOUNTER 2025-05-18 09:00 | Outpatient (REF) | payer OTHER, SELFPAY ==
--- NOTE | ~2025-05-18 | CT_ITS ---
CLINICAL HISTORY: G43.009 - Migraine without aura, not intractable, without status migrain... CT head without contrast Comparison: None provided Findings: No intra-axial mass, midline shift, hydrocephalus, or acute hemorrhage. Mild age-related cerebral hemispheric white matter ischemic changes. Left sphenoid sinus polyp/retention cyst The orbits are within normal limits. There is no acute fracture. IMPRESSION: 1. No acute intracranial findings. This document has been electronically signed by: Anjali Whelan MD on 05/20/2025 09:16:36
--- OUTSIDE RECORDS SUMMARY | 2025-05-18 09:02 | XMS_ITS | Clinical Summary ---
Author Organization [employer] Address [address] [place] [address] 7t [place] [address] Care Team Providers Care Tying Machine Operator Lumber Name Role Phone Brea Cano MD Primary Care Provider [phone] Allergies Active Allergy Reactions Criticality Noted Date [...] 02/24/20 23 Active Blood Glucose Monitoring Suppl (Upshot) w/Device kit 1 each 2 times daily. TEST BLOOD SUGAR TWICE DAILY 1 kit 04/21/20 23 Active etodolac (Lodine) 400 MG tablet 09/22/19 24 Active methylPREDNISo lone (Medrol Dospak) 4 MG tablets 10/19/19 24 Active busPIRone (Buspar) 10 MG tablet Take 10 mg by mouth if needed in the morning and at bedtime. 10/11/19 24 Active Lancets (YOOSE DelDoximity) lancets 30G 1 each by Other route 2 times daily. TEST BLOOD SUGAR TWICE DAILY 100 each 11 05/25/20 24 026 Active glucose blood (YOOSE VerYvolver) test stripIndicatio ns:Type 2 diabetes mellitus without complication, without long-term current use of insulin ([facility]) TEST BLOOD SUGAR TWICE DAILY 100 [...] BREAKFAST 90 tablet 3 08/15/19 25 Active metFORMIN (Glucophage) 500 MG tabletIndicati ons:Type 2 diabetes mellitus with hyperglycemia, without long-term current use of insulin (HCC) Take 2 tablets (1,000 mg) by mouth with breakfast and with evening meal. 360 tablet 3 09/19/19 25 Active losartan (Cozaar) 25 MG tablet [...] 03/05/20 25 Active propranolol (Inderal) 10 MG tabletIndicati ons:Essential hypertension,C hronic migraine without aura without status migrainosus, not intractable Take 1 tablet by mouth Once per day. 03/08/20 25 Active clotrimazole (Lotrimin) 1 % creamIndicatio ns:Tinea pedis of both feet Apply topically 2 times daily. 30 g 2 04/26/20 25 Active Ferrous Sulfate (iron) 325 (65 Fe) MG tablet TAKE 1 TABLET BY MOUTH EVERY OTHER DAY WITH A FULL GLASS OF WATER 45 tablet 1 05/13/20 25 Active pantoprazole (ProtoNix) 40 MG EC tablet TAKE 1 TABLET BY MOUTH EVERY DAY 90 tablet 2 05/13/20 25 Active Ascorbic Acid (vitamin C) 500 MG tablet TAKE 1 TABLET BY MOUTH EVERY DAY WITH IRON AND A FULL GLASS OF WATER 90 tablet 3 05/13/20 25 Active D3-1000 25 MCG (1000 UT) capsule TAKE 1 CAPSULE BY MOUTH EVERY MORNING 90 capsule 3 05/13/20 25 Active Ascorbic Acid (vitamin C) 500 MG tablet TAKE 1 TABLET BY MOUTH EVERY DAY WITH IRON SUPPLEMENT AND FULL GLASS OF WATER 90 tablet 3 05/16/20 24 025 Discontinued D3-1000 25 MCG (1000 UT) capsule TAKE 1 CAPSULE BY MOUTH DAILY IN THE MORNING 90 capsule 3 05/16/20 24 025 Discontinued pantoprazole (ProtoNix) 40 MG EC tablet TAKE 1 TABLET BY MOUTH EVERY DAY 90 tablet 2 08/19/19 25 025 Discontinued Ferrous Sulfate (iron) 325 (65 Fe) MG tablet TAKE 1 TABLET BY MOUTH EVERY OTHER DAY WITH A FULL GLASS OF WATER 45 tablet 1 10/05/19 25 025 Discontinued clotrimazole (Lotrimin) 1 % cream APPLY TOPICALLY TO THE AFFECTED AREA(S) TWICE DAILY DIRECTED FOR 28 DAYS 30 g 2 01/19/20 25 025 Discontinued(Re order (will not trigger notification to Pharmacy)) Active Problems Problem Noted Date Diagnosed Date Mixed stress and urge urinary incontinence 04/30 Assessment & Plan (04/30/2025 11:02 AM EDT): DME for poise pads Diabetic gastroparesis 04/29/2025 Epigastric pain 12/11/2024 Stage 3a chronic kidney [...] Encounters Date Type Department Care Team Description 05/13/2025 Refill [facility] MED & PEDS [address] [place] [address] Brea Cano MD 04/30/2025 2:00 PM EDT Immunization [facility] MEDICINE [address] [place] [address] [phone] Encounter for vaccination 04/30/2025 Travel 04/30/[address] [address] Brea Cano MD Durable Medical Equipment (DME: Poise Pads) 04/26/2025 2:15 PM EDT Office Visit [address] [address] Brea Cano MD Type 2 diabetes mellitus without complication, without long-term current use of insulin (HCC) (Primary Dx); Encounter for immunization; Diabetic gastroparesis (HCC); Essential hypertension; Other specified hypothyroidism; Gastroesophageal reflux disease without esophagitis; Navarro's 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 dysplasia; Chronic migraine without aura without status migrainosus, not intractable; Tinea pedis of both feet; Mixed stress and urge urinary incontinence 04/26/2025 Orders Only GENERIC EXTERNAL DATA DEPARTMENT Provider, Generic External Data 04/26/2025 Travel 03/15/2025 Orders Only GENERIC EXTERNAL DATA DEPARTMENT Provider, Generic External Data 03/04/2025 Refill [facility] MEDICINE [address] [place] [address] Brea Cano MD from Last 3 Months [...] 6+ Bivalent 06/19/2022 Pfizer Covid-19 Vaccine 12+ 04/30/2025,,04/14/2023 Pneumococcal Conjugate PCV 20 03/07/2024 Pneumococcal Polysaccharide [...] 04/26/2025 2:14 PM EDT Plan of Treatment Health Maintenance Due Date Last Done Comments CT Colonography 1955 FIT DNA/Cologuard 1955 FIT 1955 FOBT 1955 Sigmoidoscopy 1955 Eye Exam 02/15/1966 RSV Patients and Patients Aged 60 years or older (1 - Risk 60-74 years 1-dose series) 2016 Diabetes: Foot Exam 10/19/2024 10/20/2023 Depression Monitoring 06/12/2025 12/11/2024, 025 Diabetes: Hemoglobin A1C 06/12/2025 025, 06/06/2024, 03/07/2024, Additional history exists Mammogram 08/24/2025 08/24/2024, 09/09, 08/22/2023, Additional history exists SDOH Screening 11/29/2025 11/29/2024 Alcohol/Substance Use Screening 12/11/2025 12/11/2024 Lipid Panel 12/11/2025 12/11/2024, 0408/2023, 06/15/2021, Additional history exists Diabetes: Urine Protein Screening 04/26/2026 04/26/2025, 04/12/2024, 10/21/2023, Additional history exists Tobacco Screening 04/26/2026 04/26/2025 Colonoscopy 10/16/2026 10/16/2021 Colorectal Cancer Screening 10/16/2026 DTaP/Tdap/Td Vaccines (3 - Td or Tdap) 04/26/2035 04/26/2025, 03/21/2014, 04/12/2003 Hepatitis B Vaccines Completed 05/01/2018, 12/01/2017, 10/17/2017 Hepatitis C Screening Completed 02/27/2020 Zoster Vaccines Completed 05/19/2021, 02/09, 12/03/2016 Pneumococcal Vaccine: 50+ Years Completed 03/07/2024, 08/20/2021, 12/26/2003 Influenza Vaccine Completed 04/26/2025, , 04/03/2024, Additional history exists COVID-19 Vaccine Completed 04/30/2025, , 04/14/2023, Additional history exists HIB Vaccines Aged Out [...] PROTEIN Routine 03/15/2025 12 :02 PM EDT LIPID PANEL, STANDARD Routine 12/11/2024 12:16 [...] 3:13 PM EDT) Creatinine, Urine 101.65 mg/dL [facility] Microalbumin Urine 13.0 mg/L [facility] Microalbum Creatinine Ratio Ur 12.7 <30 ug/mg cr [facility] Comment:Albumin/Creatinine R atio Reference Ranges: Normal: < 30 ug/mg creatinine Microalbuminuria: 30 - 300 ug/mg creatinineClinical Albuminuria: > 300 ug/mg creatinine Urine (Urine, Random) 04/26/2025 3:13 PM EDT 04/26/2025 4:04 PM EDT us Brea Cano MD LAB URINE ORDERABLES Final Res ult [facility] [address] [place] [phone] * (ABNORMAL) Urinalysis Complete (04/26/2025 3:13 PM EDT) Color Urine Yellow [facility] Appearance Urine Clear [facility] PH 5.0 5.0 - 9.0 [facility] Glucose Urine UA Negative Negative mg/dL [facility] Urine Blood Negative Negative [facility] Specific [place] - Urine 1.025 1.005 - 1.025 [facility] Urine Protein Negative Neg-Trace mg/dL [facility] Urine Ketones Negative Negative mg/dL [facility] Nitrite Urine Negative Negative [facility] Leukocyte Esterase Urine Small (1+)(A) Negative [facility] RBC Urine 0-2 0 - 2 /HPF [facility] Urine WBC 11-20(A) 0 - 5 /HPF [facility] Urine Squamous Epithelial Cell 0-2 0 - 2 /HPF [facility] Urine Bacteria None Seen None Seen [facility] Hyaline Casts, Urine 0-2 0 - 2 /LPF [facility] 04/26/2025 3:13 PM EDT 04/26/2025 4:04 PM EDT us Generic External Data Provider LAB URINE ORDERAB LES Final Result Performing Organization Address [facility]/ZIP Co de Phone Number [facility] [address] [place] [phone] * TSH W/Reflex to FT4 (04/26/2025 3:12 PM EDT) Pathologist [facility] TSH reflex Free T4 0.95 0.32 - 4.0 uIU/mL [facility] Blood Venous blood specimen / Unknown 04/26/2025 3:12 PM EDT 04/26/2025 4:02 PM EDT us Brea Cano MD LAB BLOOD ORDERABLES Final Res ult Performing Organization Address [facility] Co de Phone Number [facility] [address] [place] [phone] * (ABNORMAL) CBC auto differential (04/26/2025 3:12 PM EDT) Pathologist [facility] White Blood Count 6.5 4.8 - 10.8 X10*3/uL [facility] Red Blood Count 4.33 4.20 - 5.50 X10*6/uL [facility] Hemoglobin 12.4 12.0 - 16.0 g/dl [facility] Hematocrit 38.3 37.0 - 47.0 % [facility] Mean Corpuscular Volume 88.5 80.0 - 98.0 fL [facility] Mean Corpuscular Hemoglobin 28.6 27.0 - 33.0 pg [facility] Mean Corpuscular HGB Conc 32.4 31.0 - 35.0 g/dl [facility] Red Cell Distribution Width 12.8 11.0 - 16.0 % [facility] Platelet Count 251 160 - 400 X10*3/uL [facility] Mean Platelet Volume 9.6 9.4 - 12.3 fL [facility] Neutrophils Percent Auto 59.7 45 - 73 % [facility] Imm Gran Pct Auto 0.5(H) 0.0 - 0.4 % [facility] Lymphocytes Percent Auto 27.4 20 - 40 % [facility] Monocytes Percent Auto 7.4 2 - 11 % [facility] Eosinophils Percent Auto 3.8 0 - 4 % [facility] Basophils Percent Auto 1.2 0 - 2 % [facility] NRBC Pct Auto 0.0 0.0 - 0.2 /100WBC [facility] Neutrophils Absolute Auto 3.9 2.0 - 8.3 x10*3/uL [facility] Imm Gran Abs Auto 0.03 0.00 - 0.03 X10*3/uL [facility] Lymphocytes Absolute Auto 1.8 1.2 - 4.9 X10*3/uL [facility] Monocytes Absolute Auto 0.5 0.1 - 1.2 X10*3/uL [facility] Eosinophils Absolute Auto 0.3 0.0 - 0.4 X10*3/uL [facility] Basophils Absolute Auto 0.1 0.0 - 0.2 X10*3/uL [facility] NRBC Abs Auto 0.000 0.0 - 0.012 X10*3/uL [facility] Blood Venous blood specimen / Unknown 04/26/2025 3:12 PM EDT 04/26/2025 4:02 PM EDT us Brea Cano MD LAB BLOOD ORDERABLES Final Res ult [facility] [address] [place], [place] [phone] * POCT Glucose (04/26/2025 2:41 PM EDT) Glucose Blood, POC 158 60 - 200 mg/dL [employer] Lot # [id number] Lot# Expiration Date 3026 Blood Capillary blood specimen / Unknown 04/26/2025 2:41 PM EDT us Brea Cano MD POINT OF CARE TEST ENTER/EDIT ORDERABLES Final Result * Sed Rate by Sharona Steel (03/15/2025 12:02 PM EDT) Erythrocyte Sedimentation Rate 9 0 - 20 MM/HR [facility] Comment:Patients with polycy themia and many hemoglobin abnormalitiesmay have depressed sed rates whereas patients with anemiamay have elevated sed rates. 03/15/2025 12:0 2 PM EDT 03/15/2025 12:02 PM EDT Generic External Data Provider LAB BLOOD ORDERAB LES Final Result Performing Organization Address [facility] Co de Phone Number [facility] [address] [place] [phone] * C-reactive Protein (03/15/2025 12:02 PM EDT) C Reactive Protein 0.13 < or = 0.50 mg/dL [facility] 03/15/2025 12:0 2 PM EDT 03/15/2025 12:02 PM EDT Generic External Data Provider LAB BLOOD ORDERAB LES Final Result Performing Organization Address City/[facility]/ZIP Co de Phone Number [facility] [address] [place] [phone] * Lipid Panel, Standard (12/11/2024 12:16 PM EDT) Triglycerides 136 <150 mg/dL [facility] Comment:Desirable Triglyceri de: less than 150 mg/dLBorderline High Triglyceride 150-199 mg/dLHigh Triglyceride: 200-499 mg/dLVery High Triglyceride: greater than or equal to 5OO mg/dL Cholesterol 94 <200 mg/dL [facility] Comment:Desirable Cholestero l: less than 200 mg/dLBorderline High Cholesterol: 200-239 mg/dLHigh Cholesterol: greater than 239 mg/dL LDL Cholesterol Calculated 25 <100 mg/dL [facility] Comment:Desirable LDL: less than 100 mg/dLNear Optimal/Above Optimal LDL: 110- 129 mg/dLBorderline High LDL: 130-159 mg/dLHigh LDL: 160-189 mg/dLVery High LDL: greater than or equal to 190 mg/dL HDL Cholesterol 42 >40 mg/dL [facility] Comment:Desirable HDL: great er than 40 mg/dL Note: This HDL assay may give artificially low results in patients with liver disease. Blood Venous blood specimen / Unknown 12/11/2024 12:16 PM EDT 12/11/2024 5:01 PM EDT Brea Cano MD LAB BLOOD ORDERABLES Final Res ult [facility] [address] [place] [phone] * (ABNORMAL) POCT HGB A1C (12/11/2024 [...] PM EST Narrative 09/01/2024 1:38 PM EST [facility] [address] [place] [address] Mammography Report Signed Patient: Michelle Sparrow MR# : [id number] : 1955 Acct:[id number] Age/Sex: 69 / F ADM Date: 08/24/24 Loc: [facility] Attending Dr: Brea Cano MD Ordering Physician: Brea Cano Results: 1Negative Date of Service: 08/24/24 Follow Up: 1 Year From Orig inal Mammogram Procedure(s): MM tomosynthesis screening BI Accession Number(s): [id number] cc: Brea Cano EXAMINATION: MM SCREENING DIGITAL [...] by: Elizabeth Hays DO 09/01/2024 01:35 PM [facility] Dictated By: Elizabeth Hays DO Signed By: <Electronically signed by Elizabeth Hays DO in OV> 09/01/24 1335 DD/ 1230 TD/TT: 08/24/24 1307 Hydroponics Worker: Procedure Note Donotuseinterpreter, Image - 09/01/2024 [facility] [address] [place], [place] [address] Mammography Report Signed Patient: Michelle Sparrow [facility]# : [id number] : 6Acct:[id number] Age/Sex: 69 / FADM Date: 08/24/24 Loc: [facility] Attending Dr: Brea Cano MD Ordering Physician: Dave Canoults: 1Negative Date of Service: 08/24/24Follow Up: 1 Year From Orig inal Mammogram Procedure(s): MM tomosynthesis screening BI Accession Number(s): [id number] cc: Brea Cano EXAMINATION: MM SCREENING DIGITAL [...] 09/01/24 1335 DD/ 1230 TD/TT: 08/24/24 1307 Hydroponics Worker: Brea Cano MD IM BI PROCEDURES Edited Resul t - Final * Hm Colonoscopy (10/16/2021) Historical Provider HEALTH MAINTENANCE Final Result * HEPATITIS C AB W/REFL TO HCV RNA, QN, PCR (02/27/2020 11:31 AM EDT) HEPATITIS C ANTIBODY NON-REACT ALY NON-REACT ALY [facility] INDEX 0.02 <1.00 [facility] Comment: HCV antibody was non-reactive. There is no laboratory evidence of HCV infection. In most cases, no further action is required. However, if recent HCV exposure is suspected, a test for HCV RNA (test code 86695) is suggested. For additional information please refer to http://education.questdiagnostics.com/faq/VAM30n8 (This link is being provided for informational/ educational purposes only.) HEPATITIS C ANTIBODY NON-REACT ALY NON-REACT ALY [facility] INDEX 0.02 <1.00 [facility] Comment: HCV antibody was non-reactive. There is no laboratory evidence of HCV infection. In most cases, no further action is required. However, if recent HCV exposure is suspected, a test for HCV RNA (test code 34197) is suggested. For additional information please refer to http://EndPlay/faq/PII87h5 (This link is being provided for informational/ educational purposes only.) HEPATITIS C ANTIBODY NON-REACT ALY NON-REACT ALY [facility] INDEX 0.02 <1.00 [facility] Comment: HCV antibody was non-reactive. There is no laboratory evidence of HCV infection. In most cases, no further action is required. However, if recent HCV exposure is suspected, a test for HCV RNA (test code 86519) is suggested. For additional information please refer to http://EndPlay/faq/IYI48e6 (This link is being provided for informational/ educational purposes only.) HEPATITIS C ANTIBODY NON-REACT ALY NON-REACT ALY [facility] INDEX 0.02 <1.00 [facility] Comment: HCV antibody was non-reactive. There is no laboratory evidence of HCV infection. In most cases, no further action is required. However, if recent HCV exposure is suspected, a test for HCV RNA (test code 11050) is suggested. For additional information please refer to http://EndPlay/faq/HMQ05h6 (This link is being provided for informational/ educational purposes only.) HEPATITIS C ANTIBODY NON-REACT ALY NON-REACT ALY [facility] INDEX 0.02 <1.00 [facility] Comment: HCV antibody was non-reactive. There is no laboratory evidence of HCV infection. In most cases, no further action is required. However, if recent HCV exposure is suspected, a test for HCV RNA (test code 65843) is suggested. For additional information please refer to http://EndPlay/faq/NDY77x8 (This link is being provided for informational/ educational purposes only.) 02/27/2020 11:3 1 AM EDT Mitzy Rivas BUS WASHER HISTORICAL/NON ORDERABLE LABS Final Result [facility] [address] [place] [address], from Last 3 Months or Most Recently Relevant to Health Maintenance Insurance [facility] OPTIONS (HMO D-SNP) Care Teams Tying Machine Operator Lumber Relationship Specialty Start Date End Date Brea Cnao MD [address] [place] [phone] PCP - General Family Medicine 03/03/22
--- OUTSIDE RECORDS SUMMARY | 2025-05-18 09:02 | XMS_ITS | Encounter Summary ---
Author Organization [employer] Address [address] [place] [address] 7t [place] [address] Care Team Providers Care Ship Wirer Name Role Phone Brea Cano MD Primary Care Provider [phone] Encounter Details Date Type Department Care Team (Late st Contact Info) Description 10/28/2023 Orders Only [facility] MED[facility]INE [address] [place], [place] [phone] Brea Cano MD [address] [place], [place] [phone] Social History Tobacco Use Types Packs/Day Years [...] documented as of this encounter Care Teams Ship Wirer Relationship Specialty Start Date End Date Brea Cano MD [address] [place] [address] PCP - General Family Medicine 03/03/22 documented as of this encounter
--- OUTSIDE RECORDS SUMMARY | 2025-05-18 09:03 | XMS_ITS | Encounter Summary ---
Author Organization [employer] Address [address] [place] [address] 7t [place] [address] Care Team Providers Care Data Collection Associate Name Role Phone Bera Cano MD Primary Care Provider [phone] Reason for Visit * Reason Onset Date Comments Nurse Triage 06/12/2024 Encounter Details Date Type Department Care Team (Late st Contact Info) Description 06/12/2024 Telephone [facility] MEDICINE [address] [place], [place] [phone] Brea Cano MD [address] [place], [place] [phone] Nurse Triage Social History Tobacco Use Types [...] 06/12/2024 12:24 PM EST Triage call with [email or web address] [address]. Pt reports cough and fever for 3 [...] provider and is advised to come to [facility] which is open till 8pm this [...] documented as of this encounter Care Teams Data Collection Associate Relationship Specialty Start Date End Date Brea Cano MD [address] [place] [address] PCP - General Family Medicine 03/03/22 documented as of this encounter
--- OUTSIDE RECORDS SUMMARY | 2025-05-18 09:03 | XMS_ITS | Encounter Summary ---
Author Organization [employer] Address [address] [place] [address] 7t [place] [address] Care Team Providers Care Irrigation Foreman Name Role Phone Brea Cano MD Primary Care Provider [phone] Encounter Details Date Type Department Care Team (Late st Contact Info) Description 08/18/2022 Abstract [facility] MEDICINE [address] [place], [place] [phone] Margarita Sanchez, RACHEAL [address] [place] [address] Social History Tobacco Use Types Packs/Day Years [...] on filedocumented in this encounter Care Teams Irrigation Foreman Relationship Specialty Start Date End Date Brea Cano MD [address] [place] [address] PCP - General Family Medicine 03/03/22 documented as of this encounter
--- OUTSIDE RECORDS SUMMARY | 2025-05-18 09:03 | XMS_ITS | Encounter Summary ---
Author Organization [employer] Address [address] [place] [address] 7t [place] [address] Care Team Providers Care Glost Tile Sorter Name Role Phone Brea Cano MD Primary Care Provider [phone] Encounter Details Date Type Department Care Team (Latest Contact Info) Description 08/18/2020 Abstract [facility] CONVERSIONS Dental, Provider, DDS Social History [...] on filedocumented in this encounter Care Teams Glost Tile Sorter Relationship Specialty Start Date End Date Brea Cano MD [address] [place] [address] PCP - General Family Medicine 03/03/22 documented as of this encounter
--- OUTSIDE RECORDS SUMMARY | 2025-05-18 09:03 | XMS_ITS | Encounter Summary ---
Author Organization [employer] Address [address] [place] [address] 7t [place] [address] Care Team Providers Care Cutter Grinder Operator Name Role Phone Brea Cano MD Primary Care Provider [phone] Reason for Visit * Reason Comments Med Refill Encounter Details Date Type Department Care Team (Late st Contact Info) Description 05/13/2025 Refill [facility] [address] [place] [address] Brea Cano MD 230 [place] [address] Social History Tobacco Use Types Packs/Day Years [...] documented as of this encounter Care Teams Cutter Grinder Operator Relationship Specialty Start Date End Date Brea Cano MD [address] [place] [address] PCP - General Family Medicine 03/03/22 documented as of this encounter
--- OUTSIDE RECORDS SUMMARY | 2025-05-18 09:03 | XMS_ITS | Encounter Summary ---
Author Organization [employer] Address [address] [facility] 7t [place] [address] Care Team Providers Care Casey Saw Operator Name Role Phone Brea Cano MD Primary Care Provider [phone] Encounter Details Date Type Department Care Team (Late st Contact Info) Description 05/03/2023 Abstract [facility] MEDICINE [address] [place], [place] [phone] Brea Cano MD 230 [place] [address] Social History Tobacco Use Types Packs/Day Years [...] documented as of this encounter Care Teams Casey Saw Operator Relationship Specialty Start Date End Date Brea Cano MD [address] [place] [address] PCP - General Family Medicine 03/03/22 documented as of this encounter
--- OUTSIDE RECORDS SUMMARY | 2025-05-18 09:03 | XMS_ITS | Encounter Summary ---
Author Organization [employer] Address [address] [place] [address] 7t [place] [address] Care Team Providers Care Party Plan Salesperson Name Role Phone Brea Cano MD Primary Care Provider [phone] Encounter Details Date Type Department Care Team (Latest Contact Info) Description 02/05/2019 Abstract [facility] CONVERSIONS Dental, Provider, DDS Social History [...] on filedocumented in this encounter Care Teams Party Plan Salesperson Relationship Specialty Start Date End Date Brea Cano MD [address] [place] [address] PCP - General Family Medicine 03/03/22 documented as of this encounter
--- OUTSIDE RECORDS SUMMARY | 2025-05-18 09:03 | XMS_ITS | Patient Health Record ---
Author Organization [facility] Address [address] [place] [address] Care Team Providers Care Building Custodial Supervisor Name Role Phone Brea Cano M.D. Primary Care Provider Barry Hagen Unavailable [phone] Dul[place], Caren Unavailable Unavailable Allergies Allergen (clinical drug ingredient) Drug/Non Drug Allergy documented on EMR Reaction Allergy Type Onset Date Status lisinopril Lisinopril Unknown Drug Allergy Activ e Results Component Value Reference Range Notes Liver Panel Reviewed date:08/17/2024 06:08:26 PM Interpretation: Performing Lab:[facility], [address] [place] [phone] Notes/Report: Bilirubin Total 0.2 0.0-1.0 mg/dL Bilirubin Direct < 0.2 0.0-0.5 mg/dL Aspartate Amino Transferase 27 5-31 U/L Alanine Aminotransferase 24 0-31 U/L Total Protein 7.5 6.5-8.0 g/dL Albumin Level 4.3 3.5-5.0 g/dL Alkaline Phosphatase 68 39-117 U/L Lipase Reviewed date:08/14/2024 09:20:10 AM Interpretation: Performing Lab:[facility], [address] [place] [phone] Notes/Report: Lipase 48 8-78 U/L NM gastric emptying study (N ot yet reviewed by provider) Interpretation: Performing Lab: Notes/Report: [address] [address] Nuclear Medicine Report Signed Patient: Cano Erasmo Villanuevamen Nithin MR# : [id number] : 1955 Acct:[id number] Age/Sex: 69 / F ADM Date: 08/14/24 Loc: [facility] Attending Dr: Barry Pugh MD Ordering Physician: Barry Pugh MD Date of Service: 08/14/24 Procedure(s): NM gastric emptying study Accession Number(s): [id number] cc: Brea Cano; Barry Pugh MD EXAMINATION: VA RADIONUCLIDE SOLID FOOD GASTRIC EMPTYING 4-HOUR STUDY [...] hours 67% 4 hours 57% (normal 0%-10%) VA/VA gastric emptying study IMPRESSION: Abnormal 4-hour solid [...] 08/15/24 0709 DD/ 0757 TD/TT: 08/14/[address]: MADHAV Reason For Referral No Information Medications [...] W/U Status Risk Notes Problem Esophageal reflux (567173382) Esophageal reflux (K21.9) Active confirmed Problem Epigastric pain (15885891) Epigastric abdominal pain (R10.13) Active confirmed Problem Screening for malignant neoplasm of colon (245745008) Encounter for screening for malignant neoplasm of colon (Z12.11) Active confirmed Problem History of adenomatous polyp of colon (841578297) History of adenomatous polyp of colon (Z86.010) Active confirmed Problem Weight loss (310521383) Weight loss (R63.4) Active confirmed Problem Navarro's esophagus (521238130) 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 confirmed Problem Irritable bowel syndrome with diarrhea (807967877) Irritable bowel syndrome with diarrhea (K58.0) Active confirmed Problem Gastroesophageal reflux disease (882061180) Gastroesophageal reflux disease (K21.9) Active confirmed Problem Iron deficiency anemia (36979621) Iron deficiency anemia (D50.9) Active confirmed Problem Gastroesophageal reflux disease without esophagitis (541380979) Gastroesophageal reflux disease without esophagitis (K21.9) Active confirmed Problem History of polyp of colon (situation) (937892491) History of colon polyps (Z86.010) Active confirmed Problem Iron deficiency anemia (58121268) Iron deficiency anemia, unspecified iron deficiency anemia type (D50.9) Active confirmed Problem Navarro esophagus (490355933) 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) Active confirmed Problem Generalized abdominal pain (630848384) Abdominal pain, generalized (R10.84) Active confirmed Problem Gastroparesis due to diabetes mellitus (610564644) Gastroparesis due to secondary diabetes (E13.43) Active confirmed Problem Irritable bowel syndrome characterized by constipation (455368517) Irritable bowel syndrome with constipation (K58.1) Active confirmed Problem Diverticular disease of colon (341412596) Diverticular disease of colon (K57.30) Active confirmed Problem Diverticulosis of colon (255743461) Diverticulosis of colon (K57.30) Active confirmed Problem Retained food in stomach (K31.89) Active confirmed Problem Gastroesophageal reflux disease (788878019) Gastroesophageal reflux disease, unspecified whether esophagitis present (K21.9) Active confirmed Problem Gastroesophageal reflux disease (disorder) (359388325) Chronic GERD (K21.9) Active confirmed Problem History of adenomatous polyp of colon (451606407) History of adenomatous polyp of colon (Z86.0101) Active confirmed Vital Signs Temperature 98.6 degrees Fahrenheit 04/03/2025 Blood pressure diastolic 01 mm Hg 04/03/2025 Height 63 in 04/03/2025 Blood pressure systolic 001 mm Hg 04/03/2025 Weight 137.8 lbs 04/03/2025 BMI 24.41 kg/m2 04/03/2025 Encounters Encounter Location Date Provider Diagnosis [facility] [address] [place] [phone] 07/13/2024 Barry Pugh Epigastric abdominal pain R10.13 ; Chronic GERD K21.9 ; Retained food in stomach K31.89 and Irritable bowel syndrome with constipation K58.1 [facility] [address] [place] [phone] 04/03/2025 Barry Pugh Gastroesophageal ref lux disease, unspecified whether esophagitis present K21.9 ; Gastroparesis due to secondary diabetes E13.43 ; Irritable bowel syndrome with diarrhea K58.0 ; Retained food in stomach K31.89 and History of adenomatous polyp of colon Z86.0101 [facility] [address] [place] [phone] 09/17/2024 Barry Pugh Irritable bowel synd jimmy with constipation K58.1 [facility] [address] [place] [phone] 02/01/2025 Barry Pugh Irritable bowel synd jimmy [...] Coverage End Date [facility] [address] Attn Claims [place] [id number] SANDIEMICHELLE SCHWARTZ Self - patient is the insured Medical (General) History Medical History History ICD Code NIDDM Hypertension Hypothyroidism Denies MD,CVA,renal disease EGD with biopsies in 2006 was [...] small bowel. Gastroparesis as seen on a [facility] gastric emptying study in August 2024 Surgical History Surgery Date(Month/Year) Cholecystectomy for acalculous cholecyst itis-Dr. Paul 2022 Hysterectomy with removal of one ovary
--- OUTSIDE RECORDS SUMMARY | 2025-05-18 09:03 | XMS_ITS | Clinical Summary ---
Author Organization [facility] Address [address] [place] [address] Care Team Providers Care Business Records Manager Name Role Phone Unavailable Primary Care Provider [...] Drug Screen 07/11/2024 Depression Annual Screen 07/11/2024 [id number] ( season) 2025 021, 09/23/2020 Imm-Influenza (#1) 2025 04/07/2020, 1 07/29/2018, 03/27/2018, Additional history exists Insurance [facility] JAME EID [facility]
--- OUTSIDE RECORDS SUMMARY | 2025-05-18 09:03 | XMS_ITS | Encounter Summary ---
Author Organization [employer] Address [address] [place] [address] 7t [place] [address] Care Team Providers Care Gerontology Aide Name Role Phone Brea Cano MD Primary Care Provider [phone] Reason for Visit * Reason Comments Med Refill Encounter Details Date Type Department Care Team (Late st Contact Info) Description 02/22/2023 Refill [facility] MEDICINE [address] [place], [place] [phone] Brea Cano MD [address] [place], [place] [phone] Social History Tobacco Use Types Packs/Day Years [...] documented as of this encounter Care Teams Gerontology Aide Relationship Specialty Start Date End Date Brea Cano MD [address] [place] [address] PCP - General Family Medicine 03/03/22 documented as of this encounter
--- OUTSIDE RECORDS SUMMARY | 2025-05-18 09:03 | XMS_ITS | Encounter Summary ---
Author Organization [employer] Address [address] [place] [address] 7t [place] [address] Care Team Providers Care Tar Kettle Runner Name Role Phone Brea Cano MD Primary Care Provider [phone] Encounter Details Date Type Department Care Team (Late st Contact Info) Description 03/16/2023 Orders Only [facility] MEDICINE [address] [place] [address] Provider, Denisse, Social History Tobacco Use Types [...] documented as of this encounter Care Teams Tar Kettle Runner Relationship Specialty Start Date End Date Brea Cano MD [address] [place] [address] PCP - General Family Medicine 03/03/22 documented as of this encounter
--- OUTSIDE RECORDS SUMMARY | 2025-05-18 09:03 | XMS_ITS | Encounter Summary ---
Author Organization [employer] Address [address] [place] [address] [address] [place] [address] Care Team Providers Care Senior Sql Server Dba Name Role Phone Brea Cano MD Primary Care Provider [phone] Encounter Details Date Type Department Care Team (Latest Contact Info) Description 01/25/2022 Abstract [facility] CONVERSIONS Dental, Provider, DDS Social History [...] on filedocumented in this encounter Care Teams Senior Sql Server Dba Relationship Specialty Start Date End Date Brea Cano MD [address] [place] [address] PCP - General Family Medicine 03/03/22 documented as of this encounter
== END 2025-05-18 09:01 | disposition home or self-care (01) ==
LOC: HO.CT 09:00
PROVIDERS: PCP General Practice; Visit Provider Registered Nurse
DX: G43.009 Migraine without aura, not intractable, without status migrainosus (principal)
CPT/HCPCS: 70450

== ENCOUNTER → 2025-05-18 09:01 | Outpatient (BNV) | payer OTHER, SELFPAY | PROVIDERS: PCP General Practice; Visit Provider Radiology Diagnostic Radiology | DX: G43.009 Migraine without aura, not intractable, without status migrainosus (principal) | CPT/HCPCS: 70450 ==